=== PATIENT | female | born 2000 | race Caucasian/White ===

== ENCOUNTER 2023-03-27 12:16 | Outpatient (OUT) | payer OTHER, SELFPAY ==
[2023-03-27 13:30] LABS: HCG Quantitative 110 mIU/mL
== END 2023-03-27 12:17 | disposition home or self-care (01) ==
LOC: LAB 12:19
PROVIDERS: Visit Provider Obstetrics & Gynecology
DX: N92.5 Other specified irregular menstruation (principal)
CPT/HCPCS: 36415; 84702

== ENCOUNTER 2023-04-10 17:48 | Emergency (ER) | payer OTHER, SELFPAY ==
[2023-04-10 17:53] VITALS: BP 124/74; PULSE 110; RESP 16; TEMP 36.8; O2SAT 98; BMI 21.6
--- NOTE | 2023-04-10 18:02 | PC.NURSE ---
First pills taken are called Mifepristone and the second pills are called Misoprostol. Pt states she was told there would be alot of bleeding but states she hasn't had as much bleeding as expected. Pt also called the clinic nurse as instructed about the amount of bleeding and was told that bc she was only 5 wks preg there may not be tons of bleeding but she should go to the ER to be checked out.
--- NOTE | 2023-04-10 18:11 | US_ITS ---
The [address] [address] Patient Name: LEONORA MARCUM MRN: [id number] date: 2000 Sex: F Assigned Patient Location: ER Current Patient Location: ER Accession/Order Number: [id number] Exam Date: 04/10/2023 18:12 Report Date: 04/10/2023 19:30 At the request of: KAMI COLIN Procedure: US OB transvaginal US OB transvaginal HISTORY: retained fetus after pill COMPARISONS: None TECHNIQUE: Real-time sonography of the pelvis was performed. FINDINGS: UTERUS: Normal in size and echogenicity. The uterus measures 7.2 x 4.4 cm. MYOMETRIUM:Unremarkable. ENDOMETRIUM: There is no evidence of retained products of conception within the endometrium. The endometrial canal is slightly heterogeneous. The endometrium measures9 mm which is within normal range. RIGHT OVARY: Within normal limits without suspicious masses or cyst. There is normal blood flow. The right ovary measures 2.1 x 1.7 x 1.4 cm. LEFT OVARY: Within normal limits without suspicious masses or cyst. There is normal blood flow. The left ovary measures 2.1 x 2.0 x 2.1 cm. OTHER:There is no significant free fluid in the pelvis. There is no gestational sac, pole or heartbeat. US/US OB transvaginal IMPRESSION: No gestational sac, pole or heartbeat. While the endometrium is slightly heterogeneous, it is not abnormally thickened, and there is no evidence of retained products of conception. Electronically authenticated by: PHILLIP FLOWER Date: 04/10/2023 19:30
--- NOTE | 2023-04-10 18:11 | ECG_ITS ---
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
--- NOTE | 2023-04-10 18:14 | ED_ITS ---
HPI - General Adult General Chief complaint: Urogenital-Female Stated complaint: POST OP COMPLICATIONS Time Seen by Provider: 04/10/23 17:51 Source: patient Mode of arrival: walk-in History of Present Illness HPI narrative: patient is a 22-year-old female who presents to the emergency department for variety of complaints. Patient states she has a five week , she was given an pill from [facility] locally. She took the two pills and states that her paperwork says that she should have heavy bleeding. She has not had any significant bleeding. She states she is concerned something is wrong. She has been feeling anxious and she is tearful at initial interview. She further complains of head pressure, chest pressure, epigastric abdominal pain, nausea, low back pain, lightheadedness. No other medications taken prior to arrival. She has an appointment tomorrow morning with her CORRECTIVE THERAPIST became to the emergency department because she thought that he may be present in the hospital. Related Data Previous Rx's Medication Instructions Recorded ondansetron 4 mg disintegrating 4 mg PO Q6H PRN nausea and 04/10/23 tablet vomiting #12 tabs Allergies Allergy/AdvReac Type Severity Reaction Status Date / Time Penicillins Allergy Severe Verified 04/10/23 17:52 Review of Systems ROS Constitutional Denies: fever or chills Ears, nose, mouth, and throat Denies: throat pain Cardiovascular Reports: chest pain; Denies: palpitations Respiratory Reports: shortness of breath; Denies: cough Gastrointestinal Reports: abdominal pain and nausea; Denies: vomiting Genitourinary Denies: painful urination Musculoskeletal Reports: back pain; Denies: neck pain Integumentary/Breast Denies: rash Neurological Reports: headache Psychiatric Reports: anxiety Exam Narrative Exam Narrative: Gen.: Awake, alert, in no distress, tearful Head: Normocephalic, atraumatic ENT: Moist mucous membranes Respiratory: No respiratory distress, lungs clear bilaterally Cardio: Regular rate and rhythm Gastrointestinal: Abdomen is soft, nondistended and nontender to palpation Extremities: Moves extremities equally, no injuries noted Psych: Normal mood and affect Neuro: No focal neuro deficit Skin: Warm, dry, intact Constitutional Vital Signs, click to edit/add: Last Vital Signs Temp 98.2 F 04/10/23 17:53 Pulse 110 H 04/10/23 17:53 Resp 16 04/10/23 17:53 BP 124/74 H 04/10/23 17:53 Pulse Ox 98 04/10/23 17:53 O2 Del Method Room Air 04/10/23 17:53 Course Vital Signs Vital signs: Vital Signs Temperature 98.2 F 04/10/23 17:53 Pulse Rate 110 H 04/10/23 17:53 Respiratory Rate 16 04/10/23 17:53 Blood Pressure 124/74 H 04/10/23 17:53 Pulse Oximetry 98 04/10/23 17:53 Oxygen Delivery Method Room Air 04/10/23 17:53 Temperature 98.2 F 04/10/23 17:53 Pulse Rate 110 H 04/10/23 17:53 Respiratory Rate 16 04/10/23 17:53 Blood Pressure 124/74 H 04/10/23 17:53 Pulse Oximetry 98 04/10/23 17:53 Oxygen Delivery Method Room Air 04/10/23 17:53 Medical Decision Making MDM Narrative Medical decision making narrative: because of the patient's multitude of complaints, an EKG, lab studies and urine specimen were ordered with ultrasound of the pelvis. Labs are unremarkable, patient treated with Zofran in the Emergency Room. EKG, troponin are normal and ultrasound of the pelvis shows no evidence of retained products of conception or retained tissue. patient was given education and reassurance. She is discharged home to follow-up with CORRECTIVE THERAPIST tomorrow as scheduled and return to the Emergency Room if symptoms change or worsen. Zofran given for home. Medical Records Medical records reviewed: Yes I reviewed the patient's medical records Lab Data Lab results reviewed: Yes I reviewed the patient's lab results Labs: Lab Results 04/10/23 04/10/23 Range/Units 18:20 18:25 WBC 7.8 (4.0-11.0) 10^3/uL RBC 4.48 (4.20-5.40) 10^6/uL Hgb 12.6 (12.0-16.0) g/dL Hct 37.2 (36.0-48.0) % MCV 83.0 (81.0-99.0) fL MCH 28.1 (26.7-34.0) pg MCHC 33.9 (29.9-35.2) g/dL RDW 13.2 (11.0-15.0) % Plt Count 229 (150-450) 10^3/uL MPV 10.1 (9.5-13.5) fL Neut % (Auto) 69.0 (43.0-75.0) % Lymph % (Auto) 22.1 (20.5-60.0) % [place] % (Auto) 7.9 (1.7-12.0) % Eos % (Auto) 0.4 L (0.9-7.0) % Baso % (Auto) 0.3 (0.2-2.0) % Neut # (Auto) 5.4 (1.4-6.5) 10^3/uL Lymph # (Auto) 1.7 (1.2-3.8) 10^3/uL [place] # (Auto) 0.6 (0.3-0.8) 10^3/uL Eos # (Auto) 0.0 (0.0-0.7) 10^3/uL Baso # (Auto) 0.0 (0.0-0.1) 10^3/uL Abs Immat Gran (auto) 0.02 (0.00-0.03) 10^3/uL Imm/Tot Granulo (auto) 0.3 (0.0-0.5) % Sodium 139 (136-145) mmol/L Potassium 3.4 L (3.5-5.1) mmol/L Chloride 105 (98-107) mmol/L Carbon Dioxide 23.4 (21.0-32.0) mmol/L Anion Gap 14.0 BUN 6.0 L (7.0-18.0) mg/dL Creatinine 0.63 (0.55-1.02) mg/dL Est GFR ( Amer) >60 (>=60) Est GFR (Non-Af Amer) >60 (>=60) BUN/Creatinine Ratio 9.5 Glucose 94 (74-106) mg/dL Calcium 8.6 (8.5-10.1) mg/dL Total Bilirubin 0.5 (0.2-1.0) mg/dL AST 13 L (15-37) U/L ALT 14 (14-59) U/L Alkaline Phosphatase 58 (46-116) U/L Troponin I High Sens <4.0 L (4.0-51.3) pg/mL Total Protein 7.4 (6.4-8.2) g/dL Albumin 4.2 (3.4-5.0) g/dL Globulin 3.2 g/dL Albumin/Globulin Ratio 1.3 Lipase 52.0 L (73.0-393.0) U/L Urine Color Yellow (YELLOW) Urine Clarity Clear (CLEAR) Urine pH 6.0 (5.0-9.0) Ur Specific [place] >=1.030 A (1.005-1.025) Urine Protein 100 A (NEG/TRACE) mg/dL Urine Glucose (UA) Negative (NEGATIVE) mg/dL Urine Ketones 15 A (NEGATIVE) mg/dL Urine Occult Blood Moderate A (NEGATIVE) Urine Nitrite Negative (NEGATIVE) Urine Bilirubin Small A (NEGATIVE) Urine Urobilinogen 0.2 (0.2-1.0) EU/dL Ur Leukocyte Esterase Negative (NEGATIVE) Urine RBC 5-10 A (0-2) #/HPF Urine WBC None seen (NONE SEEN) #/HPF Ur Squamous Epith Cells Few A (NONE/RARE) #/LPF Urine Crystals None seen (None Seen) #/HPF Urine Bacteria None seen (NONE SEEN) #/HPF Urine Casts None seen (NONE SEEN) #/LPF Urine Mucus Moderate A (NONE SEEN) Ur Culture Indicated? No Imaging Data US pelvis: Radiologist's impression: Procedure: US OB transvaginal US OB transvaginal HISTORY: retained fetus after pill COMPARISONS: None TECHNIQUE: Real-time sonography of the pelvis was performed. FINDINGS: UTERUS: Normal in size and echogenicity. The uterus measures 7.2 x 4.4 cm. MYOMETRIUM:Unremarkable. ENDOMETRIUM: There is no evidence of retained products of conception within the endometrium. The endometrial canal is slightly heterogeneous. The endometrium measures9 mm which is within normal range. RIGHT OVARY: Within normal limits without suspicious masses or cyst. There is normal blood flow. The right ovary measures 2.1 x 1.7 x 1.4 cm. LEFT OVARY: Within normal limits without suspicious masses or cyst. There is normal blood flow. The left ovary measures 2.1 x 2.0 x 2.1 cm. OTHER:There is no significant free fluid in the pelvis. There is no gestational sac, pole or heartbeat. IMPRESSION: No gestational sac, pole or heartbeat. While the endometrium is slightly heterogeneous, it is not abnormally thickened, and there is no evidence of retained products of conception. Electronically authenticated by: PHILLIP FLOWER Date: 04/10/2023 19:30 ECG Data Attestation: I personally reviewed and interpreted this ECG as follows: (normal sinus rhythm at a rate of eighty-four, occasional PACs, no acute ST elevation. EKG reviewed by attending physician) Discharge Plan Discharge Chief Complaint: Urogenital-Female Clinical Impression: Complete , Nausea Patient Disposition: Home, Self-Care Time of Disposition Decision: 19:47 Condition: Good Prescriptions / Home Meds: New ondansetron 4 mg tablet,disintegrating 4 mg PO Q6H PRN (Reason: nausea and vomiting) Qty: 12 0RF Instructions: Miscarriage (ED), Acute Nausea and Vomiting (ED) Stand Alone Forms: Portal Instructions Referrals: [facility] [Primary Care Provider] - 1 week
[2023-04-10 18:31] LABS: Basophils Percent Auto 0.3 % (0.2-2.0); Eosinophils Percent Auto 0.4 % (0.9-7.0); Hematocrit 37.2 % (36.0-48.0); Hemoglobin 12.6 g/dL (12.0-16.0); Immature Granulocytes Abs Auto 0.02 10^3/uL (0.00-0.03); Immature Granulocytes Pct Auto 0.3 % (0.0-0.5); Lymphocytes Absolute Auto 1.7 10^3/uL (1.2-3.8); Lymphocytes Percent Auto 22.1 % (20.5-60.0); Mean Corpuscular HGB Conc 33.9 g/dL (29.9-35.2); Mean Corpuscular Hemoglobin 28.1 pg (26.7-34.0); Mean Platelet Volume 10.1 fL (9.5-13.5); Monocytes Absolute Auto 0.6 10^3/uL (0.3-0.8); Monocytes Percent Auto 7.9 % (1.7-12.0); Neutrophils Absolute Auto 5.4 10^3/uL (1.4-6.5); Platelet Count 229 10^3/uL (150-450); Red Blood Count 4.48 10^6/uL (4.20-5.40); Red Cell Distribution Width 13.2 % (11.0-15.0); White Blood Count 7.8 10^3/uL (4.0-11.0)
[2023-04-10 18:32] LABS: Bilirubin Urine SMALL (NEGATIVE); Blood Urine MODERATE (NEGATIVE); Clarity Urine CLEAR (CLEAR); Color Urine YELLOW (YELLOW); Glucose Urine UA NEGATIVE (NEGATIVE); Ketones Urine 15 mg/dL (NEGATIVE); Leukocyte Esterase Urine NEGATIVE (NEGATIVE); Nitrite Urine NEGATIVE (NEGATIVE); Protein Urine 100 mg/dL (NEG/TRACE); Specific Gravity Urine >=1.030 (1.005-1.025); Urobilinogen Urine 0.2 EU/dL (0.2-1.0)
[2023-04-10 18:33] LABS: Urine Microscopic Indicated YES
[2023-04-10 18:45] LABS: Bacteria Urine NONE SEEN #/HPF (NONE SEEN); Cast Seen? NONE SEEN #/LPF (NONE SEEN); Crystals Seen? None Seen #/HPF (None Seen); Mucus Urine MODERATE (NONE SEEN); Squamous Epithelial Cell Urine FEW #/LPF (NONE/RARE); Urine Culture Indicated NO; WBC Urine NONE SEEN #/HPF (NONE SEEN)
[2023-04-10 18:57] LABS: Alanine Aminotransferase 14 U/L (14-59); Albumin Globulin Ratio 1.3; Albumin Level 4.2 g/dL (3.4-5.0); Alkaline Phosphatase 58 U/L (46-116); Aspartate Amino Transferase 13 U/L (15-37); BUN Creatinine Ratio 9.5; Bilirubin Total 0.5 mg/dL (0.2-1.0); Calcium 8.6 mg/dL (8.5-10.1); Carbon Dioxide 23.4 mmol/L (21.0-32.0); Chloride 105 mmol/L (98-107); Estimated GFR (African America >60 (>=60); Estimated GFR (Non-African Ame >60 (>=60); Globulin 3.2 g/dL; Glucose 94 mg/dL (74-106); Potassium 3.4 mmol/L (3.5-5.1); Sodium 139 mmol/L (136-145); Total Protein 7.4 g/dL (6.4-8.2); Troponin I High Sensitivity <4.0 pg/mL (4.0-51.3)
== END 2023-04-10 19:57 | disposition home or self-care (01) ==
PROVIDERS: Physician Assistant; Emergency Provider Emergency Medicine
DX: O03.9 Complete or unspecified spontaneous abortion without complication (principal); R11.0 Nausea
CPT/HCPCS: 36415; 76817; 80053; 81003; 81015; 83690; 84484; 85025; 93005; 99285

== ENCOUNTER 2023-04-13 16:32 | Outpatient (OUT) | payer OTHER, SELFPAY ==
[2023-04-13 17:07] LABS: HCG Quantitative 210 mIU/mL
== END 2023-04-13 16:33 | disposition home or self-care (01) ==
PROVIDERS: Visit Provider Obstetrics & Gynecology
DX: Z39.2 Encounter for routine postpartum follow-up (principal)
CPT/HCPCS: 36415; 84702

== ENCOUNTER 2023-04-14 08:53 | Emergency (ER) | payer OTHER, SELFPAY ==
[2023-04-14 09:00] VITALS: BP 112/75; PULSE 106; RESP 16; TEMP 37.2; O2SAT 98; BMI 21.5
--- NOTE | 2023-04-14 09:34 | US_ITS ---
[address] [address] Patient Name: LEONORA MARCUM MRN: [id number] date: 2000 Sex: F Assigned Patient Location: ER Current Patient Location: ER Accession/Order Number: [id number] Exam Date: 04/14/2023 09:35 Report Date: 04/14/2023 10:27 At the request of: SHAYY SUTTON Procedure: US pelvis transvaginal EXAMINATION: US pelvis transvaginal HISTORY: left pelvic pain COMPARISON: Ultrasound OB transvaginal 04/10/2023 TECHNIQUE: Transabdominal and/or transvaginal sonographic examination was performed as indicated by examination type. FINDINGS: UTERUS: Normal size and appearance. Uterus size: 8.7 x 4.4 x 5.4 cm ENDOMETRIUM: Normal homogeneous appearance. Endometrial thickness: 5 mm RIGHT OVARY: Normal size and appearance. Duplex Doppler demonstrates normal waveform and flow; resistive index 0.6. Ovary size: 1.7 x 2.3 x 1.7 cm LEFT OVARY: Contains a 1.6 cm thick-walled cysts suggestive of a corpus lutein cyst. Duplex Doppler demonstrates normal waveform and flow; resistive index 0.5. Ovary size: 2.1 x 3.0 x 2.4 cm CUL-DE-SAC: Unremarkable. No significant free fluid. BLADDER: Unremarkable. OTHER: None. US/US pelvis transvaginal IMPRESSION: 1. Left ovary contains a 3.0 cm cyst. The thickened wall suggestive of a corpus lutein cyst. (Left ovary is better seen on today's study compared to prior study.) 2. Unremarkable uterus, endometrium, right ovary, and adnexa. Electronically authenticated by: HERRERA HUERTA Date: 04/14/2023 10:27
--- NOTE | 2023-04-14 09:37 | ED.GENADUL1 ---
HPI - General Adult General Chief complaint: OB/Uterine Contractions Stated complaint: PRENANCY ISSUES Time Seen by Provider: 04/14/23 09:30 Source: patient Mode of arrival: walk-in Limitations: no limitations History of Present Illness HPI narrative: Patient is a 22-year-old female who is presenting with left-sided pelvic/ovarian pain. Patient had a miscarriage last weekend, patient is a . Patient saw Dr. Soria in the office on Monday and had laboratory done yesterday. Patient's ultrasound showed a complete on Monday. Patient has had ovarian cysts in the past. Patient stated her pain is new today, to the left pelvic side. Patient's had ovarian cysts in the past. Patient is struggling with the complete miscarriage as well, slightly anxious, not suicidal, not homicidal. Patient is very active in discussion, cannot control, I contacted, holding her baby at bedside is sitting up and looks very well and playful. Patient has no headache or neck pain. No chest pain or shortness of breath. Patient has left-sided pelvic pain, no urinary frequency, urgency or burning. No bowel or bladder changes. Patient stated she had darker stool today, small hard balls of stool a few days ago, loose stool yesterday and today. Patient has no other acute complaints. . All systems are negative except as noted/marked. All systems reviewed and otherwise negative. . Nurses note and vital signs reviewed and patient is not hypoxic. General: The patient appears well and in no apparent distress. Patient is resting comfortably on cart. Patient is not toxic, lethargic, or listless Skin: Warm, dry, no pallor noted. There is no rash noted. No petechiae, purpura. Head: Normocephalic, atraumatic Eye: Normal conjunctiva, no drainage, EOMI. PERRL Ears, Nose, Mouth, and Throat: oral mucosa is moist. Nares patent. Cardiovascular: Regular Rate and Rhythm, no murmur, gallop, rub Respiratory: Patient is in no distress, no accessory muscle use, lungs are clear to auscultation, no wheezing, rales or rhonchi Back: non-tender, no CVA tenderness bilaterally to percussion. No CT LS midline pain GI: soft, Bowel sounds ?4, mild to moderate left suprapubic tenderness to palpation, some lower left ovary, no guarding, rebound, rigidity. No flank pain bilateral. No rash. Otherwise, no tenderness to palpation, no masses appreciated. No rebound, guarding, or rigidity noted. No flank pain bilateral, No distention Musculoskeletal: Patient has full range of motion of all of the extremities, no motor, sensory, or focal neurological deficits Neurological: A&O x3, normal speech Psychiatric: Cooperative Related Data Previous Rx's Medication Instructions Recorded ondansetron 4 mg disintegrating 4 mg PO Q6H PRN nausea and 04/10/23 tablet vomiting #12 tabs Allergies Allergy/AdvReac Type Severity Reaction Status Date / Time Penicillins Allergy Severe Verified 04/10/23 17:52 PFSH PFSH Social History Smoking status: Never smoker Exam Constitutional Vital Signs, click to edit/add: Last Vital Signs Temp 98.9 F 04/14/23 09:00 Pulse 59 L 04/14/23 11:11 Resp 16 04/14/23 11:11 BP 103/63 04/14/23 11:11 Pulse Ox 99 04/14/23 11:11 O2 Del Method Room Air 04/14/23 09:00 Course Vital Signs Vital signs: Vital Signs Temperature 98.9 F 04/14/23 09:00 Pulse Rate 106 H 04/14/23 09:00 Respiratory Rate 16 04/14/23 09:00 Blood Pressure 112/75 04/14/23 09:00 Pulse Oximetry 98 04/14/23 09:00 Oxygen Delivery Method Room Air 04/14/23 09:00 Temperature 98.9 F 04/14/23 09:00 Pulse Rate 59 L 04/14/23 11:11 Respiratory Rate 16 04/14/23 11:11 Blood Pressure 103/63 04/14/23 11:11 Pulse Oximetry 99 04/14/23 11:11 Oxygen Delivery Method Room Air 04/14/23 09:00 Medical Decision Making [facility] Narrative Medical decision making narrative: EXAMINATION: US pelvis transvaginal HISTORY: left pelvic pain COMPARISON: Ultrasound OB transvaginal 04/10/2023 TECHNIQUE: Transabdominal and/or transvaginal sonographic examination was performed as indicated by examination type. FINDINGS: UTERUS: Normal size and appearance. Uterus size: 8.7 x 4.4 x 5.4 cm ENDOMETRIUM: Normal homogeneous appearance. Endometrial thickness: 5 mm RIGHT OVARY: Normal size and appearance. Duplex Doppler demonstrates normal waveform and flow; resistive index 0.6. Ovary size: 1.7 x 2.3 x 1.7 cm LEFT OVARY: Contains a 1.6 cm thick-walled cysts suggestive of a corpus lutein cyst. Duplex Doppler demonstrates normal waveform and flow; resistive index 0.5. Ovary size: 2.1 x 3.0 x 2.4 cm CUL-DE-SAC: Unremarkable. No significant free fluid. BLADDER: Unremarkable. OTHER: None. IMPRESSION: 1. Left ovary contains a 3.0 cm cyst. The thickened wall suggestive of a corpus lutein cyst. (Left ovary is better seen on today's study compared to prior Patient's urine shows more ketones, patient increase fluids today and tomorrow. No acute abnormalities and ultrasound concerning uterus, no ovarian torsion. Patient will continue to follow up with Dr. Soria as scheduled. Mother bedside. Mother has been tying patient to drink more liquids as well. No questions at discharge. Lab Data Lab results reviewed: Yes I reviewed the patient's lab results Labs: Lab Results 04/14/23 Range/Units 10:45 Urine Color Yellow (YELLOW) Urine Clarity Clear (CLEAR) Urine pH 6.5 (5.0-9.0) Ur Specific [place] 1.015 (1.005-1.025) Urine Protein Negative (NEG/TRACE) mg/dL Urine Glucose (UA) Negative (NEGATIVE) mg/dL Urine Ketones >=80 A (NEGATIVE) mg/dL Urine Occult Blood Moderate A (NEGATIVE) Urine Nitrite Negative (NEGATIVE) Urine Bilirubin Negative (NEGATIVE) Urine Urobilinogen 2.0 A (0.2-1.0) EU/dL Ur Leukocyte Esterase Negative (NEGATIVE) Urine RBC 2-5 A (0-2) #/HPF Urine WBC None seen (NONE SEEN) #/HPF Ur Squamous Epith Cells Moderate A (NONE/RARE) #/LPF Urine Crystals None seen (None Seen) #/HPF Urine Bacteria Trace A (NONE SEEN) #/HPF Urine Casts None seen (NONE SEEN) #/LPF Urine Mucus Small A (NONE SEEN) Ketones have increased today from several days ago, patient had 15 ketones. Discharge Plan Discharge Chief Complaint: OB/Uterine Contractions Clinical Impression: Pelvic pain, Left ovarian cyst, Dehydration Patient Disposition: Home, Self-Care Condition: Good Prescriptions / Home Meds: No Action ondansetron 4 mg tablet,disintegrating 4 mg PO Q6H PRN (Reason: nausea and vomiting) Qty: 12 0RF Instructions: Ovarian Cyst (ED), Dehydration (ED), Pelvic Pain (ED) Additional Instructions: Increase fluids, drink 1 gallon of water today and tomorrow, follow-up with PCP and Dr. Soria as needed. Use Tylenol as needed for pain Stand Alone Forms: Portal Instructions Referrals: [facility] [Primary Care Provider] - 1 week
[2023-04-14 10:55] LABS: Bilirubin Urine NEGATIVE (NEGATIVE); Blood Urine MODERATE (NEGATIVE); Clarity Urine CLEAR (CLEAR); Color Urine YELLOW (YELLOW); Glucose Urine UA NEGATIVE (NEGATIVE); Ketones Urine >=80 mg/dL (NEGATIVE); Leukocyte Esterase Urine NEGATIVE (NEGATIVE); Nitrite Urine NEGATIVE (NEGATIVE); Protein Urine NEGATIVE (NEG/TRACE); Specific Gravity Urine 1.015 (1.005-1.025); pH Urine 6.5 (5.0-9.0)
[2023-04-14 11:03] LABS: Bacteria Urine TRACE #/HPF (NONE SEEN); Mucus Urine SMALL (NONE SEEN); Squamous Epithelial Cell Urine MODERATE #/LPF (NONE/RARE); WBC Urine NONE SEEN #/HPF (NONE SEEN)
[2023-04-14 11:04] LABS: Cast Seen? NONE SEEN #/LPF (NONE SEEN); Crystals Seen? None Seen #/HPF (None Seen)
[2023-04-14 11:11] VITALS: BP 103/63; PULSE 59; RESP 16; O2SAT 99
== END 2023-04-14 11:34 | disposition home or self-care (01) ==
PROVIDERS: Emergency Provider Emergency Medicine
DX: E86.0 Dehydration (principal); R10.2 Pelvic and perineal pain; N83.202 Unspecified ovarian cyst, left side
CPT/HCPCS: 76830; 81001; 99284

== ENCOUNTER 2023-04-20 13:26 | Outpatient (OUT) | payer OTHER, SELFPAY ==
[2023-04-20 14:15] LABS: HCG Quantitative 17 mIU/mL
== END 2023-04-20 13:27 | disposition home or self-care (01) ==
LOC: LAB 13:28
PROVIDERS: Visit Provider Obstetrics & Gynecology
DX: Z39.2 Encounter for routine postpartum follow-up (principal)
CPT/HCPCS: 36415; 84702

== ENCOUNTER 2023-04-28 11:28 | Outpatient (RCR) | payer OTHER, SELFPAY ==
[2023-04-28 12:21] LABS: HCG Quantitative 2 mIU/mL
== END 2023-05-18 17:49 | disposition home or self-care (01) ==
LOC: LAB 11:28
PROVIDERS: Visit Provider Obstetrics & Gynecology
DX: Z39.2 Encounter for routine postpartum follow-up (principal)
CPT/HCPCS: 36415; 84702

== ENCOUNTER 2023-05-25 09:46 | Outpatient (OUT) | payer OTHER, SELFPAY ==
[2023-05-25 10:28] LABS: Basophils Percent Auto 0.4 % (0.2-2.0); Eosinophils Percent Auto 0.8 % (0.9-7.0); Hemoglobin 12.5 g/dL (12.0-16.0); Immature Granulocytes Abs Auto 0.02 10^3/uL (0.00-0.03); Immature Granulocytes Pct Auto 0.4 % (0.0-0.5); Lymphocytes Absolute Auto 1.1 10^3/uL (1.2-3.8); Lymphocytes Percent Auto 22.2 % (20.5-60.0); Mean Corpuscular HGB Conc 33.8 g/dL (29.9-35.2); Mean Corpuscular Hemoglobin 28.9 pg (26.7-34.0); Mean Corpuscular Volume 85.6 fL (81.0-99.0); Mean Platelet Volume 10.2 fL (9.5-13.5); Monocytes Absolute Auto 0.4 10^3/uL (0.3-0.8); Monocytes Percent Auto 7.3 % (1.7-12.0); Neutrophils Absolute Auto 3.5 10^3/uL (1.4-6.5); Neutrophils Percent Auto 68.9 % (43.0-75.0); Platelet Count 179 10^3/uL (150-450); Red Blood Count 4.32 10^6/uL (4.20-5.40); White Blood Count 5.1 10^3/uL (4.0-11.0)
[2023-05-25 12:01] LABS: Thyroid Stimulating Hormone 1.883 uIU/mL (0.358-3.740)
[2023-05-25 12:49] LABS: Estimated Average Glucose 91 mg/dL; Glycohemoglobin A1C 4.8 % (4.5-6.2)
== END 2023-05-25 09:47 | disposition home or self-care (01) ==
PROVIDERS: Obstetrics & Gynecology; Visit Provider Physician Assistant
DX: R63.4 Abnormal weight loss (principal)
CPT/HCPCS: 36415; 83036; 84443; 85025

== ENCOUNTER 2023-05-25 09:50 | Outpatient (RCR) | payer OTHER, SELFPAY ==
[2023-05-25 11:56] LABS: HCG Quantitative <1 mIU/mL
== END 2023-06-19 08:32 | disposition home or self-care (01) ==
LOC: LAB 09:50
PROVIDERS: Visit Provider Obstetrics & Gynecology
DX: Z39.2 Encounter for routine postpartum follow-up (principal)
CPT/HCPCS: 36415; 84702

== ENCOUNTER 2023-05-25 10:23 | Emergency (ER) | payer OTHER, SELFPAY ==
[2023-05-25 10:35] VITALS: BP 133/82; PULSE 71; RESP 16; TEMP 36.8; O2SAT 97; BMI 20.8
--- NOTE | 2023-05-25 10:59 | CT_ITS ---
The [address] [address] Patient Name: LEONORA MARCUM MRN: [id number] date: 2000 Sex: F Assigned Patient Location: ER Current Patient Location: ER Accession/Order Number: [id number] Exam Date: 05/25/2023 11:42 Report Date: 05/25/2023 12:21 At the request of: PEARL NICKERSON Procedure: CT abdomen pelvis w con EXAM: CT abdomen pelvis w con HISTORY: abd pain COMPARISON: None. TECHNIQUE: Following intravenous administration of 100 mL of Omnipaque 300, axial soft tissue windows of the abdomen and pelvis were performed with coronal and sagittal reformats. CT dose reduction technique was used including Automated Exposure Control. Findings: ABDOMEN: The visualized portions of the liver are unremarkable. The gallbladder, spleen, pancreas, and adrenal glands are unremarkable. Unremarkable left kidney. Mild right-sided collecting system and ureteral dilatation to the level the distal ureter. No evidence of obstructing stone. There are subtle regions of urothelial enhancement. Evaluation of the bowel is limited given the absence of oral contrast. Right hemicolonic wall thickening. No bowel obstruction. The appendix is nondilated. The aorta is normal caliber. No enlarged abdominal lymph nodes or free abdominal fluid. Small fat-containing umbilicus hernia. Pelvis: Unremarkable bladder. The uterus is present and unremarkable within the limits of CT. No enlarged pelvic lymph nodes. Small amount of free pelvic fluid. No aggressive sclerotic or lytic osseous lesions. CT/CT abdomen pelvis w con IMPRESSION: 1. Mild right-sided collecting system and proximal to mid ureteral dilatation with subtle urothelial enhancement. No evidence of obstructing ureteral stone. Findings may relate to recently passed stone, obstruction or reflux. 2. Small amount of free fluid within the pelvis. 3. Left hemicolonic wall thickening may relate to lack of distention given the absence of oral contrast. Colitis is felt to be less likely but possible. Electronically authenticated by: MAVERICK HIGGINS Date: 05/25/2023 12:21
[2023-05-25 12:02] LABS: Basophils Percent Auto 0.3 % (0.2-2.0); Eosinophils Percent Auto 0.7 % (0.9-7.0); Hematocrit 37.4 % (36.0-48.0); Hemoglobin 12.4 g/dL (12.0-16.0); Immature Granulocytes Abs Auto 0.01 10^3/uL (0.00-0.03); Immature Granulocytes Pct Auto 0.2 % (0.0-0.5); Lymphocytes Absolute Auto 1.1 10^3/uL (1.2-3.8); Lymphocytes Percent Auto 18.2 % (20.5-60.0); Mean Corpuscular HGB Conc 33.2 g/dL (29.9-35.2); Mean Corpuscular Hemoglobin 28.6 pg (26.7-34.0); Mean Corpuscular Volume 86.2 fL (81.0-99.0); Mean Platelet Volume 10.6 fL (9.5-13.5); Monocytes Absolute Auto 0.5 10^3/uL (0.3-0.8); Monocytes Percent Auto 7.8 % (1.7-12.0); Neutrophils Absolute Auto 4.5 10^3/uL (1.4-6.5); Neutrophils Percent Auto 72.8 % (43.0-75.0); Platelet Count 187 10^3/uL (150-450); Red Blood Count 4.34 10^6/uL (4.20-5.40); Red Cell Distribution Width 13.1 % (11.0-15.0); White Blood Count 6.1 10^3/uL (4.0-11.0)
[2023-05-25 12:28] LABS: Alanine Aminotransferase 14 U/L (14-59); Albumin Globulin Ratio 1.1; Albumin Level 3.8 g/dL (3.4-5.0); Alkaline Phosphatase 57 U/L (46-116); Aspartate Amino Transferase 12 U/L (15-37); BUN Creatinine Ratio 13.2; Bilirubin Total 0.5 mg/dL (0.2-1.0); Calcium 8.7 mg/dL (8.5-10.1); Carbon Dioxide 25.5 mmol/L (21.0-32.0); Chloride 105 mmol/L (98-107); Estimated GFR (African America >60 (>=60); Estimated GFR (Non-African Ame >60 (>=60); Globulin 3.5 g/dL; Glucose 90 mg/dL (74-106); Potassium 3.5 mmol/L (3.5-5.1); Sodium 139 mmol/L (136-145); Total Protein 7.3 g/dL (6.4-8.2)
[2023-05-25 13:19] LABS: Bilirubin Urine NEGATIVE (NEGATIVE); Blood Urine NEGATIVE (NEGATIVE); Clarity Urine CLEAR (CLEAR); Color Urine LT. YELLOW (YELLOW); Glucose Urine UA NEGATIVE (NEGATIVE); Ketones Urine 15 mg/dL (NEGATIVE); Leukocyte Esterase Urine NEGATIVE (NEGATIVE); Nitrite Urine NEGATIVE (NEGATIVE); Protein Urine NEGATIVE (NEG/TRACE); Urobilinogen Urine 0.2 EU/dL (0.2-1.0); pH Urine 8.5 (5.0-9.0)
[2023-05-25 13:22] LABS: Urine Microscopic Indicated NO
--- NOTE | 2023-05-25 13:32 | ED.ABDPAIN1 ---
HPI - Abdominal Pain General Chief Complaint: Abdominal Pain Stated Complaint: ADOMINAL PAIN Time Seen by Provider: 05/25/23 10:58 Source: patient Mode of arrival: walk-in Limitations: no limitations History of Present Illness HPI narrative: Presents to emergency department complaining of right lower quadrant pain. Patient states the pain started 2 days ago. She denies any nausea, vomiting. She saw her INTAKE MAN this week for week again, but she also had a miscarriage 2 months ago and he ordered blood work as an outpatient. The patient came in to get the blood work done and decided to check herself out. She denies any hematuria, dysuria. She states she has a history of ovarian cysts but this feels slightly different. Patient denies any fever, chills, or cough. She denies any chest pain, shortness of breath. Denies any vaginal bleeding, discharge. She denies any trauma. She has not taking anything at home for pain. Related Data Previous Rx's Medication Instructions Recorded ondansetron 4 mg disintegrating 4 mg PO Q6H PRN nausea and 04/10/23 tablet vomiting #12 tabs Allergies Allergy/AdvReac Type Severity Reaction Status Date / Time Penicillins Allergy Severe Verified 05/25/23 10:34 Review of Systems ROS Status of ROS 10 or more systems reviewed and unremarkable except as noted in history and below [facility] Social History Smoking status: Never smoker Exam Narrative Exam Narrative: Nurses notes and vital signs reviewed and patient is not hypoxic. General: Nontoxic, Well-appearing and in no apparent distress. Skin: Warm, dry, no pallor noted. No Rash Head: Normocephalic, atraumatic. Neck: Supple, non-tender. Eye: Pupils are equal, round and EOMI. No scleral icterus. Ears, Nose, Mouth, and Throat: TM clear, no posterior oropharynx erythema or nasal mucosal hypertrophy, uvula is mid-line Oral mucosa is moist Cardiovascular: Regular Rate and Rhythm without murmur, gallop or rub. Respiratory: No accessory muscle use or respiratory distress. Lungs are clear to auscultation, no wheezing, rales or rhonchi Chest Wall: no tenderness Back: No midline thoracic or lumbar vertebral tenderness. No CVA tenderness Musculoskeletal: normal ROM, no calf or popliteal tenderness, no lower extremity edema/swelling GI: Abdomen is soft, non-distended. Normal bowel sounds. No masses appreciated. mild right lower quadrant tenderness to palpation. No rebound, guarding, or rigidity noted. Neurological: A&O x4. No cranial nerve dysfunction observed. No truncal ataxia. Moves all extremities. Sensation intact. Psychiatric: Cooperative and interactive. Normal mood and affect. Constitutional Vital Signs, click to edit/add: Last Vital Signs Temp 98.3 F 05/25/23 10:35 Pulse 71 05/25/23 10:35 Resp 16 05/25/23 10:35 BP 133/82 05/25/23 10:35 Pulse Ox 97 05/25/23 10:35 O2 Del Method Room Air 05/25/23 10:35 Course Vital Signs Vital signs: Vital Signs Temperature 98.3 F 05/25/23 10:35 Pulse Rate 71 05/25/23 10:35 Respiratory Rate 16 05/25/23 10:35 Blood Pressure 133/82 05/25/23 10:35 Pulse Oximetry 97 05/25/23 10:35 Oxygen Delivery Method Room Air 05/25/23 10:35 Temperature 98.3 F 05/25/23 10:35 Pulse Rate 71 05/25/23 10:35 Respiratory Rate 16 05/25/23 10:35 Blood Pressure 133/82 05/25/23 10:35 Pulse Oximetry 97 05/25/23 10:35 Oxygen Delivery Method Room Air 05/25/23 10:35 MDM - Abdominal Pain MDM Narrative Medical decision making narrative: Patient's blood work is unremarkable. Patient had a CT scan abdomen and pelvis done which shows mild hydroureter on the right. Patient's urinalysis does not have any signs of infection or blood. Discussed the findings with the patient. Advised could be secondary to passing a kidney stone or to reflux. She will follow up with urology regarding the findings. The patient will also follow-up with Dr. Soria. Patient did not want to have any nausea medication here. She is nontoxic, except for outpatient follow-up and treatment. At this time the patient is without objective evidence of an acute process requiring hospitalization or inpatient management. The patient has remained hemodynamically stable. No additional indication for emergent studies at this time. I answered all questions. Discussed discharge instructions including standard anticipatory guidance and what should prompt a return to the emergency department, including if they get worse are not getting better or develops any new or concerning symptoms. I've given them specific time frame in which to follow-up, and who to follow-up with. The patient demonstrates understanding. Patient is nontoxic and stable for discharge with outpatient follow-up. This note was created with the assistance of a speech recognition program. Although the intention is to generate documents that actually reflects the content of the visit, no guarantees can be provided that every mistake has been identified and corrected by editing. Differential Diagnosis Differential diagnosis: Likely abdominal pain, acute appendicitis and calculus of kidney Lab Data Attestation: I reviewed the patient's lab results. Labs: Lab Results 05/25/23 05/25/23 Range/Units 11:33 13:11 WBC 6.1 (4.0-11.0) 10^3/uL RBC 4.34 (4.20-5.40) 10^6/uL Hgb 12.4 (12.0-16.0) g/dL Hct 37.4 (36.0-48.0) % MCV 86.2 (81.0-99.0) fL MCH 28.6 (26.7-34.0) pg MCHC 33.2 (29.9-35.2) g/dL RDW 13.1 (11.0-15.0) % Plt Count 187 (150-450) 10^3/uL MPV 10.6 (9.5-13.5) fL Neut % (Auto) 72.8 (43.0-75.0) % Lymph % (Auto) 18.2 L (20.5-60.0) % [place] % (Auto) 7.8 (1.7-12.0) % Eos % (Auto) 0.7 L (0.9-7.0) % Baso % (Auto) 0.3 (0.2-2.0) % Neut # (Auto) 4.5 (1.4-6.5) 10^3/uL Lymph # (Auto) 1.1 L (1.2-3.8) 10^3/uL [place] # (Auto) 0.5 (0.3-0.8) 10^3/uL Eos # (Auto) 0.0 (0.0-0.7) 10^3/uL Baso # (Auto) 0.0 (0.0-0.1) 10^3/uL Abs Immat Gran (auto) 0.01 (0.00-0.03) 10^3/uL Imm/Tot Granulo (auto) 0.2 (0.0-0.5) % Sodium 139 (136-145) mmol/L Potassium 3.5 (3.5-5.1) mmol/L Chloride 105 (98-107) mmol/L Carbon Dioxide 25.5 (21.0-32.0) mmol/L Anion Gap 12.0 BUN 7.0 (7.0-18.0) mg/dL Creatinine 0.53 L (0.55-1.02) mg/dL Est GFR ( Amer) >60 (>=60) Est GFR (Non-Af Amer) >60 (>=60) BUN/Creatinine Ratio 13.2 Glucose 90 (74-106) mg/dL Calcium 8.7 (8.5-10.1) mg/dL Total Bilirubin 0.5 (0.2-1.0) mg/dL AST 12 L (15-37) U/L ALT 14 (14-59) U/L Alkaline Phosphatase 57 (46-116) U/L Total Protein 7.3 (6.4-8.2) g/dL Albumin 3.8 (3.4-5.0) g/dL Globulin 3.5 g/dL Albumin/Globulin Ratio 1.1 Lipase 58.0 L (73.0-393.0) U/L Urine Color Lt. yellow (YELLOW) Urine Clarity Clear (CLEAR) Urine pH 8.5 (5.0-9.0) Ur Specific [place] 1.010 (1.005-1.025) Urine Protein Negative (NEG/TRACE) mg/dL Urine Glucose (UA) Negative (NEGATIVE) mg/dL Urine Ketones 15 A (NEGATIVE) mg/dL Urine Occult Blood Negative (NEGATIVE) Urine Nitrite Negative (NEGATIVE) Urine Bilirubin Negative (NEGATIVE) Urine Urobilinogen 0.2 (0.2-1.0) EU/dL Ur Leukocyte Esterase Negative (NEGATIVE) Discharge Plan Discharge Chief Complaint: Abdominal Pain Clinical Impression: Abdominal pain, Hydroureter on right Patient Disposition: Home, Self-Care Time of Disposition Decision: 13:30 Condition: Good Mode of Transportation: Private Vehicle Prescriptions / Home Meds: No Action ondansetron 4 mg tablet,disintegrating 4 mg PO Q6H PRN (Reason: nausea and vomiting) Qty: 12 0RF Instructions: Abdominal Pain (ED) Stand Alone Forms: Portal Instructions Referrals: Kapil Soria DO [Physician] - 1 week Danie Booth MD [Physician] - 1 week
== END 2023-05-25 13:43 | disposition home or self-care (01) ==
PROVIDERS: Emergency Provider Emergency Medicine
DX: Z39.2 Encounter for routine postpartum follow-up (principal); R63.4 Abnormal weight loss; R10.9 Unspecified abdominal pain; N13.4 Hydroureter
CPT/HCPCS: 36415; 74177; 80053; 81003; 83036; 83690; 84443; 84702; 85025; 99285; Q9967

== ENCOUNTER 2023-05-26 13:55 | Emergency (ER) | payer OTHER, SELFPAY ==
[2023-05-26 13:59] VITALS: BP 107/70; PULSE 106; RESP 18; TEMP 36.6; O2SAT 99
[2023-05-26 14:43] LABS: Bilirubin Urine SMALL (NEGATIVE); Blood Urine NEGATIVE (NEGATIVE); Clarity Urine CLEAR (CLEAR); Color Urine DK. YELLOW (YELLOW); Glucose Urine UA NEGATIVE (NEGATIVE); Ketones Urine 40 mg/dL (NEGATIVE); Leukocyte Esterase Urine NEGATIVE (NEGATIVE); Nitrite Urine NEGATIVE (NEGATIVE); Protein Urine 100 mg/dL (NEG/TRACE); Specific Gravity Urine >=1.030 (1.005-1.025); pH Urine 5.5 (5.0-9.0)
[2023-05-26 14:47] LABS: Urine Microscopic Indicated YES
[2023-05-26 14:59] LABS: Bacteria Urine NONE SEEN #/HPF (NONE SEEN); Mucus Urine LARGE (NONE SEEN); RBC Urine NONE SEEN #/HPF (0-2); Squamous Epithelial Cell Urine MANY #/LPF (NONE/RARE)
[2023-05-26 15:01] LABS: Urine Culture Indicated NO
--- NOTE | 2023-05-26 19:09 | ED.GENADUL1 ---
Documented by User: Gayatri Ba 05/26/23 19:12 HPI - General Adult General Chief complaint: Urogenital-Female Stated complaint: KIDNEY STONES/ABNORMAL DISCHARGE/PAIN Time Seen by Provider: 05/26/23 14:13 Source: patient Mode of arrival: walk-in Limitations: no limitations History of Present Illness HPI narrative: 22-year-old female presents here with chief complaint of possible urinary tract infection and vaginal discharge. She is alert or no acute distress. She states that she has some abdominal burning. She is otherwise healthy no acute distress. She is not currently . Related Data Previous Rx's Medication Instructions Recorded ondansetron 4 mg disintegrating 4 mg PO Q6H PRN nausea and 04/10/23 tablet vomiting #12 tabs cephalexin 500 mg capsule 500 mg PO BID 7 days #14 caps 05/26/23 Allergies Allergy/AdvReac Type Severity Reaction Status Date / Time Penicillins Allergy Severe Verified 05/25/23 10:34 Review of Systems ROS Narrative All Systems are negative except as noted/marked.All systems reviewed and otherwise negative PFSH PFSH Social History Smoking status: Current every day smoker Exam Narrative Exam Narrative: Nurses note and vital signs reviewed and patient is not hypoxic. General: The patient appears well and in no apparent distress. Patient is resting comfortably on cart. Skin: Warm, dry, no pallor noted. There is no rash noted. Head: Normocephalic, atraumatic Back: non-tender, no CVA tenderness bilaterally to percussion. GI: exam declinedNormal bowel sounds, no tenderness to palpation, no masses appreciated. No rebound, guarding, or rigidity noted. Musculoskeletal: The patient has no evidence of calf tenderness, no pitting edema, symmetrical pulses noted bilaterally Neurological: A&O x4, normal speech Psychiatric: Cooperative Constitutional Vital Signs, click to edit/add: Last Vital Signs Temp 97.8 F 05/26/23 13:59 Pulse 106 H 05/26/23 13:59 Resp 18 05/26/23 13:59 BP 107/70 05/26/23 13:59 Pulse Ox 99 05/26/23 13:59 O2 Del Method Room Air 05/26/23 13:59 Course Vital Signs Vital signs: Vital Signs Temperature 97.8 F 05/26/23 13:59 Pulse Rate 106 H 05/26/23 13:59 Respiratory Rate 18 05/26/23 13:59 Blood Pressure 107/70 05/26/23 13:59 Pulse Oximetry 99 05/26/23 13:59 Oxygen Delivery Method Room Air 05/26/23 13:59 Temperature 97.8 F 05/26/23 13:59 Pulse Rate 106 H 05/26/23 13:59 Respiratory Rate 18 05/26/23 13:59 Blood Pressure 107/70 05/26/23 13:59 Pulse Oximetry 99 05/26/23 13:59 Oxygen Delivery Method Room Air 05/26/23 13:59 Medical Decision Making MDM Narrative Medical decision making narrative: She presented here with chief complaint of urinary symptoms. She has a scheduled appointment with her [facility]AL[facility] IMPROVEMENT SPECIALIST on Monday. She has decided to wait to have a vaginal exam performed at that appointment. Urinalysis was performed today. I will prophylactically put her on Keflex. She feels she may have urinary tract infections her symptoms bringing start with dysuria.And will follow up as scheduled with her [facility]AL[facility] IMPROVEMENT SPECIAL[facility] office on Monday in two days. Medical Records Medical records reviewed: Yes I reviewed the patient's medical records Lab Data Lab results reviewed: Yes I reviewed the patient's lab results Labs: Lab Results 05/26/23 Range/Units 14:06 Urine Color Dk. yellow (YELLOW) Urine Clarity Clear (CLEAR) Urine pH 5.5 (5.0-9.0) Ur Specific [place] >=1.030 A (1.005-1.025) Urine Protein 100 A (NEG/TRACE) mg/dL Urine Glucose (UA) Negative (NEGATIVE) mg/dL Urine Ketones 40 A (NEGATIVE) mg/dL Urine Occult Blood Negative (NEGATIVE) Urine Nitrite Negative (NEGATIVE) Urine Bilirubin Small A (NEGATIVE) Urine Urobilinogen 1.0 (0.2-1.0) EU/dL Ur Leukocyte Esterase Negative (NEGATIVE) Urine RBC None seen (0-2) #/HPF Urine WBC 2-5 A (NONE SEEN) #/HPF Ur Squamous Epith Cells Many A (NONE/RARE) #/LPF Urine Bacteria None seen (NONE SEEN) #/HPF Urine Mucus Large A (NONE SEEN) Ur Culture Indicated? No Discharge Plan Discharge Chief Complaint: Urogenital-Female Clinical Impression: Urinary tract infection Patient Disposition: Home, Self-Care Time of Disposition Decision: 19:07 Condition: Good Prescriptions / Home Meds: New cephalexin 500 mg capsule 500 mg PO BID 7 Days Qty: 14 0RF No Action ondansetron 4 mg tablet,disintegrating 4 mg PO Q6H PRN (Reason: nausea and vomiting) Qty: 12 0RF Instructions: Urinary Tract Infection in Women (ED) Stand Alone Forms: Portal Instructions Referrals: Gayatri Ba [Emergency Midlevel Provider] - 1 week (as scheduled monday) Physician,Non-Staff, [Primary Care Provider] - 1 week Discharge Date/Time: 05/26/23 19:26 Documented by User: Bridget Curtis MD 05/26/23 21:12 HPI - General Adult General Chief complaint: Urogenital-Female Stated complaint: KIDNEY STONES/ABNORMAL DISCHARGE/PAIN Time Seen by Provider: 05/26/23 14:13 Related Data Previous Rx's Medication Instructions Recorded ondansetron 4 mg disintegrating 4 mg PO Q6H PRN nausea and 04/10/23 tablet vomiting #12 tabs cephalexin 500 mg capsule 500 mg PO BID 7 days #14 caps 05/26/23 Allergies Allergy/AdvReac Type Severity Reaction Status Date / Time Penicillins Allergy Severe Verified 05/25/23 10:34 PFSH PFSH Social History Smoking status: Current every day smoker Exam Constitutional Vital Signs, click to edit/add: Last Vital Signs Temp 97.8 F 05/26/23 13:59 Pulse 106 H 05/26/23 13:59 Resp 18 05/26/23 13:59 BP 107/70 05/26/23 13:59 Pulse Ox 99 05/26/23 13:59 O2 Del Method Room Air 05/26/23 13:59 Course Vital Signs Vital signs: Vital Signs Temperature 97.8 F 05/26/23 13:59 Pulse Rate 106 H 05/26/23 13:59 Respiratory Rate 18 05/26/23 13:59 Blood Pressure 107/70 05/26/23 13:59 Pulse Oximetry 99 05/26/23 13:59 Oxygen Delivery Method Room Air 05/26/23 13:59 Temperature 97.8 F 05/26/23 13:59 Pulse Rate 106 H 05/26/23 13:59 Respiratory Rate 18 05/26/23 13:59 Blood Pressure 107/70 05/26/23 13:59 Pulse Oximetry 99 05/26/23 13:59 Oxygen Delivery Method Room Air 05/26/23 13:59 Medical Decision Making MDM Narrative Medical decision making narrative: She presented here with chief complaint of urinary symptoms. She has a scheduled appointment with her [facility]AL[facility] IMPROVEMENT SPECIALIST on Monday. She has decided to wait to have a vaginal exam performed at that appointment. Urinalysis was performed today. I will prophylactically put her on Keflex. She feels she may have urinary tract infections her symptoms bringing start with dysuria.And will follow up as scheduled with her QUAL[facility] IMPROVEMENT SPECIALIST office on Monday in two days. Attending physician attestation I have reviewed the mid-level documentation, agree with the documentation, medical decision making and treatment plan as outlined by the mid-level provider. Lab Data Labs: Lab Results 05/26/23 Range/Units 14:06 Urine Color Dk. yellow (YELLOW) Urine Clarity Clear (CLEAR) Urine pH 5.5 (5.0-9.0) Ur Specific [place] >=1.030 A (1.005-1.025) Urine Protein 100 A (NEG/TRACE) mg/dL Urine Glucose (UA) Negative (NEGATIVE) mg/dL Urine Ketones 40 A (NEGATIVE) mg/dL Urine Occult Blood Negative (NEGATIVE) Urine Nitrite Negative (NEGATIVE) Urine Bilirubin Small A (NEGATIVE) Urine Urobilinogen 1.0 (0.2-1.0) EU/dL Ur Leukocyte Esterase Negative (NEGATIVE) Urine RBC None seen (0-2) #/HPF Urine WBC 2-5 A (NONE SEEN) #/HPF Ur Squamous Epith Cells Many A (NONE/RARE) #/LPF Urine Bacteria None seen (NONE SEEN) #/HPF Urine Mucus Large A (NONE SEEN) Ur Culture Indicated? No Discharge Plan Discharge Chief Complaint: Urogenital-Female Clinical Impression: Urinary tract infection Patient Disposition: Home, Self-Care Time of Disposition Decision: 19:07 Condition: Good Prescriptions / Home Meds: New cephalexin 500 mg capsule 500 mg PO BID 7 Days Qty: 14 0RF No Action ondansetron 4 mg tablet,disintegrating 4 mg PO Q6H PRN (Reason: nausea and vomiting) Qty: 12 0RF Instructions: Urinary Tract Infection in Women (ED) Stand Alone Forms: Portal Instructions Referrals: Gayatri Ba [Emergency Midlevel Provider] - 1 week (as scheduled monday) Physician,Non-Staff, [Primary Care Provider] - 1 week Discharge Date/Time: 05/26/23 19:26
== END 2023-05-26 19:26 | disposition home or self-care (01) ==
PROVIDERS: Emergency Provider Emergency Medicine
DX: N39.0 Urinary tract infection, site not specified (principal); F17.210 Nicotine dependence, cigarettes, uncomplicated
CPT/HCPCS: 80053; 81001; 83605; 83690; 84484; 99284

== ENCOUNTER 2023-05-29 11:13 | Outpatient (OUT) | payer OTHER, SELFPAY ==
[2023-05-29 12:37] LABS: Alanine Aminotransferase 14 U/L (14-59); Albumin Globulin Ratio 1.1; Alkaline Phosphatase 57 U/L (46-116); Amylase 46 U/L (25-115); Anion Gap 11.4; Aspartate Amino Transferase 15 U/L (15-37); BUN Creatinine Ratio 15.1; Bilirubin Total 0.3 mg/dL (0.2-1.0); Calcium 8.5 mg/dL (8.5-10.1); Carbon Dioxide 25.6 mmol/L (21.0-32.0); Chloride 105 mmol/L (98-107); Estimated GFR (African America >60 (>=60); Estimated GFR (Non-African Ame >60 (>=60); Globulin 3.5 g/dL; Glucose 86 mg/dL (74-106); Sodium 138 mmol/L (136-145); Total Protein 7.5 g/dL (6.4-8.2)
== END 2023-05-29 11:14 | disposition home or self-care (01) ==
LOC: LAB 11:14
PROVIDERS: Visit Provider Physician Assistant
DX: R10.2 Pelvic and perineal pain (principal)
CPT/HCPCS: 36415; 80053; 82150

== ENCOUNTER 2023-06-17 09:55 | Emergency (ER) | payer OTHER, SELFPAY ==
[2023-06-17] VITALS (12 sets, daily range): BP systolic 100–109; BP diastolic 58–75; PULSE 63–89; RESP 12–21; TEMP 36.6; O2SAT 99–100; BMI 20.9
--- NOTE | 2023-06-17 10:08 | XR_ITS ---
The [address] [address] Patient Name: LEONORA MARCUM MRN: [id number] date: 2000 Sex: F Assigned Patient Location: ER Current Patient Location: ED.MAIN Accession/Order Number: [id number] Exam Date: 06/17/2023 10:41 Report Date: 06/17/2023 11:16 At the request of: CAITLIN SHEPARD Procedure: XR chest 2V EXAM: XR chest 2V HISTORY: Chest pain. COMPARISON: None. TECHNIQUE: PA and lateral views of the chest performed. FINDINGS: The trachea is midline. The heart size is within normal limits. The cardiomediastinal silhouette and hilar shadows are within normal limits. The lung volumes are normal. The lung dotson are clear. There is slight dextroscoliosis of the thoracic spine. The osseous structures are otherwise unremarkable. XR/XR chest 2V IMPRESSION: There is no acute cardiopulmonary process. Electronically authenticated by: SUJEY CHRISTENSEN Date: 06/17/2023 11:16
--- NOTE | 2023-06-17 10:08 | ECG_ITS ---
The [facility] Test Date: 2023-06-17 Pat Name: LEONORA MARCUM Department: Room: - Gender: Female Design Checker: : 2000 Requested By: Order Number: [id number] Reading MD: JOANNA GALVEZ Measurements Intervals [place] Rate: 62 P: 47 AK: 164 QRS: 107 QRSD: 84 T: 70 QT: 410 QTc: 416 Interpretive Statements 1100 Sinus rhythm 1102 Sinus arrhythmia 4164 [place] abnormality, possible anteroseptal ischemia 6230 Left atrial enlargement 7100 Abnormal right axis deviation 9150 abnormal ECG Compared to ECG 04/10/2023 18:14:10 Possible ischemia now present Right-axis deviation now present Electronically Signed On 06-18-2023 18:41:02 EDT by JOANNA GALVEZ
--- NOTE | 2023-06-17 10:14 | ED.CHESTPAI1 ---
HPI - Chest Pain General Chief Complaint: Chest Pain Stated Complaint: ABNORMAL EKG/TIGHTNESS IN CHEST/PAIN UNDER RIBS Time Seen by Provider: 06/17/23 10:07 Source: patient Mode of arrival: walk-in Limitations: no limitations History of Present Illness HPI narrative: Patient with one week of intermittent anterior chest tightness and occasional fast HR. Denied any actions or activities that might cause chest pain. Denied any GI/heartburn symptoms. She was evaluated at [facility] ED 2 days ago and had an irregular heart rate that settled down . She was referred to cardiology and saw her PCP the next day. her PCP ordered out-patient ECHO and GB/liver US because my PT and PTT were elevated . She admits to anxiety and gets emotional during the interview and exam, telling em that she wanted a second opinion because she is afraid something is wrong . Patient takes SSRI for anxiety and HCTZ for HTN. PMHx includes pseudoseizures. Related Data Home Medications Medication Instructions Recorded Confirmed hydroxyzine HCl 25 mg tablet 25 mg PO QID PRN anxiety 06/17/23 06/17/23 Previous Rx's Medication Instructions Recorded ondansetron 4 mg disintegrating 4 mg PO Q6H PRN nausea and 04/10/23 tablet vomiting #12 tabs cephalexin 500 mg capsule 500 mg PO BID 7 days #14 caps 05/26/23 Allergies Allergy/AdvReac Type Severity Reaction Status Date / Time Penicillins Allergy Severe Verified 05/25/23 10:34 [facility] Social History Smoking status: Never smoker Exam Narrative Exam Narrative: Nurses notes and vital signs reviewed and patient is not hypoxic. afebrile General: Well-appearing and in no apparent distress. Skin: Warm, dry, no pallor noted. No rash. Eye: Pupils are equal, round and EOMI. No scleral icterus. Cardiovascular: Regular Rate and Rhythm without murmur, gallop or rub. Respiratory: No accessory muscle use or respiratory distress. Lungs are clear to auscultation, no wheezing, rales or rhonchi Chest Wall: no tenderness Musculoskeletal: normal ROM, no calf or popliteal tenderness, no lower extremity edema/swelling GI: Abdomen is soft, non-distended. Normal bowel sounds. No masses appreciated. No tenderness to palpation. No rebound, guarding, or rigidity noted. Neurological: A&O x4. No cranial nerve dysfunction observed. No truncal ataxia. Moves all extremities. Sensation intact. Psychiatric: Cooperative and interactive. Normal mood and affect. Constitutional Vital Signs, click to edit/add: Last Vital Signs Temp 97.8 F 06/17/23 09:58 Pulse 73 06/17/23 10:30 Resp 18 06/17/23 10:30 BP 109/64 06/17/23 10:30 Pulse Ox 100 06/17/23 10:20 O2 Del Method Room Air 06/17/23 10:06 Course Vital Signs Vital signs: Vital Signs Temperature 97.8 F 06/17/23 09:58 Pulse Rate 75 06/17/23 09:58 Respiratory Rate 20 06/17/23 09:58 Blood Pressure 105/63 06/17/23 09:58 Pulse Oximetry 100 06/17/23 09:58 Oxygen Delivery Method Room Air 06/17/23 09:58 Temperature 97.8 F 06/17/23 09:58 Pulse Rate 73 06/17/23 10:30 Respiratory Rate 18 06/17/23 10:30 Blood Pressure 109/64 06/17/23 10:30 Pulse Oximetry 100 06/17/23 10:20 Oxygen Delivery Method Room Air 06/17/23 10:06 MDM - Chest Pain MDM Narrative Medical decision making narrative: Patient was placed on certified registered nurse anesthetist and EKG obtained. Blood drawn and sent for evaluation. CBC, BMP and d-dimer negative. Chest x-ray unremarkable. the patient has history of recurrent intermittent chest pressure and symptoms that suggest palpitations. She does have sinus arrhythmia on EKG which has been noted before. She had CTA as well as chest x-ray in December and they were negative. Her screening d-dimer is negative today. Her chest x-ray is unremarkable. She has no electronic abnormalities. Informed patient of her results and we discussed her diagnosis. I gave reassurance. She has outpatient follow-up scheduled with cardiology and for upper abdominal ultrasound, per her PCP. I encouraged her to keep those appointments. I reassured her that the feeling she is having are not life-threatening and she should keep her appointments for follow-up as scheduled. Medical Records Data Attestation: I reviewed the patient's medical records. Medical records narrative: [place] [facility] Apparently the patient has prior visits to this ED for similar symptoms and has non-specific EKG changes including sinus arrhythmia, rightward axis, LAE, plus findings suggesting RVH. Her HEART score was 1. She had CXR 01/11/23 and CTA chest 01/12/23. CXR 06/15/23 was negative. She was referred to Dr Andersen [place] [facility] Lab Data Attestation: I reviewed the patient's lab results. Labs: Lab Results 06/17/23 Range/Units 10:35 WBC 5.8 (4.0-11.0) 10^3/uL RBC 4.38 (4.20-5.40) 10^6/uL Hgb 12.7 (12.0-16.0) g/dL Hct 38.2 (36.0-48.0) % MCV 87.2 (81.0-99.0) fL MCH 29.0 (26.7-34.0) pg MCHC 33.2 (29.9-35.2) g/dL RDW 12.9 (11.0-15.0) % Plt Count 187 (150-450) 10^3/uL MPV 10.1 (9.5-13.5) fL Neut % (Auto) 64.3 (43.0-75.0) % Lymph % (Auto) 27.4 (20.5-60.0) % [place] % (Auto) 7.2 (1.7-12.0) % Eos % (Auto) 0.5 L (0.9-7.0) % Baso % (Auto) 0.3 (0.2-2.0) % Neut # (Auto) 3.7 (1.4-6.5) 10^3/uL Lymph # (Auto) 1.6 (1.2-3.8) 10^3/uL [place] # (Auto) 0.4 (0.3-0.8) 10^3/uL Eos # (Auto) 0.0 (0.0-0.7) 10^3/uL Baso # (Auto) 0.0 (0.0-0.1) 10^3/uL Abs Immat Gran (auto) 0.02 (0.00-0.03) 10^3/uL Imm/Tot Granulo (auto) 0.3 (0.0-0.5) % D-Dimer 0.19 (<=0.59) mg/L FEU Sodium 140 (136-145) mmol/L Potassium 4.0 (3.5-5.1) mmol/L Chloride 105 (98-107) mmol/L Carbon Dioxide 28.4 (21.0-32.0) mmol/L Anion Gap 10.6 BUN 6.0 L (7.0-18.0) mg/dL Creatinine 0.60 (0.55-1.02) mg/dL Est GFR ( Amer) >60 (>=60) Est GFR (Non-Af Amer) >60 (>=60) BUN/Creatinine Ratio 10.0 Glucose 88 (74-106) mg/dL Calcium 8.5 (8.5-10.1) mg/dL ECG Data Interpretation: EKG interpretation: Emergency Department physician interpretation. Normal sinus rhythm at 62bpm. left atrial enlargement. Rightward axis. Sinus arrhythmia noted with variation of R-R interval. T wave inversion noted in leads aVL, V1, V2, V3. No ST segment elevation or depression. Discharge Plan Discharge Chief Complaint: Chest Pain Clinical Impression: Heart palpitations, Chest pain Patient Disposition: Home, Self-Care Time of Disposition Decision: 11:09 Prescriptions / Home Meds: No Action cephalexin 500 mg capsule 500 mg PO BID 7 Days Qty: 14 0RF ondansetron 4 mg tablet,disintegrating 4 mg PO Q6H PRN (Reason: nausea and vomiting) Qty: 12 0RF hydroxyzine HCl 25 mg tablet 25 mg PO QID PRN (Reason: anxiety) Instructions: Chest Pain (ED), Heart Palpitations (ED) Stand Alone Forms: Portal Instructions Referrals: Physician,Non-Staff, MD [Primary Care Provider] - 1 week
[2023-06-17 10:44] LABS: Basophils Percent Auto 0.3 % (0.2-2.0); Eosinophils Percent Auto 0.5 % (0.9-7.0); Hematocrit 38.2 % (36.0-48.0); Hemoglobin 12.7 g/dL (12.0-16.0); Immature Granulocytes Abs Auto 0.02 10^3/uL (0.00-0.03); Immature Granulocytes Pct Auto 0.3 % (0.0-0.5); Lymphocytes Absolute Auto 1.6 10^3/uL (1.2-3.8); Lymphocytes Percent Auto 27.4 % (20.5-60.0); Mean Corpuscular HGB Conc 33.2 g/dL (29.9-35.2); Mean Corpuscular Volume 87.2 fL (81.0-99.0); Mean Platelet Volume 10.1 fL (9.5-13.5); Monocytes Absolute Auto 0.4 10^3/uL (0.3-0.8); Monocytes Percent Auto 7.2 % (1.7-12.0); Neutrophils Absolute Auto 3.7 10^3/uL (1.4-6.5); Neutrophils Percent Auto 64.3 % (43.0-75.0); Platelet Count 187 10^3/uL (150-450); Red Blood Count 4.38 10^6/uL (4.20-5.40); Red Cell Distribution Width 12.9 % (11.0-15.0); White Blood Count 5.8 10^3/uL (4.0-11.0)
[2023-06-17 10:55] LABS: Anion Gap 10.6; Calcium 8.5 mg/dL (8.5-10.1); Carbon Dioxide 28.4 mmol/L (21.0-32.0); Chloride 105 mmol/L (98-107); Estimated GFR (African America >60 (>=60); Estimated GFR (Non-African Ame >60 (>=60); Glucose 88 mg/dL (74-106); Sodium 140 mmol/L (136-145)
[2023-06-17 10:56] LABS: D Dimer 0.19 mg/L FEU (<=0.59)
[2023-06-17 12:05] LABS: INR 1.13; Prothrombin Time 11.9 sec (9.0-11.6)
--- NOTE | 2023-06-17 12:14 | PC.NURSE ---
06/17/[address] godfrey and pt updated on pt/inr results per dr godfrey in normal range. nno at this time. Low Pompa RN
--- NOTE | 2023-06-17 12:35 | PC.NURSE ---
06/17/23 1235 pt aptt results calld to pt dr epifanio solitario as well. cristina. Low Pompa RN
== END 2023-06-17 11:25 | disposition home or self-care (01) ==
PROVIDERS: Emergency Provider Emergency Medicine
DX: R07.9 Chest pain, unspecified (principal); R00.2 Palpitations; F41.9 Anxiety disorder, unspecified; I10 Essential (primary) hypertension; Z79.899 Other long term (current) drug therapy
CPT/HCPCS: 36415; 71046; 80048; 85025; 85378; 85610; 85730; 93005; 99285

== ENCOUNTER 2023-06-20 10:45 | Emergency (ER) | payer OTHER, SELFPAY ==
[2023-06-20 10:52] VITALS: BP 135/94; PULSE 93; RESP 16; TEMP 37.3; O2SAT 99; BMI 21.5
--- NOTE | 2023-06-20 11:01 | PC.NURSE ---
06/20/23 1101 pt frequent hx of chest pain with anxiety. pt states anxious taking prn axiety medication improving chest pain. pt i want to feel normal. . S Aletha RASMUSSEN
--- NOTE | 2023-06-20 11:23 | PC.NURSE ---
06/20/23 1123 PT REPORTS DIZZIZNESS IN LOBBY, PT HYPERVENTILATING, VITALS OBTAINED, HR 100 APICAL STRONG AND REGULAR, LUNGS CTA CORONADO, BP 122/95, SPO2 99 % AND R 28 1:1 WITH PT REDUCED RESPIRATIONS TO 20 AND GIVEN SIPS OF WATER, IMPROVING DIZZINESS, PT HASN'T ATE OR DRANK ANYTHING ALL DAY. PT GIVEN WATER BOTTLE AND CRACKERS FOR LOBBY. REPORTS FEELING BETTER, ENCOURAGED WILL GET ROOM SOON POSSIBLE, AND IF ANY FURTHER DISCOMFORT DEVELOPS COME GO TO REGISTRATION AND REPORT. PT ALERT AND ORIENTED, V/O. S MAURICIO RASMUSSEN
--- NOTE | 2023-06-20 11:54 | ED_ITS ---
HPI - Chest Pain General Chief Complaint: Chest Pain Stated Complaint: CHEST PAIN/PAIN SHOOTING DOWN L ARM Time Seen by Provider: 06/20/23 11:50 Source: patient Mode of arrival: walk-in Limitations: no limitations History of Present Illness HPI narrative: 22-year-old female presents for chest pain. It seems to started within the last day this time. She states she has a history of anxiety and she always thinks the worst and is worried that something really bad is wrong. She was recently at another hospital and was checked for chest pain there as well. No trauma or fever and it seems to go into her left upper arm and is continuous. Related Data Home Medications Medication Instructions Recorded Confirmed hydroxyzine HCl 25 mg tablet 25 mg PO QID PRN anxiety 06/17/23 06/17/23 Previous Rx's Medication Instructions Recorded ondansetron 4 mg disintegrating 4 mg PO Q6H PRN nausea and 04/10/23 tablet vomiting #12 tabs cephalexin 500 mg capsule 500 mg PO BID 7 days #14 caps 05/26/23 Allergies Allergy/AdvReac Type Severity Reaction Status Date / Time Penicillins Allergy Severe Verified 05/25/23 10:34 Review of Systems ROS Narrative A ten point review of systems is negative except as noted above. Psychiatric Reports: anxiety PFSH PFSH Social History Smoking status: Never smoker Exam Narrative Exam Narrative: Nurses note and vital signs reviewed and patient is not hypoxic. General: The patient appears anxious and is tearful Skin: Warm, dry, no pallor noted. There is no rash noted. Head: Normocephalic, atraumatic Eye: Normal conjunctiva, no drainage Ears, Nose, Mouth, and Throat: oral mucosa is moist. Nares patent. Mouth without vesicles. Cardiovascular: Regular Rate and Rhythm Respiratory: Patient is in no distress, no accessory muscle use, lungs are clear to auscultation, no wheezing, rales or rhonchi Back: non-tender GI: soft and nontender Musculoskeletal: The patient has no evidence of calf tenderness, no pitting edema, symmetrical pulses noted bilaterally Neurological: A&O, normal speech Psychiatric: Cooperative Constitutional Vital Signs, click to edit/add: Last Vital Signs Temp 99.2 F 06/20/23 10:52 Pulse 93 H 06/20/23 10:52 Resp 16 06/20/23 10:52 BP 135/94 H 06/20/23 10:52 Pulse Ox 99 06/20/23 10:52 O2 Del Method Room Air 06/20/23 10:52 Course Vital Signs Vital signs: Vital Signs Temperature 99.2 F 06/20/23 10:52 Pulse Rate 93 H 06/20/23 10:52 Respiratory Rate 16 06/20/23 10:52 Blood Pressure 135/94 H 06/20/23 10:52 Pulse Oximetry 99 06/20/23 10:52 Oxygen Delivery Method Room Air 06/20/23 10:52 Temperature 99.2 F 06/20/23 10:52 Pulse Rate 93 H 06/20/23 10:52 Respiratory Rate 16 06/20/23 10:52 Blood Pressure 135/94 H 06/20/23 10:52 Pulse Oximetry 99 06/20/23 10:52 Oxygen Delivery Method Room Air 06/20/23 10:52 MDM - Chest Pain MDM Narrative Medical decision making narrative: my clinical impression is that she has anxiety. I do not suspect acute coronary syndrome or pulmonary embolism. Upon recheck at 1:00 PM she seems to be asymptomatic and is able to be discharged home. Treatment diagnosis and follow- up were discussed with the patient. Differential Diagnosis Differential diagnosis: Likely pneumothorax, unstable angina pectoris, atypical chest pain, st elevation myocardial infarction, costochondritis, chest pain and other (pulmonary embolism) Lab Data Attestation: I reviewed the patient's lab results. Imaging Data Chest x-ray: Radiologist's impression: Procedure: XR chest 1V EXAMINATION: XR chest 1V HISTORY: CP COMPARISON: 06/17/23. TECHNIQUE: Portable FINDINGS: LUNGS: No significant pulmonary parenchymal abnormalities. VASCULATURE: No increased pulmonary vasculature. PLEURA: No pneumothorax, effusion, or pleural thickening. CARDIAC: No cardiomegaly or cardiac silhouette abnormality. MEDIASTINUM: No visible mass or adenopathy. BONES: No fracture or visible bone lesion. OTHER: Negative. IMPRESSION: No acute disease. Electronically authenticated by: OLGA GOINS Date: 06/20/2023 12:14 ECG Data Attestation: I personally reviewed and interpreted this ECG as follows: (EKG on my interpretation shows sinus rhythm with a rate of 88.) Discharge Plan Discharge Chief Complaint: Chest Pain Clinical Impression: Anxiety Patient Disposition: Home, Self-Care Time of Disposition Decision: 13:11 Condition: Good Mode of Transportation: Private Vehicle Prescriptions / Home Meds: No Action cephalexin 500 mg capsule 500 mg PO BID 7 Days Qty: 14 0RF ondansetron 4 mg tablet,disintegrating 4 mg PO Q6H PRN (Reason: nausea and vomiting) Qty: 12 0RF hydroxyzine HCl 25 mg tablet 25 mg PO QID PRN (Reason: anxiety) Instructions: Anxiety (ED) Stand Alone Forms: Portal Instructions Referrals: Physician,Non-Staff, MD [Primary Care Provider] - 1 week
--- NOTE | 2023-06-20 11:54 | XR_ITS ---
The [address] [address] Patient Name: LEONORA MARCUM MRN: [id number] date: 2000 Sex: F Assigned Patient Location: ER Current Patient Location: ER Accession/Order Number: [id number] Exam Date: 06/20/2023 12:02 Report Date: 06/20/2023 12:14 At the request of: ALANNAH BENJAMIN Procedure: XR chest 1V EXAMINATION: XR chest 1V HISTORY: CP COMPARISON: 06/17/23. TECHNIQUE: Portable FINDINGS: LUNGS: No significant pulmonary parenchymal abnormalities. VASCULATURE: No increased pulmonary vasculature. PLEURA: No pneumothorax, effusion, or pleural thickening. CARDIAC: No cardiomegaly or cardiac silhouette abnormality. MEDIASTINUM: No visible mass or adenopathy. BONES: No fracture or visible bone lesion. OTHER: Negative. XR/XR chest 1V IMPRESSION: No acute disease. Electronically authenticated by: OLGA GOINS Date: 06/20/2023 12:14
--- NOTE | 2023-06-20 11:54 | ECG_ITS ---
The [facility] Test Date: 2023-06-20 Pat Name: LEONORA MARCUM Department: Room: - Gender: Female [employer] Tool: : 2000 Requested By: [id number] Order Number: [id number] Reading MD: JOANNA GALVEZ Measurements Intervals [place] Rate: 88 P: 74 [place]: 150 QRS: 121 QRSD: 82 T: 33 QT: 362 QTc: 407 Interpretive Statements 1100 Sinus rhythm 4068 Nonspecific Twave abnormality 5120 Possible right ventricular hypertrophy 6120 Possible right atrial enlargement 6230 Left atrial enlargement 9150 abnormal ECG Compared to ECG 06/17/2023 10:01:27 Sinus arrhythmia no longer present Possible ischemia no longer present Right-axis deviation no longer present Electronically Signed On 06-21-2023 6:51:21 EDT by JOANNA GALVEZ
[2023-06-20 13:21] VITALS: BP 122/84; PULSE 82; RESP 18; O2SAT 100
== END 2023-06-20 13:23 | disposition home or self-care (01) ==
PROVIDERS: Emergency Provider Emergency Medicine
DX: F41.9 Anxiety disorder, unspecified (principal)
CPT/HCPCS: 71045; 93005; 99284

== ENCOUNTER 2023-09-12 17:32 | Emergency (ER) | payer OTHER, SELFPAY ==
--- NOTE | 2023-09-12 17:44 | ECG_ITS ---
The [facility] Test Date: 2023-09-12 Pat Name: LEONORA AMRCUM Department: Room: - Gender: Female [employer] Consultant: : 2000 Requested By: Jorge Alcocer Order Number: [id number] Reading MD: JOANNA GALVEZ Measurements Intervals [place] Rate: 111 P: 81 [place]: 146 QRS: 124 QRSD: 74 T: 27 QT: 326 QTc: 391 Interpretive Statements 1120 Sinus tachycardia [address] depression [address] & Twave abnormality 5120 Possible right ventricular hypertrophy 6130 Right atrial enlargement 6230 Left atrial enlargement Electronically Signed On 09-13-2023 7:09:53 EST by JOANNA GALVEZ
[2023-09-12 17:46] VITALS: BP 93/67; PULSE 101; RESP 20; TEMP 37.4; O2SAT 100; BMI 20.3
[2023-09-12 18:03] VITALS: BP 101/85; PULSE 100; RESP 18; O2SAT 99
[2023-09-12 18:22] LABS: Influenza Virus A Antigen Negative; Influenza Virus B Antigen Negative; Internal Control Within Normal Limits; SARS-CoV-2 Ag NEGATIVE (NEGATIVE)
--- NOTE | 2023-09-12 18:29 | ED_ITS ---
HPI - URI/Sore Throat General Chief Complaint: Upper Respiratory Infection Stated Complaint: CONGESTION Time Seen by Provider: 09/12/23 17:41 Source: patient Limitations: no limitations History of Present Illness HPI Narrative: patient developed nasal congestion last week. And then a few days ago she developed headache, low grade temp elevation, chills, nausea and still had cough and ear fullness. No OTC meds taken at home. Related Data Home Medications Medication Instructions Recorded Confirmed No Known Home Medications 09/12/23 09/12/23 Allergies Allergy/AdvReac Type Severity Reaction Status Date / Time Penicillins Allergy Severe Verified 05/25/23 10:34 PFSH PFS Social History Smoking status: Never smoker Exam Narrative Exam Narrative: Nurses notes and vital signs reviewed and patient is not hypoxic. afebrile General: Well-appearing and in no apparent distress. Skin: Warm, dry, no pallor noted. No rash. Head: Normocephalic, atraumatic. Neck: Supple, non-tender. No cervical lymphadenopathy Eye: Pupils are equal, round and EOMI. No scleral icterus. Ears, Nose, Mouth, and Throat: TM are dull bilaterally without erythema or injection, mild posterior oropharynx erythema with nasal mucosal hypertrophy, uvula is mid-line Oral mucosa is moist Cardiovascular: Tachycardia. Respiratory: No accessory muscle use or respiratory distress. Lungs are clear to auscultation, no wheezing, rales or rhonchi Musculoskeletal: normal ROM GI: Abdomen is soft, non-distended. Normal bowel sounds. No tenderness to palpation. No rebound, guarding, or rigidity noted. Neurological: A&O x4. No cranial nerve dysfunction observed. No truncal ataxia. Moves all extremities. Sensation intact. Psychiatric: Cooperative and interactive. Normal mood and affect. Constitutional Vital Signs, click to edit/add: Last Vital Signs Temp 99.4 F 09/12/23 17:46 Pulse 100 H 09/12/23 18:03 Resp 18 09/12/23 18:03 BP 101/85 09/12/23 18:03 Pulse Ox 99 09/12/23 18:03 O2 Del Method Room Air 09/12/23 17:46 Course Vital Signs Vital signs: Vital Signs Temperature 99.4 F 09/12/23 17:46 Pulse Rate 101 H 12/26/23 17:46 Respiratory Rate 20 09/12/23 17:46 Blood Pressure 93/67 09/12/23 17:46 Pulse Oximetry 100 09/12/23 17:46 Oxygen Delivery Method Room Air 09/12/23 17:46 Temperature 99.4 F 09/12/23 17:46 Pulse Rate 100 H 09/12/23 18:03 Respiratory Rate 18 09/12/23 18:03 Blood Pressure 101/85 09/12/23 18:03 Pulse Oximetry 99 09/12/23 18:03 Oxygen Delivery Method Room Air 09/12/23 17:46 MDM - URI/Sore Throat MDM Narrative Medical decision making narrative: Swabs for COVID and influenza were negative Patient advised to rest, stay at home, practice social distancing, take Motrin and Tylenol for pain and fever if not allergic, stay well hydrated with Gatorade or similar drinks if vomiting or eat as tolerated if not and take any meds as prescribed. Reviewed reasons to return including rapid increase in respiratory rate, shortness of breath, confusion, inability to keep down sips of swallowed liquids for more than 24 hours. Asked patient to encourage any ill contacts to stay home and practice similar advice. Lab Data Attestation: I reviewed the patient's lab results. Labs: Lab Results 09/12/23 Range/Units 18:00 SARS-CoV-2 (PCR) Negative (NEGATIVE) Influenza Type A Ag Negative Influenza Type B Ag Negative ECG Data Interpretation: EKG interpretation: Emergency Department physician interpretation. Sinus tac hycardia at 111bpm. Non specific T changes with no ST segment elevation or depression. Discharge Plan Discharge Chief Complaint: Upper Respiratory Infection Clinical Impression: Upper respiratory infection, Viral infection Time of Disposition Decision: 18:32 Prescriptions / Home Meds: No Action No Known Home Medications Instructions: Upper Respiratory Infection (ED), Viral Syndrome (ED) Stand Alone Forms: Portal Instructions Referrals: Physician,Non-Staff, MD [Primary Care Provider] - 1 week
[2023-09-13 10:21] LABS: SARS-CoV-2 NAA NOT DETECTED (NOT DETECTE)
== END 2023-09-12 18:39 | disposition home or self-care (01) ==
PROVIDERS: Emergency Provider Emergency Medicine
DX: B34.9 Viral infection, unspecified (principal); J06.9 Acute upper respiratory infection, unspecified; Z20.822 Contact with and (suspected) exposure to COVID-19
CPT/HCPCS: 87635; 87804; 87811; 93005; 99285

== ENCOUNTER 2023-12-06 21:20 | Outpatient (REF) | payer OTHER, SELFPAY ==
--- OUTSIDE RECORDS SUMMARY | 2023-12-06 21:27 | XMS_ITS | CCD ---
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 [address] [place] [address] Neutrophils/100 WBC (Bld) 72.6 % Normal 36.0-75.0 [facility] Comment on above: Order Comment: Order Added by Discern Expert. Performed By: #### 2 573625, 7807866, 77292076, 14130092, 11150935, 1537921 ####[facility] [address] [place] [address] Neutrophils/Leukocytes Auto (Bld) [Pure # fraction] 3.6 E9/L Normal 2.0-7.5 [facility] Comment on above: Order Comment: Order Added by Discern Expert. Performed By: #### 2 717944, 2476979, 89543363, 32478013, 25784275, 8013225 ####[facility] [address] [place] [address] BMPon 09-20-2023 Anion gap [Moles/Vol] 10 mmol/L Normal 6-16 [facility] Comment on above: Performed By: #### 2 015493, 1730119, 33455194, 50678278, 84863138, 9254842 ####[facility] [address] [place] [address] BUN/Creat Ratio 14 No Units Normal 10-20 [facility] Comment on above: Performed By: #### 2 389526, 6307983, 05216378, 56057906, 31969979, 0407062 ####[facility] [address] [place] [address] Calcium [Mass/Vol] 8.6 mg/dL Low 8.9-11.1 [facility] Comment on above: Performed By: #### 2 979328, 9989872, 61105884, 20889477, 50840422, 8065844 ####[facility] [address] [address] Chloride [Moles/Vol] 105 mmol/L Normal 101-111 [facility] Comment on above: Performed By: #### 2 374750, 8174527, 09194745, 88404508, 71396154, 7248129 ####[facility] [address] [place] [address] CO2 [Moles/Vol] 28 mmol/L Normal 21-31 [facility] Comment on above: Performed By: #### 2 236405, 0406913, 10055428, 99451726, 88496346, 1529375 ####[facility] [address] [place] [address] Creatinine [Mass/Vol] 0.5 mg/dL Normal 0.5-1.3 [facility] Comment on above: Performed By: #### 2 694719, 1076688, 20891387, 28657230, 67240917, 5493789 ####[facility] [address] [place] [address] Glucose [Mass/Vol] 88 mg/dL Normal 55-199 [facility] Comment on above: Performed By: #### 2 740235, 7390471, 29031098, 43484237, 45070135, 5634324 ####[facility] [address] [place] [address] Potassium [Moles/Vol] 4.0 mmol/L Normal 3.5-5.3 [facility] Comment on above: Performed By: #### 2 552759, 7374342, 34801435, 19310790, 80729312, 8203321 ####[facility] [address] [place] [address] Sodium [Moles/Vol] 139 mmol/L Normal 135-145 [facility] Comment on above: Performed By: #### 2 482773, 6104642, 19149007, 03861458, 92113854, 3277035 ####[facility] [address] [place] [address] Urea nitrogen [Mass/Vol] 7 mg/dL Normal 5-21 [facility] Comment on above: Performed By: #### 2 531076, 9366140, 17211530, 71889297, 98394058, 2450642 ####[facility] [address] [place] [address] CBC w/ Auto Diffon Erythrocyte distribution width (RBC) [Ratio] 13.4 % Normal 10.9-14.2 [facility] Comment on above: Performed By: #### 2 857536, 0689257, 93386168, 16109632, 85559839, 0603745 ####[facility] [address] [place] [address] Hematocrit (Bld) [Volume fraction] 37.4 % Normal 34.0-46.0 [facility] Comment on above: Performed By: #### 2 845334, 5762976, 46637621, 57160897, 78952978, 4901957 ####[facility] [address] [place] [address] Hemoglobin (Bld) [Mass/Vol] 13.3 g/dL Normal 12.0-16.0 [facility] Comment on above: Performed By: #### 2 381990, 0095998, 77021570, 76930761, 03098923, 9340956 ####[facility] [address] [place] [address] MCH (RBC) [Entitic mass] 29.5 pg Normal 27.0-34.0 [facility] Comment on above: Performed By: #### 2 025293, 1266247, 70947242, 92969131, 32552565, 1644240 ####[facility] [address] [place] [address] MCHC (RBC) [Mass/Vol] 35.5 g/dL Normal 31.4-36.0 [facility] Comment on above: Performed By: #### 2 433083, 1879065, 78058520, 70021275, 30856815, 3858197 ####[address] [place] [address] MCV (RBC) [Entitic vol] 83.1 fL Normal 80.0-100.0 [facility] Comment on above: Performed By: #### 2 137730, 0220129, 13538361, 91213560, 57300087, 2935769 ####[address] [place] [address] Platelet mean volume (Bld) [Entitic vol] 9.2 fL Normal 6.4-10.8 [facility] Comment on above: Performed By: #### 2 851690, 6395052, 60454496, 27495914, 61003295, 5910040 ####[address] [address] Platelets (Bld) [#/Vol] 161.0 E9/L Normal 150.0-500.0 [facility] Comment on above: Performed By: #### 2 070976, 9382881, 87526169, 06858625, 25195456, 9024788 ####[address] [address] RBC (Bld) [#/Vol] 4.5 E12/L Normal 4.3-5.9 [facility] Comment on above: Performed By: #### 2 491601, 1864063, 59648499, 52364976, 90916001, 3139913 ####[address] [place] [address] WBC corrected for nucl RBC Auto (Bld) [#/Vol] 4.9 E9/L Normal 4.0-11.0 [facility] Comment on above: Performed By: #### 2 053693, 7576934, 80402158, 30017629, 00902687, 1254502 ####[address] [address] CHEMISTRYOrdered By: SYSTEM SYSTEM on 09-20-2023 Anion gap [Moles/Vol] 10 mmol/L Normal 6 - 16 mEq/L R emisol Chem Calcium [Mass/Vol] 8.6 mg/dL Low 8.9 - 11. 1 mg/dL [facility] Chloride [Moles/Vol] 105 mmol/L Normal 101 - 1 11 mmol/L [facility] CO2 [Moles/Vol] 28 mmol/L Normal 21 - 31 mmol/L [facility] Creatinine [Mass/Vol] 0.5 mg/dL Normal 0.5 - 1.3 mg/dL [facility] eGFR mL/min/1.73 m2 Normal >=59mL/min/1 .73 m2 [facility] Glucose [Mass/Vol] 88 mg/dL Normal 55 - 199 mg/dL [facility] Potassium [Moles/Vol] 4.0 mmol/L Normal 3.5 - 5.3 mmol/L [facility] Sodium [Moles/Vol] 139 mmol/L Normal 135 - 145 mmol/L [facility] Troponin pg/mL Low 10.10 - 27.10 pg/mL [facility] Comment on above: Interpretive Data: T he 95% CI (Confidence Interval) PPV (Positive Predictive Value) for myocardial infarction in females is 38 pg/mL, in males 51 pg/mL. The results should be used in conjunction with clinical conditions of myocardial infarction. (Access High Sensitivity Troponin I Instructions For Use, Sara Radha, April 2018) Urea nitrogen [Mass/Vol] 7 mg/dL Normal 5 - 21 mg/dL [facility] Urea nitrogen/Creatinine [Mass ratio] 14 mg/mg Normal 10 - 20 [facility] COAGULATIONOrdered By: Kendall Vargas on 09-20-2023 aPTT Coag (PPP) [Time] 31.5 s Normal 25.1 - 36.5 second(s) [facility] Comment on above: Interpretive Data: Festus parks 15 days - 4 weeks 1 - 5 months 6 - 11 months 1 - 5 years 6 - 10 years 11 - 17 years PTT Mean: 35.4 (27.6-45.6) Mean: 33.5 (24.8-40.7) Mean: 32.4 (25.1-40.7) Mean: 31.6 (24.0-39.2) Mean: 31.6 (26.9-38.7) Mean: 31.0 (24.6-38.4) Pediatric Reference ranges were obtained from a study by rebeca Washington al. prepared from 1437 samples obtained at 7 different centers using the same coagulation reagent and instrumentation as [facility]. Currently there are no coagulation studies available worldwide for children to 14 days, and no normal ranges. Heparin therapeutic range (represented by Anti-Factor Xa activity of 0.2 - 0.4 U/mL) corresponds to PTT of 56.6 - 109.0 sec. INR Coag (PPP) [Relative time] 1.2 {INR} Invalid Interpretation Code [facility] Comment on above: Interpretive Data: I NR results are specifically intended to assess patients stabilized on long-term Anticoagulation therapy suggested INR s Less Intensive Anticoagulation 2.0 3.0 Conventional Range 3.0 4.5 PT Coag (PPP) [Time] 13.1 s High 9.4 - 1 2.5 second(s) [facility] Comment on above: Interpretive Data: 1 5 days - 4 weeks 1 - 5 months 6 -11 months 1 5 years 6 10 years 11 -17 years Mean: 11.2 (9.5 12.6) Mean: 11.0 (9.7 12.8) Mean: 11.0 (9.8 13.0) Mean: 11.3 (9.9 13.4) Mean: 11.7 (10.0 14.6) Mean: 11.8 (10.0 - 14.1) Pediatric Reference ranges were obtained from a study by rebeca Washington al. prepared from 1437 samples obtained at 7 different centers using the same coagulation reagent and instrumentation as [facility]. Currently there are no coagulation studies available worldwide for children to 14 days, and no normal ranges. Consent for Treatmenton Consent for Treatment [id number] Normal [facility] Discharge Instructionson Discharge Instructions [id number]. [id number] Normal [facility] ECG 12 lead ECGon 09-20-2023 ECG 12 lead ECG [facility] [place] [address] Electrocardiograph Report Signed Patient: Leonora Marcum MR#: [id number] : 2000 Acct:[id number] Age/Sex: 22 / F ADM Date: 09/20/23 Loc: ER Room: Type: [facility] ER Attending Dr: Ordering Provider: Jennyfer Aleman DO Date of Service: 09/20/2312/10/911 ECG/ECG 12 lead ECG: Recheck/Abnormal Lab/Rx Copies to: Test Reason : Blood Pressure : / mmHG Vent. Rate : 110 BPM Atrial Rate : 110 BPM P-R Int : 158 ms QRS Dur : 082 ms QT Int : 342 ms P-R-T Axes : 074 131 051 degrees QTc Int : 462 ms Sinus tachycardia Biatrial enlargement Right ventricular hypertrophy Possible Lateral infarct (cited on or before 14-SEP-2023) Possible Inferior infarct (cited on or before 14-SEP-2023) Abnormal ECG When compared with ECG of 14-SEP-2023 19:21, No significant change was found Confirmed by JENNYFER EVANS MD, FACC ([id number]) on 09/21/2023 4:54:42 PM Referred By: Electronically Signed By:JENNYFER EVANS MD, FACC Transcribed By: MUS Signed By Mike Evans MD 09/21/23 1654 Normal [facility] ED Clinical Summaryon 2023 ED Clinical Summary Normal [facility] ED Patient Education Noteon 09-20-2023 ED Patient Education Note Normal [facility] ED Patient Summaryon 024 ED Patient Summary Normal [facility] Event Monitoron 09-20-2023 Event Monitor [id number] Normal [facility] HEMATOLOGYOrdered By: SYSTEM SYSTEM on 09-20-2023 Basophils/100 WBC (Bld) 0.4 % Normal 0.0 - 2.0 % [facility] HemeAutoSS Basophils/Leukocytes Auto (Bld) [Pure # fraction] 0.0 E9/L Normal 0.0 - 0.2 E9/L [facility] HemeAutoSS Eosinophils/100 WBC (Bld) 0.4 % Normal 0.0 - 8.0 % [facility] HemeAutoSS Eosinophils/Leukocytes Auto (Bld) [Pure # fraction] 0.0 E9/L Normal 0.0 - 0.5 E9/L [facility] HemeAutoSS Lymphocytes/100 WBC (Bld) 20.2 % Normal 14.0 - 50.0 % [facility] HemeAutoSS Lymphocytes/Leukocytes Auto (Bld) [Pure # fraction] 1.0 E9/L Normal 1.0 - 4.0 E9/L [facility] HemeAutoSS Monocytes/100 WBC (Bld) 6.4 % Normal 4.0 - 14.0 % [facility] HemeAutoSS Monocytes/Leukocytes Auto (Bld) [Pure # fraction] 0.3 E9/L Normal 0.2 - 1.0 E9/L [facility] HemeAutoSS Neutrophils/100 WBC (Bld) 72.6 % Normal 36.0 - 75.0 % [facility] HemeAutoSS Neutrophils/Leukocytes Auto (Bld) [Pure # fraction] 3.6 E9/L Normal 2.0 - 7.5 E9/L [facility] HemeAutoSS HEMATOLOGYOrdered By: Eulalia Thomas on 09-20-2023 Erythrocyte distribution width (RBC) [Ratio] 13.4 % Normal 10.9 - 14.2 % [facility] HemeAutoSS Hematocrit (Bld) [Volume fraction] 37.4 % Normal 34.0 - 46.0 % [facility] HemeAutoSS Hemoglobin (Bld) [Mass/Vol] 13.3 g/dL Normal 12.0 - 16.0 gm/dL [facility] HemeAutoSS MCH (RBC) [Entitic mass] 29.5 pg Normal 27.0 - 34.0 pg [facility] HemeAutoSS MCHC (RBC) [Mass/Vol] 35.5 g/dL Normal 31.4 - 36.0 gm/dL [facility] HemeAutoSS MCV (RBC) [Entitic vol] 83.1 fL Normal 80.0 - 100.0 fL [facility] HemeAutoSS Platelet mean volume (Bld) [Entitic vol] 9.2 fL Normal 6.4 - 10.8 fL [facility] HemeAutoSS Platelets (Bld) [#/Vol] 161.0 E9/L Normal 150. 0 - 500.0 E9/L [facility] HemeAutoSS RBC (Bld) [#/Vol] 4.5 E12/L Normal 4.3 - 5.9 E12/L [facility] HemeAutoSS WBC corrected for nucl RBC Auto (Bld) [#/Vol] 4.9 E9/L Normal 4.0 - 11.0 E9/L [facility] HemeAutoSS PT & PTTon 09-20-2023 aPTT Coag (PPP) [Time] 31.5 second(s) Normal 25.1-36.5 [facility] Comment on above: Result Comment: Para meter 15 days - 4 weeks 1 - 5 months 6 - 11 months 1 - 5 years 6 - 10 years 11 - 17 years PTT Mean: 35.4 (27.6-45.6) Mean: 33.5 (24.8-40.7) Mean: 32.4 (25.1-40.7) Mean: 31.6 (24.0-39.2) Mean: 31.6 (26.9-38.7) Mean: 31.0 (24.6-38.4) Pediatric Reference ranges were obtained from a study by Russel Hernandez et al. prepared from 1437 samples obtained at 7 different centers using the same coagulation reagent and instrumentation as [facility]. Currently there are no coagulation studies available worldwide for children to 14 days, and no normal ranges. Heparin therapeutic range (represented by Anti-Factor Xa activity of 0.2 - 0.4 U/mL) corresponds to PTT of 56.6 - 109.0 sec. Performed By: #### 2 567304, 4506780, 28602194, 36999126, 24304695, 1519459 ####[facility] [address] [place] [address] INR Coag (PPP) [Relative time] 1.2 {INR} Invalid Interpretation Code [facility] Comment on above: Result Comment: INR results are specifically intended to assess patients stabilized on long-term Anticoagulation therapy suggested INR?s ?Less Intensive Anticoagulation? 2.0 ? 3.0Conventional Range 3.0 ? 4.5 Performed By: #### 2 649217, 7968495, 85611910, 13283818, 81717731, 1008286 ####[facility] [address] [place] [address] PT Coag (PPP) [Time] 13.1 second(s) High 9.4-12.5 [facility] Comment on above: Result Comment: 15 d ays - 4 weeks 1 - 5 months 6 -11 months 1 ? 5 years 6 ? 10 years 11 -17 years Mean: 11.2 (9.5 ? 12.6) Mean: 11.0 (9.7 ? 12.8) Mean: 11.0 (9.8 ? 13.0) Mean: 11.3 (9.9 ? 13.4) Mean: 11.7 (10.0 ? 14.6) Mean: 11.8 (10.0 - 14.1) Pediatric Reference ranges were obtained from a study by rebeca Washington al. prepared from 1437 samples obtained at 7 different centers using the same coagulation reagent and instrumentation as [facility]. Currently there are no coagulation studies available worldwide for children to 14 days, and no normal ranges. Performed By: #### 2 038766, 9657667, 52610962, 71958120, 07958572, 0548313 ####[facility] [address] [place] [address] Troponin 0 Hr.on 09-20-2023 Troponin I.cardiac [Mass/Vol] ng/mL Low 10.10-27.10 [facility] Comment on above: Result Comment: The 95% CI (Confidence Interval) PPV (Positive Predictive Value) for myocardial infarction in females is 38 pg/mL, in males 51 pg/mL. The results should be used in conjunction with clinical conditions of myocardial infarction.(Access High Sensitivity Troponin I Instructions For Use, Sara Radha, April 2018) Performed By: #### 2 573035, 2897745, 52109965, 08334139, 39827363, 9087452 ####[facility] [address] [place] [address] XR Chest Single Viewon 09-20 XR Chest Single View Normal [facility] eGFRon 09-20-2023 GFR/1.73 sq M.predicted among non-blacks MDRD (S/P/Bld) [Vol rate/Area] mL/min/{1.73_m2} Normal >=59 [facility] Comment on above: Order Comment: Order added by Discern Expert. Performed By: #### 2 740845, 2330078, 55487289, 93110395, 59231370, 9047276 ####[facility] [address] [place] [address] Event Monitoron 09-19-2023 Event Monitor Normal [facility] Comment on above: Result Comment: Elec tronically Signed By: TREVON MERRILL, Alexsander Motley.br\Date and Time Signed: 09/19/23 14:32 EST Auto Diffon 09-17-2023 Basophils/100 WBC (Bld) 0.6 % Normal 0.0-2.0 [facility] Comment on above: Order Comment: Order Added by Discern Expert. Performed By: #### 2 370743, 7138654, 0515526, 9154036, 23486401, 2025498 ####[address] [place] [address] Basophils/Leukocytes Auto (Bld) [Pure # fraction] 0.0 E9/L Normal 0.0-0.2 [facility] Comment on above: Order Comment: Order Added by Discern Expert. Performed By: #### 2 227983, 9789441, 4937613, 4166074, 86952520, 0956783 ####[address] [place] [address] Eosinophils/100 WBC (Bld) 0.3 % Normal 0.0-8.0 [facility] Comment on above: Order Comment: Order Added by Discern Expert. Performed By: #### 2 088926, 3502226, 2891362, 5463273, 24113621, 1099904 ####[address] [place] [address] Eosinophils/Leukocytes Auto (Bld) [Pure # fraction] 0.0 E9/L Normal 0.0-0.5 [facility] Comment on above: Order Comment: Order Added by Discern Expert. Performed By: #### 2 462082, 8300996, 6495753, 9213766, 47450177, 7878301 ####[address] [place] [address] Lymphocytes/100 WBC (Bld) 38.9 % Normal 14.0-50.0 [facility] Comment on above: Order Comment: Order Added by Discern Expert. Performed By: #### 2 095316, 6824852, 2287042, 9210849, 91126577, 8950071 ####[address] [address] Lymphocytes/Leukocytes Auto (Bld) [Pure # fraction] 1.0 E9/L Normal 1.0-4.0 [facility] Comment on above: Order Comment: Order Added by Discern Expert. Performed By: #### 2 893809, 5087188, 8380960, 7805151, 44135734, 4203866 ####[address] [address] Monocytes/100 WBC (Bld) 11.5 % Normal 4.0-14.0 [facility] Comment on above: Order Comment: Order Added by Discern Expert. Performed By: #### 2 643173, 1631105, 1492393, 3761064, 79356444, 3080371 ####[address] [address] Monocytes/Leukocytes Auto (Bld) [Pure # fraction] 0.3 E9/L Normal 0.2-1.0 [facility] Comment on above: Order Comment: Order Added by Discern Expert. Performed By: #### 2 529469, 0501259, 5024828, 7592542, 41042127, 3664482 ####[address] [place] [address] Neutrophils/100 WBC (Bld) 48.7 % Normal 36.0-75.0 [facility] Comment on above: Order Comment: Order Added by Discern Expert. Performed By: #### 2 500462, 0548919, 8147241, 4596596, 04934037, 4336323 ####[facility] [address] [place] [address] Neutrophils/Leukocytes Auto (Bld) [Pure # fraction] 1.2 E9/L Low 2.0-7.5 [facility] Comment on above: Order Comment: Order Added by Discern Expert. Performed By: #### 2 902635, 5025796, 9314860, 7983341, 47885394, 1221247 ####[facility] [address] [place] [address] BMPon 09-17-2023 Anion gap [Moles/Vol] 12 mmol/L Normal 6-16 [facility] Comment on above: Performed By: #### 2 565284, 2216437, 1096616, 4394931, 89676657, 5481543 ####[facility] [address] [place] [address] BUN/Creat Ratio 7 No Units Low 10-20 [facility] Comment on above: Performed By: #### 2 959909, 5926388, 8010627, 9892604, 21151983, 3658865 ####[facility] [address] [place] [address] Calcium [Mass/Vol] 8.4 mg/dL Low 8.9-11.1 [facility] Comment on above: Performed By: #### 2 911197, 0653861, 2488728, 0319049, 64651755, 3047613 ####[facility] [address] [place] [address] Chloride [Moles/Vol] 103 mmol/L Normal 101-111 [facility] Comment on above: Performed By: #### 2 612401, 9774801, 0608342, 9328753, 87780118, 0509860 ####[facility] [address] [place] [address] CO2 [Moles/Vol] 27 mmol/L Normal 21-31 [facility] Comment on above: Performed By: #### 2 301562, 4479068, 5947750, 5733356, 46420797, 9102036 ####[facility] [address] [place] [address] Creatinine [Mass/Vol] 0.6 mg/dL Normal 0.5-1.3 [facility] Comment on above: Performed By: #### 2 511710, 7122370, 9146973, 8769671, 80709425, 7898730 ####[facility] [address] [place] [address] Glucose [Mass/Vol] 88 mg/dL Normal 55-199 [facility] Comment on above: Performed By: #### 2 467745, 8388960, 4868100, 0427082, 71820316, 1222584 ####[facility] [address] [place] [address] Potassium [Moles/Vol] 3.3 mmol/L Low 3.5-5.3 [facility] Comment on above: Performed By: #### 2 902068, 8931804, 9679463, 0677722, 34512813, 9657081 ####[facility] [address] [place] [address] Sodium [Moles/Vol] 139 mmol/L Normal 135-145 [facility] Comment on above: Performed By: #### 2 669961, 1587715, 9567775, 4427724, 56241242, 5765973 ####[facility] [address] [place] [address] Urea nitrogen [Mass/Vol] mg/dL Low 5-21 [facility] Comment on above: Performed By: #### 2 069267, 9829995, 4614523, 5281254, 29230768, 5648922 ####[facility] [address] [place] [address] CBC w/ Auto Diffon 3 Erythrocyte distribution width (RBC) [Ratio] 13.1 % Normal 10.9-14.2 [facility] Comment on above: Performed By: #### 2 867487, 1208007, 6234773, 0043999, 45368235, 2480272 ####[address] [place] [address] Hematocrit (Bld) [Volume fraction] 40.2 % Normal 34.0-46.0 [facility] Comment on above: Performed By: #### 2 953381, 6990615, 3206017, 1539496, 25332747, 5237876 ####[address] [address] Hemoglobin (Bld) [Mass/Vol] 13.8 g/dL Normal 12.0-16.0 [facility] Comment on above: Performed By: #### 2 983104, 2178096, 6341833, 6707601, 48187070, 1449333 ####[address] [address] MCH (RBC) [Entitic mass] 28.9 pg Normal 27.0-34.0 [facility] Comment on above: Performed By: #### 2 276984, 3548369, 2679644, 4011897, 72010557, 3860537 ####[address] [address] MCHC (RBC) [Mass/Vol] 34.2 g/dL Normal 31.4-36.0 [facility] Comment on above: Performed By: #### 2 169185, 0438809, 6448591, 0047529, 47903456, 6960612 ####[address] [address] MCV (RBC) [Entitic vol] 84.4 fL Normal 80.0-100.0 F [facility] Comment on above: Performed By: #### 2 085259, 1299884, 8982300, 9490411, 89261675, 8854994 ####[address] [place] [address] Platelet mean volume (Bld) [Entitic vol] 8.4 fL Normal 6.4-10.8 [facility] Comment on above: Performed By: #### 2 405290, 5800790, 4357613, 5000067, 32642170, 6483271 ####[facility] [address] [place] [address] Platelets (Bld) [#/Vol] 140.0 E9/L Low 150.0-500.0 [facility] Comment on above: Performed By: #### 2 052784, 9226802, 3995095, 5980649, 24637255, 8103881 ####[facility] [address] [place] [address] RBC (Bld) [#/Vol] 4.8 E12/L Normal 4.3-5.9 [facility] Comment on above: Performed By: #### 2 845926, 7865475, 3344530, 3756892, 98358392, 3287429 ####[facility] [address] [place] [address] WBC corrected for nucl RBC Auto (Bld) [#/Vol] 2.5 E9/L Low 4.0-11.0 [facility] Comment on above: Performed By: #### 2 150243, 1916452, 5677738, 2731995, 05608821, 3136146 ####[facility] [address] [place] [address] CHEMISTRYOrdered By: Lab ROP User on 09-17-2023 Glucose [Mass/Vol] 86 mg/dL Normal 55 - 99 mg/dL [facility] POC Subsection Comment on above: Result Comment: Cara crawford RN/ POC Username HOWARD GARCIA Invalid Interpretation Code [facility] [place] [facility] Subsection Sodium [Moles/Vol] [id number] mmol/L Invalid Interpretation Code [facility] [place] [facility] Subsection Sodium [Moles/Vol] [id number] mmol/L Invalid Interpretation Code [facility] [place] [facility] Subsection CHEMISTRYOrdered By: SYSTEM SYSTEM on 09-17-2023 Albumin [Mass/Vol] 4.2 g/dL Normal 3.3 - 5.0 gm/dL Remisol Chem Albumin/Globulin [Mass ratio] 1.6 {ratio} Normal 1.1 - 2.2 Remisol Chem Alk Phos 46 [iU]/d Normal 21 - 98 Int._Unit/L Remisol Chem ALT 8 [iU]/d Normal 6 - 46 Int._Unit/L Remisol Chem Anion gap [Moles/Vol] 12 mmol/L Normal 6 - 16 mEq/L R emisol Chem AST 17 [iU]/d Normal 5 - 43 Int._Unit/L Remisol Chem Bili Direct 0.1 mg/dL Normal 0.0 - 0.4 mg/dL Remisol Chem Bili Indirect 0.3 mg/dL Normal 0.1 - 0.9 mg/dL Remisol Chem Bili Total 0.4 mg/dL Normal 0.0 - 1.1 mg/dL Remisol Chem Calcium [Mass/Vol] 8.4 mg/dL Low 8.9 - 11. 1 mg/dL Remisol Chem Chloride [Moles/Vol] 103 mmol/L Normal 101 - 1 11 mmol/L Remisol Chem CO2 [Moles/Vol] 27 mmol/L Normal 21 - 31 mmol/L Remisol Chem Creatinine [Mass/Vol] 0.6 mg/dL Normal 0.5 - 1.3 mg/dL Remisol Chem eGFR mL/min/1.73 m2 Normal >=59mL/min/1 .73 m2 Remisol Chem Globulin (S) [Mass/Vol] 2.7 g/dL Normal 1.4 - 4.0 gm/dL Remisol Chem Glucose [Mass/Vol] 88 mg/dL Normal 55 - 199 mg/dL Remisol Chem Lipase Lvl 23 unit/L Normal 13 - 58 unit/L Remisol Chem Potassium [Moles/Vol] 3.3 mmol/L Low 3.5 - 5.3 mmol/L Remisol Chem Protein [Mass/Vol] 6.9 g/dL Normal 6.0 - 7.8 gm/dL Remisol Chem Sodium [Moles/Vol] 139 mmol/L Normal 135 - 145 mmol/L Remisol Chem Urea nitrogen [Mass/Vol] mg/dL Low 5 - 21 mg/dL Remisol Chem Urea nitrogen/Creatinine [Mass ratio] 7 mg/mg Low 10 - 20 Remisol Chem Capillary Glucose POCon 12-3 Glucose [Mass/Vol] 86 mg/dL Normal 55-99 [facility] Comment on above: Result Comment: Cara crawford RN/ Performed By: #### 2 [id number] ####[facility] [address] [place] [address] Consent for Treatmenton 08-20 Consent for Treatment [id number] Normal [facility] Discharge Instructionson Discharge Instructions [id number] Normal [facility] ED Clinical Summaryon 2022 ED Clinical Summary Normal [facility] ED Note-Physicianon 09-17-20 ED Note-Physician Normal [facility] Comment on above: Result Comment: Elec tronically Signed By: Sam Aguirre PA-C\.br\Date and Time Signed: 09/17/23 14:12 EST\.br\Electronically Co-Signed By: Lucho Cannon DO\.br\Date and Time Co-Signed: 09/17/23 15:32 EST ED Patient Education Noteon 09-17-2023 ED Patient Education Note Normal [facility] ED Patient Summaryon 023 ED Patient Summary Normal [facility] HEMATOLOGYOrdered By: SYSTEM SYSTEM on 09-17-2023 Basophils/100 WBC (Bld) 0.6 % Normal 0.0 - 2.0 % [facility] Basophils/Leukocytes Auto (Bld) [Pure # fraction] 0.0 E9/L Normal 0.0 - 0.2 E9/L [facility] Eosinophils/100 WBC (Bld) 0.3 % Normal 0.0 - 8.0 % [facility] Eosinophils/Leukocytes Auto (Bld) [Pure # fraction] 0.0 E9/L Normal 0.0 - 0.5 E9/L [facility] Lymphocytes/100 WBC (Bld) 38.9 % Normal 14.0 - 50.0 % [facility] Lymphocytes/Leukocytes Auto (Bld) [Pure # fraction] 1.0 E9/L Normal 1.0 - 4.0 E9/L [facility] Monocytes/100 WBC (Bld) 11.5 % Normal 4.0 - 14.0 % [facility] Monocytes/Leukocytes Auto (Bld) [Pure # fraction] 0.3 E9/L Normal 0.2 - 1.0 E9/L [facility] Neutrophils/100 WBC (Bld) 48.7 % Normal 36.0 - 75.0 % [facility] Neutrophils/Leukocytes Auto (Bld) [Pure # fraction] 1.2 E9/L Low 2.0 - 7.5 E9/L [facility] HEMATOLOGYOrdered By: Marlyn Menendez on 09-17-2023 Erythrocyte distribution width (RBC) [Ratio] 13.1 % Normal 10.9 - 14.2 % [facility] Hematocrit (Bld) [Volume fraction] 40.2 % Normal 34.0 - 46.0 % [facility] Hemoglobin (Bld) [Mass/Vol] 13.8 g/dL Normal 12.0 - 16.0 gm/dL [facility] MCH (RBC) [Entitic mass] 28.9 pg Normal 27.0 - 34.0 pg [facility] MCHC (RBC) [Mass/Vol] 34.2 g/dL Normal 31.4 - 36.0 gm/dL [facility] MCV (RBC) [Entitic vol] 84.4 fL Normal 80.0 - 100.0 fL [facility] Platelet mean volume (Bld) [Entitic vol] 8.4 fL Normal 6.4 - 10.8 fL [facility] Platelets (Bld) [#/Vol] 140.0 E9/L Low 150. 0 - 500.0 E9/L [facility] RBC (Bld) [#/Vol] 4.8 E12/L Normal 4.3 - 5.9 E12/L [facility] WBC corrected for nucl RBC Auto (Bld) [#/Vol] 2.5 E9/L Low 4.0 - 11.0 E9/L [facility] Hep Func Panelon 09-17-2023 Albumin [Mass/Vol] 4.2 g/dL Normal 3.3-5.0 [facility] Comment on above: Performed By: #### 2 320771, 5056324, 8270247, 9798846, 57898975, 9176269 ####[address] [place] [address] Albumin/Globulin [Mass ratio] 1.6 {ratio} Normal 1.1-2.2 [facility] Comment on above: Performed By: #### 2 578856, 5327269, 6126173, 7674484, 45828753, 2559339 ####[address] [place] [address] Alk Phos 46 Int._Unit/L Normal 21-98 [facility] Comment on above: Performed By: #### 2 046031, 4799339, 5062738, 9764647, 65440135, 1451025 ####[address] [place] [address] ALT 8 Int._Unit/L Normal 6-46 [facility] Comment on above: Performed By: #### 2 210406, 4362963, 5740752, 5811145, 69211246, 4657226 ####[address] [place] [address] AST 17 Int._Unit/L Normal 5-43 [facility] Comment on above: Performed By: #### 2 418288, 3964616, 7886304, 0622769, 78824585, 1685626 ####[address] [place] [address] Bili Direct 0.1 mg/dL Normal 0.0-0.4 [facility] Comment on above: Performed By: #### 2 887507, 5465103, 0404273, 8105788, 13872576, 4510349 ####[address] [place] [address] Bili Indirect 0.3 mg/dL Normal 0.1-0.9 [facility] Comment on above: Performed By: #### 2 736778, 1676326, 0848832, 7672545, 64299553, 8189944 ####[address] [place] [address] Bili Total 0.4 mg/dL Normal 0.0-1.1 [facility] Comment on above: Performed By: #### 2 586957, 9269921, 5741150, 1294890, 94832070, 6715576 ####[facility] [address] [place] [address] Globulin (S) [Mass/Vol] 2.7 g/dL Normal 1.4-4.0 [facility] Comment on above: Performed By: #### 2 788674, 0113530, 1236465, 1957963, 95022877, 6091249 ####[facility] [address] [place] [address] Protein [Mass/Vol] 6.9 g/dL Normal 6.0-7.8 [facility] Comment on above: Performed By: #### 2 718259, 8870143, 7685121, 0257734, 12075765, 6852813 ####[facility] [address] [place] [address] Lipase Levelon 09-17-2023 Lipase Lvl 23 unit/L Normal 13-58 [facility] Comment on above: Performed By: #### 2 420554, 9391824, 6250040, 6498247, 86215425, 7746652 ####[facility] [address] [place] [address] UA With Cult Reflexon 2022 Bacteria LM Ql (Urine sed) TRACE Normal Trace [facility] Comment on above: Performed By: #### 1 8793780 ####[facility] [address] [place] [address] Bilirubin Ql (U) Negative Normal Negative [facility] Comment on above: Performed By: #### 1 4402613 ####[facility] [address] [place] [address] Clarity (U) CLEAR Normal Clear [facility] Comment on above: Performed By: #### 1 7157498 ####[facility] [address] [place] [address] Color (U) RED Abnormal Yellow [facility] Comment on above: Performed By: #### 1 5027489 ####[address] [address] Epithelial cells.squamous LM.HPF (Urine sed) [#/Area] 3-4 Normal 0-2 [facility] Comment on above: Performed By: #### 1 9112201 ####[address] [address] Glucose Test strip (U) [Mass/Vol] Negative Normal Negative [facility] Comment on above: Performed By: #### 1 3732661 ####[address] [address] Hemoglobin Ql (U) 3+ Abnormal Negative [facility] Comment on above: Performed By: #### 1 8893281 ####[address] [address] Ketones (U) [Mass/Vol] 1+ Abnormal Negative Fi [facility] Comment on above: Performed By: #### 1 3484534 ####[address] [address] [place].plasma/[place]. RBC (Bld) [Mass ratio] >75 Abnormal 0-3 [facility] Comment on above: Performed By: #### 1 1570375 ####[facility] [address] [place] [address] Mucus Ql (Urine sed) 1+ Normal [facility] Comment on above: Performed By: #### 1 9686399 ####[address] [address] Nitrite Ql (U) Negative Normal Negative [facility] Comment on above: Performed By: #### 1 5878823 ####[address] [address] pH (U) 7.0 [pH] Invalid Interpretation Code 5.0-9.0 [facility] Comment on above: Performed By: #### 1 5723654 ####[facility] [address] [place] [address] Protein (U) [Mass/Vol] 2+ Abnormal Negative Fi [facility] Comment on above: Performed By: #### 1 6290299 ####[facility] [address] [place] [address] Specific gravity (U) [Rel density] <=1.005 Invalid Interpretation Code 1.005-1.030 [facility] Comment on above: Performed By: #### 1 5212121 ####[address] [address] Type of Urine collection method Clean Catch Normal [facility] Comment on above: Performed By: #### 1 2442341 ####[address] [address] Urobilinogen Qn (U) 0.2 {[place]'U}/dL Normal 0.0-1.0 [facility] Comment on above: Performed By: #### 1 2418729 ####[facility] [address] [place] [address] WBC Auto Ql (U) TRACE Abnormal Negative [facility] Comment on above: Performed By: #### 1 9842356 ####[facility] [address] [place] [address] WBC LM.HPF (Urine sed) [#/Area] 0-5 Normal 0-5 [facility] Comment on above: Performed By: #### 1 6209088 ####[address] [address] URINALYSISOrdered By: Kendall Vargas on 09-17-2023 Bacteria LM Ql (Urine sed) Trace /HPF Normal Trace/HPF [facility] Auto SS Bilirubin Ql (U) Negative (09/17/23 1:07 PM) Normal Negative FT UA Auto SS Clarity (U) Clear (09/17/23 1:07 PM) Normal Clear FT UA Auto SS Color (U) Red *ABN* (09/17/23 1:07 PM) Invalid Interpretation Code Yellow [facility] UA Auto SS Epithelial cells.squamous LM.HPF (Urine sed) [#/Area] 3-4 /HPF Normal 0-2/HPF [facility] UA Aut o SS Glucose Test strip (U) [Mass/Vol] Negative (09/17/23 1:07 PM) Normal Negative [facility] UA Auto SS Hemoglobin Ql (U) 3+ *ABN* (09/17/23 1:07 PM) Invalid Interpretation Code Negative [facility] UA Auto SS Ketones (U) [Mass/Vol] 1+ *ABN* (09/17/23 1:07 PM) Invalid Interpretation Code Negative [facility] UA Auto SS [place].plasma/[place]. RBC (Bld) [Mass ratio] >75 /HPF Invalid Interpretation Code 0-3/HPF [facility] UA Auto SS Mucus Ql (Urine sed) 1+ (09/17/23 1:07 PM) Normal [facility] UA Auto SS Nitrite Ql (U) Negative (09/17/23 1:07 PM) Normal Negative [facility] UA Auto SS pH (U) 7.0 *NA* (09/17/23 1:07 PM) Invalid Interpretation Code 5.0 - 9.0 [facility] UA Auto SS Protein (U) [Mass/Vol] 2+ *ABN* (09/17/23 1:07 PM) Invalid Interpretation Code Negative [facility] UA Auto SS Specific gravity (U) [Rel density] <=1.005 *NA* (09/17/23 1:07 PM) Invalid Interpretation Code 1.005 - 1.030 [facility] UA Auto SS UA Spec Desc Clean Catch (09/17/23 1:07 PM) Normal [facility] UA Auto SS Urobilinogen Qn (U) 0.5310541 {[place]'U}/dL Normal 0.0 - 1.0 EU/dL [facility] UA Auto SS WBC Auto Ql (U) Trace *ABN* (09/17/23 1:07 PM) Invalid Interpretation Code Negative [facility] UA Auto SS WBC LM.HPF (Urine sed) [#/Area] 0-5 /HPF Normal 0-5/HPF [facility] UA Auto SS eGFRon 09-17-2023 GFR/1.73 sq M.predicted among non-blacks MDRD (S/P/Bld) [Vol rate/Area] mL/min/{1.73_m2} Normal >=59 [facility] Comment on above: Order Comment: Order added by Discern Expert. Performed By: #### 2 162996, 3226634, 3649353, 5883080, 44757202, 1707007 ####[facility] [address] [place] [address] Auto Diffon 09-15-2023 Basophils/100 WBC (Bld) 0.2 % Normal 0.0-2.0 [facility] Comment on above: Order Comment: Order Added by Discern Expert. Performed By: #### 2 612438, 7119101, 62777712, 8131169, 5205259, 8389652 ####[facility] [address] [place] [address] Basophils/Leukocytes Auto (Bld) [Pure # fraction] 0.0 E9/L Normal 0.0-0.2 [facility] Comment on above: Order Comment: Order Added by Juma Expert. Performed By: #### 2 007844, 1893310, 55166447, 3036107, 5496818, 9366879 ####[facility] [address] [place] [address] Eosinophils/100 WBC (Bld) 0.0 % Normal 0.0-8.0 [facility] Comment on above: Order Comment: Order Added by Juma Expert. Performed By: #### 2 951510, 7817270, 20188300, 9103997, 8875053, 9172217 ####[facility] [address] [place] [address] Eosinophils/Leukocytes Auto (Bld) [Pure # fraction] 0.0 E9/L Normal 0.0-0.5 [facility] Comment on above: Order Comment: Order Added by Juma Expert. Performed By: #### 2 004389, 8273656, 63378109, 4630542, 7177176, 3051752 ####[facility] [address] [place] [address] Lymphocytes/100 WBC (Bld) 19.4 % Normal 14.0-50.0 [facility] Comment on above: Order Comment: Order Added by Discern Expert. Performed By: #### 2 237458, 1911162, 87411975, 2684999, 6217374, 9494308 ####[facility] [address] [place] [address] Lymphocytes/Leukocytes Auto (Bld) [Pure # fraction] 0.5 E9/L Low 1.0-4.0 [facility] Comment on above: Order Comment: Order Added by Discern Expert. Performed By: #### 2 255479, 0997082, 51764393, 8777895, 6897947, 1336295 ####[facility] [address] [place] [address] Monocytes/100 WBC (Bld) 13.4 % Normal 4.0-14.0 [facility] Comment on above: Order Comment: Order Added by Juma Expert. Performed By: #### 2 911954, 0670660, 92893835, 5268079, 0895366, 0889965 ####[address] [place] [address] Monocytes/Leukocytes Auto (Bld) [Pure # fraction] 0.3 E9/L Normal 0.2-1.0 [facility] Comment on above: Order Comment: Order Added by Juma Expert. Performed By: #### 2 221966, 9357412, 77023609, 8755394, 8696669, 5279400 ####[address] [place] [address] Neutrophils/100 WBC (Bld) 67.0 % Normal 36.0-75.0 [facility] Comment on above: Order Comment: Order Added by Juma Expert. Performed By: #### 2 445775, 7643734, 92958331, 7425203, 3195646, 5053352 ####[facility] [address] [place] [address] Neutrophils/Leukocytes Auto (Bld) [Pure # fraction] 1.7 E9/L Low 2.0-7.5 [facility] Comment on above: Order Comment: Order Added by Discern Expert. Performed By: #### 2 742113, 2008155, 49469356, 5224600, 3614822, 4344106 ####[facility] [address] [place] [address] BMPon 09-15-2023 Anion gap [Moles/Vol] 14 mmol/L Normal 6-16 [facility] Comment on above: Performed By: #### 2 566387, 6718900, 62174567, 6833664, 3638964, 2275750 ####[facility] [address] [place] [address] BUN/Creat Ratio 12 No Units Normal 10-20 [facility] Comment on above: Performed By: #### 2 594400, 9019961, 41304893, 8284543, 5075595, 3154332 ####[facility] [address] [place] [address] Calcium [Mass/Vol] 8.7 mg/dL Low 8.9-11.1 [facility] Comment on above: Performed By: #### 2 878119, 9494254, 49510057, 8149749, 9722613, 4112243 ####[facility] [address] [place] [address] Chloride [Moles/Vol] 100 mmol/L Low 101-111 [facility] Comment on above: Performed By: #### 2 458407, 7118109, 57961184, 7473594, 5020061, 5395735 ####[facility] [address] [place] [address] CO2 [Moles/Vol] 24 mmol/L Normal 21-31 [facility] Comment on above: Performed By: #### 2 680507, 2564682, 53828945, 6315668, 2327293, 8150793 ####[facility] [address] [place] [address] Creatinine [Mass/Vol] 0.6 mg/dL Normal 0.5-1.3 [facility] Comment on above: Performed By: #### 2 720212, 4378247, 12648796, 7950029, 3393961, 4627202 ####[facility] [address] [place] [address] Glucose [Mass/Vol] 91 mg/dL Normal 55-199 [facility] Comment on above: Performed By: #### 2 018889, 0923670, 45850707, 9186157, 7993389, 1563413 ####[facility] [address] [place] [address] Potassium [Moles/Vol] 3.4 mmol/L Low 3.5-5.3 [facility] Comment on above: Performed By: #### 2 270917, 3507797, 05302529, 7345112, 4186439, 3895016 ####[address] [address] Sodium [Moles/Vol] 135 mmol/L Normal 135-145 [facility] Comment on above: Performed By: #### 2 835974, 6977963, 53702951, 7971950, 1621278, 9807411 ####[address] [address] Urea nitrogen [Mass/Vol] 7 mg/dL Normal 5-21 [facility] Comment on above: Performed By: #### 2 168874, 6344768, 51370895, 3157570, 9304541, 1730454 ####[address] [address] CBC w/ Auto Diffon 3 Erythrocyte distribution width (RBC) [Ratio] 13.4 % Normal 10.9-14.2 [facility] Comment on above: Performed By: #### 2 139983, 4884974, 52746802, 4162060, 5575041, 9734778 ####[address] [place] [address] Hematocrit (Bld) [Volume fraction] 41.3 % Normal 34.0-46.0 [facility] Comment on above: Performed By: #### 2 712469, 8840700, 28160187, 5891820, 5976340, 5387596 ####[address] [address] Hemoglobin (Bld) [Mass/Vol] 14.3 g/dL Normal 12.0-16.0 [facility] Comment on above: Performed By: #### 2 607978, 3295842, 06754500, 0584456, 1826565, 8842074 ####[address] [address] MCH (RBC) [Entitic mass] 29.3 pg Normal 27.0-34.0 [facility] Comment on above: Performed By: #### 2 078653, 8874926, 04745183, 0609145, 2382427, 1561778 ####[address] [address] MCHC (RBC) [Mass/Vol] 34.6 g/dL Normal 31.4-36.0 [facility] Comment on above: Performed By: #### 2 490372, 2764353, 89871899, 5467043, 8374868, 0188287 ####[address] [address] MCV (RBC) [Entitic vol] 84.7 fL Normal 80.0-100.0 [facility] Comment on above: Performed By: #### 2 796200, 9810464, 47608850, 9916900, 3190275, 6725443 ####[address] [address] Platelet mean volume (Bld) [Entitic vol] 8.2 fL Normal 6.4-10.8 [facility] Comment on above: Performed By: #### 2 854009, 8763990, 87315520, 3723526, 3875650, 3424033 ####[address] [address] Platelets (Bld) [#/Vol] 156.0 E9/L Normal 150.0-500.0 [facility] Comment on above: Performed By: #### 2 422474, 1727779, 74617900, 3091525, 8189944, 6559097 ####[facility] [address] [place] [address] RBC (Bld) [#/Vol] 4.9 E12/L Normal 4.3-5.9 [facility] Comment on above: Performed By: #### 2 172655, 8298001, 11897095, 1586048, 4420285, 8892833 ####[facility] [address] [place] [address] WBC corrected for nucl RBC Auto (Bld) [#/Vol] 2.6 E9/L Low 4.0-11.0 [facility] Comment on above: Performed By: #### 2 982370, 0027146, 51097573, 2624243, 4580510, 9273100 ####[facility] [address] [place] [address] CHEMISTRYOrdered By: SYSTEM SYSTEM on 09-15-2023 Albumin [Mass/Vol] 4.5 g/dL Normal 3.3 - 5.0 gm/dL [facility] Albumin/Globulin [Mass ratio] 1.5 {ratio} Normal 1.1 - 2.2 [facility] Alk Phos 52 [iU]/d Normal 21 - 98 Int._Unit/L Rem[facility] Chem ALT 8 [iU]/d Normal 6 - 46 Int._Unit/L [facility] Anion gap [Moles/Vol] 14 mmol/L Normal 6 - 16 mEq/L R emisol Chem AST 17 [iU]/d Normal 5 - 43 Int._Unit/L [facility] Bili Direct 0.1 mg/dL Normal 0.0 - 0.4 mg/dL [facility] Bili Indirect 0.3 mg/dL Normal 0.1 - 0.9 mg/dL [facility] Bili Total 0.4 mg/dL Normal 0.0 - 1.1 mg/dL [facility] Calcium [Mass/Vol] 8.7 mg/dL Low 8.9 - 11. 1 mg/dL [facility] Chloride [Moles/Vol] 100 mmol/L Low 101 - 1 11 mmol/L [facility] CO2 [Moles/Vol] 24 mmol/L Normal 21 - 31 mmol/L [facility] Creatinine [Mass/Vol] 0.6 mg/dL Normal 0.5 - 1.3 mg/dL [facility] eGFR mL/min/1.73 m2 Normal >=59mL/min/1 .73 m2 [facility] Globulin (S) [Mass/Vol] 3.0 g/dL Normal 1.4 - 4.0 gm/dL [facility] Glucose [Mass/Vol] 91 mg/dL Normal 55 - 199 mg/dL [facility] Lipase Lvl 20 unit/L Normal 13 - 58 unit/L [facility] Potassium [Moles/Vol] 3.4 mmol/L Low 3.5 - 5.3 mmol/L [facility] Protein [Mass/Vol] 7.5 g/dL Normal 6.0 - 7.8 gm/dL [facility] Sodium [Moles/Vol] 135 mmol/L Normal 135 - 145 mmol/L [facility] Urea nitrogen [Mass/Vol] 7 mg/dL Normal 5 - 21 mg/dL [facility] Urea nitrogen/Creatinine [Mass ratio] 12 mg/mg Normal 10 - 20 [facility] Consent for Treatmenton 08-19 Consent for Treatment [id number] Normal [facility] Discharge Instructionson Discharge Instructions [id number] Normal [facility] ED Clinical Summaryon 2022 ED Clinical Summary Normal [facility] ED Note-Physicianon 09-15-20 23 ED Note-Physician Normal [facility] Comment on above: Result Comment: Elec tronically Signed By: Sam Aguirre PA-C\.br\Date and Time Signed: 09/15/23 16:44 EST\.br\Electronically Co-Signed By: Lucho Cannon DO.br\Date and Time Co-Signed: 09/15/23 19:11 EST ED Patient Education Noteon 09-15-2023 ED Patient Education Note Normal [facility] ED Patient Summaryon 023 ED Patient Summary Normal [facility] HEMATOLOGYOrdered By: SYSTEM SYSTEM on 09-15-2023 Basophils/100 WBC (Bld) 0.2 % Normal 0.0 - 2.0 % [facility]Auto[facility] Basophils/Leukocytes Auto (Bld) [Pure # fraction] 0.0 E9/L Normal 0.0 - 0.2 E9/L [facility] Eosinophils/100 WBC (Bld) 0.0 % Normal 0.0 - 8.0 % [facility] Eosinophils/Leukocytes Auto (Bld) [Pure # fraction] 0.0 E9/L Normal 0.0 - 0.5 E9/L [facility] Lymphocytes/100 WBC (Bld) 19.4 % Normal 14.0 - 50.0 % [facility] Lymphocytes/Leukocytes Auto (Bld) [Pure # fraction] 0.5 E9/L Low 1.0 - 4.0 E9/L [facility] Monocytes/100 WBC (Bld) 13.4 % Normal 4.0 - 14.0 % [facility] Monocytes/Leukocytes Auto (Bld) [Pure # fraction] 0.3 E9/L Normal 0.2 - 1.0 E9/L [facility] Neutrophils/100 WBC (Bld) 67.0 % Normal 36.0 - 75.0 % [facility] Neutrophils/Leukocytes Auto (Bld) [Pure # fraction] 1.7 E9/L Low 2.0 - 7.5 E9/L [facility] HEMATOLOGYOrdered By: Mandi Croft on 09-15-2023 Erythrocyte distribution width (RBC) [Ratio] 13.4 % Normal 10.9 - 14.2 % [facility] Hematocrit (Bld) [Volume fraction] 41.3 % Normal 34.0 - 46.0 % [facility] Hemoglobin (Bld) [Mass/Vol] 14.3 g/dL Normal 12.0 - 16.0 gm/dL [facility] MCH (RBC) [Entitic mass] 29.3 pg Normal 27.0 - 34.0 pg [facility] MCHC (RBC) [Mass/Vol] 34.6 g/dL Normal 31.4 - 36.0 gm/dL [facility] HemeAutoSS MCV (RBC) [Entitic vol] 84.7 fL Normal 80.0 - 100.0 fL [facility] Platelet mean volume (Bld) [Entitic vol] 8.2 fL Normal 6.4 - 10.8 fL [facility] Platelets (Bld) [#/Vol] 156.0 E9/L Normal 150. 0 - 500.0 E9/L [facility] RBC (Bld) [#/Vol] 4.9 E12/L Normal 4.3 - 5.9 E12/L [facility]eAuto[facility] WBC corrected for nucl RBC Auto (Bld) [#/Vol] 2.6 E9/L Low 4.0 - 11.0 E9/L [facility] HemeAutoSS Hep Func Panelon 09-15-2023 Albumin [Mass/Vol] 4.5 g/dL Normal 3.3-5.0 [facility] Comment on above: Performed By: #### 2 447879, [id number], [id number], 9875468, 5982209, 1710132 ####[facility] [address] [place] [address] Albumin/Globulin [Mass ratio] 1.5 {ratio} Normal 1.1-2.2 [facility] Comment on above: Performed By: #### 2 [id number], 9079199, 66934334, 5888973, 0215240, 9387469 ####[facility] [address] [place] [address] Alk Phos 52 Int._Unit/L Normal 21-98 [facility] Comment on above: Performed By: #### 2 862369, 2873341, 95123535, 3043836, 9095637, 7755644 ####[facility] [address] [place] [address] ALT 8 Int._Unit/L Normal 6-46 [facility] Comment on above: Performed By: #### 2 386755, 5979959, 10991983, 9837286, 6379437, 6905398 ####[facility] [address] [place] [address] AST 17 Int._Unit/L Normal 5-43 [facility] Comment on above: Performed By: #### 2 773807, 1704030, 38752541, 9542705, 0872519, 2815469 ####[facility] [address] [place] [address] Bili Direct 0.1 mg/dL Normal 0.0-0.4 [facility] Comment on above: Performed By: #### 2 594269, 3479205, 87430288, 8499902, 8173355, 9164351 ####[facility] [address] [place] [address] Bili Indirect 0.3 mg/dL Normal 0.1-0.9 [facility] Comment on above: Performed By: #### 2 688728, 2933719, 75655183, 5516797, 4797507, 0178954 ####[facility] [address] [place] [address] Bili Total 0.4 mg/dL Normal 0.0-1.1 [facility] Comment on above: Performed By: #### 2 737000, [id number], [id number], 7577256, 6232600, 4821429 ####[facility] [address] [place] [address] Globulin (S) [Mass/Vol] 3.0 g/dL Normal 1.4-4.0 [facility] Comment on above: Performed By: #### 2 825310, 9203156, 12019384, 9318691, 6247018, 2770408 ####[facility] [address] [place] [address] Protein [Mass/Vol] 7.5 g/dL Normal 6.0-7.8 [facility] Comment on above: Performed By: #### 2 363400, 7720682, 22888184, 7892086, 0556396, 5465207 ####[address] [place] [address] Lipase Levelon 09-15-2023 Lipase Lvl 20 unit/L Normal 13-58 [facility] Comment on above: Performed By: #### 2 660561, 6912945, 59974426, 4841492, 1843263, 9299072 ####[facility] [address] [place] [address] UA With Cult Reflexon 2022 Bacteria LM Ql (Urine sed) 1+ /HPF Abnormal Trace [facility] Comment on above: Performed By: #### 1 [id number] ####[address] [address] Bilirubin Ql (U) 1+ Abnormal Negative [facility] Comment on above: Performed By: #### 1 0870655 ####[address] [address] Clarity (U) SL CLOUDY Invalid Interpretation Code [facility] Comment on above: Performed By: #### 1 [id number] ####[facility] [address] [place] [address] Color (U) YELLOW Normal Yellow [facility] Comment on above: Performed By: #### 1 5776587 ####[facility] [address] [place] [address] Epithelial cells.squamous LM.HPF (Urine sed) [#/Area] /[HPF] Normal 0-2 [facility] Comment on above: Performed By: #### 1 5406933 ####[facility] [address] [place] [address] Glucose Test strip (U) [Mass/Vol] Negative Normal Negative [facility] Comment on above: Performed By: #### 1 [id number] ####[address] [address] Hemoglobin Ql (U) Negative Normal Negative [facility] Comment on above: Performed By: #### 1 [id number] ####[facility] [address] [place] [address] Ketones (U) [Mass/Vol] 1+ Abnormal Negative [facility] Comment on above: Performed By: #### 1 2062813 ####[facility] [address] [place] [address] Bolton.plasma/Bolton. RBC (Bld) [Mass ratio] 0-3 Normal 0-3 [facility] Comment on above: Performed By: #### 1 [id number] ####[facility] [address] [place] [address] Mucus Ql (Urine sed) 3+ Normal [facility] Comment on above: Performed By: #### 1 3163927 ####[address] [address] Nitrite Ql (U) Negative Normal Negative [facility] Comment on above: Performed By: #### 1 3234473 ####[address] [address] pH (U) 6.0 [pH] Invalid Interpretation Code 5.0-9.0 [facility] Comment on above: Performed By: #### 1 9741114 ####[address] [address] Protein (U) [Mass/Vol] 1+ Abnormal Negative [facility] Comment on above: Performed By: #### 1 4664470 ####[address] [address] Specific gravity (U) [Rel density] 1.025 Invalid Interpretation Code 1.005-1.030 [facility] Comment on above: Performed By: #### 1 [id number] ####[facility] [address] [place] [address] Type of Urine collection method Clean Catch Normal [facility] Comment on above: Performed By: #### 1 7891856 ####[address] [address] Urobilinogen Qn (U) 1.0 {Brooklyn'U}/dL Normal 0.0-1.0 [facility] Comment on above: Performed By: #### 1 [id number] ####[facility] [address] [place] [address] WBC Auto Ql (U) Negative Normal Negative [facility] Comment on above: Performed By: #### 1 5249638 ####[facility] [address] [place] [address] WBC LM.HPF (Urine sed) [#/Area] 0-5 Normal 0-5 [facility] Comment on above: Performed By: #### 1 [id number] ####[facility] [address] [place] [address] URINALYSISOrdered By: Evelyn Pringle on 09-15-2023 Bacteria LM Ql (Urine sed) 1+ /HPF Invalid Interpretation Code Trace/HPF [facility] UA Auto SS Bilirubin Ql (U) 1+ *ABN* (09/15/23 2:58 PM) Invalid Interpretation Code Negative [facility] UA Auto SS Clarity (U) SL CLOUDY Invalid Interpretation Code [facility] UA Auto SS Color (U) Yellow (09/15/23 2:58 PM) Normal Yellow [facility] UA Auto SS Epithelial cells.squamous LM.HPF (Urine sed) [#/Area] /[HPF] Normal 0-2/HPF [facility] UA Aut o SS Glucose Test strip (U) [Mass/Vol] Negative (09/15/23 2:58 PM) Normal Negative [facility] UA Auto SS Hemoglobin Ql (U) Negative (09/15/23 2:58 PM) Normal Negative [facility] UA Auto SS Ketones (U) [Mass/Vol] 1+ *ABN* (09/15/23 2:58 PM) Invalid Interpretation Code Negative [facility] UA Auto SS Bolton.plasma/Bolton. RBC (Bld) [Mass ratio] 0-3 /HPF Normal 0-3/HPF [facility] UA A uto SS Mucus Ql (Urine sed) 3+ (09/15/23 2:58 PM) Normal [facility] UA Auto SS Nitrite Ql (U) Negative (09/15/23 2:58 PM) Normal Negative [facility] UA Auto SS pH (U) 6.0 *NA* (09/15/23 2:58 PM) Invalid Interpretation Code 5.0 - 9.0 [facility] UA Auto SS Protein (U) [Mass/Vol] 1+ *ABN* (09/15/23 2:58 PM) Invalid Interpretation Code Negative [facility] UA Auto SS Specific gravity (U) [Rel density] 1.025 *NA* (09/15/23 2:58 PM) Invalid Interpretation Code 1.005 - 1.030 [facility] UA Auto SS UA Spec Desc Clean Catch (09/15/23 2:58 PM) Normal [facility] UA Auto SS Urobilinogen Qn (U) 1.2573109 {Brooklyn'U}/dL Normal 0.0 - 1.0 EU/dL [facility] UA Auto SS WBC Auto Ql (U) Negative (09/15/23 2:58 PM) Normal Negative [facility] UA Auto SS WBC LM.HPF (Urine sed) [#/Area] 0-5 /HPF Normal 0-5/HPF [facility] UA Auto SS eGFRon 09-15-2023 GFR/1.73 sq M.predicted among non-blacks MDRD (S/P/Bld) [Vol rate/Area] mL/min/{1.73_m2} Normal >=59 [facility] Comment on above: Order Comment: Order added by Discern Expert. Performed By: #### 2 073302, 0149919, [id number], 6470915, 2853631, 1981774 ####[facility] [address] [place] [address] ECG 12 lead ECGon 09-14-2023 ECG 12 lead ECG [facility] [place] [address] Electrocardiograph Report Signed Patient: Leonora Marcum MR#: [id number] : 2000 Acct:[id number] Age/Sex: 22 / F ADM Date: 09/14/23 Loc: ER Room: Type: DEP ER Attending Dr: Ordering Provider: Gabi Stanley APRN Date of Service: 09/14/23 ECG/ECG 12 lead ECG: Upper Respiratory Infection Copies to: Test Reason : Blood Pressure : 110/068 mmHG Vent. Rate : 119 BPM Atrial Rate : 119 BPM P-R Int : 156 ms QRS Dur : 072 ms QT Int : 324 ms P-R-T Axes : 068 133 017 degrees QTc Int : 455 ms Sinus tachycardia Biatrial enlargement Right ventricular hypertrophy Possible Lateral infarct , age undetermined Possible Inferior infarct , age undetermined Abnormal ECG When compared with ECG of 04-SEP-2022 10:33, Borderline criteria for Lateral infarct are now present No significant change was found Confirmed by JENNYFER ALEMAN DO ([id number]) on 09/16/2023 1:54:31 AM Referred By: Electronically Signed By:JENNYFER ALEMAN DO Transcribed By: MUS Signed By Jennyfer Aleman DO 0154 [facility] B hCG Qualon 09-13-2023 Beta HCG ( test) Ql Negative Normal [facility] Comment on above: Performed By: #### 2 [id number] ####[facility] [address] [place] [address] Consent for Treatmenton 08-19 Consent for Treatment [id number]#1 .00TIFF Normal [facility] Discharge Instructionson Discharge Instructions [id number]# 1.00TIFF Normal [facility] ED Clinical Summaryon 2022 ED Clinical Summary Normal [facility] ED Note-Physicianon 09-13-20 ED Note-Physician Normal [facility] Comment on above: Result Comment: Elec tronically Signed By: Sam Aguirre PA-C\.br\Date and Time Signed: 09/13/23 14:21 EST\.br\Electronically Co-Signed By: Marshall Cardenas DO.br\Date and Time Co-Signed: 09/13/23 15:13 EST ED Patient Education Noteon 09-13-2023 ED Patient Education Note Normal [facility] ED Patient Summaryon 023 ED Patient Summary Normal [facility] SEROLOGYOrdered By: Tan Pringle on 09-13-2023 Beta HCG ( test) Ql Negative (09/13/23 12:50 PM) Normal [facility] Man Sero XR Chest 2 Viewson 3 XR Chest 2 Views Normal [facility] Heart and Vascular Office/Cl inic Noteon 08-28-2023 Heart and Vascular Office/Clinic Note Normal [facility] Comment on above: Result Comment: Elec tronically Signed By: TREVON MERRILL, Alexsander Awad Other Comment: Proba ble no show. Stress EKG Tracingson 2022 Stress EKG Tracings [id number]# 1.00TIFF Normal [facility] Discharge Instructionson Discharge Instructions [id number]# 1.00TIFF Normal [facility] Comment on above: Other Comment: Wrong patient ECG Stress Exerciseon 2022 ECG Stress Exercise Normal [facility] Alanine aminotransferase [En zymatic activity/volume] in Serum or PlasmaOrdered By: Fransico Weston on 08-07-2023 ALT [Catalytic activity/Vol] 8 U/L 7-52 [facility] Albumin [Mass/volume] in Ser um or Plasma by Bromocresol green (BCG) dye binding methoOrdered By: Fransico Weston on 08-07-2023 Albumin BCG dye [Mass/Vol] 4.5 g/dL 3.5-5.7 [facility] Alkaline phosphatase [Enzyma tic activity/volume] in Serum or PlasmaOrdered By: Fransico Weston on 08-07-2023 ALP [Catalytic activity/Vol] 49 U/L 34-104 [facility] Aspartate aminotransferase [ Enzymatic activity/volume] in Serum or PlasmaOrdered By: Fransico Weston on 08-07-2023 AST [Catalytic activity/Vol] 15 U/L 13-39 [facility] Automated erythrocytes count in urine sediment (number/area)Ordered By: Jennyfer Aleman on 08-07-2023 RBC Auto (Urine sed) [#/Area] 0-1 [HPF] 0-4 [facility] Automated leukocytes count i n urine sediment (number/area)Ordered By: Jennyfer Aleman on 08-07-2023 WBC Auto (Urine sed) [#/Area] 0-1 [HPF] 0-4 [facility] Basic Metabolic Panelon 07-20 Anion gap [Moles/Vol] 10.0 mmol/L Normal 6.0-15.0 [facility] Comment on above: Performed By: #### H EPATIC, BMP, LIPASE, CBC ####[address] [place] [address] [facility] Calcium [Mass/Vol] 9.0 mg/dL Normal 8.6-10.3 [facility] Comment on above: Performed By: #### H EPATIC, BMP, LIPASE, CBC ####[id number] [facility] Chloride [Moles/Vol] 106 mmol/L Normal 98-107 [facility] Comment on above: Performed By: #### H EPATIC, BMP, LIPASE, CBC ####[id number] [facility] CO2 [Moles/Vol] 25.7 mmol/L Normal 21.0-31.0 [facility] Comment on above: Performed By: #### H EPATIC, BMP, LIPASE, CBC ####[address] [address] [facility] Creatinine [Mass/Vol] 0.52 mg/dL Low 0.60-1.20 [facility] Comment on above: Performed By: #### H EPATIC, BMP, LIPASE, CBC ####[address] [address] [facility] Creatinine Clr Calc Pharmacy 147.78 [facility] Comment on above: Performed By: #### H EPATIC, BMP, LIPASE, CBC ####[id number] [facility] GFR/1.73 sq M.predicted MDRD (S/P/Bld) [Vol rate/Area] mL/min/{1.73_m2} [facility] Comment on above: Performed By: #### H EPATIC, BMP, LIPASE, CBC ####[id number] [facility] Glucose [Mass/Vol] 84 mg/dL Normal 70-100 [facility] Comment on above: Result Comment: [place] Glucose Reference Range is dependent on time and content of last meal. Glucose of more than 200 mg/dL in a nonstressed, ambulatory subject supports the diagnosis of Diabetes Mellitus. ADA recommended reference range Performed By: #### H EPATIC, BMP, LIPASE, CBC ####[facility] [address] Potassium [Moles/Vol] 3.7 mmol/L Normal 3.5-5.1 [facility] Comment on above: Performed By: #### H EPATIC, BMP, LIPASE, CBC ####[facility] [address] Sodium [Moles/Vol] 138 mmol/L Normal 136-145 [facility] Comment on above: Performed By: #### H EPATIC, BMP, LIPASE, CBC ####[facility] [address] Urea nitrogen [Mass/Vol] 5 mg/dL Low 7-25 [facility] Comment on above: Performed By: #### H EPATIC, BMP, LIPASE, CBC ####[facility] Basophils Auto (Bld) [#/Vol] Ordered By: Fransico Weston on 08-07-2023 Basophils (Bld) [#/Vol] 0.0 10*3/uL 0.0-0.2 [facility] Basophils/100 WBC Auto (Bld) Ordered By: Fransico Weston on 08-07-2023 Basophils/100 WBC (Bld) 0.6 % . [facility] Bilirubin Test strip Ql (U)O rdered By: Jennyfer Aleman on 08-07-2023 Bilirubin Ql (U) Negative Negative [facility] Bilirubin.direct [Mass/volum e] in Serum or PlasmaOrdered By: Fransico Weston on 08-07-2023 Bilirubin.direct [Mass/Vol] 0.20 mg/dL 0.03-0.18 [facility] Bilirubin.total [Mass/volume ] in Serum or PlasmaOrdered By: Fransico Weston on 08-07-2023 Bilirubin [Mass/Vol] 0.7 mg/dL 0.3-1.0 [facility] Calcium [Mass/volume] in Ser um or PlasmaOrdered By: Fransico Weston on 08-07-2023 Calcium [Mass/Vol] 9.0 mg/dL 8.6-10.3 [facility] Carbon dioxide, total [Moles /volume] in Serum or PlasmaOrdered By: Fransico Weston on 08-07-2023 CO2 [Moles/Vol] 25.7 mmol/L 21.0-31.0 [facility] Chloride [Moles/volume] in S dion or PlasmaOrdered By: Fransico Weston on 08-07-2023 Chloride [Moles/Vol] 106 mmol/L 98-107 [facility] Color Auto (U)Ordered By: Abdon Aleman on 08-07-2023 Color (U) Yellow Yellow [facility] Complete Blood Count Auto Di ffon 08-07-2023 Basophils (Bld) [#/Vol] 0.0 10*3/uL Normal 0.0-0.2 [facility] Comment on above: Result Comment: PERF ORMED BY: [place] [address] PATHOLOGIST [employer] ANALYST LEEANN KEANE M.D. Performed By: #### H EPATIC, BMP, LIPASE, CBC #### [facility] [address] [place] [address] Basophils/100 WBC (Bld) 0.6 % Normal . [facility] Comment on above: Performed By: #### H EPATIC, BMP, LIPASE, CBC #### [facility] [address] [place] [address] [place] Eosinophils (Bld) [#/Vol] 0.0 10*3/uL Normal 0.0-0.45 [facility] Comment on above: Performed By: #### H EPATIC, BMP, LIPASE, CBC #### [facility] [address] [place] [address] [place] Eosinophils/100 WBC (Bld) 0.3 % Normal . [facility] Comment on above: Performed By: #### H EPATIC, BMP, LIPASE, CBC #### [address] Erythrocyte distribution width (RBC) [Ratio] 13.7 % Normal 11.9-15.3 [facility] Comment on above: Performed By: #### H EPATIC, BMP, LIPASE, CBC #### [address] Hematocrit (Bld) [Volume fraction] 37.2 % Normal 34.0-46.4 [facility] Comment on above: Performed By: #### H EPATIC, BMP, LIPASE, CBC #### [address] Hemoglobin (Bld) [Mass/Vol] 12.7 g/dL Normal 11.8-15.4 [facility] Comment on above: Performed By: #### H EPATIC, BMP, LIPASE, CBC #### [address] Lymphocytes (Bld) [#/Vol] 1.5 10*3/uL Normal 1.00-4.8 [facility] Comment on above: Performed By: #### H EPATIC, BMP, LIPASE, CBC #### [address] Lymphocytes/100 WBC (Bld) 23.0 % Normal . [facility] Comment on above: Performed By: #### H EPATIC, BMP, LIPASE, CBC #### [address] MCH (RBC) [Entitic mass] 29.4 pg Normal 24.7-34.3 [facility] Comment on above: Performed By: #### H EPATIC, BMP, LIPASE, CBC #### [address] MCV (RBC) [Entitic vol] 86.2 fL Normal 80-100 [facility] Comment on above: Performed By: #### H EPATIC, BMP, LIPASE, CBC #### [address] Mean Corpuscular HGB Conc 34.1 g/dL Normal 32.0-35.0 [facility] Comment on above: Performed By: #### H EPATIC, BMP, LIPASE, CBC #### [facility] [address] [place] [address] [place] Monocytes (Bld) [#/Vol] 0.4 10*3/uL Normal 0.0-0.8 [facility] Comment on above: Performed By: #### H EPATIC, BMP, LIPASE, CBC #### [address] Monocytes/100 WBC (Bld) 16.97 % Normal 0.00-20.00 [facility] Comment on above: Performed By: #### H EPATIC, BMP, LIPASE, CBC #### [place] [address] [place] Monocytes/100 WBC (Bld) 6.2 % Normal . [facility] Comment on above: Performed By: #### H EPATIC, BMP, LIPASE, CBC #### [facility] [address] [place] [address] Neutrophils (Bld) [#/Vol] 4.6 10*3/uL Normal 1.8-7.7 [facility] Comment on above: Performed By: #### H EPATIC, BMP, LIPASE, CBC #### [address] Neutrophils/100 WBC (Bld) 69.9 % Normal . [facility] Comment on above: Performed By: #### H EPATIC, BMP, LIPASE, CBC #### [facility] [address] [place] [address] [place] NRBC% 0.0 /100{WBC} Normal 0-0.5 [facility] Comment on above: Performed By: #### H EPATIC, BMP, LIPASE, CBC #### [facility] [address] [place] [address] Platelet mean volume (Bld) [Entitic vol] 8.6 fL Normal 6.3-10.7 [facility] Comment on above: Performed By: #### H EPATIC, BMP, LIPASE, CBC #### [facility] [address] Platelets (Bld) [#/Vol] 193 10*3/uL Normal 150-450 [facility] Comment on above: Performed By: #### H EPATIC, BMP, LIPASE, CBC #### [facility] [address] RBC (Bld) [#/Vol] 4.31 10*6/uL Normal 3.60-5.00 [facility] Comment on above: Performed By: #### H EPATIC, BMP, LIPASE, CBC #### [facility] [address] WBC (Bld) [#/Vol] 6.7 10*3/uL Normal 3.8-11.6 [facility] Comment on above: Performed By: #### H EPATIC, BMP, LIPASE, CBC #### [address] Consent for Treatmenton 07-20 Consent for Treatment [id number]#1 .00TIFF Normal [facility] Consent for Treatment [id number]#1 .00TIFF Normal [facility] Creatinine [Mass/volume] in Serum or PlasmaOrdered By: Fransico Weston on 08-07-2023 Creatinine [Mass/Vol] 0.52 mg/dL 0.60-1.20 [facility] Dipstick and Microscopicon 1 10-07-2022 Appearance (U) Cloudy Critically abnormal Clear [facility] Comment on above: Order Comment: Name Collection Type:: Clean-Voided Midstream Performed By: #### A DDONUAPLUS #### [address] Bacteria,Urine None Seen Normal None Seen [facility] Comment on above: Order Comment: Name Collection Type:: Clean-Voided Midstream Performed By: #### A DDONUAPLUS #### [address] [place] [address] [place] Bilirubin,Urine Negative Normal Negative [facility] Comment on above: Order Comment: Name Collection Type:: Clean-Voided Midstream Performed By: #### A DDONUAPLUS #### [facility] [address] [place] [address] Color (U) Yellow Normal Yellow [facility] Comment on above: Order Comment: Name Collection Type:: Clean-Voided Midstream Performed By: #### A DDONUAPLUS #### [facility] [address] [place] [address] [place] Glucose Ql (U) Normal Normal Normal [facility] Comment on above: Order Comment: Name Collection Type:: Clean-Voided Midstream Performed By: #### A DDONUAPLUS #### [place] [address] [place] Hyaline Casts,Urine 0-8 Normal 0-8 [facility] Comment on above: Order Comment: Name Collection Type:: Clean-Voided Midstream Result Comment: PERF ORMED BY: [place] [address] PATHOLOGIST [employer]S ANALYST LEEANN KEANE M.D. Performed By: #### A DDONUAPLUS #### [facility] [address] [place] [address] [place] Ketones Ql (U) 1+ High Negative [facility] Comment on above: Order Comment: Name Collection Type:: Clean-Voided Midstream Performed By: #### A DDONUAPLUS #### [facility] [address] [place] [address] [place] Leukocyte esterase Test strip Ql (U) Negative Normal Negative [facility] Comment on above: Order Comment: Name Collection Type:: Clean-Voided Midstream Performed By: #### A DDONUAPLUS #### [facility] [address] [place] [address] [place] Nitrite,Urine Negative Normal Negative [facility] Comment on above: Order Comment: Name Collection Type:: Clean-Voided Midstream Performed By: #### A DDONUAPLUS #### [address] Occult Blood,Urine Negative Normal Negative [facility] Comment on above: Order Comment: Name Collection Type:: Clean-Voided Midstream Result Comment: PERF ORMED BY: [place] [address] PATHOLOGIST SAL[employer]S ANALYST LEEANN KEANE M.D. Performed By: #### A DDONUAPLUS #### [address] pH (U) 7.0 [pH] Normal 5.0-9.0 [facility] Comment on above: Order Comment: Name Collection Type:: Clean-Voided Midstream Performed By: #### A DDONUAPLUS #### [address] Protein,Urine Negative Normal Negative [facility] Comment on above: Order Comment: Name Collection Type:: Clean-Voided Midstream Performed By: #### A DDONUAPLUS #### [address] RBC LM.HPF (Urine sed) [#/Area] 0 /[HPF] Normal 0-4 [facility] Comment on above: Order Comment: Name Collection Type:: Clean-Voided Midstream Performed By: #### A DDONUAPLUS #### [address] Specificy [place],Urine 1.011 Normal 1.001-1.030 [facility] Comment on above: Order Comment: Name Collection Type:: Clean-Voided Midstream Performed By: #### A DDONUAPLUS #### [place] [address] [place] Squamous Epithelial Cell,Urine 1-2 Normal 0-2 [facility] Comment on above: Order Comment: Name Collection Type:: Clean-Voided Midstream Performed By: #### A DDONUAPLUS #### [address] Urobilinogen,Urine Normal Normal Normal [facility] Comment on above: Order Comment: Name Collection Type:: Clean-Voided Midstream Performed By: #### A DDONUAPLUS #### [facility] [address] WBC LM.HPF (Urine sed) [#/Area] 0 /[HPF] Normal 0-4 [facility] Comment on above: Order Comment: Name Collection Type:: Clean-Voided Midstream Performed By: #### A DDONUAPLUS #### [facility] [address] Discharge Instructionson Discharge Instructions [id number]# 1.00TIFF Normal [facility] ED Clinical Summaryon 2022 ED Clinical Summary Normal [facility] ED Note-Physicianon 08-07-20 ED Note-Physician Normal [facility] Comment on above: Result Comment: Elec tronically Signed By: Mari Calzada PA-C\.br\Date and Time Signed: 08/05/23 09:58 EST\.br\Electronically Co-Signed By: Ravi Abebe DO\.br\Date and Time Co-Signed: 08/07/23 09:30 EST ED Note-Physician Normal [facility] Comment on above: Result Comment: Elec tronically Signed By: Sam Aguirre PA-C\.br\Date and Time Signed: 08/07/23 08:44 EST\.br\Electronically Co-Signed By: Nahed Abebe DO.br\Date and Time Co-Signed: 08/07/23 09:30 EST ED Patient Education Noteon 08-07-2023 ED Patient Education Note Normal [facility] ED Patient Summaryon 023 ED Patient Summary Normal [facility] Eosinophils Auto (Bld) [#/Vo l]Ordered By: Fransico Weston on 08-07-2023 Eosinophils (Bld) [#/Vol] 0.0 10*3/uL 0.0-0.45 [facility] Eosinophils/100 WBC Auto (Bl d)Ordered By: Fransico Weston on 08-07-2023 Eosinophils/100 WBC (Bld) 0.3 % . [facility] Erythrocyte distribution wid th Auto (RBC) [Ratio]Ordered By: Fransico Weston on 08-07-2023 Erythrocyte distribution width (RBC) [Ratio] 13.7 % 11.9-15.3 [facility] Globulin Calc (S) [Mass/Vol] Ordered By: Fransico Weston on 08-07-2023 Globulin (S) [Mass/Vol] 2.7 g/dL [facility] Glucose [Mass/volume] in Ser um or PlasmaOrdered By: Fransico Weston on 08-07-2023 Glucose [Mass/Vol] 84 mg/dL 70-100 [facility] Comment on above: ADA recommended refe rence rangeRandom Glucose Reference Range is dependent on time and content of last meal. Glucose of more than 200 mg/dL in a nonstressed, ambulatory subject supports the diagnosis of Diabetes Mellitus. HCG ( test) IA.rapi d Ql (U)Ordered By: Jennyfer Aleman on 08-07-2023 HCG ( test) Ql (U) Negative [facility] HCG,Urineon 08-07-2023 Beta HCG ( test) Ql (U) Negative Normal [facility] Comment on above: Result Comment: PERF ORMED BY: [place] [address] PATHOLOGIST SALES CONTRACTS ANALYST LEEANN KEANE M.D. Performed By: #### U HCG #### [address] Hematocrit Auto (Bld) [Volum e fraction]Ordered By: Fransico Weston on 08-07-2023 Hematocrit (Bld) [Volume fraction] 37.2 % 34.0-46.4 [facility] Hemoglobin [Mass/volume] in BloodOrdered By: Fransico Weston on 08-07-2023 Hemoglobin (Bld) [Mass/Vol] 12.7 g/dL 11.8-15.4 [facility] Hepatic Panelon 08-07-2023 Albumin [Mass/Vol] 4.5 g/dL Normal 3.5-5.7 [facility] Comment on above: Performed By: #### H EPATIC, BMP, LIPASE, CBC #### [facility] [address] Albumin/Globulin [Mass ratio] 1.7 {ratio} Normal [facility] Comment on above: Performed By: #### H EPATIC, BMP, LIPASE, CBC #### [facility] [address] ALP [Catalytic activity/Vol] 49 U/L Normal 34-104 [facility] Comment on above: Performed By: #### H EPATIC, BMP, LIPASE, CBC #### [facility] [address] ALT [Catalytic activity/Vol] 8 U/L Normal 7-52 [facility] Comment on above: Performed By: #### H EPATIC, BMP, LIPASE, CBC #### [facility] [address] [place] [address] AST [Catalytic activity/Vol] 15 U/L Normal 13-39 [facility] Comment on above: Performed By: #### H EPATIC, BMP, LIPASE, CBC #### [facility] [address] [place] [address] Bilirubin [Mass/Vol] 0.7 mg/dL Normal 0.3-1.0 [facility] Comment on above: Performed By: #### H EPATIC, BMP, LIPASE, CBC #### [facility] [address] [place] [address] Bilirubin,Indirect 0.5 mg/dL Normal [facility] Comment on above: Performed By: #### H EPATIC, BMP, LIPASE, CBC #### [facility] [address] Bilirubin.indirect [Mass/Vol] 0.20 mg/dL High 0.03-0.18 [facility] Comment on above: Performed By: #### H EPATIC, BMP, LIPASE, CBC #### [facility] [address] Globulin (S) [Mass/Vol] 2.7 g/dL Normal [facility] Comment on above: Performed By: #### H EPATIC, BMP, LIPASE, CBC #### [facility] [address] Protein [Mass/Vol] 7.2 g/dL Normal 6.4-8.9 [facility] Comment on above: Performed By: #### H EPATIC, BMP, LIPASE, CBC #### [facility] [address] Ketones Auto test strip (U) [Mass/Vol]Ordered By: Jennyfer Aleman on 08-07-2023 Ketones (U) [Mass/Vol] 1+ Negative [facility] - UrinalysisOrder ed By: Jennyfer Aleman on 08-07-2023 Hyaline casts LM Ql (Urine sed) 0-8 [LPF] 0-8 [facility] Leukocytes [#/volume] correc libby for nucleated erythrocytes in Blood by Automated counOrdered By: Fransico Weston on 08-07-2023 WBC corrected for nucl RBC Auto (Bld) [#/Vol] 6.7 10*3/uL 3.8-11.6 [facility] Lipaseon 08-07-2023 Lipase [Catalytic activity/Vol] 13.0 U/L Normal 11.0-82.0 [facility] Comment on above: Result Comment: PERF ORMED BY: [facility] [address] [place] [address] PATHOLOGIST SALES CONTRACTS ANALYST LEEANN KEANE M.D. Performed By: #### H EPATIC, BMP, LIPASE, CBC ####[facility] Lipase [Enzymatic activity/v olume] in Serum or PlasmaOrdered By: Fransico Weston on 08-07-2023 Lipase [Catalytic activity/Vol] 13.0 U/L 11.0-82.0 [facility] Lymphocytes Auto (Bld) [#/Vo l]Ordered By: Fransico Weston on 08-07-2023 Lymphocytes (Bld) [#/Vol] 1.5 10*3/uL 1.00-4.8 [facility] Lymphocytes/100 WBC Auto (Bl d)Ordered By: Fransico Weston on 08-07-2023 Lymphocytes/100 WBC (Bld) 23.0 % . [facility] MCH Auto (RBC) [Entitic mass ]Ordered By: Fransico Weston on 08-07-2023 MCH (RBC) [Entitic mass] 29.4 pg 24.7-34.3 [facility] MCHC Auto (RBC) [Mass/Vol]Or dered By: Fransico Weston on 08-07-2023 MCHC (RBC) [Mass/Vol] 34.1 g/dL 32.0-35.0 [facility] MCV Auto (RBC) [Entitic vol] Ordered By: Fransico Weston on 08-07-2023 MCV (RBC) [Entitic vol] 86.2 fL 80-100 [facility] Monocyte distribution width [Entitic volume] in Blood by AutomatedOrdered By: Fransico Weston on 08-07-2023 Monocyte distribution width Auto (Bld) [Entitic vol] 16.97 % 0.00-20.00 [facility] Monocytes Auto (Bld) [#/Vol] Ordered By: Fransico Weston on 08-07-2023 Monocytes (Bld) [#/Vol] 0.4 10*3/uL 0.0-0.8 [facility] Monocytes/100 WBC Auto (Bld) Ordered By: Fransico Weston on 08-07-2023 Monocytes/100 WBC (Bld) 6.2 % . [facility] Neutrophils Auto (Bld) [#/Vo l]Ordered By: Fransico Weston on 08-07-2023 Neutrophils (Bld) [#/Vol] 4.6 10*3/uL 1.8-7.7 [facility] Neutrophils/100 WBC Auto (Bl d)Ordered By: Fransico Weston on 08-07-2023 Neutrophils/100 WBC (Bld) 69.9 % . [facility] Nitrite Test strip Ql (U)Ord ered By: Jennyfer Aleman on 08-07-2023 Nitrite Ql (U) Negative Negative [facility] No Panel InformationOrdered By: Fransico Weston on 08-07-2023 Estimated GFR (CKD-EPI) > 60.0 mL/Min [facility] Creatinine Clearance (Chem 147.78 [facility] Nucleated erythrocytes [Pres ence] in Blood by Automated countOrdered By: Fransico Weston on 08-07-2023 Nucleated RBC Auto Ql (Bld) 0.0 /100{WBC} 0-0.5 [facility] Physician Orderon 08-07-2023 Physician Order [id number]# 1.00TIFF Normal [facility] Platelet mean volume Auto (B ld) [Entitic vol]Ordered By: Fransico Weston on 08-07-2023 Platelet mean volume (Bld) [Entitic vol] 8.6 fL 6.3-10.7 [facility] Platelets Auto (Bld) [#/Vol] Ordered By: Fransico Weston on 08-07-2023 Platelets (Bld) [#/Vol] 193 10*3/uL 150-450 [facility] Potassium [Moles/volume] in Serum or PlasmaOrdered By: Fransico Weston on 08-07-2023 Potassium [Moles/Vol] 3.7 mmol/L 3.5-5.1 [facility] Protein Auto test strip (U) [Mass/Vol]Ordered By: Jennyfer Aleman on 08-07-2023 Protein (U) [Mass/Vol] Negative Negative [facility] Protein [Mass/volume] in Ser um or PlasmaOrdered By: Fransico Weston on 08-07-2023 Protein [Mass/Vol] 7.2 g/dL 6.4-8.9 [facility] RBC Auto (Bld) [#/Vol]Ordere d By: Fransico Weston on 08-07-2023 RBC (Bld) [#/Vol] 4.31 10*6/uL 3.60-5.00 [facility] Serum or plasma albumin/glob ulin mass ratioOrdered By: Fransico Weston on 08-07-2023 Albumin/Globulin [Mass ratio] 1.7 {ratio} [facility] Serum or plasma anion gap de terminationOrdered By: Fransico Weston on 08-07-2023 Anion gap [Moles/Vol] 10.0 mmol/L 6.0-15.0 [facility] Serum or plasma non-glucuron idated bilirubin measurement (mass/volume)Ordered By: Fransico Weston on 08-07-2023 Bilirubin.indirect [Mass/Vol] 0.5 mg/dL [facility] Sodium [Moles/volume] in Ser um or PlasmaOrdered By: Fransico Weston on 08-07-2023 Sodium [Moles/Vol] 138 mmol/L 136-145 [facility] Specific gravity Auto test s trip (U) [Rel density]Ordered By: Jennyfer Aleman on 08-07-2023 Specific gravity (U) [Rel density] 1.011 1.001-1.030 [facility] Squamous epithelial cells de tection in urine sediment by light microscopyOrdered By: Jennyfer Aleman on 08-07-2023 Epithelial cells.squamous LM Ql (Urine sed) 1-2 [HPF] 0-2 [facility] US transvaginalon 08-07-2023 US transvaginal [facility] [place] [address] Ultrasound Report Signed Patient: Leonora Marcum MR#: [id number] : 2000 Acct:[id number] Age/Sex: 22 / F ADM Date: 08/07/23 Loc: ER Room: Type: [facility] ER Attending Dr: Ordering Provider: Jennyfer Aleman DO; Fransico Weston DO, RES Date of Service: 08/07/23 US/US pelvic complete: RLQ tenderness and pain with and w/o palpation ([id number]) US/US transvaginal: RLQ PAIN Copies to: DO Fransico Hill DO, RES TRANSABDOMINAL AND TRANSVAGINAL PELVIC ULTRASOUND HISTORY: Right lower quadrant pain FINDINGS: The uterus measures 8.5 x 4.0 x 5.1 cm. Heterogeneous of parenchyma without discrete mass identified. The endometrium has a total combined thickness of 8mm. The RIGHT ovary measures 2.5 x 2.4 x 2.0 cm LEFT ovary measures 2.5 x 2.0 x 2.2 cm nonspecific echogenic area of the left ovary measures up to 18 mm. Dominant right ovarian follicle. Bilateral ovarian blood flow identified. No free fluid identified. There is no adnexal mass identified. Mild prominence of the adnexal vessels noted. US/US pelvic complete IMPRESSION: Unremarkable transabdominal and transvaginal pelvic ultrasound. Bilateral ovarian follicles with mild complexity of dominant of the left ovarian follicle may correspond with ruptured involuted cyst. Impression dictated by: Shane Hahn M.D.08/07/2023 5:56 PM Dictation Location: [place] [address] Tech: Emi Arzola Transcribed By: LORENZO 08/07/231755 Dictated By: Shane Hahn DO 08/07/231752 Signed By: 08/07/231755 Normal [facility] Urea nitrogen [Mass/volume] in Serum or PlasmaOrdered By: Fransico Weston on 08-07-2023 Urea nitrogen [Mass/Vol] 5 mg/dL 04-11 [facility] Urine bacteria detection by automated methodOrdered By: Jennyfer Aleman on 08-07-2023 Bacteria Auto Ql (U) None seen None Seen [facility] Urine clarity by refractomet ry automatedOrdered By: Jennyfer Aleman on 08-07-2023 Clarity Refractometry automated (U) Cloudy Clear [facility] Urine glucose measurement by automated test strip (mass/volume)Ordered By: Jennyfer Aleman on 08-07-2023 Glucose Auto test strip (U) [Mass/Vol] Normal mg/dL Normal [facility] Urine hemoglobin detection b y automated test stripOrdered By: Jennyfer Aleman on 08-07-2023 Hemoglobin Auto test strip Ql (U) Negative Negative [facility] Urine leukocyte esterase det ection by automated test stripOrdered By: Jennyfer Aleman on 08-07-2023 Leukocyte esterase Auto test strip Ql (U) Negative Negative [facility] Urobilinogen Auto test strip (U) [Mass/Vol]Ordered By: Jennyfer Aleman on 08-07-2023 Urobilinogen (U) [Mass/Vol] Normal mg/dL Normal [facility] WBC Auto (Bld) [#/Vol]Ordere d By: Fransico Weston on 08-07-2023 WBC (Bld) [#/Vol] 6.7 10*3/uL 3.8-11.6 [facility] XR acute abdomen serieson XR acute abdomen series [facility] Main [place] [address] [place], [place] [id number] XRay Report Signed Patient: Leonora Marcum MR#: [id number] : 2000 Acct:[id number] Age/Sex: 22 / F ADM Date: 08/07/23 Loc: ER Room: Type: [facility] ER Attending Dr: Copies to: DO Fransico Hill DO, RES Ordering Provider: Fransico Weston DO, RES Date of Service: 08/07/23 XR/XR acute abdomen series: Abdominal Pain Acute abdominal series COMPARISON: None HISTORY: Right lower quadrant pain. THORAX: No acute chest findings. FREE AIR: Supine position limits assessment BOWEL: No gaseous intestinal distention. STOOL: No significant stool RENAL STONES: No significant stones present. VASCULAR CALCIFICATIONS: Unremarkable SOFT TISSUE: Unremarkable BONES: Mild S-shaped thoracolumbar scoliosis. POSTSURGICAL CHANGES: None XR/XR acute abdomen series IMPRESSION: No significant findings. Impression dictated by: Shane Hahn M.D.08/07/2023 4:59 PM Dictation Location: [place] [address] Transcribed By: [facility] 08/07/231658 Dictated By: Shane Hahn DO 08/07/231658 Signed By: 08/07/231658 Normal [facility] pH Auto test strip (U)Ordere d By: Jennyfer Aleman on 08-07-2023 pH (U) 7.0 [pH] 5.0-9.0 [facility] Auto Diffon 08-05-2023 Basophils/100 WBC (Bld) 0.6 % Normal 0.0-2.0 [facility] Comment on above: Order Comment: Order Added by Discern Expert. Performed By: #### 2 292877, 0134182, 1622957, 8419297, 88567577, 5584767 ####[facility] [place] [id number] Basophils/Leukocytes Auto (Bld) [Pure # fraction] 0.0 E9/L Normal 0.0-0.2 [facility] Comment on above: Order Comment: Order Added by Juma Expert. Performed By: #### 2 477544, 4844667, 7742228, 2355926, 36014889, 5575156 ####[facility] [address] [place] [address] Eosinophils/100 WBC (Bld) 0.8 % Normal 0.0-8.0 [facility] Comment on above: Order Comment: Order Added by Discern Expert. Performed By: #### 2 528248, 7674995, 2029420, 1918782, 39580390, 9352565 ####[place] [address] [place] [address] Eosinophils/Leukocytes Auto (Bld) [Pure # fraction] 0.0 E9/L Normal 0.0-0.5 [facility] Comment on above: Order Comment: Order Added by Juma Expert. Performed By: #### 2 993922, 0020643, 5190207, 2878719, 88082292, 7734772 ####[place] [address] [place] [address] Lymphocytes/100 WBC (Bld) 23.2 % Normal 14.0-50.0 [facility] Comment on above: Order Comment: Order Added by Juma Expert. Performed By: #### 2 310810, 5260233, 4520557, 8131523, 78123183, 7361326 ####[place] [address] [place] [address] Lymphocytes/Leukocytes Auto (Bld) [Pure # fraction] 1.2 E9/L Normal 1.0-4.0 [facility] Comment on above: Order Comment: Order Added by Juma Expert. Performed By: #### 2 707866, 1035658, 8967757, 6831746, 68288843, 3141714 ####[facility] [address] [place] [address] Monocytes/100 WBC (Bld) 9.0 % Normal 4.0-14.0 [facility] Comment on above: Order Comment: Order Added by Discern Expert. Performed By: #### 2 248851, 5818649, 9669887, 2142363, 46096022, 8073732 ####[place] [address] [place] [address] Monocytes/Leukocytes Auto (Bld) [Pure # fraction] 0.5 E9/L Normal 0.2-1.0 [facility] Comment on above: Order Comment: Order Added by Discern Expert. Performed By: #### 2 096099, 6277828, 9542217, 2202974, 38528938, 2014677 ####[place] [address] [place] [address] Neutrophils/100 WBC (Bld) 66.4 % Normal 36.0-75.0 [facility] Comment on above: Order Comment: Order Added by Juma Expert. Performed By: #### 2 810774, 5395512, 6230825, 0048647, 18909227, 4688428 ####[facility] [address] [place] [address] Neutrophils/Leukocytes Auto (Bld) [Pure # fraction] 3.4 E9/L Normal 2.0-7.5 [facility] Comment on above: Order Comment: Order Added by Juam Expert. Performed By: #### 2 887778, 3217492, 0141569, 0841509, 69510375, 9144178 ####[facility] [address] [place] [address] BMPon 08-05-2023 Creatinine [Mass/Vol] 0.6 mg/dL Normal 0.5-1.3 [facility] Comment on above: Performed By: #### 2 548460, 5780875, 6376178, 7541760, 49458034, 8742739 ####[facility] [address] [place] [address] Urea nitrogen [Mass/Vol] 12 mg/dL Normal 5-21 [facility] Comment on above: Performed By: #### 2 724909, 8052554, 6947551, 1960132, 99660151, 2019687 ####[facility] [address] [place] [address] Urea nitrogen/Creatinine [Mass ratio] 20 No Units Normal 10-20 [facility] Comment on above: Performed By: #### 2 133268, 6710307, 2042876, 1698150, 81946677, 0972007 ####[facility] [address] [place] [address] Anion gap [Moles/Vol] 13 mmol/L Normal 6-16 [facility] Comment on above: Performed By: #### 2 757429, 1461016, 4085436, 3192152, 79845907, 8430502 ####[facility] [address] [place] [address] Calcium [Mass/Vol] 8.6 mg/dL Low 8.9-11.1 [facility] Comment on above: Performed By: #### 2 841531, 2557137, 7315997, 9900302, 23802941, 3560807 ####[facility] [address] [place] [address] Chloride [Moles/Vol] 103 mmol/L Normal 101-111 [facility] Comment on above: Performed By: #### 2 248122, 6748275, 3743579, 1058675, 23314443, 3703215 ####[facility] [address] [place] [address] CO2 [Moles/Vol] 24 mmol/L Normal 21-31 [facility] Comment on above: Performed By: #### 2 134213, 4307462, 2674513, 9793303, 66561330, 3361172 ####[facility] [address] [place] [address] Glucose [Mass/Vol] 92 mg/dL Normal 55-199 [facility] Comment on above: Result Comment: If t his glucose result represents a fasting glucose, interpretation should refer to the following reference range: 55-99 mg/dL Performed By: #### 2 050817, 5048057, 5019165, 0476917, 72204124, 0729831 ####[facility] [address] [place] [address] Potassium [Moles/Vol] 3.3 mmol/L Low 3.5-5.3 [facility] Comment on above: Performed By: #### 2 994180, 7967034, 3707064, 0488298, 67084292, 8739459 ####[facility] [address] [place] [address] Sodium [Moles/Vol] 137 mmol/L Normal 135-145 [facility] Comment on above: Performed By: #### 2 172921, 6888389, 5488889, 5296310, 64384869, 5605939 ####[facility] [address] [place] [address] CBC w/ Auto Diffon Erythrocyte distribution width (RBC) [Ratio] 13.4 % Normal 10.9-14.2 [facility] Comment on above: Performed By: #### 2 303995, 4909412, 3972408, 4024802, 99539069, 4898758 ####[facility] [address] [place] [address] Hematocrit (Bld) [Volume fraction] 37.9 % Normal 34.0-46.0 [facility] Comment on above: Performed By: #### 2 251496, 4260778, 4424645, 5469027, 20827133, 3103240 ####[facility] [address] [place] [address] Hemoglobin (Bld) [Mass/Vol] 12.9 g/dL Normal 12.0-16.0 [facility] Comment on above: Performed By: #### 2 181799, 9716809, 8328681, 7431397, 66346328, 5827954 ####[facility] [address] [place] [address] MCH (RBC) [Entitic mass] 29.1 pg Normal 27.0-34.0 [facility] Comment on above: Performed By: #### 2 706843, 4159251, 2866922, 7564460, 80755171, 7088747 ####[place] [address] [place] [address] MCHC (RBC) [Mass/Vol] 34.0 g/dL Normal 31.4-36.0 [facility] Comment on above: Performed By: #### 2 290976, 3958408, 3309718, 2696216, 86061284, 3555131 ####[place] [address] [place] [address] MCV (RBC) [Entitic vol] 85.6 fL Normal 80.0-100.0 F [facility] Comment on above: Performed By: #### 2 940541, 2292143, 6124411, 6056564, 84794027, 1783785 ####[place] [address] Platelet mean volume (Bld) [Entitic vol] 8.8 fL Normal 6.4-10.8 [facility] Comment on above: Performed By: #### 2 381716, 1242538, 4578522, 7648898, 88740866, 2642894 ####[address] [address] Platelets (Bld) [#/Vol] 185.0 E9/L Normal 150.0-500.0 [facility] Comment on above: Performed By: #### 2 160098, 3567707, 7774353, 2189740, 03575669, 4006558 ####[place] [address] [place] [address] RBC (Bld) [#/Vol] 4.4 E12/L Normal 4.3-5.9 [facility] Comment on above: Performed By: #### 2 267432, 6991364, 9529571, 8209328, 33765732, 0553631 ####[place] [address] WBC corrected for nucl RBC Auto (Bld) [#/Vol] 5.1 E9/L Normal 4.0-11.0 [facility] Comment on above: Performed By: #### 2 129544, 4352921, 8802685, 6547275, 77604686, 6564725 ####[facility] [address] [place] [address] CHEMISTRYOrdered By: SYSTEM SYSTEM on 08-05-2023 Albumin [Mass/Vol] 4.1 g/dL Normal 3.3 - 5.0 gm/dL [facility] Albumin/Globulin [Mass ratio] 1.5 {ratio} Normal 1.1 - 2.2 [facility] ALP [Catalytic activity/Vol] 48 [iU]/d Normal 21 - 98 Int._Unit/L [facility] ALT No additional P-5'-P [Catalytic activity/Vol] 11 [iU]/d Normal 6 - 46 Int._Unit/L [facility] Anion gap [Moles/Vol] 13 mmol/L Normal 6 - 16 mEq/L [facility] AST [Catalytic activity/Vol] 16 [iU]/d Normal 5 - 43 Int._Unit/L [facility] Bilirubin [Mass/Vol] 0.7 mg/dL Normal 0.0 - 1 .1 mg/dL [facility] Bilirubin.direct [Mass/Vol] mg/dL Normal 0.1 - 0.4 mg/dL [facility] Bilirubin.indirect [Mass or moles/Vol] Unable to Calculate mg/dL Invalid Interpretation Code 0.1 - 0.9 mg/dL [facility] Calcium [Mass/Vol] 8.6 mg/dL Low 8.9 - 11. 1 mg/dL [facility] Chloride [Moles/Vol] 103 mmol/L Normal 101 - 1 11 mmol/L [facility] CO2 [Moles/Vol] 24 mmol/L Normal 21 - 31 mmol/L [facility] Creatinine [Mass/Vol] 0.6 mg/dL Normal 0.5 - 1.3 mg/dL [facility] GFR/1.73 sq M.predicted among non-blacks MDRD (S/P/Bld) [Vol rate/Area] 131 mL/min/1.73 m2 Normal >=59mL/min/1 .73 m2 [facility] Comment on above: Interpretive Data: C hronic kidney disease could be indicated at eGFR's of less than 60 mL/min/1.73m2. Kidney failure is indicated at less than 15 mL/min/1.73m2. Globulin (S) [Mass/Vol] 2.8 g/dL Normal 1.4 - 4.0 gm/dL [facility] Remisol Glucose [Mass/Vol] 92 mg/dL Normal 55 - 199 mg/dL [facility] Comment on above: Interpretive Data: I f this glucose result represents a fasting glucose, interpretation should refer to the following reference range: 55-99 mg/dL Lipase [Catalytic activity/Vol] 32 U/L Normal 13 - 58 unit/L [facility] Remisol Potassium [Moles/Vol] 3.3 mmol/L Low 3.5 - 5.3 mmol/L [facility] Remisol Protein [Mass/Vol] 6.9 g/dL Normal 6.0 - 7.8 gm/dL [facility] Remisol Sodium [Moles/Vol] 137 mmol/L Normal 135 - 145 mmol/L [facility] Remisol Urea nitrogen [Mass/Vol] 12 mg/dL Normal 5 - 21 mg/dL [facility] Remisol Urea nitrogen/Creatinine [Mass ratio] 20 mg/mg Normal 10 - 20 [facility] [place] CT Abdomen/Pelvis w/o Contra ston 08-05-2023 CT Abdomen/Pelvis w/o Contrast Normal [facility] Consent for Treatmenton 07-19 Consent for Treatment [id number] .00TIFF Normal [facility] Discharge Instructionson Discharge Instructions [id number] 1.00TIFF Normal [facility] ED Clinical Summaryon 2022 ED Clinical Summary Normal [facility] ED Patient Education Noteon 08-05-2023 ED Patient Education Note Normal [facility] ED Patient Summaryon 023 ED Patient Summary Normal [facility] HEMATOLOGYOrdered By: SYSTEM SYSTEM on 08-05-2023 Basophils/100 WBC (Bld) 0.6 % Normal 0.0 - 2.0 % [facility]eAutoSS Basophils/Leukocytes Auto (Bld) [Pure # fraction] 0.0 E9/L Normal 0.0 - 0.2 E9/L [facility]eAuto[facility] Eosinophils/100 WBC (Bld) 0.8 % Normal 0.0 - 8.0 % [facility]eAutoSS Eosinophils/Leukocytes Auto (Bld) [Pure # fraction] 0.0 E9/L Normal 0.0 - 0.5 E9/L [facility]eAuto[facility] Lymphocytes/100 WBC (Bld) 23.2 % Normal 14.0 - 50.0 % [facility]eAuto[facility] Lymphocytes/Leukocytes Auto (Bld) [Pure # fraction] 1.2 E9/L Normal 1.0 - 4.0 E9/L [facility]eAutoSS Monocytes/100 WBC (Bld) 9.0 % Normal 4.0 - 14.0 % [facility]eAuto[facility] Monocytes/Leukocytes Auto (Bld) [Pure # fraction] 0.5 E9/L Normal 0.2 - 1.0 E9/L [facility] Neutrophils/100 WBC (Bld) 66.4 % Normal 36.0 - 75.0 % [facility]eAuto[facility] Neutrophils/Leukocytes Auto (Bld) [Pure # fraction] 3.4 E9/L Normal 2.0 - 7.5 E9/L [facility] HEMATOLOGYOrdered By: Marlyn Menendez on 08-05-2023 Erythrocyte distribution width (RBC) [Ratio] 13.4 % Normal 10.9 - 14.2 % [facility]eAuto[facility] Hematocrit (Bld) [Volume fraction] 37.9 % Normal 34.0 - 46.0 % [facility]eAuto[facility] Hemoglobin (Bld) [Mass/Vol] 12.9 g/dL Normal 12.0 - 16.0 gm/dL [facility] MCH (RBC) [Entitic mass] 29.1 pg Normal 27.0 - 34.0 pg [facility]eAuto[facility] MCHC (RBC) [Mass/Vol] 34.0 g/dL Normal 31.4 - 36.0 gm/dL [facility] MCV (RBC) [Entitic vol] 85.6 fL Normal 80.0 - 100.0 fL [facility]eAuto[facility] Platelet mean volume (Bld) [Entitic vol] 8.8 fL Normal 6.4 - 10.8 fL [facility]eAuto[facility] Platelets (Bld) [#/Vol] 185.0 E9/L Normal 150. 0 - 500.0 E9/L [facility]eAutoSS RBC (Bld) [#/Vol] 4.4 E12/L Normal 4.3 - 5.9 E12/L [facility]eAutoSS WBC corrected for nucl RBC Auto (Bld) [#/Vol] 5.1 E9/L Normal 4.0 - 11.0 E9/L [facility]eAuto[facility] Hep Func Panelon 08-05-2023 Bilirubin.indirect [Mass or moles/Vol] UTC Abnormal 0.1-0.9 [facility] Comment on above: Result Comment: Resu lt verified by [employer]. Performed result UTC (Unable to Calculate) was sent as an Alpha code due the inability to calculate a valid numeric value. Performed By: #### 2 [id number] ####[facility] [id number] [place] [address] Albumin [Mass/Vol] 4.1 g/dL Normal 3.3-5.0 [facility] Comment on above: Performed By: #### 2 182870, 4766506, 4082128, 0870971, 96340151, 5374686 ####[facility] [address] [place] [address] Albumin/Globulin (S) [Mass conc ratio] 1.5 Normal 1.1-2.2 [facility] Comment on above: Performed By: #### 2 930008, 3138902, 7477824, 4080784, 14073679, 7749556 ####[facility] [address] [place] [address] ALP [Catalytic activity/Vol] 48 Int._Unit/L Normal 21-98 [facility] Comment on above: Performed By: #### 2 262453, 3076930, 5510157, 6890126, 35947450, 2080401 ####[facility] [address] [place] [address] ALT No additional P-5'-P [Catalytic activity/Vol] 11 Int._Unit/L Normal 6-46 [facility] Comment on above: Performed By: #### 2 231927, 9486674, 4701679, 7864738, 73874230, 1800288 ####[address] [place] [address] AST [Catalytic activity/Vol] 16 Int._Unit/L Normal 5-43 [facility] Comment on above: Performed By: #### 2 774471, 1665996, 9678102, 6844818, 41477307, 2608128 ####[address] [address] Bilirubin [Mass/Vol] 0.7 mg/dL Normal 0.0-1.1 [facility] Comment on above: Performed By: #### 2 096860, 6496620, 4855316, 7349857, 90369073, 8581751 ####[facility] [address] [place] [address] Globulin (S) [Mass/Vol] 2.8 g/dL Normal 1.4-4.0 [facility] Comment on above: Performed By: #### 2 175619, 9262064, 9837757, 6477596, 51011308, 9130796 ####[facility] [address] [place] [address] Protein [Mass/Vol] 6.9 g/dL Normal 6.0-7.8 [facility] Comment on above: Performed By: #### 2 136002, 4434476, 8626632, 8865877, 73296573, 9510424 ####[facility] [address] [place] [address] Bilirubin.direct [Mass/Vol] mg/dL Normal 0.1-0.4 [facility] Comment on above: Performed By: #### 2 000230, 8606372, 5922717, 5377637, 83128418, 1733175 ####[facility] [address] [place] [address] Lipase Levelon 08-05-2023 Lipase [Catalytic activity/Vol] 32 U/L Normal 13-58 [facility] Comment on above: Performed By: #### 2 817556, 4458491, 0112728, 8700060, 24543060, 4352114 ####[facility] [address] [place] [address] SEROLOGYOrdered By: Kimmie Salazar on 08-05-2023 HCG.beta subunit (U) [Moles/Vol] Negative Normal [facility] Man Sero U BetaHcg Qualon 08-05-2023 HCG.beta subunit (U) [Moles/Vol] Negative Normal [facility] Comment on above: Performed By: #### 2 8483335, 42567771 ####[facility] [address] [place] [address] UA With Cult Reflexon 2022 Bacteria LM Ql (Urine sed) TRACE Normal Trace [facility] Comment on above: Performed By: #### 2 0854718, 42822320 ####[facility] [address] [place] [address] Bilirubin Ql (U) Negative Normal Negative [facility] Comment on above: Performed By: #### 2 1232533, 95668190 ####[facility] [address] [place] [address] Clarity (U) SL CLOUDY Abnormal Clear [facility] Comment on above: Performed By: #### 2 6752343, 05314387 ####[facility] [address] [place] [address] Color (U) YELLOW Normal Yellow [facility] Comment on above: Performed By: #### 2 5144967, 16994113 ####[facility] [address] [place] [address] Epithelial cells.squamous LM.HPF (Urine sed) [#/Area] /[HPF] Normal 0-2 [facility] Comment on above: Performed By: #### 2 7320427, 73023168 ####[facility] [address] [place] [address] Glucose Test strip (U) [Mass/Vol] Negative Normal Negative [facility] Comment on above: Performed By: #### 2 5215536, 14992375 ####[facility] [address] [place] [address] Hemoglobin Ql (U) Negative Normal Negative [facility] Comment on above: Performed By: #### 2 7008170, 27621764 ####[facility] [address] [place] [address] Ketones (U) [Mass/Vol] 2+ Abnormal Negative [facility] Comment on above: Performed By: #### 2 0662661, 77013759 ####[facility] [address] [place] [address] Bolton.plasma/Bolton. RBC (Bld) [Mass ratio] 0-3 Normal 0-3 [facility] Comment on above: Performed By: #### 2 0830879, 04806790 ####[facility] [address] [place] [address] Mucus Ql (Urine sed) 3+ Normal [facility] Comment on above: Performed By: #### 2 3361741, 68346925 ####[facility] [address] [place] [address] Nitrite Ql (U) Negative Normal Negative [facility] Comment on above: Performed By: #### 2 6191251, 21856089 ####[facility] [address] [place] [address] pH (U) 6.0 [pH] Invalid Interpretation Code 5.0-9.0 [facility] Comment on above: Performed By: #### 2 9691194, 56629780 ####[facility] [address] [place] [address] Protein (U) [Mass/Vol] 1+ Abnormal Negative [facility] Comment on above: Performed By: #### 2 3726339, 13426425 ####[facility] [address] Specific gravity (U) [Rel density] >=1.030 Invalid Interpretation Code 1.005-1.030 [facility] Comment on above: Performed By: #### 2 7594769, 80875628 ####[place] [address] Type of Urine collection method Clean Catch Normal [facility] Comment on above: Performed By: #### 2 0823994, 63902340 ####[address] Urobilinogen Qn (U) 0.2 {Brooklyn'U}/dL Normal 0.0-1.0 [facility] Comment on above: Performed By: #### 2 7493738, 84728123 ####[place] [address] WBC Auto Ql (U) Negative Normal Negative [facility] Comment on above: Performed By: #### 2 8357737, 12324110 ####[address] [place] WBC LM.HPF (Urine sed) [#/Area] 0-5 Normal 0-5 [facility] Comment on above: Performed By: #### 2 8015206, 15667250 ####[place] [address] URINALYSISOrdered By: Sharon Salazar on 08-05-2023 Bacteria LM Ql (Urine sed) Trace /HPF Normal Trace/HPF [facility] UA Auto SS Bilirubin Ql (U) Negative (08/05/23 8:10 AM) Normal Negative [facility] UA Auto SS Clarity (U) Slightly Cloudy *ABN* (08/05/23 8:10 AM) Invalid Interpretation Code Clear [facility] UA Auto SS Color (U) Yellow (08/05/23 8:10 AM) Normal Yellow [facility] UA Auto SS Epithelial cells.squamous LM.HPF (Urine sed) [#/Area] /[HPF] Normal 0-2/HPF [facility] UA Aut o SS Glucose Test strip (U) [Mass/Vol] Negative (08/05/23 8:10 AM) Normal Negative [facility] UA Auto SS Hemoglobin Ql (U) Negative (08/05/23 8:10 AM) Normal Negative [facility] UA Auto SS Ketones (U) [Mass/Vol] 2+ *ABN* (08/05/23 8:10 AM) Invalid Interpretation Code Negative [facility] UA Auto SS Bolton.plasma/Bolton. RBC (Bld) [Mass ratio] 0-3 /HPF Normal 0-3/HPF [facility] UA A uto SS Mucus Ql (Urine sed) 3+ (08/05/23 8:10 AM) Normal [facility] UA Auto SS Nitrite Ql (U) Negative (08/05/23 8:10 AM) Normal Negative [facility] UA Auto SS pH (U) 6.0 *NA* (08/05/23 8:10 AM) Invalid Interpretation Code 5.0 - 9.0 [facility] UA Auto SS Protein (U) [Mass/Vol] 1+ *ABN* (08/05/23 8:10 AM) Invalid Interpretation Code Negative [facility] UA Auto SS Specific gravity (U) [Rel density] >=1.030 *NA* (08/05/23 8:10 AM) Invalid Interpretation Code 1.005 - 1.030 [facility] UA Auto SS UA Spec Desc Clean Catch (08/05/23 8:10 AM) Normal [facility] UA Auto SS Urobilinogen Qn (U) 0.8519780 {Brooklyn'U}/dL Normal 0.0 - 1.0 EU/dL [facility] UA Auto SS WBC Auto Ql (U) Negative (08/05/23 8:10 AM) Normal Negative [facility] UA Auto SS WBC LM.HPF (Urine sed) [#/Area] 0-5 /HPF Normal 0-5/HPF [facility] UA Auto SS eGFRon 08-05-2023 GFR/1.73 sq M.predicted among non-blacks MDRD (S/P/Bld) [Vol rate/Area] 131 mL/min/1.73 m2 Normal >=59 [facility] Comment on above: Order Comment: Order added by Discern Expert. Result Comment: Olive Knocker brielle kidney disease could be indicated at eGFR's of less than 60 mL/min/1.73m2. Kidney failure is indicated at less than 15 mL/min/1.73m2. Performed By: #### 2 122858, 1701496, 0147677, 6323162, 46202714, 4611610 ####[facility] [address] [place] [address] Auto Diffon 07-28-2023 Basophils/100 WBC (Bld) 0.2 % Normal 0.0-2.0 [facility] Comment on above: Order Comment: Order Added by Discern Expert. Performed By: #### 2 8880527, 1553539, 7853204, 29409353, 2898820, 7268440, 3994276 ####[address] [place] [address] Basophils/Leukocytes Auto (Bld) [Pure # fraction] 0.0 E9/L Normal 0.0-0.2 [facility] Comment on above: Order Comment: Order Added by Discern Expert. Performed By: #### 2 6715957, 4669365, 7244393, 36611211, 5996683, 8746919, 3596467 ####[address] [place] [address] Eosinophils/100 WBC (Bld) 0.8 % Normal 0.0-8.0 [facility] Comment on above: Order Comment: Order Added by Discern Expert. Performed By: #### 2 3481849, 6575820, 6159471, 20682806, 7082911, 3952066, 7563176 ####[address] [place] [address] Eosinophils/Leukocytes Auto (Bld) [Pure # fraction] 0.0 E9/L Normal 0.0-0.5 [facility] Comment on above: Order Comment: Order Added by Discern Expert. Performed By: #### 2 2193605, 9216474, 8270562, 51188103, 4206048, 0373765, 3551607 ####[address] [place] [address] Lymphocytes/100 WBC (Bld) 18.0 % Normal 14.0-50.0 [facility] Comment on above: Order Comment: Order Added by Discern Expert. Performed By: #### 2 0824279, 0772838, 4996682, 84907508, 1902421, 2869555, 5818686 ####[facility] [address] [place] [address] Lymphocytes/Leukocytes Auto (Bld) [Pure # fraction] 1.0 E9/L Normal 1.0-4.0 [facility] Comment on above: Order Comment: Order Added by Discern Expert. Performed By: #### 2 2313742, 0119656, 6127042, 55157051, 3330971, 7945409, 7510621 ####[address] [address] Monocytes/100 WBC (Bld) 7.2 % Normal 4.0-14.0 [facility] Comment on above: Order Comment: Order Added by Discern Expert. Performed By: #### 2 2377362, 5235127, 7975720, 22972110, 9687684, 6201986, 6439761 ####[address] [address] Monocytes/Leukocytes Auto (Bld) [Pure # fraction] 0.4 E9/L Normal 0.2-1.0 [facility] Comment on above: Order Comment: Order Added by Juma Expert. Performed By: #### 2 1307438, 5096542, 3668673, 02529505, 7544593, 0402140, 8971578 ####[facility] [address] [place] [address] Neutrophils/100 WBC (Bld) 73.8 % Normal 36.0-75.0 [facility] Comment on above: Order Comment: Order Added by Juma Expert. Performed By: #### 2 9746764, 9846797, 4745047, 33179599, 5252939, 9312976, 2359434 ####[address] [place] [address] Neutrophils/Leukocytes Auto (Bld) [Pure # fraction] 4.1 E9/L Normal 2.0-7.5 [facility] Comment on above: Order Comment: Order Added by Discern Expert. Performed By: #### 2 6329582, 8114202, 2366931, 27552871, 2800233, 1583331, 5563724 ####[facility] [address] [place] [address] B hCG Qualon 07-28-2023 Beta HCG ( test) Ql Negative Normal [facility] Comment on above: Performed By: #### 2 1540853, 5543360, 4767109, 48497718, 7435162, 7116211, 2192137 ####[facility] [address] [place] [address] BMPon 07-28-2023 Creatinine [Mass/Vol] 0.5 mg/dL Normal 0.5-1.3 [facility] Comment on above: Performed By: #### 2 8290739, 1618270, 6348039, 82883520, 0457569, 6756788, 3092718 ####[facility] [address] [place] [address] Urea nitrogen [Mass/Vol] 9 mg/dL Normal 5-21 [facility] Comment on above: Performed By: #### 2 1891746, 1080777, 8600634, 19429257, 4453236, 0875117, 0384173 ####[facility] [address] [place] [address] Urea nitrogen/Creatinine [Mass ratio] 18 No Units Normal 10-20 [facility] Comment on above: Performed By: #### 2 3609883, 8668035, 5901828, 94565484, 7146240, 5564981, 8917666 ####[facility] [address] [place] [address] Anion gap [Moles/Vol] 10 mmol/L Normal 6-16 [facility] Comment on above: Performed By: #### 2 3892111, 8934744, 1223615, 48351029, 9181934, 5378143, 1490752 ####[facility] [address] [place] [address] Calcium [Mass/Vol] 8.7 mg/dL Low 8.9-11.1 [facility] Comment on above: Performed By: #### 2 6970350, 3985676, 5757102, 19624024, 0232580, 9919750, 6031608 ####[facility] [address] [place] [address] Chloride [Moles/Vol] 108 mmol/L Normal 101-111 [facility] Comment on above: Performed By: #### 2 7246950, 8979812, 8769651, 50674422, 6436239, 3806048, 6107230 ####[facility] [address] [place] [address] CO2 [Moles/Vol] 23 mmol/L Normal 21-31 [facility] Comment on above: Performed By: #### 2 7190388, 1877444, 3078115, 03590371, 5221136, 5883830, 5782915 ####[facility] [address] [place] [address] Glucose [Mass/Vol] 101 mg/dL Normal 55-199 [facility] Comment on above: Result Comment: If t his glucose result represents a fasting glucose, interpretation should refer to the following reference range: 55-99 mg/dL Performed By: #### 2 1015644, 9675159, 4964516, 41768505, 5036680, 1430696, 5693781 ####[facility] [address] [place] [address] Potassium [Moles/Vol] 3.8 mmol/L Normal 3.5-5.3 [facility] Comment on above: Performed By: #### 2 5256875, 2273758, 2661420, 67370745, 8489979, 9393480, 0406138 ####[facility] [address] [place] [address] Sodium [Moles/Vol] 137 mmol/L Normal 135-145 [facility] Comment on above: Performed By: #### 2 8139815, 1080206, 2200494, 35560748, 2851137, 5266387, 1269567 ####[address] [place] [address] CBC w/ Auto Diffon Erythrocyte distribution width (RBC) [Ratio] 13.6 % Normal 10.9-14.2 [facility] Comment on above: Performed By: #### 2 9212071, 3714677, 2565039, 26070699, 9749088, 1866656, 9994345 ####[address] [place] [address] Hematocrit (Bld) [Volume fraction] 38.5 % Normal 34.0-46.0 [facility] Comment on above: Performed By: #### 2 0721938, 5403605, 6442253, 74158368, 5190726, 3827030, 8506333 ####[address] [address] Hemoglobin (Bld) [Mass/Vol] 13.0 g/dL Normal 12.0-16.0 [facility] Comment on above: Performed By: #### 2 9135512, 0620147, 8344516, 37742470, 5746232, 9279376, 7000872 ####[address] [place] [address] MCH (RBC) [Entitic mass] 28.7 pg Normal 27.0-34.0 [facility] Comment on above: Performed By: #### 2 7613726, 2417977, 5241750, 96193899, 7398287, 3224929, 1940379 ####[address] [address] MCHC (RBC) [Mass/Vol] 33.7 g/dL Normal 31.4-36.0 [facility] Comment on above: Performed By: #### 2 3631010, 1751514, 7564960, 30141865, 2632091, 4135965, 4985655 ####[facility] [address] [place] [address] MCV (RBC) [Entitic vol] 85.0 fL Normal 80.0-100.0 [facility] Comment on above: Performed By: #### 2 1679441, 3266209, 2076816, 67358963, 1038972, 9900839, 6557319 ####[address] [place] [address] Platelet mean volume (Bld) [Entitic vol] 8.2 fL Normal 6.4-10.8 [facility] Comment on above: Performed By: #### 2 0202365, 1096982, 9012636, 86296546, 9517345, 7390080, 5118253 ####[address] [address] Platelets (Bld) [#/Vol] 195.0 E9/L Normal 150.0-500.0 [facility] Comment on above: Performed By: #### 2 5618124, 8727970, 0619495, 01264304, 3411036, 9251404, 0690226 ####[place] [address] RBC (Bld) [#/Vol] 4.5 E12/L Normal 4.3-5.9 [facility] Comment on above: Performed By: #### 2 0944260, 4131691, 2417762, 81316063, 1760041, 6987719, 1077184 ####[facility] [address] [place] [address] WBC corrected for nucl RBC Auto (Bld) [#/Vol] 5.5 E9/L Normal 4.0-11.0 [facility] Comment on above: Performed By: #### 2 2287318, 6849938, 2946897, 33869303, 6375280, 1403358, 5378387 ####[address] [address] CHEMISTRYOrdered By: SYSTEM SYSTEM on 07-28-2023 Albumin [Mass/Vol] 4.2 g/dL Normal 3.3 - 5.0 gm/dL [facility] Remisol Albumin/Globulin [Mass ratio] 1.4 {ratio} Normal 1.1 - 2.2 [facility] Remisol ALP [Catalytic activity/Vol] 48 [iU]/d Normal 21 - 98 Int._Unit/L [facility] Remisol ALT No additional P-5'-P [Catalytic activity/Vol] 12 [iU]/d Normal 6 - 46 Int._Unit/L [facility] Remisol Anion gap [Moles/Vol] 10 mmol/L Normal 6 - 16 mEq/L F [facility] Remisol AST [Catalytic activity/Vol] 18 [iU]/d Normal 5 - 43 Int._Unit/L [facility] Remisol Bilirubin [Mass/Vol] 0.5 mg/dL Normal 0.0 - 1 .1 mg/dL [facility] Remisol Bilirubin.direct [Mass/Vol] mg/dL Normal 0.1 - 0.4 mg/dL [facility] Remisol Bilirubin.indirect [Mass or moles/Vol] Unable to Calculate mg/dL Invalid Interpretation Code 0.1 - 0.9 mg/dL [facility]isol Calcium [Mass/Vol] 8.7 mg/dL Low 8.9 - 11. 1 mg/dL [facility] Chloride [Moles/Vol] 108 mmol/L Normal 101 - 1 11 mmol/L [facility] CO2 [Moles/Vol] 23 mmol/L Normal 21 - 31 mmol/L [facility] Creatinine [Mass/Vol] 0.5 mg/dL Normal 0.5 - 1.3 mg/dL [facility]isol GFR/1.73 sq M.predicted among non-blacks MDRD (S/P/Bld) [Vol rate/Area] 137 mL/min/1.73 m2 Normal >=59mL/min/1 .73 m2 [facility] Chem S Comment on above: Interpretive Data: C hronic kidney disease could be indicated at eGFR's of less than 60 mL/min/1.73m2. Kidney failure is indicated at less than 15 mL/min/1.73m2. Globulin (S) [Mass/Vol] 3.1 g/dL Normal 1.4 - 4.0 gm/dL [facility] Remisol Glucose [Mass/Vol] 101 mg/dL Normal 55 - 199 mg/dL [facility] Remisol Comment on above: Interpretive Data: I f this glucose result represents a fasting glucose, interpretation should refer to the following reference range: 55-99 mg/dL Lipase [Catalytic activity/Vol] 35 U/L Normal 13 - 58 unit/L [facility] Remisol Potassium [Moles/Vol] 3.8 mmol/L Normal 3.5 - 5.3 mmol/L [facility] Remisol Protein [Mass/Vol] 7.3 g/dL Normal 6.0 - 7.8 gm/dL [facility] Remisol Sodium [Moles/Vol] 137 mmol/L Normal 135 - 145 mmol/L [facility] Remisol Urea nitrogen [Mass/Vol] 9 mg/dL Normal 5 - 21 mg/dL [facility] Remisol Urea nitrogen/Creatinine [Mass ratio] 18 mg/mg Normal 10 - 20 [facility] Remisol Consent for Treatmenton 07-19 Consent for Treatment [id number] .00TIFF Normal [facility] Discharge Instructionson Discharge Instructions [id number]# 1.00TIFF Normal [facility] ED Clinical Summaryon 2022 ED Clinical Summary Normal [facility] ED Note-Physicianon 07-28-20 ED Note-Physician Normal [facility] Comment on above: Result Comment: Elec tronically Signed By: Sam Aguirre PA-C\.br\Date and Time Signed: 07/28/23 18:07 EST\.br\Electronically Co-Signed By: Omid Gan M.D.\.br\Date and Time Co-Signed: 07/28/23 18:54 EST ED Patient Education Noteon 07-28-2023 ED Patient Education Note Normal [facility] ED Patient Summaryon 023 ED Patient Summary Normal [facility] HEMATOLOGYOrdered By: SYSTEM SYSTEM on 07-28-2023 Basophils/100 WBC (Bld) 0.2 % Normal 0.0 - 2.0 % [facility] HemeAutoSS Basophils/Leukocytes Auto (Bld) [Pure # fraction] 0.0 E9/L Normal 0.0 - 0.2 E9/L [facility] HemeAutoSS Eosinophils/100 WBC (Bld) 0.8 % Normal 0.0 - 8.0 % [facility] HemeAutoSS Eosinophils/Leukocytes Auto (Bld) [Pure # fraction] 0.0 E9/L Normal 0.0 - 0.5 E9/L [facility] HemeAutoSS Lymphocytes/100 WBC (Bld) 18.0 % Normal 14.0 - 50.0 % [facility] HemeAutoSS Lymphocytes/Leukocytes Auto (Bld) [Pure # fraction] 1.0 E9/L Normal 1.0 - 4.0 E9/L [facility] HemeAutoSS Monocytes/100 WBC (Bld) 7.2 % Normal 4.0 - 14.0 % [facility] HemeAutoSS Monocytes/Leukocytes Auto (Bld) [Pure # fraction] 0.4 E9/L Normal 0.2 - 1.0 E9/L [facility] HemeAutoSS Neutrophils/100 WBC (Bld) 73.8 % Normal 36.0 - 75.0 % [facility] HemeAutoSS Neutrophils/Leukocytes Auto (Bld) [Pure # fraction] 4.1 E9/L Normal 2.0 - 7.5 E9/L [facility] HemeAutoSS HEMATOLOGYOrdered By: Marlyn Menendez on 07-28-2023 Erythrocyte distribution width (RBC) [Ratio] 13.6 % Normal 10.9 - 14.2 % [facility] HemeAutoSS Hematocrit (Bld) [Volume fraction] 38.5 % Normal 34.0 - 46.0 % [facility] HemeAutoSS Hemoglobin (Bld) [Mass/Vol] 13.0 g/dL Normal 12.0 - 16.0 gm/dL [facility] HemeAutoSS MCH (RBC) [Entitic mass] 28.7 pg Normal 27.0 - 34.0 pg [facility] HemeAutoSS MCHC (RBC) [Mass/Vol] 33.7 g/dL Normal 31.4 - 36.0 gm/dL [facility] HemeAutoSS MCV (RBC) [Entitic vol] 85.0 fL Normal 80.0 - 100.0 fL [facility] HemeAutoSS Platelet mean volume (Bld) [Entitic vol] 8.2 fL Normal 6.4 - 10.8 fL [facility] HemeAutoSS Platelets (Bld) [#/Vol] 195.0 E9/L Normal 150. 0 - 500.0 E9/L [facility] HemeAutoSS RBC (Bld) [#/Vol] 4.5 E12/L Normal 4.3 - 5.9 E12/L [facility] HemeAutoSS WBC corrected for nucl RBC Auto (Bld) [#/Vol] 5.5 E9/L Normal 4.0 - 11.0 E9/L [facility] HemeAutoSS Hep Func Panelon 07-28-2023 Bilirubin.indirect [Mass or moles/Vol] UTC Abnormal 0.1-0.9 [facility] Comment on above: Result Comment: Resu lt verified by Discern Rule. Performed result UT (Unable to Calculate) was sent as an Alpha code due the inability to calculate a valid numeric value. Performed By: #### 2 6368757, 9118139, 6163422, 48775022, 7688489, 7740962, 4973958 ####[facility] [address] [place] [address] Albumin [Mass/Vol] 4.2 g/dL Normal 3.3-5.0 [facility] Comment on above: Performed By: #### 2 9169300, 9007131, 9112201, 85978127, 6627247, 7932552, 9477291 ####[facility] [address] [place] [address] Albumin/Globulin (S) [Mass conc ratio] 1.4 Normal 1.1-2.2 [facility] Comment on above: Performed By: #### 2 2720368, 7525994, 4211569, 31779876, 1871745, 7698074, 8454216 ####[facility] [address] [place] [address] ALP [Catalytic activity/Vol] 48 Int._Unit/L Normal 21-98 [facility] Comment on above: Performed By: #### 2 5144664, 6487711, 6224837, 18291665, 1235132, 0448636, 7802725 ####[facility] [address] [place] [address] ALT No additional P-5'-P [Catalytic activity/Vol] 12 Int._Unit/L Normal 6-46 [facility] Comment on above: Performed By: #### 2 8671979, 0312186, 4797622, 49495279, 6455157, 8685768, 1554127 ####[facility] [address] [place] [address] AST [Catalytic activity/Vol] 18 Int._Unit/L Normal 5-43 [facility] Comment on above: Performed By: #### 2 8151097, 7658284, 6791162, 11928146, 8849514, 7113528, 5170113 ####[address] [place] [address] Bilirubin [Mass/Vol] 0.5 mg/dL Normal 0.0-1.1 [facility] Comment on above: Performed By: #### 2 5718029, 0917227, 6479046, 53258460, 6661681, 1843614, 8620958 ####[facility] [address] [place] [address] Globulin (S) [Mass/Vol] 3.1 g/dL Normal 1.4-4.0 [facility] Comment on above: Performed By: #### 2 [id number], [id number], [id number], [id number], 4389574, 7807989, 3219460 ####[facility] [id number] [place] [address] Protein [Mass/Vol] 7.3 g/dL Normal 6.0-7.8 [facility] Comment on above: Performed By: #### 2 [id number], [id number], 8772439, [id number], 7443215, 0645521, 1850775 ####[facility] [id number] [place] [address] Bilirubin.direct [Mass/Vol] mg/dL Normal 0.1-0.4 [facility] Comment on above: Performed By: #### 2 [id number], 5773929, 9810709, [id number], 2719975, 9728230, 8481690 ####[facility] [address] [place] [address] Lipase Levelon 07-28-2023 Lipase [Catalytic activity/Vol] 35 U/L Normal 13-58 [facility] Comment on above: Performed By: #### 2 [id number], 9915137, 4887426, [id number], 2003148, 4076098, 7907737 ####[facility] [address] [place] [address] SEROLOGYOrdered By: Kimmie Salazar on 07-28-2023 Beta HCG ( test) Ql Negative (07/28/23 11:51 AM) Normal [facility] [place] S[place] UA With Cult Reflexon 2022 Bacteria LM Ql (Urine sed) TRACE Normal Trace [facility] Comment on above: Performed By: #### 1 [id number] ####[facility] [address] [place] [address] Bilirubin Ql (U) Negative Normal Negative [facility] Comment on above: Performed By: #### 1 1309664 ####[facility] [address] [place] [address] Clarity (U) CLEAR Normal Clear [facility] Comment on above: Performed By: #### 1 1381734 ####[facility] [address] [place] [address] Color (U) YELLOW Normal Yellow [facility] Comment on above: Performed By: #### 1 [id number] ####[facility] [address] [place] [address] Epithelial cells.squamous LM.HPF (Urine sed) [#/Area] 0-2 Normal 0-2 [facility] Comment on above: Performed By: #### 1 3141274 ####[facility] [address] [place] [address] Glucose Test strip (U) [Mass/Vol] Negative Normal Negative [facility] Comment on above: Performed By: #### 1 [id number] ####[address] [address] Hemoglobin Ql (U) 3+ Abnormal Negative [facility] Comment on above: Performed By: #### 1 8911623 ####[address] [address] Ketones (U) [Mass/Vol] Negative Normal Negative [facility] Comment on above: Performed By: #### 1 4774498 ####[address] [address] Bolton.plasma/Bolton. RBC (Bld) [Mass ratio] 0-3 Normal 0-3 [facility] Comment on above: Performed By: #### 1 2207170 ####[address] [address] Mucus Ql (Urine sed) TRACE Normal [facility] Comment on above: Performed By: #### 1 4768487 ####[address] [address] Nitrite Ql (U) Negative Normal Negative [facility] Comment on above: Performed By: #### 1 3710323 ####[address] [address] pH (U) 6.5 [pH] Invalid Interpretation Code 5.0-9.0 [facility] Comment on above: Performed By: #### 1 7255210 ####[address] [address] Protein (U) [Mass/Vol] TRACE Abnormal Negative [facility] Comment on above: Performed By: #### 1 1222690 ####[address] [address] Specific gravity (U) [Rel density] <=1.005 Invalid Interpretation Code 1.005-1.030 [facility] Comment on above: Performed By: #### 1 7872167 ####[address] [address] Type of Urine collection method Clean Catch Normal [facility] Comment on above: Performed By: #### 1 6020387 ####[facility] [address] [place] [address] Urobilinogen Qn (U) 0.2 {Brooklyn'U}/dL Normal 0.0-1.0 [facility] Comment on above: Performed By: #### 1 2742337 ####[facility] [address] [place] [address] WBC Auto Ql (U) Negative Normal Negative [facility] Comment on above: Performed By: #### 1 9304341 ####[facility] [address] [place] [address] WBC LM.HPF (Urine sed) [#/Area] 0-5 Normal 0-5 [facility] Comment on above: Performed By: #### 1 4432480 ####[facility] [address] [place] [address] URINALYSISOrdered By: Sharon Salazar on 07-28-2023 Bacteria LM Ql (Urine sed) Trace /HPF Normal Trace/HPF [facility] UA Auto SS Bilirubin Ql (U) Negative (07/28/23 11:29 AM) Normal Negative [facility] UA Auto SS Clarity (U) Clear (07/28/23 11:29 AM) Normal Clear [facility] UA Auto SS Color (U) Yellow (07/28/23 11:29 AM) Normal Yellow [facility] UA Auto SS Epithelial cells.squamous LM.HPF (Urine sed) [#/Area] 0-2 /HPF Normal 0-2/HPF [facility] UA Aut o SS Glucose Test strip (U) [Mass/Vol] Negative (07/28/23 11:29 AM) Normal Negative [facility] UA Auto SS Hemoglobin Ql (U) 3+ *ABN* (07/28/23 11:29 AM) Invalid Interpretation Code Negative [facility] UA Auto SS Ketones (U) [Mass/Vol] Negative (07/28/23 11:29 AM) Normal Negative [facility] UA Auto SS Bolton.plasma/Bolton. RBC (Bld) [Mass ratio] 0-3 /HPF Normal 0-3/HPF [facility] UA A uto SS Mucus Ql (Urine sed) Trace (07/28/23 11:29 AM) Normal [facility] UA Auto SS Nitrite Ql (U) Negative (07/28/23 11:29 AM) Normal Negative [facility] UA Auto SS pH (U) 6.5 *NA* (07/28/23 11:29 AM) Invalid Interpretation Code 5.0 - 9.0 [facility] UA Auto SS Protein (U) [Mass/Vol] Trace *ABN* (07/28/23 11:29 AM) Invalid Interpretation Code Negative [facility] UA Auto SS Specific gravity (U) [Rel density] <=1.005 *NA* (07/28/23 11:29 AM) Invalid Interpretation Code 1.005 - 1.030 [facility] UA Auto SS UA Spec Desc Clean Catch (07/28/23 11:29 AM) Normal [facility]A Auto SS Urobilinogen Qn (U) 0.7725300 {Brooklyn'U}/dL Normal 0.0 - 1.0 EU/dL [facility] UA Auto SS WBC Auto Ql (U) Negative (07/28/23 11:29 AM) Normal Negative [facility] UA Auto SS WBC LM.HPF (Urine sed) [#/Area] 0-5 /HPF Normal 0-5/HPF [facility] UA Auto SS eGFRon 07-28-2023 GFR/1.73 sq M.predicted among non-blacks MDRD (S/P/Bld) [Vol rate/Area] 137 mL/min/1.73 m2 Normal >=59 [facility] Comment on above: Order Comment: Order added by Discern Expert. Result Comment: Olive Knocker brielle kidney disease could be indicated at eGFR's of less than 60 mL/min/1.73m2. Kidney failure is indicated at less than 15 mL/min/1.73m2. Performed By: #### 2 8022090, 8342324, 8047748, 52647421, 4752532, 3356032, 2305332 ####[facility] [address] [place] [address] Echocardiographyon 3 Echocardiography [id number]#1 .00TIFF Normal [facility] Consent for Treatmenton 06-19 Consent for Treatment [id number] 310 [id number]#1 .00TIFF Normal [facility] Heart and Vascular Office/Cl inic Noteon 07-11-2023 Heart and Vascular Office/Clinic Note Normal [facility] Comment on above: Result Comment: Elec tronically Signed By: TREVON MERRILL, Alexsander Galvan\Date and Time Signed: 07/11/23 14:18 EDT Physician Orderon 07-11-2023 Physician Order [id number]#1 .00TIFF Normal [facility] echo transthoracicon [facility] echo transthoracic [facility] [place] [address] Echocardiogram Signed Patient: Leonora Marcum MR#: [id number] : 2000 Acct:[id number] Age/Sex: 22 / F ADM Date: 06/29/23 Loc: Room: Type: [facility] Attending Dr: Vibha Ruiz MD Ordering Provider: Deb Goldsmith DO, RES Date of Service: 06/29/2309/09/950 [facility] transthor[facility]: Abnormal EKG Copies to: MD Deb Ewing DO, RES Deb Weight: 125 lb Performed By: IRENE Saenz BSA: 1.6 m2 BP: 101/67 mmHg HR: 69 Reason For Study: Abnormal EKG History: Murmur. Former Smoker. Interpretation Summary The left ventricular wall motion is normal. The left ventricular size, thickness and function are normal Ejection Fraction = 50-55%. The LV ejection fraction is low normal . Normal transthoracic echocardiogram. Procedure/Quality: A two-dimensional transthoracic echocardiogram with color flow and Doppler was performed. The study was technically good in quality. Left Ventricle: The left ventricular size, thickness and function are normal. Ejection Fraction = 50-55%. The LV ejection fraction is low normal . The left ventricular wall motion is normal. Left Atrium: The left atrium appears normal in size. Right Atrium: The right atrium appears normal in size. Right Ventricle: The right ventricular size, thickness and function are normal. Aortic Valve: The aortic valve is normal in structure and function. No aortic regurgitation is present. Mitral Valve: The mitral valve is normal in structure and function. There is no mitral regurgitation noted. Tricuspid Valve: The tricuspid valve is normal in structure and function. No tricuspid regurgitation. Pulmonic Valve: The pulmonic valve is normal in structure and function. Arteries: The aortic root is normal size. Pericardium/Pleura: No pericardial effusion seen. There is no pleural effusion. IVC/Hepatic Viens: The inferior vena cava is normal in size, with a normal collapsibility index. Measurements with Normals IVSd: 0.53 cm (0.7-1.1 cm)LVIDd: 4.0 cm (3.7-5.4 cm) LVPWd: 0.72 cm (0.7-1.1 cm)LVIDs: 2.6 cm (2.3-3.6 cm) LA dimension: 2.3 cm (2.3-4.0 cm)Ao root diam: 2.4 cm(2.0-3.6 cm) asc Aorta Diam: 2.3 cm(2.1-3.4cm) Doppler with Normals MV E max sam: 79.7 cm/sec(0.8-1.3m/s) MV A max sam: 45.8 cm/sec(0.0-0.0m/s) MV E/A: 1.7 (<1.5) MMode/2D Measurements Calculations RVDd: 1.9 cm FS: 34.6 % Ao root area: LVLd ap4: 6.4 cm TAPSE: 1.9 cm EDV(Teich): 4.6 cm2 EDV(MOD-sp4): RV S Sam: 68.6 ml 35.3 ml 9.7 cm/sec ESV(Teich): LVLs ap4: 5.8 cm 24.5 ml ESV(MOD-sp4): EF(Teich): 64.3 % 17.4 ml EF(MOD-sp4): 50.7 % __ SV(MOD-sp4): 17.9 ml Doppler Measurements Calculations MV dec time: E/E' lat: MV dec slope: RAP systole: 0.21 sec 5.6 382.0 cm/sec2 3.0 mmHg E/E' med: 7.3 Transcribed By: SCV Performed At: 06/29/23 1003 Signed By: Hardik Astudillo MD 06/29/23 1051 [facility] US gall bladderon 06-27-2023 US gall bladder [facility] [place] [address] Ultrasound Report Signed Patient: Leonora Marcum MR#: [id number] : 2000 Acct:[id number] Age/Sex: 22 / F ADM Date: 06/27/23 Loc: Room: Type: [facility] Attending Dr: Vibha Ruiz MD Ordering Provider: Deb oGldsmith DO, RES Date of Service: 06/27/23 US/US gall bladder: Epigastric pain Copies to: Sara/PreceptorTomer MD, DO, RES LIMITED ABDOMINAL ULTRASOUND: CLINICAL HISTORY: Right upper quadrant pain for 10 months with nausea COMPARISON: CT abdomen and pelvis 11/24/2021 TECHNIQUE: Grayscale and color Doppler images of the right upper quadrant organs were obtained. FINDINGS: Pancreas: Visualized portions appear unremarkable. Liver: Unremarkable. Gallbladder: Unremarkable. CBD: 1 mm. US/US gall bladder IMPRESSION: NO ACUTE PROCESS. . Impression dictated by: Miguel Angel August Jr., D.O.06/27/2023 10:57 AM Dictation Location: [place] [address] Tech: Beatriz Ochoa Transcribed By: LORENZO 06/27/23 1057 Dictated By: Miguel Angel August Jr, DO 06/27/23 1046 Signed By: 06/27/23 1057 [facility] Auto Diffon 06-15-2023 Basophils/100 WBC (Bld) 0.6 % Normal 0.0-2.0 [facility] Comment on above: Order Comment: Order Added by Discern Expert. Performed By: #### 2 493235, 1222846, 9421563, 09056336, 15449839, 9051227, 40783709 ####[facility] [address] [place] [address] Basophils/Leukocytes Auto (Bld) [Pure # fraction] 0.0 E9/L Normal 0.0-0.2 [facility] Comment on above: Order Comment: Order Added by Discern Expert. Performed By: #### 2 378866, 9212517, 2217561, 94507667, 55521919, 1558502, 69491937 ####[place] [address] [place] [address] Eosinophils/100 WBC (Bld) 0.5 % Normal 0.0-8.0 [facility] Comment on above: Order Comment: Order Added by Discern Expert. Performed By: #### 2 675876, 6739271, 8936139, 04622818, 58318599, 9526065, 46667083 ####[facility] [address] [place] [address] Eosinophils/Leukocytes Auto (Bld) [Pure # fraction] 0.0 E9/L Normal 0.0-0.5 [facility] Comment on above: Order Comment: Order Added by Discern Expert. Performed By: #### 2 547096, 0691294, 2447289, 96857354, 68285423, 1089020, 50429254 ####[address] [place] [place] [address] Lymphocytes/100 WBC (Bld) 35.5 % Normal 14.0-50.0 [facility] Comment on above: Order Comment: Order Added by Discern Expert. Performed By: #### 2 125366, 2337699, 0758936, 10896269, 58777098, 2122340, 04587330 ####[place] [address] [place] [address] Lymphocytes/Leukocytes Auto (Bld) [Pure # fraction] 2.1 E9/L Normal 1.0-4.0 [facility] Comment on above: Order Comment: Order Added by Discern Expert. Performed By: #### 2 614607, 4379042, 5285384, 94165170, 66315599, 8247219, 03980095 ####[facility] [address] [place] [address] Monocytes/100 WBC (Bld) 7.6 % Normal 4.0-14.0 [facility] Comment on above: Order Comment: Order Added by Discern Expert. Performed By: #### 2 335640, 1942290, 6023220, 67316794, 97045566, 1211339, 79999825 ####[address] [place] [place] [address] Monocytes/Leukocytes Auto (Bld) [Pure # fraction] 0.4 E9/L Normal 0.2-1.0 [facility] Comment on above: Order Comment: Order Added by Juma Expert. Performed By: #### 2 492840, 8745379, 9932572, 82642837, 33004835, 6939707, 47298535 ####[address] [place] [place] [address] Neutrophils/100 WBC (Bld) 55.8 % Normal 36.0-75.0 [facility] Comment on above: Order Comment: Order Added by Discern Expert. Performed By: #### 2 659704, 3326665, 8563171, 33269711, 19265235, 0443596, 59796856 ####[facility] [address] [place] [address] Neutrophils/Leukocytes Auto (Bld) [Pure # fraction] 3.2 E9/L Normal 2.0-7.5 [facility] Comment on above: Order Comment: Order Added by Juma Expert. Performed By: #### 2 792555, 6425074, 5675231, 12177912, 93900183, 2414449, 98591404 ####[address] [place] [place] [address] BMPon 06-15-2023 Creatinine [Mass/Vol] 0.6 mg/dL Normal 0.5-1.3 [facility] Comment on above: Performed By: #### 2 263950, 2980341, 8646985, 16498335, 09608335, 1195197, 76433481 ####[facility] [address] [place] [address] Urea nitrogen [Mass/Vol] 8 mg/dL Normal 5-21 [facility] Comment on above: Performed By: #### 2 006978, 3097815, 8883188, 23323139, 64667470, 0181449, 33575842 ####[facility] [address] [place] [address] Urea nitrogen/Creatinine [Mass ratio] 13 No Units Normal 10-20 [facility] Comment on above: Performed By: #### 2 319204, 8965706, 8442150, 80973535, 21125044, 5006792, 49492591 ####[facility] [address] [place] [address] Anion gap [Moles/Vol] 11 mmol/L Normal 6-16 [facility] Comment on above: Performed By: #### 2 876024, 5696149, 8447537, 85030438, 87962309, 9210589, 56255000 ####[facility] [address] [place] [address] Calcium [Mass/Vol] 9.3 mg/dL Normal 8.9-11.1 [facility] Comment on above: Performed By: #### 2 513942, 7729905, 8631020, 27902056, 31576431, 6697314, 69391013 ####[facility] [address] [place] [address] Chloride [Moles/Vol] 109 mmol/L Normal 101-111 [facility] Comment on above: Performed By: #### 2 282402, 7327669, 9986066, 40466732, 71279004, 0327728, 54181916 ####[facility] [address] [place] [address] CO2 [Moles/Vol] 23 mmol/L Normal 21-31 [facility] Comment on above: Performed By: #### 2 916548, 8368593, 6841901, 45273469, 04180797, 6124039, 67632645 ####[facility] [address] [place] [address] Glucose [Mass/Vol] 93 mg/dL Normal 55-199 [facility] Comment on above: Result Comment: If t his glucose result represents a fasting glucose, interpretation should refer to the following reference range: 55-99 mg/dL Performed By: #### 2 784747, 5353875, 3307917, 65829323, 42288138, 6185367, 67512334 ####[facility] [address] [place] [address] Potassium [Moles/Vol] 3.5 mmol/L Normal 3.5-5.3 [facility] Comment on above: Performed By: #### 2 834417, 4923761, 6318496, 87277303, 10515627, 7953209, 51733605 ####[facility] [address] [place] [address] Sodium [Moles/Vol] 139 mmol/L Normal 135-145 [facility] Comment on above: Performed By: #### 2 690856, 5093232, 8967838, 82931474, 26999803, 4376311, 41812236 ####[facility] [address] [place] [address] CBC w/ Auto Diffon 3 Erythrocyte distribution width (RBC) [Ratio] 14.0 % Normal 10.9-14.2 [facility] Comment on above: Performed By: #### 2 874168, 2349285, 2888527, 58819095, 33684845, 5753485, 74793624 ####[facility] [address] [place] [address] Hematocrit (Bld) [Volume fraction] 40.7 % Normal 34.0-46.0 [facility] Comment on above: Performed By: #### 2 168380, 6863679, 4431971, 51844640, 80225775, 3858725, 66556749 ####[address] [place] [address] Hemoglobin (Bld) [Mass/Vol] 13.9 g/dL Normal 12.0-16.0 [facility] Comment on above: Performed By: #### 2 309348, 1268122, 8705030, 17164774, 09920206, 0207164, 26768824 ####[address] [address] MCH (RBC) [Entitic mass] 28.9 pg Normal 27.0-34.0 [facility] Comment on above: Performed By: #### 2 515526, 4511628, 2819276, 02791218, 15531195, 8980774, 87912111 ####[address] [address] MCHC (RBC) [Mass/Vol] 34.1 g/dL Normal 31.4-36.0 [facility] Comment on above: Performed By: #### 2 888025, 6856012, 7234134, 57234441, 86393960, 2293064, 13805266 ####[address] [address] MCV (RBC) [Entitic vol] 84.9 fL Normal 80.0-100.0 F [facility] Comment on above: Performed By: #### 2 375498, 0188758, 3524587, 91201800, 11287220, 1630342, 44474714 ####[address] [address] Platelet mean volume (Bld) [Entitic vol] 9.0 fL Normal 6.4-10.8 [facility] Comment on above: Performed By: #### 2 255747, 0667346, 4310190, 74290421, 08458011, 8367728, 48006738 ####[facility] [address] [place] [address] Platelets (Bld) [#/Vol] 192.0 E9/L Normal 150.0-500.0 [facility] Comment on above: Performed By: #### 2 452718, 6291918, 6736952, 64873547, 56191571, 1726219, 99342229 ####[facility] [address] [place] [address] RBC (Bld) [#/Vol] 4.8 E12/L Normal 4.3-5.9 [facility] Comment on above: Performed By: #### 2 533350, 7109166, 6260934, 91561992, 76065324, 3877624, 65337836 ####[facility] [address] [place] [address] WBC corrected for nucl RBC Auto (Bld) [#/Vol] 5.8 E9/L Normal 4.0-11.0 [facility] Comment on above: Performed By: #### 2 754597, 9495591, 9064882, 83074528, 12235213, 6378884, 61561551 ####[facility] [address] [place] [address] Consent for Treatmenton 05-20 Consent for Treatment [id number]#1 .00CD:127 Normal [facility] D-Dimeron 06-15-2023 Fibrin D-dimer FEU (PPP) [Mass/Vol] 413 CD:[id number] Normal 215-500 [facility] Comment on above: Result Comment: This assay is intended for use as an aid in the diagnosis of DVT or PE. These conditions cannot be excluded with certainty solely on the basis of a D-dimer concentration being within the reference rangeThis D-Dimer assay may be used in conjunction with a non-high clinical pretest probability assessment to exclude deep-vein thrombosis(DVT). For exclusion of venous thrombosis or pulmonary embolism the analyte D-Dimer should not be used as an aid in patients with:Therapeutic dose anticoagulant therapy for >24 hoursFibrinolytic therapy within previous 7 daysTrauma or surgery within previous 4 weeksDisseminated malignaciesAortic aneurysmSepsis, severe infections, pneumonia, severe skin infectionsLiver cirrhosisPregnancy Performed By: #### 2 767877, 6278499, 9294053, 39561073, 72780238, 9457152, 15998299 ####[facility] [address] [place] [address] Discharge Instructionson Discharge Instructions [id number] [id number]# 1.00CD:127 Normal [facility] ED Clinical Summaryon 2022 ED Clinical Summary Normal [facility] ED Clinical Summary Normal [facility] ED Note-Physicianon 06-15-20 23 ED Note-Physician Normal [facility] Comment on above: Result Comment: Elec tronically Signed By: Cedric Munguia PA-C\.br\Date and Time Signed: 06/15/23 16:47 EDT\.br\Electronically Co-Signed By: Omid Gan M.D.\.br\Date and Time Co-Signed: 06/15/23 19:13 EDT ED Patient Education Noteon 06-15-2023 ED Patient Education Note Normal [facility] ED Patient Education Note Normal [facility] ED Patient Summaryon 023 ED Patient Summary Normal [facility] ED Patient Summary Normal [facility] Monitor Recordon 06-15-2023 Monitor Record [id number]# 1.00CD:127 Normal [facility] PT & PTTon 06-15-2023 aPTT Coag (PPP) [Time] 40.3 second(s) High 25.1-36.5 [facility] Comment on above: Result Comment: Para meter 15 days - 4 weeks 1 - 5 months 6 - 11 months 1 - 5 years 6 - 10 years 11 - 17 years PTT Mean: 35.4 (27.6-45.6) Mean: 33.5 (24.8-40.7) Mean: 32.4 (25.1-40.7) Mean: 31.6 (24.0-39.2) Mean: 31.6 (26.9-38.7) Mean: 31.0 (24.6-38.4) Pediatric Reference ranges were obtained from a study by Russel Hernandez et al. prepared from 1437 samples obtained at 7 different centers using the same coagulation reagent and instrumentation as [facility]. Currently there are no coagulation studies available worldwide for children to 14 days, and no normal ranges. Heparin therapeutic range (represented by Anti-Factor Xa activity of 0.2 - 0.4 U/mL) corresponds to PTT of 56.6 - 109.0 sec. Performed By: #### 2 197227, 1039502, 4553927, 46891428, 60902317, 5647112, 97803869 ####[facility] [address] [place] [address] INR Coag (PPP) [Relative time] 1.2 {INR} Invalid Interpretation Code [facility] Comment on above: Result Comment: INR results are specifically intended to assess patients stabilized on long-term Anticoagulation therapy suggested INR?s ?Less Intensive Anticoagulation? 2.0 ? 3.0Conventional Range 3.0 ? 4.5 Performed By: #### 2 308938, 3380298, 3261101, 96466644, 98016749, 7356267, 73467612 ####[facility] [address] [place] [address] PT Coag (PPP) [Time] 13.2 second(s) High 9.4-12.5 [facility] Comment on above: Result Comment: 15 d ays - 4 weeks 1 - 5 months 6 -11 months 1-5 years 6-10 years 11 -17 years Mean: 11.2 (9.5-12.6) Mean: 11.0 (9.7-12.8) Mean: 11.0 (9.8-13.0) Mean: 11.3 (9.9-13.4) Mean: 11.7 (10.0-14.6) Mean: 11.8 (10.0 - 14.1) Pediatric Reference ranges were obtained from a study by Russel Hernandez et al. prepared from 1437 samples obtained at 7 different centers using the same coagulation reagent and instrumentation as [facility]. Currently there are no coagulation studies available worldwide for children to 14 days, and no normal ranges. Performed By: #### 2 513993, 8742586, 7666085, 23239118, 94063580, 6937865, 50842430 ####[facility] [address] [place] [address] Troponin 0 Hr.on 06-15-2023 Troponin I.cardiac [Mass/Vol] ng/mL Low 10.10-27.10 [facility] Comment on above: Result Comment: The 95% CI (Confidence Interval) PPV (Positive Predictive Value) for myocardial infarction in females is 38 pg/mL, in males 51 pg/mL. The results should be used in conjunction with clinical conditions of myocardial infarction.(Access High Sensitivity Troponin I Instructions For Use, Sara Radha, April 2018) Performed By: #### 2 022018, 8700719, 2401966, 51034100, 51692680, 7155968, 83812155 ####[facility] [address] [place] [address] XR Chest Single Viewon 06-15 XR Chest Single View Normal [facility] eGFRon 06-15-2023 GFR/1.73 sq M.predicted among non-blacks MDRD (S/P/Bld) [Vol rate/Area] 131 mL/min/1.73 m2 Normal >=59 [facility] Comment on above: Order Comment: Order added by Discern Expert. Result Comment: Olive Knocker brielle kidney disease could be indicated at eGFR's of less than 60 mL/min/1.73m2. Kidney failure is indicated at less than 15 mL/min/1.73m2. Performed By: #### 2 865832, 2789398, 8090853, 04746500, 45627083, 6693788, 76799670 ####[facility] [address] [place] [address] Consent for Treatmenton 05-20 Consent for Treatment [id number]#1 .00CD:127 Normal [facility] Consent for Treatmenton 05-20 Consent for Treatment [id number]#1 .00CD:127 Normal [facility] Discharge Instructionson Discharge Instructions [id number] [id number]# 1.00CD:127 Normal [facility] ED Clinical Summaryon 2022 ED Clinical Summary Normal Jessie garcia [facility] ED Note-Physicianon 06-08-20 ED Note-Physician Normal [facility] Comment on above: Result Comment: Elec tronically Signed By: Sam Aguirre PA-C\.br\Date and Time Signed: 06/08/23 10:31 EDT\.br\Electronically Co-Signed By: Lucho Cannon DO\.br\Date and Time Co-Signed: 06/08/23 10:38 EDT ED Patient Education Noteon 06-08-2023 ED Patient Education Note Normal [facility] ED Patient Summaryon 023 ED Patient Summary Normal [facility] US LE Venous Duplex Righton 06-08-2023 US LE Venous Duplex Right Normal [facility] Auto Diffon 04-09-2023 Basophils/100 WBC (Bld) 0.5 % Normal 0.0-2.0 F [facility] Comment on above: Order Comment: Order Added by Discern Expert. Performed By: #### 2 928360, 7821552, 54949450, 1779417, 2800373, 3488802, 12381805 ####[facility] [address] [place] [address] Basophils/Leukocytes Auto (Bld) [Pure # fraction] 0.0 E9/L Normal 0.0-0.2 [facility] Comment on above: Order Comment: Order Added by Discern Expert. Performed By: #### 2 777190, 4251045, 66069284, 5447260, 5471795, 2410334, 28266939 ####[address] [place] [address] Eosinophils/100 WBC (Bld) 0.4 % Normal 0.0-8.0 [facility] Comment on above: Order Comment: Order Added by Discern Expert. Performed By: #### 2 673934, 5409321, 98603078, 5903414, 5737647, 8440282, 30469541 ####[facility] [address] [place] [address] Eosinophils/Leukocytes Auto (Bld) [Pure # fraction] 0.0 E9/L Normal 0.0-0.5 [facility] Comment on above: Order Comment: Order Added by Juma Expert. Performed By: #### 2 743375, 1107318, 86403305, 3528152, 4778074, 5003479, 05310719 ####[address] [address] Lymphocytes/100 WBC (Bld) 14.0 % Normal 14.0-50.0 [facility] Comment on above: Order Comment: Order Added by Juma Expert. Performed By: #### 2 663963, 7319285, 54020522, 3554183, 3097912, 9125350, 15258172 ####[address] [address] Lymphocytes/Leukocytes Auto (Bld) [Pure # fraction] 1.2 E9/L Normal 1.0-4.0 [facility] Comment on above: Order Comment: Order Added by Juma Expert. Performed By: #### 2 503506, 9482826, 54525559, 8059680, 7181210, 0966800, 30841862 ####[address] [place] [address] Monocytes/100 WBC (Bld) 6.7 % Normal 4.0-14.0 [facility] Comment on above: Order Comment: Order Added by Discern Expert. Performed By: #### 2 446023, 7740411, 97331668, 6770535, 8914426, 2737752, 55703323 ####[address] [place] [address] Monocytes/Leukocytes Auto (Bld) [Pure # fraction] 0.6 E9/L Normal 0.2-1.0 [facility] Comment on above: Order Comment: Order Added by Discern Expert. Performed By: #### 2 120958, 5394225, 44764049, 9429058, 0528553, 5954012, 45313549 ####[address] [place] [address] Neutrophils/100 WBC (Bld) 78.4 % High 36.0-75.0 [facility] Comment on above: Order Comment: Order Added by Discern Expert. Performed By: #### 2 988253, 1867097, 45479908, 0811654, 7673088, 1237222, 22524751 ####[address] [place] [address] Neutrophils/Leukocytes Auto (Bld) [Pure # fraction] 6.9 E9/L Normal 2.0-7.5 [facility] Comment on above: Order Comment: Order Added by Discern Expert. Performed By: #### 2 208763, 7884983, 14749449, 5456993, 6316150, 5226385, 80415079 ####[address] [place] [address] BB Draw & Holdon 04-09-2023 BB D&H Sample drawn for Blood Ba Normal [facility] Comment on above: Performed By: #### 1 1533446 ####[facility] [address] [place] [address] [facility] Creatinine [Mass/Vol] 0.6 mg/dL Normal 0.5-1.3 [facility] Comment on above: Performed By: #### 2 484346, 7308101, 67140246, 5522391, 9008542, 0171451, 48733190 ####[facility] [address] [place] [address] Urea nitrogen [Mass/Vol] 6 mg/dL Normal 5-21 [facility] Comment on above: Performed By: #### 2 854748, 6709122, 47894747, 3363002, 0127069, 4150585, 29227130 ####[facility] [address] [place] [address] Urea nitrogen/Creatinine [Mass ratio] 10 No Units Normal 10-20 [facility] Comment on above: Performed By: #### 2 435118, 9147778, 01357483, 9716996, 2268016, 3713284, 13634377 ####[facility] [address] [place] [address] Anion gap [Moles/Vol] 13 mmol/L Normal 6-16 [facility] Comment on above: Performed By: #### 2 468400, 2969707, 49913353, 9293862, 3606694, 6988567, 53462737 ####[facility] [address] [facility] [place] [address] Calcium [Mass/Vol] 8.9 mg/dL Normal 8.9-11.1 [facility] Comment on above: Performed By: #### 2 772742, 4834622, 98409218, 9548948, 2200328, 4165447, 82322761 ####[facility] [address] [place] [address] Chloride [Moles/Vol] 108 mmol/L Normal 101-111 [facility] Comment on above: Performed By: #### 2 507560, 2437313, 78020687, 3553903, 5777779, 0835651, 28406021 ####[facility] [address] [place] [address] CO2 [Moles/Vol] 21 mmol/L Normal 21-31 [facility] Comment on above: Performed By: #### 2 940743, 9644268, 19053157, 2782112, 1512368, 9741132, 93621435 ####[facility] [address] [place] [address] Glucose [Mass/Vol] 107 mg/dL Normal 55-199 [facility] Comment on above: Result Comment: If t his glucose result represents a fasting glucose, interpretation should refer to the following reference range: 55-99 mg/dL Performed By: #### 2 133025, 2058298, 85034255, 0442598, 0392404, 1722268, 96620604 ####[facility] [address] [place] [address] Potassium [Moles/Vol] 3.5 mmol/L Normal 3.5-5.3 [facility] Comment on above: Performed By: #### 2 188053, 0451135, 00059417, 6433172, 4048939, 0843963, 19485535 ####[facility] [address] [place] [address] Sodium [Moles/Vol] 138 mmol/L Normal 135-145 [facility] Comment on above: Performed By: #### 2 395237, 2122167, 33044208, 4338264, 0507372, 1922196, 02005661 ####[facility] [address] [place] [address] BhCG Quanton 04-09-2023 HCG[place]beta subunit Qn 6296 m[IU]/mL High 1-3 [facility] Comment on above: Result Comment: GEST ATIONAL AGE HCG RANGE (mIU/mL) NON- <1-3 0.2-1 WEEKS 5-50 1-2 WEEKS 50-500 2-3 WEEKS 100-5,000 3-4 WEEKS 500-10,000 4-5 WEEKS 1,000-50,000 5-6 WEEKS 10,000-100,000 6-8 WEEKS 15,000-200,000 8-12 WEEKS 10,000-100,000 Performed By: #### 2 411383 ####[facility] [address] [place] [address] CBC w/ Auto Diffon 3 Erythrocyte distribution width (RBC) [Ratio] 14.2 % Normal 10.9-14.2 [facility] Comment on above: Performed By: #### 2 163905, 8193008, 62571176, 8500735, 9517525, 8194457, 59496560 ####[facility] [address] [place] [address] Hematocrit (Bld) [Volume fraction] 39.1 % Normal 34.0-46.0 [facility] Comment on above: Performed By: #### 2 718172, 7812074, 31105428, 8515126, 4724166, 0047053, 27908658 ####[facility] [address] [place] [address] Hemoglobin (Bld) [Mass/Vol] 13.3 g/dL Normal 12.0-16.0 [facility] Comment on above: Performed By: #### 2 761401, 2744346, 45907419, 6891635, 0329752, 6982728, 85535622 ####[facility] [address] [place] [address] MCH (RBC) [Entitic mass] 28.1 pg Normal 27.0-34.0 [facility] Comment on above: Performed By: #### 2 517629, 1052843, 56286871, 1693103, 2929814, 5435374, 44515261 ####[facility] [address] [place] [address] MCHC (RBC) [Mass/Vol] 34.1 g/dL Normal 31.4-36.0 [facility] Comment on above: Performed By: #### 2 524310, 7049733, 34225440, 5622475, 6497113, 3353920, 09594842 ####[facility] [address] [place] [address] MCV (RBC) [Entitic vol] 82.6 fL Normal 80.0-100.0 [facility] Comment on above: Performed By: #### 2 543149, 2859840, 14688308, 7847220, 5244789, 0571409, 64258356 ####[facility] [address] [place] [address] Platelet mean volume (Bld) [Entitic vol] 8.5 fL Normal 6.4-10.8 [facility] Comment on above: Performed By: #### 2 905541, 3237961, 00727727, 9355714, 0112602, 9977125, 38033289 ####[facility] [address] [place] [address] Platelets (Bld) [#/Vol] 226.0 E9/L Normal 150.0-500.0 [facility] Comment on above: Performed By: #### 2 392120, 4959434, 79559723, 2621709, 4238858, 2291552, 99902472 ####[address] [address] RBC (Bld) [#/Vol] 4.7 E12/L Normal 4.3-5.9 [facility] Comment on above: Performed By: #### 2 387988, 2319089, 44399776, 2844418, 6643064, 5577513, 30879181 ####[address] [place] [address] WBC corrected for nucl RBC Auto (Bld) [#/Vol] 8.8 E9/L Normal 4.0-11.0 [facility] Comment on above: Performed By: #### 2 258040, 9055917, 77935343, 1691362, 9865058, 9874241, 38952986 ####[address] [place] [address] CHEMISTRYOrdered By: SYSTEM SYSTEM on 04-09-2023 Albumin [Mass/Vol] 4.2 g/dL Normal 3.3 - 5.0 gm/dL [facility] Remisol Albumin/Globulin [Mass ratio] 1.4 {ratio} Normal 1.1 - 2.2 [facility] ALP [Catalytic activity/Vol] 51 [iU]/d Normal 21 - 98 Int._Unit/L [facility] ALT No additional P-5'-P [Catalytic activity/Vol] 12 [iU]/d Normal 6 - 46 Int._Unit/L [facility] Anion gap [Moles/Vol] 13 mmol/L Normal 6 - 16 mEq/L [facility] AST [Catalytic activity/Vol] 21 [iU]/d Normal 5 - 43 Int._Unit/L [facility] Bilirubin [Mass/Vol] 0.6 mg/dL Normal 0.0 - 1 .1 mg/dL [facility] Bilirubin.direct [Mass/Vol] 0.1 mg/dL Normal 0.1 - 0.4 mg/dL [facility] Bilirubin.indirect [Mass or moles/Vol] 0.5 mg/dL Normal 0.1 - 0.9 mg/dL [facility] Calcium [Mass/Vol] 8.9 mg/dL Normal 8.9 - 11. 1 mg/dL [facility] Chloride [Moles/Vol] 108 mmol/L Normal 101 - 1 11 mmol/L [facility] CO2 [Moles/Vol] 21 mmol/L Normal 21 - 31 mmol/L [facility] Creatinine [Mass/Vol] 0.6 mg/dL Normal 0.5 - 1.3 mg/dL [facility] GFR/1.73 sq M.predicted among non-blacks MDRD (S/P/Bld) [Vol rate/Area] 131 mL/min/1.73 m2 Normal >=59mL/min/1 .73 m2 [facility] Chem S Globulin (S) [Mass/Vol] 3.0 g/dL Normal 1.4 - 4.0 gm/dL [facility] Glucose [Mass/Vol] 107 mg/dL Normal 55 - 199 mg/dL [facility] HCG.beta subunit Qn 6296 m[IU]/mL High 1 - 3 mIU/mL [facility] Lipase [Catalytic activity/Vol] 27 U/L Normal 13 - 58 unit/L [facility] Potassium [Moles/Vol] 3.5 mmol/L Normal 3.5 - 5.3 mmol/L [facility] Protein [Mass/Vol] 7.2 g/dL Normal 6.0 - 7.8 gm/dL [facility] Sodium [Moles/Vol] 138 mmol/L Normal 135 - 145 mmol/L [facility] Troponin I.cardiac [Mass/Vol] pg/mL Low 10.10 - 27.10 pg/mL [facility] Urea nitrogen [Mass/Vol] 6 mg/dL Normal 5 - 21 mg/dL [facility] Urea nitrogen/Creatinine [Mass ratio] 10 mg/mg Normal 10 - 20 [facility] Consent for Treatmenton 03-19 Consent for Treatment [id number]#1 .00CD:127 Normal [facility] Discharge Instructionson Discharge Instructions [id number]# 1.00CD:127 Normal [facility] ED Clinical Summaryon 2022 ED Clinical Summary Normal [facility] ED Note-Physicianon 04-09-20 ED Note-Physician Normal [facility] Comment on above: Result Comment: Elec tronically Signed By: Cedric Munguia PA-C\.br\Date and Time Signed: 04/09/23 19:15 EDT\.br\Electronically Co-Signed By: Lucho Cannon DO\.br\Date and Time Co-Signed: 04/09/23 19:57 EDT ED Patient Education Noteon 04-09-2023 ED Patient Education Note Normal [facility] ED Patient Summaryon 023 ED Patient Summary Normal [facility] HEMATOLOGYOrdered By: Marlyn Menendez on 04-09-2023 Basophils/100 WBC (Bld) 0.5 % Normal 0.0 - 2.0 % [facility] HemeAutoSS Basophils/Leukocytes Auto (Bld) [Pure # fraction] 0.0 E9/L Normal 0.0 - 0.2 E9/L [facility] HemeAutoSS Eosinophils/100 WBC (Bld) 0.4 % Normal 0.0 - 8.0 % [facility] HemeAutoSS Eosinophils/Leukocytes Auto (Bld) [Pure # fraction] 0.0 E9/L Normal 0.0 - 0.5 E9/L [facility] HemeAutoSS Erythrocyte distribution width (RBC) [Ratio] 14.2 % Normal 10.9 - 14.2 % [facility] HemeAutoSS Hematocrit (Bld) [Volume fraction] 39.1 % Normal 34.0 - 46.0 % [facility] HemeAutoSS Hemoglobin (Bld) [Mass/Vol] 13.3 g/dL Normal 12.0 - 16.0 gm/dL [facility] HemeAutoSS Lymphocytes/100 WBC (Bld) 14.0 % Normal 14.0 - 50.0 % [facility] HemeAutoSS Lymphocytes/Leukocytes Auto (Bld) [Pure # fraction] 1.2 E9/L Normal 1.0 - 4.0 E9/L [facility] HemeAutoSS MCH (RBC) [Entitic mass] 28.1 pg Normal 27.0 - 34.0 pg [facility] HemeAutoSS MCHC (RBC) [Mass/Vol] 34.1 g/dL Normal 31.4 - 36.0 gm/dL [facility] HemeAutoSS MCV (RBC) [Entitic vol] 82.6 fL Normal 80.0 - 100.0 fL [facility] HemeAutoSS Monocytes/100 WBC (Bld) 6.7 % Normal 4.0 - 14.0 % [facility] HemeAutoSS Monocytes/Leukocytes Auto (Bld) [Pure # fraction] 0.6 E9/L Normal 0.2 - 1.0 E9/L [facility] HemeAutoSS Neutrophils/100 WBC (Bld) 78.4 % High 36.0 - 75.0 % [facility] HemeAutoSS Neutrophils/Leukocytes Auto (Bld) [Pure # fraction] 6.9 E9/L Normal 2.0 - 7.5 E9/L [facility] HemeAutoSS Platelet mean volume (Bld) [Entitic vol] 8.5 fL Normal 6.4 - 10.8 fL [facility] HemeAutoSS Platelets (Bld) [#/Vol] 226.0 E9/L Normal 150. 0 - 500.0 E9/L [facility] HemeAutoSS RBC (Bld) [#/Vol] 4.7 E12/L Normal 4.3 - 5.9 E12/L [facility] HemeAutoSS WBC corrected for nucl RBC Auto (Bld) [#/Vol] 8.8 E9/L Normal 4.0 - 11.0 E9/L [facility] HemeAutoSS Hep Func Panelon 04-09-2023 Albumin [Mass/Vol] 4.2 g/dL Normal 3.3-5.0 [facility] Comment on above: Performed By: #### 2 379289, 2942914, 54555797, 9470765, 4769044, 0050413, 09737799 ####[facility] [address] [place] [address] Albumin/Globulin (S) [Mass conc ratio] 1.4 Normal 1.1-2.2 [facility] Comment on above: Performed By: #### 2 638600, 0505536, 05114550, 2718318, 8300780, 8242447, 38491062 ####[facility] [address] [place] [address] ALP [Catalytic activity/Vol] 51 Int._Unit/L Normal 21-98 [facility] Comment on above: Performed By: #### 2 453389, 7771266, 37630474, 2014161, 3746360, 5782323, 39138641 ####[facility] [address] [place] [address] ALT No additional P-5'-P [Catalytic activity/Vol] 12 Int._Unit/L Normal 6-46 [facility] Comment on above: Performed By: #### 2 115618, 3902478, 21990974, 2328020, 4049745, 8829388, 74128382 ####[facility] [address] [place] [address] AST [Catalytic activity/Vol] 21 Int._Unit/L Normal 5-43 [facility] Comment on above: Performed By: #### 2 748661, 3772389, 23654176, 5235448, 3132029, 9213787, 89273819 ####[facility] [address] [place] [address] Bilirubin [Mass/Vol] 0.6 mg/dL Normal 0.0-1.1 [facility] Comment on above: Performed By: #### 2 823536, 4435689, 24794222, 8216038, 8655854, 1096903, 80193378 ####[facility] [address] [place] [address] Bilirubin.direct [Mass/Vol] 0.1 mg/dL Normal 0.1-0.4 [facility] Comment on above: Performed By: #### 2 516188, 1502523, 68458936, 3126457, 6149334, 0845543, 63970942 ####[facility] [address] [place] [address] Bilirubin.indirect [Mass or moles/Vol] 0.5 mg/dL Normal 0.1-0.9 [facility] Comment on above: Performed By: #### 2 701183, 2787160, 19555962, 7538376, 5671097, 9073097, 61654576 ####[address] [address] Globulin (S) [Mass/Vol] 3.0 g/dL Normal 1.4-4.0 F [facility] Comment on above: Performed By: #### 2 544506, 7050956, 27984704, 3824245, 9143523, 8153644, 11964943 ####[address] [place] [address] Protein [Mass/Vol] 7.2 g/dL Normal 6.0-7.8 [facility] Comment on above: Performed By: #### 2 599306, 1003830, 46073193, 2126309, 6294789, 8076453, 25442290 ####[address] [place] [address] Lipase Levelon 04-09-2023 Lipase [Catalytic activity/Vol] 27 U/L Normal 13-58 [facility] Comment on above: Performed By: #### 2 593076, 8530079, 80591826, 6844463, 6666446, 0574003, 17794072 ####[facility] [address] [place] [address] Troponin 0 Hr.on 04-09-2023 Troponin I.cardiac [Mass/Vol] ng/mL Low 10.10-27.10 [facility] Comment on above: Result Comment: The 95% CI (Confidence Interval) PPV (Positive Predictive Value) for myocardial infarction in females is 38 pg/mL, in males 51 pg/mL. The results should be used in conjunction with clinical conditions of myocardial infarction.(Access High Sensitivity Troponin I Instructions For Use, Free Flow Power, April 2018) Performed By: #### 2 288623, 0473398, 19271582, 7961522, 2291804, 1875355, 39355633 ####[address] [address] UA With Cult Reflexon 2022 Bacteria LM Ql (Urine sed) TRACE Normal Trace [facility] Comment on above: Performed By: #### 1 9706915 ####[address] [address] Bilirubin Ql (U) Negative Normal Negative [facility] Comment on above: Performed By: #### 1 8372045 ####[address] [address] Clarity (U) SL CLOUDY Invalid Interpretation Code [facility] Comment on above: Performed By: #### 1 7518627 ####[address] [address] Color (U) YELLOW Normal Yellow [facility] Comment on above: Performed By: #### 1 0226196 ####[address] [address] Epithelial cells.squamous LM.HPF (Urine sed) [#/Area] 3-4 Normal 0-2 [facility] Comment on above: Performed By: #### 1 2569619 ####[address] [address] Glucose Test strip (U) [Mass/Vol] Negative Normal Negative [facility] Comment on above: Performed By: #### 1 9688601 ####[facility] [address] [place] [address] Hemoglobin Ql (U) 3+ Abnormal Negative [facility] Comment on above: Performed By: #### 1 6864034 ####[address] [address] Ketones (U) [Mass/Vol] TRACE Invalid Interpretation Code Negative [facility] Comment on above: Performed By: #### 1 6570541 ####[address] [address] Bolton.plasma/Bolton. RBC (Bld) [Mass ratio] >30 Abnormal 0-3 [facility] Comment on above: Performed By: #### 1 1797887 ####[address] [address] Mucus Ql (Urine sed) 2+ Normal [facility] Comment on above: Performed By: #### 1 2227437 ####[address] [address] Nitrite Ql (U) Negative Normal Negative [facility] Comment on above: Performed By: #### 1 6436735 ####[address] [address] pH (U) 5.5 [pH] Invalid Interpretation Code 5.0-9.0 [facility] Comment on above: Performed By: #### 1 9334565 ####[address] [address] Protein (U) [Mass/Vol] 1+ Abnormal Negative Fi [facility] Comment on above: Performed By: #### 1 7229310 ####[address] [address] Specific gravity (U) [Rel density] >=1.030 Invalid Interpretation Code 1.005-1.030 [facility] Comment on above: Performed By: #### 1 3118110 ####[address] [address] Type of Urine collection method Clean Catch Normal [facility] Comment on above: Performed By: #### 1 2284175 ####[facility] [address] [place] [address] Urobilinogen Qn (U) 0.2 {Brooklyn'U}/dL Normal 0.0-1.0 [facility] Comment on above: Performed By: #### 1 6390298 ####[facility] [address] [place] [address] WBC Auto Ql (U) Negative Normal Negative [facility] Comment on above: Performed By: #### 1 1389368 ####[facility] [address] [place] [address] WBC LM.HPF (Urine sed) [#/Area] 0-5 Normal 0-5 [facility] Comment on above: Performed By: #### 1 6313829 ####[facility] [address] [place] [address] URINALYSISOrdered By: Divina Russo on 04-09-2023 Bacteria LM Ql (Urine sed) Trace /HPF Normal Trace/HPF [facility] UA Auto SS Bilirubin Ql (U) Negative (04/09/23 5:33 PM) Normal Negative [facility] UA Auto SS Clarity (U) SL CLOUDY Invalid Interpretation Code [facility] UA Auto SS Color (U) Yellow (04/09/23 5:33 PM) Normal Yellow [facility] UA Auto SS Epithelial cells.squamous LM.HPF (Urine sed) [#/Area] 3-4 /HPF Normal 0-2/HPF [facility] UA Aut o SS Glucose Test strip (U) [Mass/Vol] Negative (04/09/23 5:33 PM) Normal Negative [facility] UA Auto SS Hemoglobin Ql (U) 3+ *ABN* (04/09/23 5:33 PM) Invalid Interpretation Code Negative [facility] UA Auto SS Ketones (U) [Mass/Vol] Trace *NA* (04/09/23 5:33 PM) Invalid Interpretation Code Negative [facility] UA Auto SS Bolton.plasma/[place]olton. RBC (Bld) [Mass ratio] >30 /HPF Invalid Interpretation Code 0-3/HPF [facility] UA Auto SS Mucus Ql (Urine sed) 2+ (04/09/23 5:33 PM) Normal [facility]A Auto SS Nitrite Ql (U) Negative (04/09/23 5:33 PM) Normal Negative [facility] UA Auto SS pH (U) 5.5 *NA* (04/09/23 5:33 PM) Invalid Interpretation Code 5.0 - 9.0 [facility] UA Auto SS Protein (U) [Mass/Vol] 1+ *ABN* (04/09/23 5:33 PM) Invalid Interpretation Code Negative [facility] UA Auto SS Specific gravity (U) [Rel density] >=1.030 *NA* (04/09/23 5:33 PM) Invalid Interpretation Code 1.005 - 1.030 [facility] UA Auto SS UA Spec Desc Clean Catch (04/09/23 5:33 PM) Normal [facility] UA Auto SS Urobilinogen Qn (U) 0.0864719 {Brooklyn'U}/dL Normal 0.0 - 1.0 EU/dL [facility] UA Auto SS WBC Auto Ql (U) Negative (04/09/23 5:33 PM) Normal Negative [facility] UA Auto SS WBC LM.HPF (Urine sed) [#/Area] 0-5 /HPF Normal 0-5/HPF [facility] UA Auto SS eGFRon 04-09-2023 GFR/1.73 sq M.predicted among non-blacks MDRD (S/P/Bld) [Vol rate/Area] 131 mL/min/1.73 m2 Normal >=59 [facility] Comment on above: Order Comment: Order added by Discern Expert. Result Comment: Olive Knocker brielle kidney disease could be indicated at eGFR's of less than 60 mL/min/1.73m2. Kidney failure is indicated at less than 15 mL/min/1.73m2. Performed By: #### 2 472621, 0510590, 69714264, 3271369, 5281245, 7064484, 96686532 ####[facility] [address] [place] [address] ED Note-Physicianon 04-07-20 ED Note-Physician Normal [facility] Comment on above: Result Comment: Elec tronically Signed By: Isaias THOMPSON, Esau JRian\.br\Date and Time Signed: 03/18/23 18:56 EDT\.br\Electronically Co-Signed By: Abdirashid Muñiz MD\.br\Date and Time Co-Signed: 04/07/23 09:50 EDT Discharge Instructionson Discharge Instructions [id number]#1. 00CD:127 Normal [facility] ED Clinical Summaryon 2022 ED Clinical Summary Normal [facility] ED Note-Nursingon 03-28-2023 ED Note-Nursing pt given d/c instructions and educated on importance of follow up. pt verbalized understanding of instructions and readiness for d/c. pt walked self ambulatory to waiting room in stable condition. Normal [facility] ED Note-Physicianon 03-28-20 ED Note-Physician [facility] Comment on above: Result Comment: Elec tronically Signed By: Cedric Munguia PA-C\.br\Date and Time Signed: 03/27/23 23:17 EDT\.br\Electronically Co-Signed By: Demetrius Parker DO\.br\Date and Time Co-Signed: 03/28/23 02:43 EDT ED Patient Education Noteon 03-28-2023 ED Patient Education Note Normal [facility] ED Patient Summaryon 023 ED Patient Summary Normal [facility] XR Wrist 3+ Views Lefton XR Wrist 3+ Views Left Normal [facility] Auto Diffon 03-27-2023 Basophils/100 WBC (Bld) 0.9 % Normal 0.0-2.0 F [facility] Comment on above: Order Comment: Order Added by Discern Expert. Performed By: #### 2 285042, 1971705, 3788761, 9114606, 85044032, 6170263 ####[address] [place] [address] Basophils/Leukocytes Auto (Bld) [Pure # fraction] 0.1 E9/L Normal 0.0-0.2 [facility] Comment on above: Order Comment: Order Added by Discern Expert. Performed By: #### 2 755614, 6225961, 9650342, 3416553, 96579211, 3160968 ####[address] [place] [address] Eosinophils/100 WBC (Bld) 0.4 % Normal 0.0-8.0 [facility] Comment on above: Order Comment: Order Added by Discern Expert. Performed By: #### 2 [id number], [id number], [id number], [id number], [id number], [id number] ####[address] [place] [address] Eosinophils/Leukocytes Auto (Bld) [Pure # fraction] 0.0 E9/L Normal 0.0-0.5 [facility] Comment on above: Order Comment: Order Added by Discern Expert. Performed By: #### 2 [id number], [id number], [id number], [id number], [id number], [id number] ####[address] [address] Lymphocytes/100 WBC (Bld) 20.4 % Normal 14.0-50.0 [facility] Comment on above: Order Comment: Order Added by Discern Expert. Performed By: #### 2 [id number], [id number], [id number], [id number], [id number], [id number] ####[address] [place] [address] Lymphocytes/Leukocytes Auto (Bld) [Pure # fraction] 1.5 E9/L Normal 1.0-4.0 [facility] Comment on above: Order Comment: Order Added by Discern Expert. Performed By: #### 2 325607, 1167418, 7341349, 5540307, 34287532, 5535181 ####[address] [address] Monocytes/100 WBC (Bld) 7.1 % Normal 4.0-14.0 [facility] Comment on above: Order Comment: Order Added by Discern Expert. Performed By: #### 2 216852, 2270467, 8956833, 4616486, 73962981, 7500154 ####[facility] [address] [place] [address] Monocytes/Leukocytes Auto (Bld) [Pure # fraction] 0.5 E9/L Normal 0.2-1.0 [facility] Comment on above: Order Comment: Order Added by Discern Expert. Performed By: #### 2 061853, 7229934, 0746362, 1804304, 26622368, 4005117 ####[address] [place] [address] Neutrophils/100 WBC (Bld) 71.2 % Normal 36.0-75.0 [facility] Comment on above: Order Comment: Order Added by Discern Expert. Performed By: #### 2 055399, 4069446, 7427720, 5561876, 19778782, 8514905 ####[address] [place] [address] Neutrophils/Leukocytes Auto (Bld) [Pure # fraction] 5.2 E9/L Normal 2.0-7.5 [facility] Comment on above: Order Comment: Order Added by Discern Expert. Performed By: #### 2 707802, 7728834, 1472397, 2821271, 07804173, 6865731 ####[facility] [address] [place] [address] BMPon 03-27-2023 Creatinine [Mass/Vol] 0.6 mg/dL Normal 0.5-1.3 [facility] Comment on above: Performed By: #### 2 185877, 4062870, 5335208, 4450309, 28574412, 1854299 ####[facility] [address] [place] [address] Urea nitrogen [Mass/Vol] 8 mg/dL Normal 5-21 [facility] Comment on above: Performed By: #### 2 701575, 2077573, 4750372, 4541640, 02302476, 6352142 ####[facility] [address] [place] [address] Urea nitrogen/Creatinine [Mass ratio] 13 No Units Normal 10-20 [facility] Comment on above: Performed By: #### 2 463866, 0511714, 2843355, 0203710, 34552180, 4409153 ####[facility] [address] [place] [address] Anion gap [Moles/Vol] 13 mmol/L Normal 6-16 [facility] Comment on above: Performed By: #### 2 591883, 2615665, 2907279, 5363180, 23572621, 0916256 ####[facility] [address] [place] [address] Calcium [Mass/Vol] 9.3 mg/dL Normal 8.9-11.1 [facility] Comment on above: Performed By: #### 2 086869, 5528290, 5694873, 4340989, 16274553, 7231645 ####[facility] [address] [place] [address] Chloride [Moles/Vol] 108 mmol/L Normal 101-111 [facility] Comment on above: Performed By: #### 2 254771, 9994856, 3801960, 2351271, 59246963, 2784253 ####[facility] [address] [facility] [place] [address] CO2 [Moles/Vol] 21 mmol/L Normal 21-31 [facility] Comment on above: Performed By: #### 2 963157, 9016983, 5800027, 0005082, 51774261, 8168698 ####[facility] [address] [facility] [place] [address] Glucose [Mass/Vol] 106 mg/dL Normal 55-199 [facility] Comment on above: Result Comment: If t his glucose result represents a fasting glucose, interpretation should refer to the following reference range: 55-99 mg/dL Performed By: #### 2 621383, 6501903, 3814832, 3376289, 83439054, 7204998 ####[facility] [address] [place] [address] Potassium [Moles/Vol] 3.3 mmol/L Low 3.5-5.3 [facility] Comment on above: Performed By: #### 2 012051, 1915243, 0500937, 6601375, 36426364, 6171428 ####[facility] [address] [place] [address] Sodium [Moles/Vol] 139 mmol/L Normal 135-145 [facility] Comment on above: Performed By: #### 2 089201, 0889035, 0762111, 2734851, 41314393, 3194865 ####[facility] [address] [place] [address] BhCG Quanton 03-27-2023 HCG.beta subunit Qn 173 m[IU]/mL High 1-3 [facility] Comment on above: Result Comment: GEST ATIONAL AGE HCG RANGE (mIU/mL) NON- <1-3 0.2-1 WEEKS 5-50 1-2 WEEKS 50-500 2-3 WEEKS 100-5,000 3-4 WEEKS 500-10,000 4-5 WEEKS 1,000-50,000 5-6 WEEKS 10,000-100,000 6-8 WEEKS 15,000-200,000 8-12 WEEKS 10,000-100,000 Performed By: #### 2 624803 ####[facility] [address] [place] [address] CBC w/ Auto Diffon Erythrocyte distribution width (RBC) [Ratio] 14.4 % High 10.9-14.2 [facility] Comment on above: Performed By: #### 2 861427, 6116457, 1619412, 5666279, 35701651, 5042935 ####[facility] [address] [place] [address] Hematocrit (Bld) [Volume fraction] 39.7 % Normal 34.0-46.0 [facility] Comment on above: Performed By: #### 2 299906, 2136231, 5548888, 5199839, 03296977, 4979605 ####[facility] [address] [place] [address] Hemoglobin (Bld) [Mass/Vol] 13.6 g/dL Normal 12.0-16.0 [facility] Comment on above: Performed By: #### 2 759837, 9655664, 6689289, 7302885, 20242169, 4701391 ####[address] [address] MCH (RBC) [Entitic mass] 28.2 pg Normal 27.0-34.0 [facility] Comment on above: Performed By: #### 2 788156, 0483275, 8791672, 8155414, 40031604, 0951429 ####[address] MCHC (RBC) [Mass/Vol] 34.2 g/dL Normal 31.4-36.0 [facility] Comment on above: Performed By: #### 2 390172, 5641688, 9762392, 2350013, 78765489, 1743779 ####[address] [address] MCV (RBC) [Entitic vol] 82.5 fL Normal 80.0-100.0 [facility] Comment on above: Performed By: #### 2 115624, 8463212, 9389932, 6430036, 67732012, 5797978 ####[address] [address] Platelet mean volume (Bld) [Entitic vol] 8.6 fL Normal 6.4-10.8 [facility] Comment on above: Performed By: #### 2 877597, 5222555, 1195229, 7884885, 46300501, 8342404 ####[address] [address] Platelets (Bld) [#/Vol] 229.0 E9/L Normal 150.0-500.0 [facility] Comment on above: Performed By: #### 2 930968, 9971724, 0704086, 4954407, 29954808, 5385090 ####[facility] [address] [place] [address] RBC (Bld) [#/Vol] 4.8 E12/L Normal 4.3-5.9 [facility] Comment on above: Performed By: #### 2 037045, 0986408, 4484995, 0759666, 73951691, 8962085 ####[facility] [address] [place] [address] WBC corrected for nucl RBC Auto (Bld) [#/Vol] 7.3 E9/L Normal 4.0-11.0 [facility] Comment on above: Performed By: #### 2 254761, 3089511, 2943790, 4465321, 42735882, 2584169 ####[facility] [address] [place] [address] CHEMISTRYOrdered By: SYSTEM SYSTEM on 03-27-2023 HCG.beta subunit Qn 173 m[IU]/mL High 1 - 3 mIU/mL [facility] Albumin [Mass/Vol] 4.6 g/dL Normal 3.3 - 5.0 gm/dL [facility] Albumin/Globulin [Mass ratio] 1.3 {ratio} Normal 1.1 - 2.2 [facility] ALP [Catalytic activity/Vol] 55 [iU]/d Normal 21 - 98 Int._Unit/L [facility] ALT No additional P-5'-P [Catalytic activity/Vol] 12 [iU]/d Normal 6 - 46 Int._Unit/L [facility] Anion gap [Moles/Vol] 13 mmol/L Normal 6 - 16 mEq/L [facility] AST [Catalytic activity/Vol] 22 [iU]/d Normal 5 - 43 Int._Unit/L [facility] Bilirubin [Mass/Vol] 0.7 mg/dL Normal 0.0 - 1 .1 mg/dL [facility] Bilirubin.direct [Mass/Vol] 0.1 mg/dL Normal 0.1 - 0.4 mg/dL [facility] Bilirubin.indirect [Mass or moles/Vol] 0.6 mg/dL Normal 0.1 - 0.9 mg/dL [facility] Calcium [Mass/Vol] 9.3 mg/dL Normal 8.9 - 11. 1 mg/dL [facility] Chloride [Moles/Vol] 108 mmol/L Normal 101 - 1 11 mmol/L [facility] CO2 [Moles/Vol] 21 mmol/L Normal 21 - 31 mmol/L [facility] Creatinine [Mass/Vol] 0.6 mg/dL Normal 0.5 - 1.3 mg/dL [facility] GFR/1.73 sq M.predicted among non-blacks MDRD (S/P/Bld) [Vol rate/Area] 131 mL/min/1.73 m2 Normal >=59mL/min/1 .73 m2 [facility] Chem S Globulin (S) [Mass/Vol] 3.5 g/dL Normal 1.4 - 4.0 gm/dL [facility] Glucose [Mass/Vol] 106 mg/dL Normal 55 - 199 mg/dL [facility] Lipase [Catalytic activity/Vol] 31 U/L Normal 13 - 58 unit/L [facility] Potassium [Moles/Vol] 3.3 mmol/L Low 3.5 - 5.3 mmol/L [facility] Protein [Mass/Vol] 8.1 g/dL High 6.0 - 7.8 gm/dL [facility] Sodium [Moles/Vol] 139 mmol/L Normal 135 - 145 mmol/L [facility] Urea nitrogen [Mass/Vol] 8 mg/dL Normal 5 - 21 mg/dL [facility] Urea nitrogen/Creatinine [Mass ratio] 13 mg/mg Normal 10 - 20 [facility] Consent for Treatmenton 03-18 Consent for Treatment [id number] .00CD:127 Normal [facility] Consent for Treatment [id number] 307 [id number] .00CD:127 Normal [facility] ED Clinical Summaryon 2022 ED Clinical Summary Normal [facility] ED Patient Education Noteon 07-10-2023 ED Patient Education Note Normal [facility] ED Patient Summaryon 023 ED Patient Summary Normal [facility] HEMATOLOGYOrdered By: SYSTEM SYSTEM on 03-27-2023 Basophils/100 WBC (Bld) 0.9 % Normal 0.0 - 2.0 % [facility] HemeAutoSS Basophils/Leukocytes Auto (Bld) [Pure # fraction] 0.1 E9/L Normal 0.0 - 0.2 E9/L [facility] HemeAutoSS Eosinophils/100 WBC (Bld) 0.4 % Normal 0.0 - 8.0 % [facility] HemeAutoSS Eosinophils/Leukocytes Auto (Bld) [Pure # fraction] 0.0 E9/L Normal 0.0 - 0.5 E9/L [facility] HemeAutoSS Lymphocytes/100 WBC (Bld) 20.4 % Normal 14.0 - 50.0 % [facility] HemeAutoSS Lymphocytes/Leukocytes Auto (Bld) [Pure # fraction] 1.5 E9/L Normal 1.0 - 4.0 E9/L [facility] HemeAutoSS Monocytes/100 WBC (Bld) 7.1 % Normal 4.0 - 14.0 % [facility] HemeAutoSS Monocytes/Leukocytes Auto (Bld) [Pure # fraction] 0.5 E9/L Normal 0.2 - 1.0 E9/L [facility] HemeAutoSS Neutrophils/100 WBC (Bld) 71.2 % Normal 36.0 - 75.0 % [facility] HemeAutoSS Neutrophils/Leukocytes Auto (Bld) [Pure # fraction] 5.2 E9/L Normal 2.0 - 7.5 E9/L [facility] HemeAutoSS HEMATOLOGYOrdered By: Reece Park on 03-27-2023 Erythrocyte distribution width (RBC) [Ratio] 14.4 % High 10.9 - 14.2 % [facility] HemeAutoSS Hematocrit (Bld) [Volume fraction] 39.7 % Normal 34.0 - 46.0 % [facility] HemeAutoSS Hemoglobin (Bld) [Mass/Vol] 13.6 g/dL Normal 12.0 - 16.0 gm/dL [facility] HemeAutoSS MCH (RBC) [Entitic mass] 28.2 pg Normal 27.0 - 34.0 pg [facility] HemeAutoSS MCHC (RBC) [Mass/Vol] 34.2 g/dL Normal 31.4 - 36.0 gm/dL [facility] HemeAutoSS MCV (RBC) [Entitic vol] 82.5 fL Normal 80.0 - 100.0 fL [facility] HemeAutoSS Platelet mean volume (Bld) [Entitic vol] 8.6 fL Normal 6.4 - 10.8 fL [facility] HemeAutoSS Platelets (Bld) [#/Vol] 229.0 E9/L Normal 150. 0 - 500.0 E9/L [facility] HemeAutoSS RBC (Bld) [#/Vol] 4.8 E12/L Normal 4.3 - 5.9 E12/L [facility] HemeAutoSS WBC corrected for nucl RBC Auto (Bld) [#/Vol] 7.3 E9/L Normal 4.0 - 11.0 E9/L [facility] HemeAutoSS Hep Func Panelon 03-27-2023 Albumin [Mass/Vol] 4.6 g/dL Normal 3.3-5.0 [facility] Comment on above: Performed By: #### 2 654200, 9756237, 9913350, 4559860, 87557062, 7771146 ####[facility] [address] [place] [address] Albumin/Globulin (S) [Mass conc ratio] 1.3 Normal 1.1-2.2 [facility] Comment on above: Performed By: #### 2 353952, 3589373, 9811823, 7712025, 80488971, 5353343 ####[facility] [address] [place] [address] ALP [Catalytic activity/Vol] 55 Int._Unit/L Normal 21-98 [facility] Comment on above: Performed By: #### 2 085545, 3454691, 6231658, 4251228, 98131634, 1490876 ####[facility] [address] [place] [address] ALT No additional P-5'-P [Catalytic activity/Vol] 12 Int._Unit/L Normal 6-46 [facility] Comment on above: Performed By: #### 2 952586, 5139033, 8475293, 5931365, 41005002, 8029452 ####[facility] [address] [place] [address] AST [Catalytic activity/Vol] 22 Int._Unit/L Normal 5-43 [facility] Comment on above: Performed By: #### 2 099460, 2841145, 0796725, 1107587, 78513990, 8292161 ####[facility] [address] [place] [address] Bilirubin [Mass/Vol] 0.7 mg/dL Normal 0.0-1.1 [facility] Comment on above: Performed By: #### 2 430686, 0086408, 7477490, 3463330, 73765234, 8788369 ####[address] [address] Bilirubin.direct [Mass/Vol] 0.1 mg/dL Normal 0.1-0.4 [facility] Comment on above: Performed By: #### 2 226617, 8317749, 7517411, 7173758, 63411209, 2087100 ####[facility] [address] [place] [address] Bilirubin.indirect [Mass or moles/Vol] 0.6 mg/dL Normal 0.1-0.9 [facility] Comment on above: Performed By: #### 2 824579, 1031847, 5098377, 0483150, 93958946, 8806567 ####[address] [place] [address] Globulin (S) [Mass/Vol] 3.5 g/dL Normal 1.4-4.0 F [facility] Comment on above: Performed By: #### 2 293576, 0212405, 3795167, 6323106, 21776701, 0526431 ####[address] [place] [address] Protein [Mass/Vol] 8.1 g/dL High 6.0-7.8 [facility] Comment on above: Performed By: #### 2 818243, 6523355, 6222818, 2076235, 39464793, 8882256 ####[facility] [address] [place] [address] Lipase Levelon 03-27-2023 Lipase [Catalytic activity/Vol] 31 U/L Normal 13-58 [facility] Comment on above: Performed By: #### 2 226083, 7268735, 2963298, 6368321, 38271858, 5311226 ####[facility] [address] [place] [address] UA With Cult Reflexon 2022 Bilirubin Ql (U) Negative Normal Negative [facility] Comment on above: Performed By: #### 1 7073420 ####[address] [address] Clarity (U) CLEAR Normal Clear [facility] Comment on above: Performed By: #### 1 8067927 ####[facility] [address] [place] [address] Color (U) DARK YELLO Abnormal Yellow [facility] Comment on above: Performed By: #### 1 9610713 ####[facility] [address] [place] [address] Epithelial cells.squamous LM.HPF (Urine sed) [#/Area] 3-4 Normal 0-2 [facility] Comment on above: Performed By: #### 1 7712269 ####[facility] [address] [place] [address] Glucose Test strip (U) [Mass/Vol] Negative Normal Negative [facility] Comment on above: Performed By: #### 1 4903465 ####[facility] [address] [place] [address] Hemoglobin Ql (U) Negative Normal Negative [facility] Comment on above: Performed By: #### 1 6076578 ####[facility] [address] [place] [address] Ketones (U) [Mass/Vol] TRACE Abnormal Negative [facility] Comment on above: Performed By: #### 1 7837942 ####[address] [address] [place].plasma/[place]. RBC (Bld) [Mass ratio] 0-3 Normal 0-3 [facility] Comment on above: Performed By: #### 1 8484660 ####[address] [address] Mucus Ql (Urine sed) 2+ Normal Fish er [facility] Comment on above: Performed By: #### 1 3307488 ####[address] [address] Nitrite Ql (U) Negative Normal Negative [facility] Comment on above: Performed By: #### 1 9941085 ####[address] [address] pH (U) 6.0 [pH] Invalid Interpretation Code 5.0-9.0 [facility] Comment on above: Performed By: #### 1 5315134 ####[address] [address] Protein (U) [Mass/Vol] TRACE Abnormal Negative [facility] Comment on above: Performed By: #### 1 4700579 ####[address] [address] Specific gravity (U) [Rel density] >=1.030 Invalid Interpretation Code 1.005-1.030 [facility] Comment on above: Performed By: #### 1 5344320 ####[address] [address] Type of Urine collection method Clean Catch Normal [facility] Comment on above: Performed By: #### 1 6228136 ####[address] [address] Urobilinogen Qn (U) 0.2 {Brooklyn'U}/dL Normal 0.0-1.0 [facility] Comment on above: Performed By: #### 1 3411454 ####[address] [address] WBC Auto Ql (U) Negative Normal Negative [facility] Comment on above: Performed By: #### 1 5915710 ####[facility] [address] [place] [address] WBC LM.HPF (Urine sed) [#/Area] 0-5 Normal 0-5 [facility] Comment on above: Performed By: #### 1 6397433 ####[facility] [address] [place] [address] URINALYSISOrdered By: Adarsh chang on 03-27-2023 Bilirubin Ql (U) Negative (03/27/23 9:00 PM) Normal Negative [facility] UA Auto SS Clarity (U) Clear (03/27/23 9:00 PM) Normal Clear [facility] UA Auto SS Color (U) Dark Yellow *ABN* (03/27/23 9:00 PM) Invalid Interpretation Code Yellow [facility] UA Auto SS Epithelial cells.squamous LM.HPF (Urine sed) [#/Area] 3-4 /HPF Normal 0-2/HPF [facility] UA Aut o SS Glucose Test strip (U) [Mass/Vol] Negative (03/27/23 9:00 PM) Normal Negative [facility] UA Auto SS Hemoglobin Ql (U) Negative (03/27/23 9:00 PM) Normal Negative [facility] UA Auto SS Ketones (U) [Mass/Vol] Trace *ABN* (03/27/23 9:00 PM) Invalid Interpretation Code Negative [facility] UA Auto SS [place].plasma/[place]. RBC (Bld) [Mass ratio] 0-3 /HPF Normal 0-3/HPF [facility] UA A uto SS Mucus Ql (Urine sed) 2+ (03/27/23 9:00 PM) Normal [facility] UA Auto SS Nitrite Ql (U) Negative (03/27/23 9:00 PM) Normal Negative [facility] UA Auto SS pH (U) 6.0 *NA* (03/27/23 9:00 PM) Invalid Interpretation Code 5.0 - 9.0 [facility] UA Auto SS Protein (U) [Mass/Vol] Trace *ABN* (03/27/23 9:00 PM) Invalid Interpretation Code Negative [facility] UA Auto SS Specific gravity (U) [Rel density] >=1.030 *NA* (03/27/23 9:00 PM) Invalid Interpretation Code 1.005 - 1.030 [facility] UA Auto SS UA Spec Desc Clean Catch (03/27/23 9:00 PM) Normal [facility] UA Auto SS Urobilinogen Qn (U) 0.9479775 {[place]lyn'U}/dL Normal 0.0 - 1.0 EU/dL [facility] UA Auto SS WBC Auto Ql (U) Negative (03/27/23 9:00 PM) Normal Negative [facility] UA Auto SS WBC LM.HPF (Urine sed) [#/Area] 0-5 /HPF Normal 0-5/HPF [facility] UA Auto SS eGFRon 03-27-2023 GFR/1.73 sq M.predicted among non-blacks MDRD (S/P/Bld) [Vol rate/Area] 131 mL/min/1.73 m2 Normal >=59 [facility] Comment on above: Order Comment: Order added by Discern Expert. Result Comment: Olive Knocker brielle kidney disease could be indicated at eGFR's of less than 60 mL/min/1.73m2. Kidney failure is indicated at less than 15 mL/min/1.73m2. Performed By: #### 2 800820, 0120871, 2257723, 0871049, 72597301, 5424746 ####[facility] [address] [place] [address] C Urineon 03-20-2023 Bacteria identified Cx Nom (U) Normal [facility] Comment on above: Performed By: #### 1 0691880, 7558608 ####[facility] [address] [place] [address] Auto Diffon 03-18-2023 Basophils/100 WBC (Bld) 0.5 % Normal 0.0-2.0 F [facility] Comment on above: Order Comment: Order Added by Discern Expert. Performed By: #### 2 025685, 1593160, 4139549, 81533119 ####[facility] [address] [place] [address] Basophils/Leukocytes Auto (Bld) [Pure # fraction] 0.0 E9/L Normal 0.0-0.2 [facility] Comment on above: Order Comment: Order Added by Juma Expert. Performed By: #### 2 320987, 1437957, 9853387, 14283242 ####[address] [place] [address] Eosinophils/100 WBC (Bld) 0.6 % Normal 0.0-8.0 [facility] Comment on above: Order Comment: Order Added by Discern Expert. Performed By: #### 2 212683, 2913356, 7639291, 40974844 ####[address] [place] [address] Eosinophils/Leukocytes Auto (Bld) [Pure # fraction] 0.0 E9/L Normal 0.0-0.5 [facility] Comment on above: Order Comment: Order Added by Juma Expert. Performed By: #### 2 539083, 1676475, 7876361, 60196543 ####[address] [address] Lymphocytes/100 WBC (Bld) 25.5 % Normal 14.0-50.0 [facility] Comment on above: Order Comment: Order Added by Juma Expert. Performed By: #### 2 935292, 0873336, 5515748, 61895734 ####[address] [place] [address] Lymphocytes/Leukocytes Auto (Bld) [Pure # fraction] 1.7 E9/L Normal 1.0-4.0 [facility] Comment on above: Order Comment: Order Added by Juma Expert. Performed By: #### 2 120264, 1227687, 1539902, 26094321 ####[address] [place] [address] Monocytes/100 WBC (Bld) 6.8 % Normal 4.0-14.0 [facility] Comment on above: Order Comment: Order Added by Juma Expert. Performed By: #### 2 643696, 9662344, 4961696, 04158736 ####[address] [place] [address] Monocytes/Leukocytes Auto (Bld) [Pure # fraction] 0.4 E9/L Normal 0.2-1.0 [facility] Comment on above: Order Comment: Order Added by Discern Expert. Performed By: #### 2 866390, 8993649, 4839115, 02600440 ####[facility] [address] [place] [address] Neutrophils/100 WBC (Bld) 66.6 % Normal 36.0-75.0 [facility] Comment on above: Order Comment: Order Added by Discern Expert. Performed By: #### 2 564500, 3695980, 2619814, 06711396 ####[facility] [address] [place] [address] Neutrophils/Leukocytes Auto (Bld) [Pure # fraction] 4.4 E9/L Normal 2.0-7.5 [facility] Comment on above: Order Comment: Order Added by Discern Expert. Performed By: #### 2 640020, 5339352, 7113410, 01818186 ####[facility] [address] [place] [address] BMPon 03-18-2023 Creatinine [Mass/Vol] 0.6 mg/dL Normal 0.5-1.3 [facility] Comment on above: Performed By: #### 2 873188, 5176452, 2027339, 72650021 ####[facility] [address] [place] [address] Urea nitrogen [Mass/Vol] 9 mg/dL Normal 5-21 [facility] Comment on above: Performed By: #### 2 542492, 1316768, 3493083, 46232750 ####[facility] [address] [place] [address] Urea nitrogen/Creatinine [Mass ratio] 15 No Units Normal 10-20 [facility] Comment on above: Performed By: #### 2 408781, 6216828, 7438343, 05102127 ####[facility] [address] [place] [address] Anion gap [Moles/Vol] 9 mmol/L Normal 6-16 [facility] Comment on above: Performed By: #### 2 267201, 4144979, 1152081, 35867251 ####[facility] [address] [place] [address] Calcium [Mass/Vol] 8.6 mg/dL Low 8.9-11.1 [facility] Comment on above: Performed By: #### 2 999526, 3571589, 4385422, 60181076 ####[facility] [address] [place] [address] Chloride [Moles/Vol] 109 mmol/L Normal 101-111 [facility] Comment on above: Performed By: #### 2 307121, 4036267, 6616229, 26451985 ####[facility] [address] [place] [address] CO2 [Moles/Vol] 23 mmol/L Normal 21-31 [facility] Comment on above: Performed By: #### 2 562715, 5792757, 3848061, 04169754 ####[facility] [address] [place] [address] Glucose [Mass/Vol] 101 mg/dL Normal 55-199 [facility] Comment on above: Result Comment: If t his glucose result represents a fasting glucose, interpretation should refer to the following reference range: 55-99 mg/dL Performed By: #### 2 127698, 7895774, 9809590, 17933912 ####[facility] [address] [place] [address] Potassium [Moles/Vol] 4.0 mmol/L Normal 3.5-5.3 [facility] Comment on above: Performed By: #### 2 234348, 2940184, 4562613, 40144505 ####[facility] [address] [place] [address] Sodium [Moles/Vol] 137 mmol/L Normal 135-145 [facility] Comment on above: Performed By: #### 2 705641, [id number], [id number], [id number] ####[id number] [place] [address] CBC w/ Auto Diffon 3 Erythrocyte distribution width (RBC) [Ratio] 14.3 % High 10.9-14.2 [facility] Comment on above: Performed By: #### 2 [id number], [id number], [id number], [id number] ####[address] [address] Hematocrit (Bld) [Volume fraction] 37.9 % Normal 34.0-46.0 [facility] Comment on above: Performed By: #### 2 390686, [id number], [id number], [id number] ####[address] [address] Hemoglobin (Bld) [Mass/Vol] 12.9 g/dL Normal 12.0-16.0 [facility] Comment on above: Performed By: #### 2 110041, [id number], [id number], [id number] ####[address] [address] MCH (RBC) [Entitic mass] 27.9 pg Normal 27.0-34.0 [facility] Comment on above: Performed By: #### 2 559226, 4996514, [id number], [id number] ####[address] [address] MCHC (RBC) [Mass/Vol] 34.0 g/dL Normal 31.4-36.0 [facility] Comment on above: Performed By: #### 2 208971, [id number], [id number], [id number] ####[address] [address] [address] MCV (RBC) [Entitic vol] 81.9 fL Normal 80.0-100.0 F [facility] Comment on above: Performed By: #### 2 887240, 1688369, 3664327, 52561282 ####[address] [place] [address] Platelet mean volume (Bld) [Entitic vol] 8.6 fL Normal 6.4-10.8 [facility] Comment on above: Performed By: #### 2 137547, 3450901, 7819677, 55814174 ####[address] [place] [address] Platelets (Bld) [#/Vol] 219.0 E9/L Normal 150.0-500.0 [facility] Comment on above: Performed By: #### 2 330484, 6967723, 9123271, 72774223 ####[address] [place] [address] RBC (Bld) [#/Vol] 4.6 E12/L Normal 4.3-5.9 [facility] Comment on above: Performed By: #### 2 183452, 7500681, 0902206, 83353972 ####[address] [address] WBC corrected for nucl RBC Auto (Bld) [#/Vol] 6.6 E9/L Normal 4.0-11.0 [facility] Comment on above: Performed By: #### 2 718897, 5491089, 9665111, 42898003 ####[address] [place] [address] Consent for Treatmenton Consent for Treatment [id number] [facility] [id number] .[id number]:127 Normal [facility] Discharge Instructionson Discharge Instructions [id number] [id number] .[id number]:127 Normal [facility] ED Clinical Summaryon 2022 ED Clinical Summary Normal Jessie garcia [facility] ED Patient Education Noteon 03-18-2023 ED Patient Education Note Normal [facility] ED Patient Summaryon 023 ED Patient Summary Normal [facility] UA With Cult Reflexon 2022 Bacteria LM Ql (Urine sed) 1+ /HPF Abnormal Trace [facility] Comment on above: Performed By: #### 1 2980256, 0276256 ####[facility] [address] [place] [address] Bilirubin Ql (U) Negative Normal Negative [facility] Comment on above: Performed By: #### 1 0833494, 6342340 ####[address] [address] Clarity (U) SL CLOUDY Invalid Interpretation Code [facility] Comment on above: Performed By: #### 1 9847510, 4172927 ####[address] [address] Color (U) YELLOW Normal Yellow [facility] Comment on above: Performed By: #### 1 3270329, 1343915 ####[address] [address] Epithelial cells.squamous LM.HPF (Urine sed) [#/Area] /[HPF] Normal 0-2 [facility] Comment on above: Performed By: #### 1 1940667, 1867418 ####[facility] [address] [place] [address] Glucose Test strip (U) [Mass/Vol] Negative Normal Negative [facility] Comment on above: Performed By: #### 1 5694476, 8553387 ####[facility] [address] [place] [address] Hemoglobin Ql (U) Negative Normal Negative [facility] Comment on above: Performed By: #### 1 8351485, 0224682 ####[address] [address] Ketones (U) [Mass/Vol] Negative Normal Negative [facility] Comment on above: Performed By: #### 1 7517223, 6338254 ####[facility] [address] [place] [address] Bolton.plasma/Bolton. RBC (Bld) [Mass ratio] 0-3 Normal 0-3 [facility] Comment on above: Performed By: #### 1 4218804, 2856415 ####[facility] [address] [place] [address] Mucus Ql (Urine sed) 2+ Normal [facility] Comment on above: Performed By: #### 1 4268339, 0750418 ####[facility] [address] [place] [address] Nitrite Ql (U) Negative Normal Negative [facility] Comment on above: Performed By: #### 1 1737508, 7356336 ####[facility] [address] [place] [address] pH (U) 7.0 [pH] Invalid Interpretation Code 5.0-9.0 [facility] Comment on above: Performed By: #### 1 4485065, 6738261 ####[address] [address] Protein (U) [Mass/Vol] 1+ Abnormal Negative Fi [facility] Comment on above: Performed By: #### 1 7707705, 8691276 ####[facility] [address] [place] [address] Specific gravity (U) [Rel density] 1.025 Invalid Interpretation Code 1.005-1.030 [facility] Comment on above: Performed By: #### 1 1472657, 0286443 ####[address] [address] Type of Urine collection method Clean Catch Normal [facility] Comment on above: Performed By: #### 1 7045769, 7884902 ####[facility] [address] [place] [address] Urobilinogen Qn (U) 1.0 {Brooklyn'U}/dL Normal 0.0-1.0 [facility] Comment on above: Performed By: #### 1 4769385, 8020981 ####[address] [address] WBC Auto Ql (U) TRACE Abnormal Negative [facility] Comment on above: Performed By: #### 1 5696329, 5460054 ####[facility] [address] [place] [address] WBC LM.HPF (Urine sed) [#/Area] 6-15 Abnormal 0-5 [facility] Comment on above: Performed By: #### 1 9718887, 5669756 ####[facility] [address] [place] [address] eGFRon 03-18-2023 GFR/1.73 sq M.predicted among non-blacks MDRD (S/P/Bld) [Vol rate/Area] 131 mL/min/1.73 m2 Normal >=59 [facility] Comment on above: Order Comment: Order added by Discern Expert. Result Comment: Olive Knocker brielle kidney disease could be indicated at eGFR's of less than 60 mL/min/1.73m2. Kidney failure is indicated at less than 15 mL/min/1.73m2. Performed By: #### 2 483850, 5150480, 9323088, 94285514 ####[facility] [address] [place] [address] Consent for Treatmenton 02-17 Consent for Treatment [id number] .00CD:127 Normal [facility] Discharge Instructionson Discharge Instructions [id number] [id number]# 1.00CD:127 Normal [facility] ED Clinical Summaryon 2022 ED Clinical Summary Normal Jessie garcia [facility] ED Note-Physicianon 03-16-20 23 ED Note-Physician Normal [facility] Comment on above: Result Comment: Elec tronically Signed By: Demetrius Parker DO\.br\Date and Time Signed: 03/15/23 23:41 EDT ED Patient Education Noteon 03-16-2023 ED Patient Education Note Normal [facility] ED Patient Summaryon 023 ED Patient Summary Normal [facility] U BetaHcg Qualon 03-16-2023 HCG.beta subunit (U) [Moles/Vol] Negative Normal [facility] Comment on above: Performed By: #### 1 0838842, 15467603 ####[facility] [address] [place] [address] UA With Cult Reflexon 2022 Bacteria LM Ql (Urine sed) TRACE Normal Trace [facility] Comment on above: Performed By: #### 1 0811740, 01837864 ####[address] [address] Bilirubin Ql (U) Negative Normal Negative [facility] Comment on above: Performed By: #### 1 0552082, 63155213 ####[address] [address] Clarity (U) SL CLOUDY Abnormal Clear [facility] Comment on above: Performed By: #### 1 0232263, 97749374 ####[address] [address] Color (U) YELLOW Normal Yellow [facility] Comment on above: Performed By: #### 1 2003851, 29530794 ####[address] [address] Epithelial cells.squamous LM.HPF (Urine sed) [#/Area] 3-4 Normal 0-2 [facility] Comment on above: Performed By: #### 1 8781817, 52902931 ####[address] [address] Glucose Test strip (U) [Mass/Vol] Negative Normal Negative [facility] Comment on above: Performed By: #### 1 9612703, 38296531 ####[address] [address] Hemoglobin Ql (U) Negative Normal Negative [facility] Comment on above: Performed By: #### 1 9747228, 83288217 ####[address] [address] Ketones (U) [Mass/Vol] TRACE Abnormal Negative [facility] Comment on above: Performed By: #### 1 3164907, 35659792 ####[address] [address] Bolton.plasma/Bolton. RBC (Bld) [Mass ratio] 4-20 Normal 0-3 [facility] Comment on above: Performed By: #### 1 0313213, 04238305 ####[address] [address] Mucus Ql (Urine sed) 1+ Normal [facility] Comment on above: Performed By: #### 1 8931656, 52551980 ####[address] [address] Nitrite Ql (U) Negative Normal Negative [facility] Comment on above: Performed By: #### 1 4302020, 25244857 ####[address] [address] pH (U) 6.5 [pH] Invalid Interpretation Code 5.0-9.0 [facility] Comment on above: Performed By: #### 1 0778929, 05965533 ####[address] [address] Protein (U) [Mass/Vol] 1+ Abnormal Negative [facility] Comment on above: Performed By: #### 1 9507965, 15353106 ####[address] [address] Specific gravity (U) [Rel density] 1.025 Invalid Interpretation Code 1.005-1.030 [facility] Comment on above: Performed By: #### 1 4380421, 02179714 ####[address] [address] Type of Urine collection method Clean Catch Normal [facility] Comment on above: Performed By: #### 1 0914349, 53496286 ####[address] [address] Urobilinogen Qn (U) 1.0 {Brooklyn'U}/dL Normal 0.0-1.0 [facility] Comment on above: Performed By: #### 1 0588061, 31684946 ####[facility] [address] WBC Auto Ql (U) TRACE Abnormal Negative [facility] Comment on above: Performed By: #### 1 7109690, 29483424 ####[facility] [address] WBC LM.HPF (Urine sed) [#/Area] 0-5 Normal 0-5 [facility] Comment on above: Performed By: #### 1 1192353, 53550072 ####[facility] [address] [place] [address] SEROLOGYOrdered By: Emi Cohen on 03-15-2023 HCG.beta subunit (U) [Moles/Vol] Negative Normal [facility] URINALYSISOrdered By: Kisha Cohen on 03-15-2023 Bacteria LM Ql (Urine sed) Trace /HPF Normal Trace/HPF [facility] UA Auto SS Bilirubin Ql (U) Negative (03/15/23 10:57 PM) Normal Negative [facility] UA Auto SS Clarity (U) Slightly Cloudy *ABN* (03/15/23 10:57 PM) Invalid Interpretation Code Clear [facility] UA Auto SS Color (U) Yellow (03/15/23 10:57 PM) Normal Yellow [facility] UA Auto SS Epithelial cells.squamous LM.HPF (Urine sed) [#/Area] 3-4 /HPF Normal 0-2/HPF [facility] UA Aut o SS Glucose Test strip (U) [Mass/Vol] Negative (03/15/23 10:57 PM) Normal Negative [facility] UA Auto SS Hemoglobin Ql (U) Negative (03/15/23 10:57 PM) Normal Negative [facility] UA Auto SS Ketones (U) [Mass/Vol] Trace *ABN* (03/15/23 10:57 PM) Invalid Interpretation Code Negative [facility] UA Auto SS Bolton.plasma/Bolton. RBC (Bld) [Mass ratio] 4-20 /HPF Normal 0-3/HPF [facility] UA A uto SS Mucus Ql (Urine sed) 1+ (03/15/23 10:57 PM) Normal [facility] UA Auto SS Nitrite Ql (U) Negative (03/15/23 10:57 PM) Normal Negative [facility] UA Auto SS pH (U) 6.5 *NA* (03/15/23 10:57 PM) Invalid Interpretation Code 5.0 - 9.0 [facility] UA Auto SS Protein (U) [Mass/Vol] 1+ *ABN* (03/15/23 10:57 PM) Invalid Interpretation Code Negative [facility] UA Auto SS Specific gravity (U) [Rel density] 1.025 *NA* (03/15/23 10:57 PM) Invalid Interpretation Code 1.005 - 1.030 [facility] UA Auto SS UA Spec Desc Clean Catch (03/15/23 10:57 PM) Normal [facility] UA Auto SS Urobilinogen Qn (U) 1.1841539 {Brooklyn'U}/dL Normal 0.0 - 1.0 EU/dL [facility] UA Auto SS WBC Auto Ql (U) Trace *ABN* (03/15/23 10:57 PM) Invalid Interpretation Code Negative [facility] UA Auto SS WBC LM.HPF (Urine sed) [#/Area] 0-5 /HPF Normal 0-5/HPF [facility] UA Auto SS ED Note-Physicianon 02-15-20 ED Note-Physician Normal [facility] Comment on above: Result Comment: Elec tronically Signed By: Mari Calzada PA-C\.br\Date and Time Signed: 02/07/23 19:06 EDT\.br\Electronically Co-Signed By: Ravi Abebe DO\.br\Date and Time Co-Signed: 02/14/23 07:04 EDT Auto Diffon 02-07-2023 Basophils/100 WBC (Bld) 0.3 % Normal 0.0-2.0 F [facility] Comment on above: Order Comment: Order Added by Discern Expert. Performed By: #### 2 325243, 9493503, 8703438, 9662029, 5470645, 1986438, 17888626 ####[facility] [address] [place] [address] Basophils/Leukocytes Auto (Bld) [Pure # fraction] 0.0 E9/L Normal 0.0-0.2 [facility] Comment on above: Order Comment: Order Added by Discern Expert. Performed By: #### 2 218320, 5510222, 7345103, 3980238, 7468830, 0838174, 82510808 ####[address] [place] [address] Eosinophils/100 WBC (Bld) 0.5 % Normal 0.0-8.0 [facility] Comment on above: Order Comment: Order Added by Discern Expert. Performed By: #### 2 828619, 6061188, 8352991, 1700849, 7735156, 4619738, 24550694 ####[address] [address] Eosinophils/Leukocytes Auto (Bld) [Pure # fraction] 0.0 E9/L Normal 0.0-0.5 [facility] Comment on above: Order Comment: Order Added by Discern Expert. Performed By: #### 2 123532, 2625504, 7529813, 9940459, 5175040, 9216921, 14208010 ####[address] [address] Lymphocytes/100 WBC (Bld) 21.3 % Normal 14.0-50.0 [facility] Comment on above: Order Comment: Order Added by Discern Expert. Performed By: #### 2 155857, 6434753, 2248714, 6538882, 8508920, 6278511, 39238400 ####[facility] [address] [place] [address] Lymphocytes/Leukocytes Auto (Bld) [Pure # fraction] 1.1 E9/L Normal 1.0-4.0 [facility] Comment on above: Order Comment: Order Added by Juma Expert. Performed By: #### 2 301812, 9030385, 7080559, 6161264, 3648388, 6871400, 70640803 ####[address] [address] Monocytes/100 WBC (Bld) 6.8 % Normal 4.0-14.0 [facility] Comment on above: Order Comment: Order Added by Discern Expert. Performed By: #### 2 408326, 5478688, 6215542, 8209196, 7926491, 4262335, 58666580 ####[facility] [address] [place] [address] Monocytes/Leukocytes Auto (Bld) [Pure # fraction] 0.4 E9/L Normal 0.2-1.0 [facility] Comment on above: Order Comment: Order Added by Juma Expert. Performed By: #### 2 836591, 5355781, 6026300, 7103493, 7448658, 8260772, 55258795 ####[address] [place] [address] Neutrophils/100 WBC (Bld) 71.1 % Normal 36.0-75.0 [facility] Comment on above: Order Comment: Order Added by Juma Expert. Performed By: #### 2 137266, 6440127, 4067729, 8923741, 5056374, 1216707, 21546436 ####[facility] [address] [place] [address] Neutrophils/Leukocytes Auto (Bld) [Pure # fraction] 3.7 E9/L Normal 2.0-7.5 [facility] Comment on above: Order Comment: Order Added by Juma Expert. Performed By: #### 2 534875, 4881909, 8378102, 2202428, 2186301, 2289576, 09464483 ####[facility] [address] [place] [address] BMPon 02-07-2023 Creatinine [Mass/Vol] 0.6 mg/dL Normal 0.5-1.3 [facility] Comment on above: Performed By: #### 2 839412, 5459967, 2675153, 5888049, 9512320, 9582931, 65388253 ####[facility] [address] [place] [address] Urea nitrogen [Mass/Vol] 9 mg/dL Normal 5-21 [facility] Comment on above: Performed By: #### 2 780858, 9198527, 8517746, 1929441, 3698823, 5809336, 40331047 ####[facility] [address] [place] [address] Urea nitrogen/Creatinine [Mass ratio] 15 No Units Normal 10-20 [facility] Comment on above: Performed By: #### 2 993135, 4972257, 2504053, 3993684, 6847976, 0906454, 40898403 ####[facility] [address] [place] [address] Anion gap [Moles/Vol] 13 mmol/L Normal 6-16 [facility] Comment on above: Performed By: #### 2 499548, 7000448, 6617620, 6219272, 0587877, 6425016, 64068948 ####[facility] [address] [place] [address] Calcium [Mass/Vol] 8.9 mg/dL Normal 8.9-11.1 [facility] Comment on above: Performed By: #### 2 316835, 2822619, 1986849, 5815322, 1442651, 5068322, 18886768 ####[facility] [address] [place] [address] Chloride [Moles/Vol] 108 mmol/L Normal 101-111 [facility] Comment on above: Performed By: #### 2 564260, 1348793, 9865378, 8656475, 3939573, 2053484, 35885104 ####[facility] [address] [place] [address] CO2 [Moles/Vol] 22 mmol/L Normal 21-31 [facility] Comment on above: Performed By: #### 2 161836, 3167609, 0417436, 8903483, 7128652, 0822937, 23031764 ####[facility] [address] [place] [address] Glucose [Mass/Vol] 97 mg/dL Normal 55-199 [facility] Comment on above: Result Comment: If t his glucose result represents a fasting glucose, interpretation should refer to the following reference range: 55-99 mg/dL Performed By: #### 2 706763, 7069745, 3317949, 7183718, 2725893, 7520104, 52191982 ####[facility] [address] [place] [address] Potassium [Moles/Vol] 3.4 mmol/L Low 3.5-5.3 [facility] Comment on above: Performed By: #### 2 316778, 0780678, 2206970, 2675989, 3512563, 3607490, 31348064 ####[facility] [address] [place] [address] Sodium [Moles/Vol] 140 mmol/L Normal 135-145 [facility] Comment on above: Performed By: #### 2 357046, 4586947, 6125965, 5935689, 8825948, 0907325, 69086258 ####[facility] [address] [place] [address] CBC w/ Auto Diffon 3 Erythrocyte distribution width (RBC) [Ratio] 14.4 % High 10.9-14.2 [facility] Comment on above: Performed By: #### 2 305250, 1568959, 8524905, 7963171, 3560433, 3179629, 62750371 ####[facility] [address] [place] [address] Hematocrit (Bld) [Volume fraction] 39.7 % Normal 34.0-46.0 [facility] Comment on above: Performed By: #### 2 281601, 7253839, 5564058, 1057859, 5544854, 8922261, 25965660 ####[facility] [address] [place] [address] Hemoglobin (Bld) [Mass/Vol] 13.1 g/dL Normal 12.0-16.0 [facility] Comment on above: Performed By: #### 2 229173, 7427329, 6516762, 4660701, 7224874, 3906884, 76161713 ####[facility] [address] [place] [address] MCH (RBC) [Entitic mass] 27.0 pg Normal 27.0-34.0 [facility] Comment on above: Performed By: #### 2 902020, 8431658, 0342733, 8535012, 2081452, 0009688, 83201119 ####[facility] [address] [place] [address] MCHC (RBC) [Mass/Vol] 33.1 g/dL Normal 31.4-36.0 [facility] Comment on above: Performed By: #### 2 299378, 5007136, 9856873, 3554863, 8255041, 9860473, 80705490 ####[address] [address] MCV (RBC) [Entitic vol] 81.7 fL Normal 80.0-100.0 F [facility] Comment on above: Performed By: #### 2 362332, 5754572, 7801725, 3322655, 1730092, 9231070, 00325839 ####[address] [place] [address] Platelet mean volume (Bld) [Entitic vol] 8.8 fL Normal 6.4-10.8 [facility] Comment on above: Performed By: #### 2 880967, 7177511, 3498500, 4729912, 5000862, 9271841, 16294148 ####[address] [address] Platelets (Bld) [#/Vol] 194.0 E9/L Normal 150.0-500.0 [facility] Comment on above: Performed By: #### 2 197449, 2969376, 0727946, 2334418, 8238000, 1393327, 54533275 ####[facility] [address] [place] [address] RBC (Bld) [#/Vol] 4.9 E12/L Normal 4.3-5.9 [facility] Comment on above: Performed By: #### 2 350165, 2000462, 4226514, 0739094, 8596958, 5531372, 78772745 ####[facility] [address] [place] [address] WBC corrected for nucl RBC Auto (Bld) [#/Vol] 5.2 E9/L Normal 4.0-11.0 [facility] Comment on above: Performed By: #### 2 660581, 4912407, 2299159, 5488994, 5428916, 3950394, 62463397 ####[facility] [address] [place] [address] Consent for Treatmenton 01-17 Consent for Treatment [id number] .[id number]:127 Normal [facility] Discharge Instructionson Discharge Instructions [id number] [id number]. 00CD:127 Normal [facility] ED Clinical Summaryon 2022 ED Clinical Summary Normal [facility] ED Patient Education Noteon 02-07-2023 ED Patient Education Note Normal [facility] ED Patient Summaryon 023 ED Patient Summary Normal [facility] Hep Func Panelon 02-07-2023 Albumin [Mass/Vol] 4.7 g/dL Normal 3.3-5.0 [facility] Comment on above: Performed By: #### 2 047518, 1873092, 7304941, 0549391, 1855982, 2555306, 39365097 ####[facility] [address] [place] [address] Albumin/Globulin (S) [Mass conc ratio] 1.6 Normal 1.1-2.2 [facility] Comment on above: Performed By: #### 2 471794, 0861886, 8616782, 0653618, 1507255, 9933433, 04354305 ####[facility] [address] [place] [address] ALP [Catalytic activity/Vol] 55 Int._Unit/L Normal 21-98 [facility] Comment on above: Performed By: #### 2 839030, 9346497, 6796220, 4446754, 1190518, 3890874, 41273563 ####[facility] [address] [place] [address] ALT No additional P-5'-P [Catalytic activity/Vol] 14 Int._Unit/L Normal 6-46 [facility] Comment on above: Performed By: #### 2 704906, 8837578, 1601771, 6932790, 0961119, 7391122, 62840411 ####[place] [address] AST [Catalytic activity/Vol] 20 Int._Unit/L Normal 5-43 [facility] Comment on above: Performed By: #### 2 766545, 6385637, 7132112, 0288378, 1071999, 3462451, 43159110 ####[facility] [address] [place] [address] Bilirubin [Mass/Vol] 0.5 mg/dL Normal 0.0-1.1 [facility] Comment on above: Performed By: #### 2 129341, 8051132, 8581840, 7133047, 4794264, 1255687, 93956040 ####[facility] [address] [place] [address] Bilirubin.direct [Mass/Vol] 0.1 mg/dL Normal 0.1-0.4 [facility] Comment on above: Performed By: #### 2 029232, 8144751, 9814481, 6863871, 2983857, 5115970, 28261518 ####[facility] [address] [place] [address] Bilirubin.indirect [Mass or moles/Vol] 0.4 mg/dL Normal 0.1-0.9 [facility] Comment on above: Performed By: #### 2 479597, 9032296, 0698329, 4786456, 5385314, 0896966, 50534113 ####[facility] [address] [place] [address] Globulin (S) [Mass/Vol] 3.0 g/dL Normal 1.4-4.0 [facility] Comment on above: Performed By: #### 2 510076, 1317867, 5633172, 1669537, 6206046, 6710542, 89446064 ####[facility] [address] [place] [address] Protein [Mass/Vol] 7.7 g/dL Normal 6.0-7.8 [facility] Comment on above: Performed By: #### 2 077315, 4637716, 0406171, 8971614, 4311767, 4167379, 95290705 ####[facility] [address] [place] [address] Lactic Acidon 02-07-2023 Lactate [Mass/Vol] 1.0 mmol/L Normal 0.5-2.2 [facility] Comment on above: Performed By: #### 2 132941, 0355007, 3159699, 1266115, 5307463, 5865683, 86815626 ####[facility] [address] [place] [address] Lipase Levelon 02-07-2023 Lipase [Catalytic activity/Vol] 28 U/L Normal 13-58 [facility] Comment on above: Performed By: #### 2 730508, 7380432, 0029527, 8714879, 7914723, 8723941, 73752498 ####[facility] [address] [place] [address] U BetaHcg Qualon 02-07-2023 HCG.beta subunit (U) [Moles/Vol] Negative Normal [facility] Comment on above: Performed By: #### 1 3446203, 93646285 ####[facility] [address] [place] [address] UA With Cult Reflexon 2022 Bilirubin Ql (U) Negative Normal Negative [facility] Comment on above: Performed By: #### 1 5912188, 50619921 ####[facility] [address] [place] [address] Clarity (U) CLOUDY Abnormal Clear [facility] Comment on above: Performed By: #### 1 5308689, 25852793 ####[facility] [address] [place] [address] Color (U) DARK YELLO Abnormal Yellow [facility] Comment on above: Performed By: #### 1 2615478, 16167758 ####[address] [address] Epithelial cells.squamous LM.HPF (Urine sed) [#/Area] 0-2 Normal 0-2 [facility] Comment on above: Performed By: #### 1 5227171, 81350037 ####[facility] [address] [place] [address] Glucose Test strip (U) [Mass/Vol] Negative Normal Negative [facility] Comment on above: Performed By: #### 1 0478889, 51481138 ####[facility] [address] [place] [address] Hemoglobin Ql (U) 3+ Abnormal Negative [facility] Comment on above: Performed By: #### 1 9143023, 86621174 ####[facility] [address] [place] [address] Ketones (U) [Mass/Vol] 1+ Abnormal Negative Fi [facility] Comment on above: Performed By: #### 1 [id number], [id number] ####[facility] [address] [place] [address] Bolton.plasma/Bolton. RBC (Bld) [Mass ratio] >75 Abnormal 0-3 [facility] Comment on above: Performed By: #### 1 [id number], [id number] ####[facility] [address] [place] [address] Mucus Ql (Urine sed) 2+ Normal Fish [facility] Comment on above: Performed By: #### 1 3686637, [id number] ####[facility] [address] [place] [address] Nitrite Ql (U) Negative Normal Negative [facility] Comment on above: Performed By: #### 1 8162723, [id number] ####[facility] [address] [place] [address] pH (U) 7.0 [pH] Invalid Interpretation Code 5.0-9.0 [facility] Comment on above: Performed By: #### 1 9164143, [id number] ####[address] [address] Protein (U) [Mass/Vol] 1+ Abnormal Negative Fi [facility] Comment on above: Performed By: #### 1 1976740, 30886724 ####[address] [address] Specific gravity (U) [Rel density] 1.020 Invalid Interpretation Code 1.005-1.030 [facility] Comment on above: Performed By: #### 1 1734019, [id number] ####[address] [address] Type of Urine collection method Clean Catch Normal [facility] Comment on above: Performed By: #### 1 9559653, 33310926 ####[address] [address] Urobilinogen Qn (U) 1.0 {[place]oklyn'U}/dL Normal 0.0-1.0 [facility] Comment on above: Performed By: #### 1 6486821, 28945321 ####[address] [address] WBC Auto Ql (U) TRACE Abnormal Negative [facility] Comment on above: Performed By: #### 1 4420188, 64027465 ####[facility] [address] [place] [address] WBC LM.HPF (Urine sed) [#/Area] 0-5 Normal 0-5 [facility] Comment on above: Performed By: #### 1 1545443, 70826745 ####[facility] [address] [place] [address] US Gallbladderon 02-07-2023 US Gallbladder Normal [facility] eGFRon 02-07-2023 GFR/1.73 sq M.predicted among non-blacks MDRD (S/P/Bld) [Vol rate/Area] 131 mL/min/1.73 m2 Normal >=59 [facility] Comment on above: Order Comment: Order added by Discern Expert. Result Comment: Olive Knocker brielle kidney disease could be indicated at eGFR's of less than 60 mL/min/1.73m2. Kidney failure is indicated at less than 15 mL/min/1.73m2. Performed By: #### 2 601079, 9595205, 6937115, 3788059, 7055865, 7938641, 30082668 ####[facility] [address] [place] [address] Coding Summary.on 01-13-2023 Coding Summary. Normal [facility] ED Note-Physicianon 01-14-20 ED Note-Physician Normal [facility] Comment on above: Result Comment: Elec tronically Signed By: Sam Aguirre PA-C\.br\Date and Time Signed: 01/12/23 18:25 EDT\.br\Electronically Co-Signed By: Sam Aguirre PA-C\.br\Date and Time Co-Signed: 01/12/23 18:25 EDT\.br\Electronically Co-Signed By: Abdirashid Muñiz MD\.br\Date and Time Co-Signed: 01/13/23 07:59 EDT CHEMISTRYOrdered By: Lab ROP User on 01-12-2023 Glucose [Mass/Vol] 85 mg/dL Normal 55 - 99 mg/dL [facility] POC Subsection Comment on above: Result Comment: Cara crawford RN/ POC Device SN [id number] Invalid Interpretation Code [facility] POC Subsection POC User ID [id number] Invalid Interpretation Code [facility] POC Subsection POC Username HOWARD GARCIA Invalid Interpretation Code [facility] POC Subsection CTA Cheston 01-12-2023 CTA Chest Normal [facility] Capillary Glucose POCon 12-18 Glucose [Mass/Vol] 85 mg/dL Normal 55-99 [facility] Comment on above: Result Comment: Cara crawford RN/ Performed By: #### 2 [id number] ####[facility] [address] [place] [address] Coding Summary.on 01-12-2023 Coding Summary. Normal [facility] Consent for Treatmenton 12-18 Consent for Treatment [id number]#1 .00CD:127 Normal [facility] Discharge Instructionson Discharge Instructions [id number]# 1.00CD:127 Normal [facility] ED Clinical Summaryon 2022 ED Clinical Summary Normal [facility] ED Patient Education Noteon 01-12-2023 ED Patient Education Note Normal [facility] ED Patient Summaryon 023 ED Patient Summary Normal [facility] Auto Diffon 01-11-2023 Basophils/100 WBC (Bld) 0.4 % Normal 0.0-2.0 F [facility] Comment on above: Order Comment: Order Added by Discern Expert. Performed By: #### 2 134436, 44875744, 70408628, 1720453, 6405313, 30887607, 4953693 ####[facility] [address] [place] [address] Basophils/Leukocytes Auto (Bld) [Pure # fraction] 0.0 E9/L Normal 0.0-0.2 [facility] Comment on above: Order Comment: Order Added by Discern Expert. Performed By: #### 2 797634, 60657206, 38450683, 7233685, 5932754, 94261553, 9778550 ####[facility] [address] [place] [address] Eosinophils/100 WBC (Bld) 0.4 % Normal 0.0-8.0 [facility] Comment on above: Order Comment: Order Added by Discern Expert. Performed By: #### 2 900249, 25848500, 25198209, 2136988, 6395224, 40458367, 3603003 ####[address] [place] [address] Eosinophils/Leukocytes Auto (Bld) [Pure # fraction] 0.0 E9/L Normal 0.0-0.5 [facility] Comment on above: Order Comment: Order Added by Discern Expert. Performed By: #### 2 340825, 94807577, 72003009, 1369009, 9932094, 00725478, 8221012 ####[address] [address] Lymphocytes/100 WBC (Bld) 12.4 % Low 14.0-50.0 [facility] Comment on above: Order Comment: Order Added by Discern Expert. Performed By: #### 2 501244, 74789650, 83079815, 8254589, 6659943, 88969098, 2301177 ####[address] [address] Lymphocytes/Leukocytes Auto (Bld) [Pure # fraction] 1.2 E9/L Normal 1.0-4.0 [facility] Comment on above: Order Comment: Order Added by Discern Expert. Performed By: #### 2 899399, 74653130, 69968536, 1788584, 1377421, 62117087, 6209347 ####[address] [place] [address] Monocytes/100 WBC (Bld) 6.1 % Normal 4.0-14.0 [facility] Comment on above: Order Comment: Order Added by Discern Expert. Performed By: #### 2 438786, 46892412, 07699118, 1810648, 5853213, 80310593, 6753454 ####[facility] [address] [place] [address] Monocytes/Leukocytes Auto (Bld) [Pure # fraction] 0.6 E9/L Normal 0.2-1.0 [facility] Comment on above: Order Comment: Order Added by Discern Expert. Performed By: #### 2 418944, 97740874, 95704962, 0046082, 3326641, 83525202, 1490490 ####[facility] [address] [place] [address] Neutrophils/100 WBC (Bld) 80.7 % High 36.0-75.0 [facility] Comment on above: Order Comment: Order Added by Juma Expert. Performed By: #### 2 821597, 76454818, 92928884, 3627102, 3785380, 14297500, 3878684 ####[facility] [address] [place] [address] Neutrophils/Leukocytes Auto (Bld) [Pure # fraction] 8.0 E9/L High 2.0-7.5 [facility] Comment on above: Order Comment: Order Added by Discern Expert. Performed By: #### 2 440236, 76173603, 10878956, 4050063, 8914650, 95966631, 0054343 ####[facility] [address] [place] [address] BMPon 01-11-2023 Creatinine [Mass/Vol] 0.6 mg/dL Normal 0.5-1.3 [facility] Comment on above: Performed By: #### 2 068885, 07578602, 07470066, 6136670, 9123066, 82603404, 8413753 ####[facility] [address] [place] [address] Urea nitrogen [Mass/Vol] 9 mg/dL Normal 5-21 [facility] Comment on above: Performed By: #### 2 985161, 10868866, 62759988, 7863837, 5656030, 70010834, 8570599 ####[facility] [address] [place] [address] Urea nitrogen/Creatinine [Mass ratio] 15 No Units Normal 10-20 [facility] Comment on above: Performed By: #### 2 571953, 91694745, 97851148, 1163960, 2182120, 06875317, 5412582 ####[facility] [address] [place] [address] Anion gap [Moles/Vol] 11 mmol/L Normal 6-16 [facility] Comment on above: Performed By: #### 2 146237, 90587338, 79562997, 5776739, 1982021, 26926098, 8243881 ####[facility] [address] [place] [address] Calcium [Mass/Vol] 8.8 mg/dL Low 8.9-11.1 [facility] Comment on above: Performed By: #### 2 801950, 05430163, 67015502, 3523903, 1097739, 34649073, 0110125 ####[facility] [address] [place] [address] Chloride [Moles/Vol] 107 mmol/L Normal 101-111 [facility] Comment on above: Performed By: #### 2 725686, 68377839, 21827093, 2983995, 9912861, 58828754, 8823665 ####[facility] [address] [place] [address] CO2 [Moles/Vol] 23 mmol/L Normal 21-31 [facility] Comment on above: Performed By: #### 2 656002, 51302797, 22851167, 6247429, 1758104, 79844476, 8928777 ####[facility] [address] [place] [address] Glucose [Mass/Vol] 106 mg/dL Normal 55-199 [facility] Comment on above: Result Comment: If t his glucose result represents a fasting glucose, interpretation should refer to the following reference range: 55-99 mg/dL Performed By: #### 2 503182, 65164313, 44073332, 5969271, 8851295, 27921424, 1524681 ####[facility] [address] [place] [address] Potassium [Moles/Vol] 3.6 mmol/L Normal 3.5-5.3 [facility] Comment on above: Performed By: #### 2 427583, 68318513, 99300189, 6287644, 7166166, 72624931, 7219912 ####[facility] [address] [place] [address] Sodium [Moles/Vol] 137 mmol/L Normal 135-145 [facility] Comment on above: Performed By: #### 2 026278, 97901144, 85324603, 1057245, 2572553, 09684358, 6548927 ####[facility] [address] [place] [address] CBC w/ Auto Diffon 3 Erythrocyte distribution width (RBC) [Ratio] 13.7 % Normal 10.9-14.2 [facility] Comment on above: Performed By: #### 2 519732, 99309911, 97694989, 3998334, 4010240, 73654448, 0956447 ####[facility] [address] [place] [address] Hematocrit (Bld) [Volume fraction] 41.3 % Normal 34.0-46.0 [facility] Comment on above: Performed By: #### 2 056206, 13836493, 34138316, 8880504, 4507424, 58397800, 6106824 ####[facility] [address] [place] [address] Hemoglobin (Bld) [Mass/Vol] 13.4 g/dL Normal 12.0-16.0 [facility] Comment on above: Performed By: #### 2 358731, 39066516, 54255382, 9163973, 8534831, 90595149, 3010504 ####[facility] [address] [place] [address] MCH (RBC) [Entitic mass] 26.9 pg Low 27.0-34.0 [facility] Comment on above: Performed By: #### 2 284425, 05534296, 43650324, 5641530, 3613763, 34721395, 9675729 ####[facility] [address] [place] [address] MCHC (RBC) [Mass/Vol] 32.6 g/dL Normal 31.4-36.0 [facility] Comment on above: Performed By: #### 2 484112, 77342252, 83753227, 5626492, 4631573, 19975393, 2233175 ####[facility] [address] [place] [address] MCV (RBC) [Entitic vol] 82.6 fL Normal 80.0-100.0 F [facility] Comment on above: Performed By: #### 2 321799, 46222621, 22069616, 6468273, 3562674, 44451795, 3903110 ####[facility] [address] [place] [address] Platelet mean volume (Bld) [Entitic vol] 8.2 fL Normal 6.4-10.8 [facility] Comment on above: Performed By: #### 2 411204, 17768188, 48054363, 8557045, 7614049, 10978801, 5238183 ####[facility] [address] [place] [address] Platelets (Bld) [#/Vol] 221.0 E9/L Normal 150.0-500.0 [facility] Comment on above: Performed By: #### 2 607026, 56862295, 24623531, 6289999, 9016858, 83659019, 1718114 ####[facility] [address] [place] [address] RBC (Bld) [#/Vol] 5.0 E12/L Normal 4.3-5.9 [facility] Comment on above: Performed By: #### 2 065640, 90654769, 71924389, 5689727, 6737662, 88794829, 2749568 ####[facility] [address] [place] [address] WBC corrected for nucl RBC Auto (Bld) [#/Vol] 9.9 E9/L Normal 4.0-11.0 [facility] Comment on above: Performed By: #### 2 344647, 53695971, 94724340, 4719310, 1936824, 81566223, 4980441 ####[facility] [address] [place] [address] CHEMISTRYOrdered By: SYSTEM SYSTEM on 01-11-2023 Anion gap [Moles/Vol] 11 mmol/L Normal 6 - 16 mEq/L F [facility] Remisol Calcium [Mass/Vol] 8.8 mg/dL Low 8.9 - 11. 1 mg/dL [facility] Chloride [Moles/Vol] 107 mmol/L Normal 101 - 1 11 mmol/L [facility] CO2 [Moles/Vol] 23 mmol/L Normal 21 - 31 mmol/L [facility] Creatinine [Mass/Vol] 0.6 mg/dL Normal 0.5 - 1.3 mg/dL [facility] Remisol GFR/1.73 sq M.predicted among non-blacks MDRD (S/P/Bld) [Vol rate/Area] 131 mL/min/1.73 m2 Normal >=59mL/min/1 .73 m2 [facility] Chem S Glucose [Mass/Vol] 106 mg/dL Normal 55 - 199 mg/dL [facility] Potassium [Moles/Vol] 3.6 mmol/L Normal 3.5 - 5.3 mmol/L [facility] Sodium [Moles/Vol] 137 mmol/L Normal 135 - 145 mmol/L [facility] Troponin I.cardiac [Mass/Vol] pg/mL Low 10.10 - 27.10 pg/mL [facility] Urea nitrogen [Mass/Vol] 9 mg/dL Normal 5 - 21 mg/dL [facility] Urea nitrogen/Creatinine [Mass ratio] 15 mg/mg Normal 10 - 20 [facility] COAGULATIONOrdered By: Kylie Friedman on 01-11-2023 aPTT Coag (PPP) [Time] 37.6 s High 25.1 - 36.5 second(s) [facility] Auto Coag Fibrin D-dimer FEU (PPP) [Mass/Vol] 418 ng/mL FEU Normal 215 - 500 ng/mL FEU [facility] Auto Coag INR Coag (PPP) [Relative time] 1.2 {INR} Invalid Interpretation Code [facility] Auto Coag PT Coag (PPP) [Time] 13.2 s High 9.4 - 1 2.5 second(s) [facility] Auto Coag Consent for Treatmenton 12-18 Consent for Treatment [id number]#1 .00CD:127 Normal [facility] D-Dimeron 01-11-2023 Fibrin D-dimer FEU (PPP) [Mass/Vol] 418 [id number] Normal 215-500 [facility] Comment on above: Result Comment: This assay is intended for use as an aid in the diagnosis of DVT or PE. These conditions cannot be excluded with certainty solely on the basis of a D-dimer concentration being within the reference rangeThis D-Dimer assay may be used in conjunction with a non-high clinical pretest probability assessment to exclude deep-vein thrombosis(DVT). For exclusion of venous thrombosis or pulmonary embolism the analyte D-Dimer should not be used as an aid in patients with:Therapeutic dose anticoagulant therapy for >24 hoursFibrinolytic therapy within previous 7 daysTrauma or surgery within previous 4 weeksDisseminated malignaciesAortic aneurysmSepsis, severe infections, pneumonia, severe skin infectionsLiver cirrhosisPregnancy Performed By: #### 2 403977, 71275011, 39097440, 5085590, 0787183, 77746747, 0630015 ####[facility] [address] Discharge Instructionson Discharge Instructions [id number]#1 .00CD:127 Normal [facility] ED Clinical Summaryon 2022 ED Clinical Summary Normal [facility] ED Note-Physicianon 01-12-20 ED Note-Physician Normal [facility] Comment on above: Result Comment: Elec tronically Signed By: Malik Enamorado, Omid Ingram\Date and Time Signed: 01/11/23 08:41 EDT ED Patient Education Noteon 01-11-2023 ED Patient Education Note Normal [facility] ED Patient Summaryon 023 ED Patient Summary Normal [facility] HEMATOLOGYOrdered By: SYSTEM SYSTEM on 01-11-2023 Basophils/100 WBC (Bld) 0.4 % Normal 0.0 - 2.0 % [facility] HemeAutoSS Basophils/Leukocytes Auto (Bld) [Pure # fraction] 0.0 E9/L Normal 0.0 - 0.2 E9/L [facility] HemeAutoSS Eosinophils/100 WBC (Bld) 0.4 % Normal 0.0 - 8.0 % [facility] HemeAutoSS Eosinophils/Leukocytes Auto (Bld) [Pure # fraction] 0.0 E9/L Normal 0.0 - 0.5 E9/L [facility] HemeAutoSS Lymphocytes/100 WBC (Bld) 12.4 % Low 14.0 - 50.0 % [facility] HemeAutoSS Lymphocytes/Leukocytes Auto (Bld) [Pure # fraction] 1.2 E9/L Normal 1.0 - 4.0 E9/L [facility] HemeAutoSS Monocytes/100 WBC (Bld) 6.1 % Normal 4.0 - 14.0 % [facility] HemeAutoSS Monocytes/Leukocytes Auto (Bld) [Pure # fraction] 0.6 E9/L Normal 0.2 - 1.0 E9/L [facility] HemeAutoSS Neutrophils/100 WBC (Bld) 80.7 % High 36.0 - 75.0 % [facility] HemeAutoSS Neutrophils/Leukocytes Auto (Bld) [Pure # fraction] 8.0 E9/L High 2.0 - 7.5 E9/L [facility] HemeAutoSS HEMATOLOGYOrdered By: Marielos Riley on 01-11-2023 Erythrocyte distribution width (RBC) [Ratio] 13.7 % Normal 10.9 - 14.2 % [facility] HemeAutoSS Hematocrit (Bld) [Volume fraction] 41.3 % Normal 34.0 - 46.0 % [facility] HemeAutoSS Hemoglobin (Bld) [Mass/Vol] 13.4 g/dL Normal 12.0 - 16.0 gm/dL [facility] HemeAutoSS MCH (RBC) [Entitic mass] 26.9 pg Low 27.0 - 34.0 pg [facility] HemeAutoSS MCHC (RBC) [Mass/Vol] 32.6 g/dL Normal 31.4 - 36.0 gm/dL [facility] HemeAutoSS MCV (RBC) [Entitic vol] 82.6 fL Normal 80.0 - 100.0 fL [facility] HemeAutoSS Platelet mean volume (Bld) [Entitic vol] 8.2 fL Normal 6.4 - 10.8 fL [facility] HemeAutoSS Platelets (Bld) [#/Vol] 221.0 E9/L Normal 150. 0 - 500.0 E9/L [facility] HemeAutoSS RBC (Bld) [#/Vol] 5.0 E12/L Normal 4.3 - 5.9 E12/L [facility] HemeAutoSS WBC corrected for nucl RBC Auto (Bld) [#/Vol] 9.9 E9/L Normal 4.0 - 11.0 E9/L [facility] HemeAutoSS PT & PTTon 01-11-2023 aPTT Coag (PPP) [Time] 37.6 second(s) High 25.1-36.5 [facility] Comment on above: Result Comment: Para meter 15 days - 4 weeks 1 - 5 months 6 - 11 months 1 - 5 years 6 - 10 years 11 - 17 years PTT Mean: 35.4 (27.6-45.6) Mean: 33.5 (24.8-40.7) Mean: 32.4 (25.1-40.7) Mean: 31.6 (24.0-39.2) Mean: 31.6 (26.9-38.7) Mean: 31.0 (24.6-38.4) Pediatric Reference ranges were obtained from a study by [employer] [place] al. prepared from 1437 samples obtained at 7 different centers using the same coagulation reagent and instrumentation as [facility]. Currently there are no coagulation studies available worldwide for children to 14 days, and no normal ranges. Heparin therapeutic range (represented by Anti-Factor Xa activity of 0.2 - 0.4 U/mL) corresponds to PTT of 56.6 - 109.0 sec. Performed By: #### 2 166079, 22650790, 97619608, 9223835, 2664527, 00305289, 5995355 ####[facility] [address] [place] [address] INR Coag (PPP) [Relative time] 1.2 {INR} Invalid Interpretation Code [facility] Comment on above: Result Comment: INR results are specifically intended to assess patients stabilized on long-term Anticoagulation therapy suggested INR?s ?Less Intensive Anticoagulation? 2.0 ? 3.0Conventional Range 3.0 ? 4.5 Performed By: #### 2 662733, 57315204, 24589219, 2531173, 2232930, 98561739, 3617368 ####[facility] [address] [place] [address] PT Coag (PPP) [Time] 13.2 second(s) High 9.4-12.5 [facility] Comment on above: Result Comment: 15 d ays - 4 weeks 1 - 5 months 6 -11 months 1-5 years 6-10 years 11 -17 years Mean: 11.2 (9.5-12.6) Mean: 11.0 (9.7-12.8) Mean: 11.0 (9.8-13.0) Mean: 11.3 (9.9-13.4) Mean: 11.7 (10.0-14.6) Mean: 11.8 (10.0 - 14.1) Pediatric Reference ranges were obtained from a study by Russel Hernandez et al. prepared from 1437 samples obtained at 7 different centers using the same coagulation reagent and instrumentation as [facility]. Currently there are no coagulation studies available worldwide for children to 14 days, and no normal ranges. Performed By: #### 2 643867, 52353964, 49792011, 7447192, 0599444, 87110966, 3945526 ####[facility] [address] [place] [address] Troponin 0 Hr.on 01-11-2023 Troponin I.cardiac [Mass/Vol] ng/mL Low 10.10-27.10 [facility] Comment on above: Result Comment: The 95% CI (Confidence Interval) PPV (Positive Predictive Value) for myocardial infarction in females is 38 pg/mL, in males 51 pg/mL. The results should be used in conjunction with clinical conditions of myocardial infarction.(Access High Sensitivity Troponin I Instructions For Use, Free Flow Power, April 2018) Performed By: #### 2 950635, 32375630, 92916970, 8774659, 2015271, 26392432, 6094420 ####[facility] [address] [place] [address] XR Chest 2 Viewson 3 XR Chest 2 Views Normal [facility] eGFRon 01-11-2023 GFR/1.73 sq M.predicted among non-blacks MDRD (S/P/Bld) [Vol rate/Area] 131 mL/min/1.73 m2 Normal >=59 [facility] Comment on above: Order Comment: Order added by Discern Expert. Result Comment: Olive Knocker brielle kidney disease could be indicated at eGFR's of less than 60 mL/min/1.73m2. Kidney failure is indicated at less than 15 mL/min/1.73m2. Performed By: #### 2 530263, 15486502, 16729031, 6215666, 4107933, 24373486, 2220964 ####[facility] [address] [place] [address] Coding Summary.on 12-16-2022 Coding Summary. Normal [facility] Consent for Treatmenton 11-18 Consent for Treatment [id number] .00CD:127 Normal [facility] Discharge Instructionson Discharge Instructions [id number] .00CD:127 Normal [facility] ED Clinical Summaryon 2022 ED Clinical Summary Normal [facility]ie g[facility] ED Note-Nursingon 12-16-2022 ED Note-Nursing pt given d/c instructions and educated on importance of follow up. pt educated on new medication. pt verbalized understanding of instructions and readiness for d/c. pt walked self ambulatory to waiting room in stable condition Normal [facility] ED Note-Nursing Normal [facility] ED Note-Physicianon 12-17-19 ED Note-Physician Normal [facility] Comment on above: Result Comment: Elec tronically Signed By: Demetrius Parker DO\.br\Date and Time Signed: 12/15/22 23:35 EDT ED Patient Education Noteon 12-16-2022 ED Patient Education Note Normal [facility] ED Patient Summaryon 023 ED Patient Summary Normal [facility] Ambulatory Visit Summaryon 0 12-10-2022 Ambulatory Visit Summary Normal [facility] Family Medicine Office/Clini c Noteon 12-10-2022 Family Medicine Office/Clinic Note Normal [facility] Comment on above: Result Comment: Elec tronically Signed By: Jessica WHITT CNP\.br\Date and Time Signed: 12/10/22 14:00 EDT Patient Educationon 12-11-19 Patient Education [facility] PAP ACOG PANEL 2: 21 to 29on 11-25-2022 . . [facility] Comment on above: Performed By: #### 4 188075 #### [facility] [address] [address] [address] Berna Mcpherson Age Gdln ACOG Testing 21-29 [facility] Comment on above: Performed By: #### 4 649755 #### [facility] [address] [address] [address] Berna Mcpherson DIAGNOSIS: Comment [facility] Comment on above: Result Comment: NEGA TIVE FOR INTRAEPITHELIAL LESION OR MALIGNANCY. Performed By: #### 4 861267 #### [facility] [address] [address] [address] Berna Mcpherson Methodology: Comment [facility] Comment on above: Result Comment: This liquid based ThinPrep(R) pap test was screened with the use of an image guided system. Performed By: #### 4 118873 #### [facility] [address] [place] [address] Dr. Berna Mcpherson Note: Comment Normal [facility] Comment on above: Result Comment: The Pap smear is a screening test designed to aid in the detection of premalignant and malignant conditions of the uterine cervix. It is not a diagnostic procedure and should not be used as the sole means of detecting cervical cancer. Both false-positive and false-negative reports do occur. . Performed By: #### 4 702785 #### [facility] [address] [place] [address] Dr. Berna Mcpherson Performed by: Comment Normal [facility] Comment on above: Result Comment: Amarjit Rojas Post Tronic Machine Operator (ASCP) Performed By: #### 4 952487 #### [facility] Laboratory [address] [place] [address] Dr. Berna Mcpherson Reflex Criteria: Comment Normal [facility] Comment on above: Result Comment: The HPV DNA reflex criteria were not met with this specimen result therefore, no HPV testing was performed. . Performed By: #### 4 [id number] #### [facility] Laboratory [address] [place] [address] Dr. Berna Mcpherson Specimen adequacy: Comment Normal [facility] Comment on above: Result Comment: Sati sfactory for evaluation. Endocervical and/or squamous metaplastic cells (endocervical component) are present. Performed By: #### 4 [id number] #### [facility] Laboratory [address] [place] [address] Dr. Berna Mcpherson Auto Diffon 09-28-2022 Basophils/100 WBC (Bld) 0.5 % Normal 0.0-2.0 [facility] Comment on above: Order Comment: Order Added by Discern Expert. Performed By: #### 2 991580, 6292717, 7607667, 3515696, 8161021, 63694294 ####[facility] [address] [place] [address] Basophils/Leukocytes Auto (Bld) [Pure # fraction] 0.0 E9/L Normal 0.0-0.2 [facility] Comment on above: Order Comment: Order Added by Discern Expert. Performed By: #### 2 012864, 9669776, 5989236, 4607916, 1872016, 07754087 ####[address] [place] [address] Eosinophils/100 WBC (Bld) 0.8 % Normal 0.0-8.0 [facility] Comment on above: Order Comment: Order Added by Discern Expert. Performed By: #### 2 443263, 1387501, 2991763, 2330555, 5848338, 11174195 ####[address] [address] Eosinophils/Leukocytes Auto (Bld) [Pure # fraction] 0.1 E9/L Normal 0.0-0.5 [facility] Comment on above: Order Comment: Order Added by Discern Expert. Performed By: #### 2 611508, 9738685, 5695129, 4061433, 1348141, 38546679 ####[address] [address] Lymphocytes/100 WBC (Bld) 20.5 % Normal 14.0-50.0 [facility] Comment on above: Order Comment: Order Added by Discern Expert. Performed By: #### 2 722760, 9841218, 8741302, 6958670, 4347863, 30917482 ####[address] [place] [address] Lymphocytes/Leukocytes Auto (Bld) [Pure # fraction] 1.6 E9/L Normal 1.0-4.0 [facility] Comment on above: Order Comment: Order Added by Juma Expert. Performed By: #### 2 904551, 5744278, 9021525, 6089133, 5247682, 86408887 ####[address] [place] [address] Monocytes/100 WBC (Bld) 8.3 % Normal 4.0-14.0 [facility] Comment on above: Order Comment: Order Added by Discern Expert. Performed By: #### 2 714277, 4953770, 4898998, 3840730, 3665822, 87815245 ####[facility] [address] [place] [address] Monocytes/Leukocytes Auto (Bld) [Pure # fraction] 0.6 E9/L Normal 0.2-1.0 [facility] Comment on above: Order Comment: Order Added by Discern Expert. Performed By: #### 2 064669, 7103404, 0917737, 0787959, 1408514, 11037745 ####[address] [place] [address] Neutrophils/100 WBC (Bld) 69.9 % Normal 36.0-75.0 [facility] Comment on above: Order Comment: Order Added by Discern Expert. Performed By: #### 2 989587, 2884903, 2437597, 8766949, 5203767, 48260731 ####[facility] [address] [place] [address] Neutrophils/Leukocytes Auto (Bld) [Pure # fraction] 5.4 E9/L Normal 2.0-7.5 [facility] Comment on above: Order Comment: Order Added by Discern Expert. Performed By: #### 2 588333, 0543558, 1934740, 7603165, 5613658, 91686902 ####[facility] [address] [place] [address] BMPon 09-28-2022 Creatinine [Mass/Vol] 0.5 mg/dL Normal 0.5-1.3 [facility] Comment on above: Performed By: #### 2 888026, 4377844, 0087528, 5404377, 8194926, 90959733 ####[facility] [address] [place] [address] Urea nitrogen [Mass/Vol] 6 mg/dL Normal 5-21 [facility] Comment on above: Performed By: #### 2 070597, 4609468, 6538616, 1412386, 2509361, 10649566 ####[facility] [address] [place] [address] Urea nitrogen/Creatinine [Mass ratio] 12 No Units Normal 10-20 [facility] Comment on above: Performed By: #### 2 665770, 5949952, 5671725, 1336655, 7251189, 87741773 ####[facility] [address] [place] [address] Anion gap [Moles/Vol] 11 mmol/L Normal 6-16 [facility] Comment on above: Performed By: #### 2 321055, 5602156, 6817649, 5742661, 2957194, 49502324 ####[facility] [address] [place] [address] Calcium [Mass/Vol] 8.3 mg/dL Low 8.9-11.1 [facility] Comment on above: Performed By: #### 2 091721, 4227462, 0874365, 9474209, 8519258, 23318991 ####[facility] [address] [place] [address] Chloride [Moles/Vol] 108 mmol/L Normal 101-111 [facility] Comment on above: Performed By: #### 2 500388, 2469234, 7105542, 0374906, 5595725, 50716469 ####[facility] [address] [place] [address] CO2 [Moles/Vol] 22 mmol/L Normal 21-31 [facility] Comment on above: Performed By: #### 2 864612, 4630603, 3320559, 1118694, 9156831, 24616587 ####[facility] [address] [place] [address] Glucose [Mass/Vol] 104 mg/dL Normal 55-199 [facility] Comment on above: Result Comment: If t his glucose result represents a fasting glucose, interpretation should refer to the following reference range: 55-99 mg/dL Performed By: #### 2 451360, 1305763, 5232531, 2385605, 2366937, 94859244 ####[facility] [address] [place] [address] Potassium [Moles/Vol] 3.3 mmol/L Low 3.5-5.3 [facility] Comment on above: Performed By: #### 2 012356, 4660945, 7867411, 9180663, 3861195, 88784722 ####[facility] [address] [place] [address] Sodium [Moles/Vol] 138 mmol/L Normal 135-145 [facility] Comment on above: Performed By: #### 2 263937, 5762654, 0894314, 1661971, 2759491, 92719709 ####[facility] [address] [place] [address] CBC w/ Auto Diffon 3 Erythrocyte distribution width (RBC) [Ratio] 13.5 % Normal 10.9-14.2 [facility] Comment on above: Performed By: #### 2 158322, 5648883, 2549448, 9674444, 0486818, 50178263 ####[facility] [address] [place] [address] Hematocrit (Bld) [Volume fraction] 38.6 % Normal 34.0-46.0 [facility] Comment on above: Performed By: #### 2 944436, 4613348, 2663784, 0382030, 7612775, 41525007 ####[facility] [address] [place] [address] Hemoglobin (Bld) [Mass/Vol] 13.1 g/dL Normal 12.0-16.0 [facility] Comment on above: Performed By: #### 2 088195, 6932518, 4167768, 1845689, 8978695, 94178457 ####[facility] [address] [place] [address] MCH (RBC) [Entitic mass] 29.7 pg Normal 27.0-34.0 [facility] Comment on above: Performed By: #### 2 271910, 5170592, 8840337, 5344373, 4976909, 35298860 ####[address] [address] MCHC (RBC) [Mass/Vol] 33.8 g/dL Normal 31.4-36.0 [facility] Comment on above: Performed By: #### 2 748346, 5791995, 4210311, 0179859, 2161695, 13293214 ####[address] [place] [address] MCV (RBC) [Entitic vol] 87.7 fL Normal 80.0-100.0 F [facility] Comment on above: Performed By: #### 2 593876, 7549753, 0264557, 5922584, 8915133, 58655435 ####[address] [address] Platelet mean volume (Bld) [Entitic vol] 8.3 fL Normal 6.4-10.8 [facility] Comment on above: Performed By: #### 2 034833, 0839451, 5863596, 8190378, 9970445, 57075825 ####[address] [address] Platelets (Bld) [#/Vol] 222.0 E9/L Normal 150.0-500.0 [facility] Comment on above: Performed By: #### 2 696949, 0596399, 0772479, 3473189, 2044392, 75493353 ####[address] [address] RBC (Bld) [#/Vol] 4.4 E12/L Normal 4.3-5.9 [facility] Comment on above: Performed By: #### 2 478039, 5672145, 4059624, 3882413, 3499883, 99048580 ####[address] [place] [address] WBC corrected for nucl RBC Auto (Bld) [#/Vol] 7.6 E9/L Normal 4.0-11.0 [facility] Comment on above: Performed By: #### 2 198968, 3546476, 3074587, 7982702, 3153142, 88890066 ####[facility] [address] [place] [address] CT Abdomen/Pelvis w/ Contras ton 09-28-2022 CT Abdomen/Pelvis w/ Contrast Normal [facility] Coding Summary.on 09-28-2022 Coding Summary. Normal [facility] Discharge Instructionson Discharge Instructions [id number]# 1.00CD:127 Normal [facility] ED Clinical Summaryon 2022 ED Clinical Summary Normal [facility] ED Note-Physicianon 09-28-19 23 ED Note-Physician Normal [facility] Comment on above: Result Comment: Elec tronically Signed By: Marshall Cardenas DO.br\Date and Time Signed: 09/27/22 23:44 EST ED Patient Education Noteon 09-28-2022 ED Patient Education Note Normal [facility] ED Patient Summaryon 023 ED Patient Summary Normal [facility] Hep Func Panelon 09-28-2022 Albumin [Mass/Vol] 4.0 g/dL Normal 3.3-5.0 [facility] Comment on above: Performed By: #### 2 656588, 2342585, 6759122, 4173881, 5217273, 92766101 ####[facility] [address] [place] [address] Albumin/Globulin (S) [Mass conc ratio] 1.3 Normal 1.1-2.2 [facility] Comment on above: Performed By: #### 2 834085, 7060976, 3145729, 9758189, 7633360, 21721352 ####[facility] [address] ALP [Catalytic activity/Vol] 71 Int._Unit/L Normal 21-98 [facility] Comment on above: Performed By: #### 2 896229, 3090599, 7980014, 3640707, 3278130, 01235590 ####[facility] [address] ALT No additional P-5'-P [Catalytic activity/Vol] 15 Int._Unit/L Normal 6-46 [facility] Comment on above: Performed By: #### 2 250369, 6666349, 8905535, 8863167, 0183583, 53363015 ####[address] [place] [address] AST [Catalytic activity/Vol] 20 Int._Unit/L Normal 5-43 [facility] Comment on above: Performed By: #### 2 986132, 7641940, 3310265, 4524461, 1957407, 58407629 ####[facility] [address] [place], [place] [address] Bilirubin [Mass/Vol] 0.6 mg/dL Normal 0.0-1.1 [facility] Comment on above: Performed By: #### 2 170218, 1157381, 5048473, 6950647, 0299938, 08695369 ####[address] [place] [address] Bilirubin.direct [Mass/Vol] 0.1 mg/dL Normal 0.1-0.4 [facility] Comment on above: Performed By: #### 2 553629, 3168995, 5319463, 5984478, 0013354, 26916822 ####[facility] [address] [place] [address] Bilirubin.indirect [Mass or moles/Vol] 0.5 mg/dL Normal 0.1-0.9 [facility] Comment on above: Performed By: #### 2 702095, 7579041, 0565075, 4133626, 4181513, 01432981 ####[facility] [address] [place] [address] Globulin (S) [Mass/Vol] 3.1 g/dL Normal 1.4-4.0 F [facility] Comment on above: Performed By: #### 2 623727, 5772283, 3799360, 3049447, 5553892, 93029576 ####[address] [place] [address] Protein [Mass/Vol] 7.1 g/dL Normal 6.0-7.8 [facility] Comment on above: Performed By: #### 2 263051, 3057521, 3960482, 0713753, 0769820, 54645630 ####[address] [address] Lipase Levelon 09-28-2022 Lipase [Catalytic activity/Vol] 27 U/L Normal 13-58 [facility] Comment on above: Performed By: #### 2 377337, 5028047, 9477591, 6515892, 8968996, 93741630 ####[address] [address] RAD - Preliminary Cat Scan R eporton 09-28-2022 RAD - Preliminary Cat Scan Report [id number]# 1.00CD:127 Normal [facility] UA With Cult Reflexon 2022 Bilirubin Ql (U) Negative Normal Negative [facility] Comment on above: Performed By: #### 1 8320479 ####[address] [address] Clarity (U) CLEAR Normal Clear [facility] Comment on above: Performed By: #### 1 4551090 ####[address] [address] Color (U) YELLOW Normal Yellow [facility] Comment on above: Performed By: #### 1 4863211 ####[address] [address] Epithelial cells.squamous LM.HPF (Urine sed) [#/Area] 5-8 Normal 0-2 [facility] Comment on above: Performed By: #### 1 0666650 ####[facility] [address] [place] [address] Glucose Test strip (U) [Mass/Vol] Negative Normal Negative [facility] Comment on above: Performed By: #### 1 7315184 ####[facility] [address] [place] [address] Hemoglobin Ql (U) 1+ Abnormal Negative [facility] Comment on above: Performed By: #### 1 7019249 ####[address] [address] Ketones (U) [Mass/Vol] 1+ Abnormal Negative [facility] Comment on above: Performed By: #### 1 7550460 ####[address] [address] Bolton.plasma/Bolton. RBC (Bld) [Mass ratio] 0-3 Normal 0-3 [facility] Comment on above: Performed By: #### 1 8711507 ####[facility] [address] [place] [address] Mucus Ql (Urine sed) TRACE Normal [facility] Comment on above: Performed By: #### 1 4289031 ####[address] [place] [address] Nitrite Ql (U) Negative Normal Negative [facility] Comment on above: Performed By: #### 1 8147632 ####[facility] [address] [place] [address] pH (U) 6.0 [pH] Invalid Interpretation Code 5.0-9.0 [facility] Comment on above: Performed By: #### 1 4907576 ####[address] [place] [address] Protein (U) [Mass/Vol] Negative Normal Negative [facility] Comment on above: Performed By: #### 1 3759149 ####[facility] [address] [place] [address] Specific gravity (U) [Rel density] 1.025 Invalid Interpretation Code 1.005-1.030 [facility] Comment on above: Performed By: #### 1 2272385 ####[facility] [address] [place] [address] Type of Urine collection method Clean Catch Normal [facility] Comment on above: Performed By: #### 1 8659419 ####[address] [address] Urobilinogen Qn (U) 0.2 {Brooklyn'U}/dL Normal 0.0-1.0 [facility] Comment on above: Performed By: #### 1 0612514 ####[address] [address] WBC Auto Ql (U) Negative Normal Negative [facility] Comment on above: Performed By: #### 1 5049106 ####[address] [address] WBC LM.HPF (Urine sed) [#/Area] 0-5 Normal 0-5 [facility] Comment on above: Performed By: #### 1 2120566 ####[facility] [address] [place] [address] eGFRon 09-28-2022 GFR/1.73 sq M.predicted among blacks MDRD (S/P/Bld) [Vol rate/Area] mL/min/{1.73_m2} Normal >=59 [facility] Comment on above: Order Comment: Order added by Discern Expert. Result Comment: eGFR is race adjusted. AA=. Performed By: #### 2 714655, 7819590, 4840654, 8648924, 9261122, 62996894 ####[facility] [address] [place] [address] GFR/1.73 sq M.predicted among non-blacks MDRD (S/P/Bld) [Vol rate/Area] mL/min/{1.73_m2} Normal >=59 [facility] Comment on above: Order Comment: Order added by Discern Expert. Result Comment: Olive Knocker brielle kidney disease could be indicated at eGFR's of less than 60 mL/min/1.73m2. Kidney failure is indicated at less than 15 mL/min/1.73m2. Performed By: #### 2 096804, 2434338, 6220320, 3334400, 2077227, 58880590 ####[facility] [address] [place] [address] CHEMISTRYOrdered By: SYSTEM SYSTEM on 09-27-2022 Albumin [Mass/Vol] 4.0 g/dL Normal 3.3 - 5.0 gm/dL [facility] Albumin/Globulin [Mass ratio] 1.3 {ratio} Normal 1.1 - 2.2 [facility] ALP [Catalytic activity/Vol] 71 [iU]/d Normal 21 - 98 Int._Unit/L [facility] ALT No additional P-5'-P [Catalytic activity/Vol] 15 [iU]/d Normal 6 - 46 Int._Unit/L [facility] Anion gap [Moles/Vol] 11 mmol/L Normal 6 - 16 mEq/L F [facility] AST [Catalytic activity/Vol] 20 [iU]/d Normal 5 - 43 Int._Unit/L [facility] Bilirubin [Mass/Vol] 0.6 mg/dL Normal 0.0 - 1 .1 mg/dL [facility] Bilirubin.direct [Mass/Vol] 0.1 mg/dL Normal 0.1 - 0.4 mg/dL [facility] Bilirubin.indirect [Mass or moles/Vol] 0.5 mg/dL Normal 0.1 - 0.9 mg/dL [facility] Calcium [Mass/Vol] 8.3 mg/dL Low 8.9 - 11. 1 mg/dL [facility] Chloride [Moles/Vol] 108 mmol/L Normal 101 - 1 11 mmol/L [facility] CO2 [Moles/Vol] 22 mmol/L Normal 21 - 31 mmol/L [facility] Creatinine [Mass/Vol] 0.5 mg/dL Normal 0.5 - 1.3 mg/dL [facility] GFR/1.73 sq M.predicted among blacks MDRD (S/P/Bld) [Vol rate/Area] mL/min/1.73 m2 Normal >=59mL/min/1 .73 m2 [facility] S GFR/1.73 sq M.predicted among non-blacks MDRD (S/P/Bld) [Vol rate/Area] mL/min/1.73 m2 Normal >=59mL/min/1 .73 m2 [facility] Chem S Globulin (S) [Mass/Vol] 3.1 g/dL Normal 1.4 - 4.0 gm/dL [facility] Glucose [Mass/Vol] 104 mg/dL Normal 55 - 199 mg/dL [facility] Lipase [Catalytic activity/Vol] 27 U/L Normal 13 - 58 unit/L [facility] Potassium [Moles/Vol] 3.3 mmol/L Low 3.5 - 5.3 mmol/L [facility] Protein [Mass/Vol] 7.1 g/dL Normal 6.0 - 7.8 gm/dL [facility] Sodium [Moles/Vol] 138 mmol/L Normal 135 - 145 mmol/L [facility] Urea nitrogen [Mass/Vol] 6 mg/dL Normal 5 - 21 mg/dL [facility] Urea nitrogen/Creatinine [Mass ratio] 12 mg/mg Normal 10 - 20 [facility] Consent for Treatmenton 09-18 Consent for Treatment [id number] [facility] [id number]#1 .00CD:127 Normal [facility] HEMATOLOGYOrdered By: SYSTEM SYSTEM on 09-27-2022 Basophils/100 WBC (Bld) 0.5 % Normal 0.0 - 2.0 % [facility] Basophils/Leukocytes Auto (Bld) [Pure # fraction] 0.0 E9/L Normal 0.0 - 0.2 E9/L [facility] Eosinophils/100 WBC (Bld) 0.8 % Normal 0.0 - 8.0 % [facility] Eosinophils/Leukocytes Auto (Bld) [Pure # fraction] 0.1 E9/L Normal 0.0 - 0.5 E9/L [facility] Lymphocytes/100 WBC (Bld) 20.5 % Normal 14.0 - 50.0 % [facility] Lymphocytes/Leukocytes Auto (Bld) [Pure # fraction] 1.6 E9/L Normal 1.0 - 4.0 E9/L [facility]eAuto[facility] Monocytes/100 WBC (Bld) 8.3 % Normal 4.0 - 14.0 % [facility] Monocytes/Leukocytes Auto (Bld) [Pure # fraction] 0.6 E9/L Normal 0.2 - 1.0 E9/L [facility] Neutrophils/100 WBC (Bld) 69.9 % Normal 36.0 - 75.0 % [facility] Neutrophils/Leukocytes Auto (Bld) [Pure # fraction] 5.4 E9/L Normal 2.0 - 7.5 E9/L [facility] HEMATOLOGYOrdered By: Reece Park on 09-27-2022 Erythrocyte distribution width (RBC) [Ratio] 13.5 % Normal 10.9 - 14.2 % [facility] Hematocrit (Bld) [Volume fraction] 38.6 % Normal 34.0 - 46.0 % [facility] Hemoglobin (Bld) [Mass/Vol] 13.1 g/dL Normal 12.0 - 16.0 gm/dL [facility] MCH (RBC) [Entitic mass] 29.7 pg Normal 27.0 - 34.0 pg [facility] MCHC (RBC) [Mass/Vol] 33.8 g/dL Normal 31.4 - 36.0 gm/dL [facility] MCV (RBC) [Entitic vol] 87.7 fL Normal 80.0 - 100.0 fL [facility] Platelet mean volume (Bld) [Entitic vol] 8.3 fL Normal 6.4 - 10.8 fL [facility] Platelets (Bld) [#/Vol] 222.0 E9/L Normal 150. 0 - 500.0 E9/L [facility] RBC (Bld) [#/Vol] 4.4 E12/L Normal 4.3 - 5.9 E12/L [facility] WBC corrected for nucl RBC Auto (Bld) [#/Vol] 7.6 E9/L Normal 4.0 - 11.0 E9/L [facility] URINALYSISOrdered By: Adarsh chang on 09-27-2022 Bilirubin Ql (U) Negative (09/27/22 9:57 PM) Normal Negative [facility] UA Auto SS Clarity (U) Clear (09/27/22 9:57 PM) Normal Clear [facility] UA Auto SS Color (U) Yellow (09/27/22 9:57 PM) Normal Yellow [facility] UA Auto SS Epithelial cells.squamous LM.HPF (Urine sed) [#/Area] 5-8 /HPF Normal 0-2/HPF [facility] UA Aut o SS Glucose Test strip (U) [Mass/Vol] Negative (09/27/22 9:57 PM) Normal Negative [facility] UA Auto SS Hemoglobin Ql (U) 1+ *ABN* (09/27/22 9:57 PM) Invalid Interpretation Code Negative [facility] UA Auto SS Ketones (U) [Mass/Vol] 1+ *ABN* (09/27/22 9:57 PM) Invalid Interpretation Code Negative [facility] UA Auto SS Bolton.plasma/Bolton. RBC (Bld) [Mass ratio] 0-3 /HPF Normal 0-3/HPF [facility] UA A uto SS Mucus Ql (Urine sed) Trace (09/27/22 9:57 PM) Normal [facility] UA Auto SS Nitrite Ql (U) Negative (09/27/22 9:57 PM) Normal Negative [facility] UA Auto SS pH (U) 6.0 *NA* (09/27/22 9:57 PM) Invalid Interpretation Code 5.0 - 9.0 [facility] UA Auto SS Protein (U) [Mass/Vol] Negative (09/27/22 9:57 PM) Normal Negative [facility] UA Auto SS Specific gravity (U) [Rel density] 1.025 *NA* (09/27/22 9:57 PM) Invalid Interpretation Code 1.005 - 1.030 [facility] UA Auto SS UA Spec Desc Clean Catch (09/27/22 9:57 PM) Normal [facility] UA Auto SS Urobilinogen Qn (U) 0.6391368 {[place]'U}/dL Normal 0.0 - 1.0 EU/dL [facility] UA Auto SS WBC Auto Ql (U) Negative (09/27/22 9:57 PM) Normal Negative [facility] UA Auto SS WBC LM.HPF (Urine sed) [#/Area] 0-5 /HPF Normal 0-5/HPF [facility] UA Auto SS Albumin [Mass/volume] in Ser um or PlasmaOrdered By: Ravi Cash on 09-04-2022 Albumin [Mass/Vol] 2.8 g/dL 3.2-5.5 [facility] Automated erythrocytes count in urine sediment (number/area)Ordered By: Ravi Cash on 09-04-2022 RBC Auto (Urine sed) [#/Area] Innumerable [HPF] 0-4 [facility] Automated leukocytes count i n urine sediment (number/area)Ordered By: Ravi Cash on 09-04-2022 WBC Auto (Urine sed) [#/Area] 20-49 [HPF] 0-4 [facility] Basophils Auto (Bld) [#/Vol] Ordered By: Ravi Cash on 09-04-2022 Basophils (Bld) [#/Vol] 0.0 10*3/uL 0.0-0.2 [facility] Basophils/100 WBC Auto (Bld) Ordered By: Ravi Cash on 09-04-2022 Basophils/100 WBC (Bld) 0.3 % . [facility] Bilirubin Test strip Ql (U)O rdered By: Ravi Cash on 09-04-2022 Bilirubin Ql (U) Negative Negative [facility] Color Auto (U)Ordered By: Sheyla Cash on 09-04-2022 Color (U) [place] Yellow [facility] Creatinine and Glomerular fi ltration rate.predicted panel (S/P/Bld)Ordered By: Ravi Cash on 09-04-2022 Creatinine [Mass/Vol] 0.53 mg/dL 0.44-1.03 [facility] Eosinophils Auto (Bld) [#/Vo l]Ordered By: Ravi Cash on 09-04-2022 Eosinophils (Bld) [#/Vol] 0.1 10*3/uL 0.0-0.45 [facility] Eosinophils/100 WBC Auto (Bl d)Ordered By: Ravi Cash on 09-04-2022 Eosinophils/100 WBC (Bld) 1.0 % . [facility] Erythrocyte distribution wid th Auto (RBC) [Ratio]Ordered By: Ravi Cash on 09-04-2022 Erythrocyte distribution width (RBC) [Ratio] 13.6 % 11.9-15.3 [facility] Estimated glomerular filtrat ion rate (GFR) non- AmericanOrdered By: Ravi Cash on 09-04-2022 GFR/1.73 sq M.predicted among non-blacks MDRD (S/P/Bld) [Vol rate/Area] > 60 mL/Min [facility] Globulin Calc (S) [Mass/Vol] Ordered By: Ravi Cash on 09-04-2022 Globulin (S) [Mass/Vol] 2.9 g/dL [facility] Hematocrit Auto (Bld) [Volum e fraction]Ordered By: Ravi Cash on 09-04-2022 Hematocrit (Bld) [Volume fraction] 36.4 % 34.0-46.4 [facility] Hemoglobin [Mass/volume] in BloodOrdered By: Ravi Cash on 09-04-2022 Hemoglobin (Bld) [Mass/Vol] 12.1 g/dL 11.8-15.4 [facility] Ketones Auto test strip (U) [Mass/Vol]Ordered By: Ravi Cash on 09-04-2022 Ketones (U) [Mass/Vol] Negative Negative [facility] - Chemistry and C hemistry - challengeOrdered By: Ravi Cash on 09-04-2022 AST [Catalytic activity/Vol] 24 U/L 10-42 [facility] - UrinalysisOrder ed By: Ravi Cash on 09-04-2022 Hyaline casts LM Ql (Urine sed) 0-8 [LPF] 0-8 [facility] Leukocytes [#/volume] correc libby for nucleated erythrocytes in Blood by Automated counOrdered By: Ravi Cash on 09-04-2022 WBC corrected for nucl RBC Auto (Bld) [#/Vol] 12.2 10*3/uL 3.8-11.6 [facility] Lymphocytes Auto (Bld) [#/Vo l]Ordered By: Ravi Cash on 09-04-2022 Lymphocytes (Bld) [#/Vol] 0.9 10*3/uL 1.00-4.8 [facility] Lymphocytes/100 WBC Auto (Bl d)Ordered By: Ravi Cash on 09-04-2022 Lymphocytes/100 WBC (Bld) 7.6 % . [facility] MCH Auto (RBC) [Entitic mass ]Ordered By: Ravi Cash on 09-04-2022 MCH (RBC) [Entitic mass] 29.6 pg 24.7-34.3 [facility] MCHC Auto (RBC) [Mass/Vol]Or dered By: Ravi Cash on 09-04-2022 MCHC (RBC) [Mass/Vol] 33.2 g/dL 32.0-35.0 [facility] MCV Auto (RBC) [Entitic vol] Ordered By: Ravi Cash on 09-04-2022 MCV (RBC) [Entitic vol] 89.0 fL 80-100 [facility] Monocyte distribution width [Entitic volume] in Blood by AutomatedOrdered By: Ravi Cash on 09-04-2022 Monocyte distribution width Auto (Bld) [Entitic vol] 20.17 % 0.00-20.00 [facility] Comment on above: For adults in ED, MD W > 20.0 may be associated with a higher risk of sepsis during the first 12 hrs of hospital admission Monocytes Auto (Bld) [#/Vol] Ordered By: Ravi Cash on 09-04-2022 Monocytes (Bld) [#/Vol] 0.6 10*3/uL 0.0-0.8 [facility] Monocytes/100 WBC Auto (Bld) Ordered By: Ravi Cash on 09-04-2022 Monocytes/100 WBC (Bld) 4.8 % . [facility] Neutrophils Auto (Bld) [#/Vo l]Ordered By: Ravi Cash on 09-04-2022 Neutrophils (Bld) [#/Vol] 10.6 10*3/uL 1.8-7.7 [facility] Neutrophils/100 WBC Auto (Bl d)Ordered By: Ravi Cash on 09-04-2022 Neutrophils/100 WBC (Bld) 86.3 % . [facility] Nitrite Test strip Ql (U)Ord ered By: Ravi Cash on 09-04-2022 Nitrite Ql (U) Negative Negative [facility] No Panel InformationOrdered By: Ravi Cash on 09-04-2022 Estimated GFR () > 60 mL/Min [facility] Comment on above: GFR estimated refere nce range: According to KDOQI guidelines, <60 ml/min/1.73m2 is sufficient to diagnose a patient with chronic kidney disease. Pharmacy Creatinine Clearance (Chem N/A [facility] Nucleated erythrocytes [Pres ence] in Blood by Automated countOrdered By: Ravi Cash on 09-04-2022 Nucleated RBC Auto Ql (Bld) 0.1 /100{WBC} 0-0.5 [facility] Platelet mean volume Auto (B ld) [Entitic vol]Ordered By: Ravi Cash on 09-04-2022 Platelet mean volume (Bld) [Entitic vol] 8.5 fL 6.3-10.7 [facility] Platelets Auto (Bld) [#/Vol] Ordered By: Ravi Cash on 09-04-2022 Platelets (Bld) [#/Vol] 204 10*3/uL 150-450 [facility] Protein Auto test strip (U) [Mass/Vol]Ordered By: Ravi Cash on 09-04-2022 Protein (U) [Mass/Vol] 30 mg/dL Negative [facility] Protein [Mass/volume] in Ser um or PlasmaOrdered By: Ravi Cash on 09-04-2022 Protein [Mass/Vol] 5.7 g/dL 6.1-7.9 [facility] RBC Auto (Bld) [#/Vol]Ordere d By: Ravi Cash on 09-04-2022 RBC (Bld) [#/Vol] 4.09 10*6/uL 3.60-5.00 [facility] Serum or plasma alanine cole otransferase measurement without P-5'-P (enzymatic activiOrdered By: Ravi Cash on 09-04-2022 ALT No additional P-5'-P [Catalytic activity/Vol] 24 U/L 10-60 [facility] Serum or plasma albumin/glob ulin mass ratioOrdered By: Ravi Cash on 09-04-2022 Albumin/Globulin [Mass ratio] 1.0 {ratio} [facility] Serum or plasma alkaline dmitri sphatase measurement (enzymatic activity/volume)Ordered By: Ravi Cash on 09-04-2022 ALP [Catalytic activity/Vol] 84 U/L 32-92 [facility] Serum or plasma anion gap de terminationOrdered By: Ravi Cash on 09-04-2022 Anion gap [Moles/Vol] TNP [facility] Comment on above: Test not performed Serum or plasma calcium odette urement (mass/volume)Ordered By: Ravi Cash on 09-04-2022 Calcium [Mass/Vol] 8.3 mg/dL 8.2-10.2 [facility] Serum or plasma chloride tita surement (moles/volume)Ordered By: Ravi Cash on 09-04-2022 Chloride [Moles/Vol] 107 mmol/L 95-114 [facility] Serum or plasma glucose odette urement (mass/volume)Ordered By: Ravi Cash on 09-04-2022 Glucose [Mass/Vol] 88 mg/dL 70-100 [facility] Comment on above: ADA recommended refe rence rangeRandom Glucose Reference Range is dependent on time and content of last meal. Glucose of more than 200 mg/dL in a nonstressed, ambulatory subject supports the diagnosis of Diabetes Mellitus. Serum or plasma potassium me asurement (moles/volume)Ordered By: Ravi Cash on 09-04-2022 Potassium [Moles/Vol] 3.4 mmol/L 3.5-5.1 [facility] Serum or plasma sodium measu rement (moles/volume)Ordered By: Ravi Cash on 09-04-2022 Sodium [Moles/Vol] 135 mmol/L 136-146 [facility] Serum or plasma total biliru bin measurement (mass/volume)Ordered By: Ravi Cash on 09-04-2022 Bilirubin [Mass/Vol] 0.6 mg/dL 0.3-1.2 [facility] Serum or plasma total carbon dioxide measurement (moles/volume)Ordered By: Ravi Cash on 09-04-2022 CO2 [Moles/Vol] 21.1 mmol/L 22.0-30.0 [facility] Serum or plasma urea nitroge n measurement (mass/volume)Ordered By: Ravi Cash on 09-04-2022 Urea nitrogen [Mass/Vol] 3 mg/dL 9-23 [facility] Specific gravity Auto test s trip (U) [Rel density]Ordered By: Ravi Cash on 09-04-2022 Specific gravity (U) [Rel density] 1.011 1.001-1.030 [facility] Squamous epithelial cells de tection in urine sediment by light microscopyOrdered By: Ravi Cash on 09-04-2022 Epithelial cells.squamous LM Ql (Urine sed) 3-4 [HPF] 0-2 [facility] Urine bacteria detection by automated methodOrdered By: Ravi Cash on 09-04-2022 Bacteria Auto Ql (U) None seen None Seen [facility] Urine clarity by refractomet ry automatedOrdered By: Ravi Cash on 09-04-2022 Clarity Refractometry automated (U) Clear Clear [facility] Urine glucose measurement by automated test strip (mass/volume)Ordered By: Ravi Cash on 09-04-2022 Glucose Auto test strip (U) [Mass/Vol] Normal mg/dL Normal [facility] Urine hemoglobin detection b y automated test stripOrdered By: Ravi Cash on 09-04-2022 Hemoglobin Auto test strip Ql (U) 3+ Negative [facility] Urine leukocyte esterase det ection by automated test stripOrdered By: Ravi Cash on 09-04-2022 Leukocyte esterase Auto test strip Ql (U) 3+ Negative [facility] Urobilinogen Auto test strip (U) [Mass/Vol]Ordered By: Ravi Cash on 09-04-2022 Urobilinogen (U) [Mass/Vol] Normal mg/dL Normal [facility] WBC Auto (Bld) [#/Vol]Ordere d By: Ravi Cash on 09-04-2022 WBC (Bld) [#/Vol] 12.2 10*3/uL 3.8-11.6 [facility] pH Auto test strip (U)Ordere d By: Ravi Cash on 09-04-2022 pH (U) 7.5 [pH] 5.0-9.0 [facility] Albumin [Mass/volume] in Ser um or PlasmaOrdered By: Jonatan Linares on 09-03-2022 Albumin [Mass/Vol] 2.8 g/dL 3.2-5.5 [facility] Automated erythrocytes count in urine sediment (number/area)Ordered By: Jonatan Linares on 09-03-2022 RBC Auto (Urine sed) [#/Area] 20-49 [HPF] 0-4 [facility] Automated leukocytes count i n urine sediment (number/area)Ordered By: Jonatan Linares on 09-03-2022 WBC Auto (Urine sed) [#/Area] 50-100 [HPF] 0-4 [facility] Basophils Auto (Bld) [#/Vol] Ordered By: Jonatan Linares on 09-03-2022 Basophils (Bld) [#/Vol] 0.0 10*3/uL 0.0-0.2 [facility] Basophils/100 WBC Auto (Bld) Ordered By: Jonatan Linares on 09-03-2022 Basophils/100 WBC (Bld) 0.4 % . [facility] Bilirubin Test strip Ql (U)O rdered By: Jonatan Linares on 09-03-2022 Bilirubin Ql (U) Negative Negative [facility] C reactive protein [Mass/vol ume] in Serum or PlasmaOrdered By: Jonatan Linares on 09-03-2022 CRP [Mass/Vol] 1.4 mg/dL 0.0-1.0 [facility] COVID CepheidOrdered By: Teo Linares on 09-03-2022 SARS-CoV-2 (COVID-19) Ab IA Ql Negative Negative [facility] Comment on above: This is a duplicate [facility] Xpress CoV-2/Flu/RSV Plus RNA by RT-PCR result to be used for statistical tracking purpose only. SARS-CoV-2 (COVID-19) RNA OLY+probe Ql (Unsp spec) [facility] Color Auto (U)Ordered By: Tadeo Linares on 09-03-2022 Color (U) Yellow Yellow [facility] Creatinine and Glomerular fi ltration rate.predicted panel (S/P/Bld)Ordered By: Jonatan Linares on 09-03-2022 Creatinine [Mass/Vol] 0.54 mg/dL 0.44-1.03 [facility] Eosinophils Auto (Bld) [#/Vo l]Ordered By: Jonatan Linares on 09-03-2022 Eosinophils (Bld) [#/Vol] 0.2 10*3/uL 0.0-0.45 [facility] Eosinophils/100 WBC Auto (Bl d)Ordered By: Jonatan Linares on 09-03-2022 Eosinophils/100 WBC (Bld) 1.3 % . [facility] Erythrocyte distribution wid th Auto (RBC) [Ratio]Ordered By: Jonatan Linares on 09-03-2022 Erythrocyte distribution width (RBC) [Ratio] 14.1 % 11.9-15.3 [facility] Erythrocyte sedimentation ra te by Photometric methodOrdered By: Jonatan Linares on 09-03-2022 ESR Photometric method (Bld) [Velocity] 30 mm/hr 0-19 [facility] Estimated glomerular filtrat ion rate (GFR) non- AmericanOrdered By: Jonatan Linares on 09-03-2022 GFR/1.73 sq M.predicted among non-blacks MDRD (S/P/Bld) [Vol rate/Area] > 60 mL/Min [facility] Globulin Calc (S) [Mass/Vol] Ordered By: Jonatan Linares on 09-03-2022 Globulin (S) [Mass/Vol] 3.2 g/dL [facility] Hematocrit Auto (Bld) [Volum e fraction]Ordered By: Jonatan Linares on 09-03-2022 Hematocrit (Bld) [Volume fraction] 36.8 % 34.0-46.4 [facility] Hemoglobin [Mass/volume] in BloodOrdered By: Jonatan Linares on 09-03-2022 Hemoglobin (Bld) [Mass/Vol] 12.3 g/dL 11.8-15.4 [facility] Ketones Auto test strip (U) [Mass/Vol]Ordered By: Jonatan Linares on 09-03-2022 Ketones (U) [Mass/Vol] Trace Negative [facility] - UrinalysisOrder ed By: Jonatan Linares on 09-03-2022 Hyaline casts LM Ql (Urine sed) 0-8 [LPF] 0-8 [facility] Leukocytes [#/volume] correc libby for nucleated erythrocytes in Blood by Automated counOrdered By: Jonatan Linares on 09-03-2022 WBC corrected for nucl RBC Auto (Bld) [#/Vol] 12.0 10*3/uL 3.8-11.6 [facility] Lymphocytes Auto (Bld) [#/Vo l]Ordered By: Jonatan Linares on 09-03-2022 Lymphocytes (Bld) [#/Vol] 1.7 10*3/uL 1.00-4.8 [facility] Lymphocytes/100 WBC Auto (Bl d)Ordered By: Jonatan Linares on 09-03-2022 Lymphocytes/100 WBC (Bld) 13.9 % . [facility] MCH Auto (RBC) [Entitic mass ]Ordered By: Jonatan Linares on 09-03-2022 MCH (RBC) [Entitic mass] 29.7 pg 24.7-34.3 [facility] MCHC Auto (RBC) [Mass/Vol]Or dered By: Jonatan Linares on 09-03-2022 MCHC (RBC) [Mass/Vol] 33.4 g/dL 32.0-35.0 [facility] MCV Auto (RBC) [Entitic vol] Ordered By: Jonatan Linares on 09-03-2022 MCV (RBC) [Entitic vol] 88.7 fL 80-100 [facility] Monocyte distribution width [Entitic volume] in Blood by AutomatedOrdered By: Jonatan Linares on 09-03-2022 Monocyte distribution width Auto (Bld) [Entitic vol] 20.63 % 0.00-20.00 [facility] Comment on above: For adults in ED, MD W > 20.0 may be associated with a higher risk of sepsis during the first 12 hrs of hospital admission Monocytes Auto (Bld) [#/Vol] Ordered By: Jonatan Linares on 09-03-2022 Monocytes (Bld) [#/Vol] 0.7 10*3/uL 0.0-0.8 [facility] Monocytes/100 WBC Auto (Bld) Ordered By: Jonatan Linares on 09-03-2022 Monocytes/100 WBC (Bld) 5.7 % . [facility] Neutrophils Auto (Bld) [#/Vo l]Ordered By: Jonatan Linares on 09-03-2022 Neutrophils (Bld) [#/Vol] 9.4 10*3/uL 1.8-7.7 [facility] Neutrophils/100 WBC Auto (Bl d)Ordered By: Jonatan Linares on 09-03-2022 Neutrophils/100 WBC (Bld) 78.7 % . [facility] Nitrite Test strip Ql (U)Ord ered By: Jonatan Linares on 09-03-2022 Nitrite Ql (U) Positive Negative [facility] No Panel InformationOrdered By: Jonatan Linares on 09-03-2022 Estimated GFR () > 60 mL/Min [facility] Comment on above: GFR estimated refere nce range: According to KDOQI guidelines, <60 ml/min/1.73m2 is sufficient to diagnose a patient with chronic kidney disease. Pharmacy Creatinine Clearance (Chem 163.76 [facility] Nucleated erythrocytes [Pres ence] in Blood by Automated countOrdered By: Jonatan Linares on 09-03-2022 Nucleated RBC Auto Ql (Bld) 0.1 /100{WBC} 0-0.5 [facility] Platelet mean volume Auto (B ld) [Entitic vol]Ordered By: Jonatan Linares on 09-03-2022 Platelet mean volume (Bld) [Entitic vol] 8.6 fL 6.3-10.7 [facility] Platelets Auto (Bld) [#/Vol] Ordered By: Jonatan Linares on 09-03-2022 Platelets (Bld) [#/Vol] 201 10*3/uL 150-450 [facility] Protein Auto test strip (U) [Mass/Vol]Ordered By: Jonatan Linares on 09-03-2022 Protein (U) [Mass/Vol] 30 mg/dL Negative [facility] Protein [Mass/volume] in Ser um or PlasmaOrdered By: Jonatan Linares on 09-03-2022 Protein [Mass/Vol] 6.0 g/dL 6.1-7.9 [facility] RBC Auto (Bld) [#/Vol]Ordere d By: Jonatan Linares on 09-03-2022 RBC (Bld) [#/Vol] 4.15 10*6/uL 3.60-5.00 [facility] Serum or plasma alanine cole otransferase measurement without P-5'-P (enzymatic activiOrdered By: Jonatan Linares on 09-03-2022 ALT No additional P-5'-P [Catalytic activity/Vol] 19 U/L 10-60 [facility] Serum or plasma albumin/glob ulin mass ratioOrdered By: Jonatan Linares on 09-03-2022 Albumin/Globulin [Mass ratio] 0.9 {ratio} [facility] Serum or plasma alkaline dmitri sphatase measurement (enzymatic activity/volume)Ordered By: Jonatan Linares on 09-03-2022 ALP [Catalytic activity/Vol] 84 U/L 32-92 [facility] Serum or plasma anion gap de terminationOrdered By: Jonatan Linares on 09-03-2022 Anion gap [Moles/Vol] 12.6 mmol/L 6.0-15.0 [facility] Serum or plasma aspartate am inotransferase measurement (enzymatic activity/volume)Ordered By: Jonatan Linares on 09-03-2022 AST [Catalytic activity/Vol] 32 U/L 10-42 [facility] Serum or plasma calcium odette urement (mass/volume)Ordered By: Jonatan Linares on 09-03-2022 Calcium [Mass/Vol] 8.1 mg/dL 8.2-10.2 [facility] Serum or plasma chloride tita surement (moles/volume)Ordered By: Jonatan Linares on 09-03-2022 Chloride [Moles/Vol] 107 mmol/L 95-114 [facility] Serum or plasma glucose odette urement (mass/volume)Ordered By: Jonatan Linares on 09-03-2022 Glucose [Mass/Vol] 77 mg/dL 70-100 [facility] Comment on above: ADA recommended refe rence rangeRandom Glucose Reference Range is dependent on time and content of last meal. Glucose of more than 200 mg/dL in a nonstressed, ambulatory subject supports the diagnosis of Diabetes Mellitus. Serum or plasma potassium me asurement (moles/volume)Ordered By: Jonatan Linares on 09-03-2022 Potassium [Moles/Vol] 3.8 mmol/L 3.5-5.1 [facility] Serum or plasma sodium measu rement (moles/volume)Ordered By: Jonatan Linares on 09-03-2022 Sodium [Moles/Vol] 137 mmol/L 136-146 [facility] Serum or plasma total biliru bin measurement (mass/volume)Ordered By: Jonatan Linares 09-03-2022 Bilirubin [Mass/Vol] 0.7 mg/dL 0.3-1.2 [facility] Serum or plasma total carbon dioxide measurement (moles/volume)Ordered By: Jonatan Linares on 09-03-2022 CO2 [Moles/Vol] 21.2 mmol/L 22.0-30.0 [facility] Serum or plasma urea nitroge n measurement (mass/volume)Ordered By: Jonatan Linares on 09-03-2022 Urea nitrogen [Mass/Vol] 4 mg/dL 9- [facility] Specific gravity Auto test s trip (U) [Rel density]Ordered By: Jonatan Linares on 09-03-2022 Specific gravity (U) [Rel density] 1.016 1.001-1.030 [facility] Squamous epithelial cells de tection in urine sediment by light microscopyOrdered By: Jonatan Linares on 09-03-2022 Epithelial cells.squamous LM Ql (Urine sed) 1-2 [HPF] 0-2 [facility] Urine bacteria detection by automated methodOrdered By: Jonatan Linares on 09-03-2022 Bacteria Auto Ql (U) 4+ None Seen [facility] Urine clarity by refractomet ry automatedOrdered By: Jonatan Linares on 09-03-2022 Clarity Refractometry automated (U) Cloudy Clear [facility] Urine glucose measurement by automated test strip (mass/volume)Ordered By: Jonatan Linares on 09-03-2022 Glucose Auto test strip (U) [Mass/Vol] Normal mg/dL Normal [facility] Urine hemoglobin detection b y automated test stripOrdered By: Jonatan Linares on 09-03-2022 Hemoglobin Auto test strip Ql (U) 3+ Negative [facility] Urine lactic acid measuremen tOrdered By: Jonatan Linares on 09-03-2022 Lactate (U) [Moles/Vol] 0.7 mmol/L 0.5-2.2 [facility] Urine leukocyte esterase det ection by automated test stripOrdered By: Jonatan Linares on 09-03-2022 Leukocyte esterase Auto test strip Ql (U) 3+ Negative [facility] Urobilinogen Auto test strip (U) [Mass/Vol]Ordered By: Jonatan Linares on 09-03-2022 Urobilinogen (U) [Mass/Vol] Normal mg/dL Normal [facility] WBC Auto (Bld) [#/Vol]Ordere d By: Jonatan Linares on 09-03-2022 WBC (Bld) [#/Vol] 12.0 10*3/uL 3.8-11.6 [facility] pH Auto test strip (U)Ordere d By: Jonatan Linares on 09-03-2022 pH (U) 7.0 [pH] 5.0-9.0 [facility] CBC AUTO DIFFon 09-01-2022 BASO # 0.0 103/ul Normal 0.0-0.1 [facility] Comment on above: Performed By: #### C BC #### [facility] [address] [place] [address] Dr. Berna Mcpherson Basophils/100 WBC (Bld) 0.1 % Critically low 0.2-2.0 [facility] Comment on above: Performed By: #### C BC #### [facility] [address] [place] [address] Dr. Berna Mcpherson EO # 0.0 103/ul Normal 0.0-0.7 [facility] Comment on above: Performed By: #### C BC #### [facility] [address] [place] [address] Dr. Berna Mcpherson Eosinophils/100 WBC (Bld) 0.3 % Critically low 0.9-7.0 [facility] Comment on above: Performed By: #### C BC #### [facility] [address] [place] [address] Dr. Berna Mcpherson Erythrocyte distribution width (RBC) [Ratio] 13.0 % Normal 11.0-15.0 [facility] Comment on above: Performed By: #### C BC #### [facility] [address] [place] [address] Dr. Berna Mcpherson Hematocrit (Bld) [Volume fraction] 32.5 % Critically low 36.0-48.0 [facility] Comment on above: Performed By: #### C BC #### [facility] [address] [place] [address] Dr. Berna Mcpherson Hemoglobin (Bld) [Mass/Vol] 11.2 g/dL Critically low 12.0-16.0 [facility] Comment on above: Performed By: #### C BC #### [facility] [address] [place] [address] Dr. Berna Mcpherson IG # 0.11 10e3/ul Critically high 0.00-0.03 [facility] Comment on above: Performed By: #### C BC #### [facility] [address] [place] [address] Dr. Berna Mcpherson IG % 0.8 % Critically high 0.0-0.5 [facility] Comment on above: Performed By: #### C BC #### [facility] [address] [place] [address] Dr. Berna Mcpherson LYMPH # 2.0 103/ul Normal 1.2-3.8 [facility] Comment on above: Performed By: #### C BC #### [facility] [address] [place] [address] Dr. Berna Mcpherson Lymphocytes/100 WBC (Bld) 14.2 % Critically low 20.5-60.0 [facility] Comment on above: Performed By: #### C BC #### [facility] [address] [place] [address] Dr. Berna Mcpherson MANUAL DIFF REQ NO Normal [facility] Comment on above: Performed By: #### C BC #### [facility] [address] [place] [address] Dr. Berna Mcpherson MCH (RBC) [Entitic mass] 30.2 pg Normal 26.7-34.0 [facility] Comment on above: Performed By: #### C BC #### [facility] [address] [place] [address] Dr. Berna Mcpherson MCHC (RBC) [Mass/Vol] 34.5 g/dL Normal 29.9-35.2 [facility] Comment on above: Performed By: #### C BC #### [facility] [address] [place] [address] Dr. Berna Mcpherson MCV (RBC) [Entitic vol] 87.6 fL Normal 81.0-99.0 [facility] Comment on above: Performed By: #### C BC #### [facility] [address] [address] [address] Berna Mcpherson MONO # 1.0 103/ul Critically high 0.3-0.8 [facility] Comment on above: Performed By: #### C BC #### [facility] [address] [address] [address] Berna Mcpherson Monocytes/100 WBC (Bld) 7.0 % Normal 1.7-12.0 [facility] Comment on above: Performed By: #### C BC #### [facility] [address] [place] [address] Dr. Berna Mcpherson NEUT # 10.6 103/ul Critically high 1.4-6.5 [facility] Comment on above: Performed By: #### C BC #### [facility] [address] [place] [address] Dr. Berna Mcpherson Neutrophils/100 WBC (Bld) 77.6 % Critically high 43.0-75.0 [facility] Comment on above: Performed By: #### C BC #### [facility] [address] [place] [address] Dr. Berna Mcpherson Platelet mean volume (Bld) [Entitic vol] 10.8 fL Normal 9.5-13.5 [facility] Comment on above: Performed By: #### C BC #### [facility] [address] [place] [address] Dr. Berna Mcpherson PLT 168 103/ul Normal 150-450 [facility] Comment on above: Performed By: #### C BC #### [facility] [address] [place] [address] Dr. Berna Mcpherson RBC 3.71 106/ul Critically low 4.20-5.40 [facility] Comment on above: Performed By: #### C BC #### [facility] [address] [place] [address] Dr. Berna Mcpherson WBC 13.7 103/ul Critically high 4.0-11.0 [facility] Comment on above: Performed By: #### C BC #### [facility] [address] [place] [address] Dr. Berna Mcpherson CBC AUTO DIFFon 08-31-2022 BASO # 0.0 103/ul Normal 0.0-0.1 [facility] Comment on above: Performed By: #### C VDTBH #### [facility] [address] [place] [address] Dr. Berna Mcpherson Basophils/100 WBC (Bld) 0.2 % Normal 0.2-2.0 [facility] Comment on above: Performed By: #### C VDTBH #### [facility] [address] [place] [address] Dr. Berna Mcpherson EO # 0.0 103/ul Normal 0.0-0.7 [facility] Comment on above: Performed By: #### C VDTBH #### [facility] [address] [place] [address] Dr. Berna Mcpherson Eosinophils/100 WBC (Bld) 0.4 % Critically low 0.9-7.0 [facility] Comment on above: Performed By: #### C VDTBH #### [facility] [address] [place] [address] Dr. Berna Mcpherson Erythrocyte distribution width (RBC) [Ratio] 13.0 % Normal 11.0-15.0 [facility] Comment on above: Performed By: #### C VDTBH #### [facility] [address] [place] [address] Dr. Berna Mcpherson Hematocrit (Bld) [Volume fraction] 35.3 % Critically low 36.0-48.0 [facility] Comment on above: Performed By: #### C VDTBH #### [facility] [address] [place] [address] Dr. Berna Mcpherson Hemoglobin (Bld) [Mass/Vol] 12.5 g/dL Normal 12.0-16.0 [facility] Comment on above: Performed By: #### C VDTBH #### [facility] [address] [place] [address] Dr. Berna Mcpherson IG # 0.06 10e3/ul Critically high 0.00-0.03 [facility] Comment on above: Performed By: #### C VDTBH #### [facility] [address] [place] [address] Dr. Berna Mcpherson IG % 0.6 % Critically high 0.0-0.5 [facility] Comment on above: Performed By: #### C VDTBH #### [facility] [address] [place] [address] Dr. Berna Mcpherson LYMPH # 1.6 103/ul Normal 1.2-3.8 [facility] Comment on above: Performed By: #### C VDTBH #### [facility] [address] [place] [address] Dr. Berna Mcpherson Lymphocytes/100 WBC (Bld) 16.1 % Critically low 20.5-60.0 [facility] Comment on above: Performed By: #### C VDTBH #### [facility] [address] [place] [address] Dr. Berna Mcpherson MANUAL DIFF REQ NO Normal [facility] Comment on above: Performed By: #### C VDTBH #### [facility] [address] [place] [address] Dr. Berna Mcpherson MCH (RBC) [Entitic mass] 30.3 pg Normal 26.7-34.0 [facility] Comment on above: Performed By: #### C VDTBH #### [facility] [address] [place] [address] Dr. Berna Mcpherson MCHC (RBC) [Mass/Vol] 35.4 g/dL Critically high 29.9-35.2 [facility] Comment on above: Performed By: #### C VDTBH #### [facility] [address] [place] [address] Dr. Berna Mcpherson MCV (RBC) [Entitic vol] 85.7 fL Normal 81.0-99.0 [facility] Comment on above: Performed By: #### C VDTBH #### [facility] [address] [place] [address] Dr. Berna Mcpherson MONO # 0.8 103/ul Normal 0.3-0.8 [facility] Comment on above: Performed By: #### C VDTBH #### [facility] [address] [place] [address] Dr. Berna Mcpherson Monocytes/100 WBC (Bld) 7.8 % Normal 1.7-12.0 [facility] Comment on above: Performed By: #### C VDTBH #### [facility] [address] [place] [address] Dr. Berna Mcpherson NEUT # 7.3 103/ul Critically high 1.4-6.5 [facility] Comment on above: Performed By: #### C VDTBH #### [facility] [address] [place] [address] Dr. Berna Mcpherson Neutrophils/100 WBC (Bld) 74.9 % Normal 43.0-75.0 [facility] Comment on above: Performed By: #### C VDTBH #### [facility] [address] [place] [address] Dr. Berna Mcpherson Platelet mean volume (Bld) [Entitic vol] 11.0 fL Normal 9.5-13.5 [facility] Comment on above: Performed By: #### C VDTBH #### [facility] [address] [place] [address] Dr. Berna Mcpherson PLT 188 103/ul Normal 150-450 [facility] Comment on above: Performed By: #### C VDTBH #### [facility] [address] [place] [address] Dr. Berna Mcpherson RBC 4.12 106/ul Critically low 4.20-5.40 [facility] Comment on above: Performed By: #### C VDTBH #### [facility] [address] [place] [address] Dr. Berna Mcpherson WBC 9.8 103/ul Normal 4.0-11.0 [facility] Comment on above: Performed By: #### C VDTBH #### [facility] [address] [place] [address] Dr. Berna Mcpherson [facility]on 08-18 SARS-CoV-2 (COVID-19) RNA OLY+probe Ql (Unsp spec) Not detected Normal NOT DETECTED [facility] Comment on above: Result Comment: When diagnostic testing is negative, the possibility of a false negative should be considered in the context of a patient's recent exposures and the presence of clinical signs and symptoms consistent with SARS-CoV-2. This test is not yet approved or cleared by the [place] FDA. When there are no FDA-approved or cleared tests available, and other criteria are met, FDA can make tests available under an emergency access mechanism called an Emergency Use Authorization (EUA). The EUA for this test is supported by the [place] [employer] of Health and Human Service's declaration that circumstances exist to justify the emergency use of in vitro diagnostics for the detection and/or diagnosis of the virus that causes COVID-19. This EUA will remain in effect for the duration of the COVID-19 declaration justifying emergency of IVDs, unless it is terminated or revoked by the FDA (after which the test may no longer be used). Performed By: #### C VDTBH #### [facility] [address] [place] [address] Dr. Berna Mcpherson DRUG SCREEN RAPID (URINE)on 08-31-2022 AMP Negative Normal NEGATIVE [facility] Comment on above: Performed By: #### D RUGRPD #### [facility] [address] [place] [address] Dr. Berna Mcpherson BAR Negative Normal NEGATIVE [facility] Comment on above: Performed By: #### D RUGRPD #### [facility] [address] [place] [address] Dr. Berna Mcpherson BUP Negative Normal NEGATIVE [facility] Comment on above: Performed By: #### D RUGRPD #### [facility] [address] [place] [address] Dr. Berna Mcpherson BZO Negative Normal NEGATIVE [facility] Comment on above: Performed By: #### D RUGRPD #### [facility] [address] [place] [address] Dr. Berna Mcpherson PENNY Negative Normal NEGATIVE [facility] Comment on above: Performed By: #### D RUGRPD #### [facility] [address] [place] [address] Dr. Berna Mcpherson CUT-OFFS SEE BELOW Normal [facility] Comment on above: Result Comment: AMP (Amphetamine): 500ng/mL, BAR (Barbituates): 200 ng/mL, BZO (Benzodiazepines): 150 ng/mL, BUP (Buprenorphine): 10 ng/mL, PENNY (Cocaine): 150 ng/mL, mAMP (Methamphetamine): 500 ng/mL, MTD (Methadone): 200 ng/mL, OPI (Opiates): 100 ng/mL, OXY (Oxycodone): 100 ng/mL, PCP (Phencyclidine): 25 ng/mL, PPX (Propoxyphene): 300 ng/mL, THC (Cannabinoids): 50 ng/mL, TCA (Trycyclic Antidepressants): 300 ng/mL Performed By: #### D RUGRPD #### [facility] [address] [place] [address] Dr. Berna Mcpherson DRUG CUT HEADER DRUG CLASS TEST SYSTEM CUT-OFF CONCENTRATIONS ARE FOLLOWS: Normal [facility] Comment on above: Performed By: #### D RUGRPD #### [facility] [address] [place] [address] Dr. Berna Mcpherson mAMP Negative Normal NEGATIVE [facility] Comment on above: Performed By: #### D RUGRPD #### [facility] [address] [place] [address] Dr. Berna Mcpherson MTD Negative Normal NEGATIVE [facility] Comment on above: Performed By: #### D RUGRPD #### [facility] [address] [place] [address] Dr. Berna Mcpherson OPI Negative Normal NEGATIVE [facility] Comment on above: Performed By: #### D RUGRPD #### [facility] [address] [place] [address] Dr. Berna Mcpherson OXY Negative Normal NEGATIVE [facility] Comment on above: Performed By: #### D RUGRPD #### [facility] [address] [place] [address] Dr. Berna Mcpherson PCP Negative Normal NEGATIVE [facility] Comment on above: Performed By: #### D RUGRPD #### [facility] [address] [place] [address] Dr. Berna Mcpherson PPX Negative Normal NEGATIVE [facility] Comment on above: Performed By: #### D RUGRPD #### [facility] [address] [address] [address] Berna Mcpherson TCA Negative Normal NEGATIVE [facility] Comment on above: Performed By: #### D RUGRPD #### [facility] [address] [place] [address] Dr. Berna Mcpherson THC Negative Normal NEGATIVE [facility] Comment on above: Performed By: #### D RUGRPD #### [facility] [address] [place] [address] Dr. Berna Mcpherson TYPE AND SCREENon 08-31-2022 TYPE AND SCREEN Negative Normal [facility] Comment on above: Performed By: #### C VDTBH #### [facility] [address] [place] [address] Dr. Berna Mcpherson Covid-19 PCR (CVD[facility])on 08-18 SARS-CoV-2 (COVID-19) RNA OLY+probe Ql (Unsp spec) Not detected Normal NOT DETECTED [facility] Comment on above: Result Comment: When diagnostic testing is negative, the possibility of a false negative should be considered in the context of a patient's recent exposures and the presence of clinical signs and symptoms consistent with SARS-CoV-2. This test is not yet approved or cleared by the [place] FDA. When there are no FDA-approved or cleared tests available, and other criteria are met, FDA can make tests available under an emergency access mechanism called an Emergency Use Authorization (EUA). The EUA for this test is supported by the [place] of Health and Human Service's declaration that circumstances exist to justify the emergency use of in vitro diagnostics for the detection and/or diagnosis of the virus that causes COVID-19. This EUA will remain in effect for the duration of the COVID-19 declaration justifying emergency of IVDs, unless it is terminated or revoked by the FDA (after which the test may no longer be used). Performed By: #### C VDTBH #### [facility] [address] [place], [place] [address] Dr. Berna Mcpherson GROUP B STREP CULTUREon 07-21 S. agalactiae Ag Ql (Unsp spec) Culture Observations: NEGATIVE FOR GROUP B STREPTOCOCCUS. Normal [facility] Comment on above: Performed By: #### C VDTBH #### [facility] [address] [place], [place] [address] Dr. Berna Mcpherson US PREG GROWTHon 08-17-2022 US PREG GROWTH EXAMINATION: US PREG GROWTH HISTORY: Excessive growth affecting management of mother COMPARISON: Ultrasound growth 07/06/2022 FINDINGS: Heart Rate: 166.7 bpm Number: 1.0 Position: CEPHALIC Amniotic Fluid Volume: 15.0 cm Maximum Vertical Pocket: 5.7 cm BIOMETRY: BPD: 9.5 cm cm; 38 weeks 6 days; 95% HC: 34.3 cmcm; 39 weeks 4 days; 81% AC: 30.5 cm cm; 34 weeks 3 days; 5% FL: 6.5 cm cm; 33 weeks 3 days; < 3% EFW: 2591.1 grams; 12% FL/AC: 21.2 FL/BPD: 67.9 HC/AC: 1.1 GESTATIONAL AGE: Age by EDC: 37 weeks 1 days YLOANDA by EDC: 09/06/2022 Age by US: 36 weeks 4 days YOLANDA by US: 09/10/2022 IMPRESSION: 1. Single live intrauterine with growth detailed above. 2. Femur length is less than 3rd percentile and estimated weight is 12 percentile. Electronically authenticated by: HERRERA HUERTA Date: 2022-08-17 16:19 Normal The [facility] UA (CLEAN/CATCH) TOLL BRIDGE ATTENDANT/MICRO I F IND.on 08-09-2022 Bilirubin Ql (U) Negative Normal NEGATIVE [facility] Comment on above: Performed By: #### U ACSIND #### [facility] [address] [place], [place] [address] Dr. Berna Mcpherson Clarity (U) CLEAR Normal CLEAR [facility] Comment on above: Performed By: #### U ACSIND #### [facility] [address] [address] [address] Berna Mcpherson Color (U) LT. YELLOW Normal YELLOW [facility] Comment on above: Performed By: #### U ACSIND #### [facility] [address] [address] [address] Berna Mcpherson Glucose Ql (U) Negative Normal NEGATIVE [facility] Comment on above: Performed By: #### U ACSIND #### [facility] [address] [address] [address] Berna Mcpherson Hemoglobin Ql (U) Negative Normal NEGATIVE [facility] Comment on above: Performed By: #### U ACSIND #### [facility] [address] [place] [address] Dr. Berna Mcpherson Ketones Ql (U) Negative Normal NEGATIVE [facility] Comment on above: Performed By: #### U ACSIND #### [facility] [address] [place] [address] Dr. Berna Mcpherson LEUKOCYTES Negative Normal NEGATIVE [facility] Comment on above: Performed By: #### U ACSIND #### [facility] [address] [address] [address] Berna Mcpherson Nitrite Ql (U) Negative Normal NEGATIVE [facility] Comment on above: Performed By: #### U ACSIND #### [facility] [address] [place] [address] Dr. Berna Mcpherson pH (U) 6.0 [pH] Normal 5-9 [facility] Comment on above: Performed By: #### U ACSIND #### [facility] [address] [place] [address] Dr. Berna Mcpherson SPEC GRAVITY 1.025 Normal 1.005-<=1.02 5 [facility] Comment on above: Performed By: #### U ACSIND #### [facility] [address] [place] [address] Dr. Berna Mcpherson UA PROTEIN Negative Normal NEGATIVE/ TRACE [facility] Comment on above: Performed By: #### U ACSIND #### [facility] [address] [place] [address] Dr. Berna Mcpherson UR MICRO IND NOT INDICATED Normal [facility] Comment on above: Performed By: #### U ACSIND #### [facility] [address] [place] [address] Dr. Berna Mcpherson Urobilinogen Qn (U) 0.2 {[place]'U}/dL Normal 0.2 - 1. 0 [facility] Comment on above: Performed By: #### U ACSIND #### [facility] [address] [place] [address] Dr. Berna Mcpherson UA (CLEAN/CATCH) TOLL BRIDGE ATTENDANT/MICRO I F IND.on 08-08-2022 Bilirubin Ql (U) Negative Normal NEGATIVE [facility] Comment on above: Performed By: #### U ACSIND, UMICRO #### [facility] [address] [place] [address] Dr. Berna Mcpherson Clarity (U) CLEAR Normal CLEAR [facility] Comment on above: Performed By: #### U ACSIND, UMICRO #### [facility] [address] [place] [address] Dr. Berna Mcpherson Color (U) LT. YELLOW Normal YELLOW [facility] Comment on above: Performed By: #### U ACSIND, ICRO #### [facility] [address] [place] [address] Dr. Berna Mcpherson Glucose Ql (U) Negative Normal NEGATIVE [facility] Comment on above: Performed By: #### U ACSIND, UMICRO #### [facility] [address] [place] [address] Dr. Berna Mcpherson Hemoglobin Ql (U) Negative Normal NEGATIVE [facility] Comment on above: Performed By: #### U ACSIND, UMICRO #### [facility] [address] [place] [address] Dr. Berna Mcpherson Ketones Ql (U) Negative Normal NEGATIVE [facility] Comment on above: Performed By: #### U ACSIND, UMICRO #### [facility] [address] [place] [address] Dr. eBrna Mcpherson LEUKOCYTES TRACE Abnormal NEGATIVE [facility] Comment on above: Performed By: #### U ACSIND, UMICRO #### [facility] [address] [place] [address] Dr. Berna Mcpherson Nitrite Ql (U) Negative Normal NEGATIVE [facility] Comment on above: Performed By: #### U ACSNICKI, UMICRO #### [facility] [address] [place] [address] Dr. Berna Mcpherson pH (U) 6.0 [pH] Normal 5-9 [facility] Comment on above: Performed By: #### U ACSNICKI, UMICRO #### [facility] [address] [place] [address] Dr. Berna Mcpherson SPEC GRAVITY 1.010 Normal 1.005-<=1.02 5 [facility] Comment on above: Performed By: #### U ACSNICKI, UMICRO #### [facility] [address] [place] [address] Dr. Berna Mcpherson UA PROTEIN Negative Normal NEGATIVE/ TRACE [facility] Comment on above: Performed By: #### U ACSNICKI, UMICRO #### [facility] [address] [place] [address] Dr. Berna Mcpherson UR MICRO IND INDICATED Normal [facility] Comment on above: Performed By: #### U ACSNICKI, UMICRO #### [facility] [address] [place] [address] Dr. Berna Mcpherson Urobilinogen Qn (U) 0.2 {[place]'U}/dL Normal 0.2 - 1. 0 [facility] Comment on above: Performed By: #### U ACSNICKI, UMICRO #### [facility] [address] [place] [address] Dr. Berna Mcpherson URINE MICROSCOPIC ONLYon BACTERIA TRACE Abnormal NONE SEEN [facility] Comment on above: Performed By: #### U ACSNICKI, UMICRO #### [facility] [address] [place] [address] Dr. Berna Mcpherson Bacteria identified Cx Nom (U) NOT INDICATED Normal [facility] Comment on above: Performed By: #### U ACSNICKI, UMICRO #### [facility] [address] [place] [address] Dr. Berna Mcpherson CAST NONE SEEN Normal NONE SEEN [facility] Comment on above: Performed By: #### U ACSIND, UMICRO #### [facility] [address] [place] [address] Dr. Berna Mcpherson Crystals LM Nom (Urine sed) NONE SEEN Normal NONE SEEN [facility] Comment on above: Performed By: #### U ACSIND, UMICRO #### [facility] [address] [place] [address] Dr. Berna Mcpherson Epithelial cells LM Ql (Urine sed) MODERATE Abnormal NONE SEEN /RARE [facility] Comment on above: Performed By: #### U ACSIND, UMICRO #### [facility] [address] [place] [address] Dr. Berna Mcpherson MUCOUS NONE SEEN Normal NONE SEEN [facility] Comment on above: Performed By: #### U ACSIND, UMICRO #### [facility] [address] [place] [address] Dr. Berna Mcpherson RBC NONE SEEN Abnormal 0-2 [facility] Comment on above: Performed By: #### U ACSIND, UMICRO #### [facility] [address] [place] [address] Dr. Berna Mcpherson WBC 0-2 Abnormal NONE SEEN [facility] Comment on above: Performed By: #### U ACSIND, UMICRO #### [facility] [address] [place] [address] Dr. Berna Mcpherson CULTURE URINEon 08-02-2022 CULTURE URINE Culture Observations : NO GROWTH. Normal [facility] Comment on above: Performed By: #### C VDTBH #### [facility] [address] [place] [address] Dr. Berna Mcpherson UA (CLEAN/CATCH) TOLL BRIDGE ATTENDANT/MICRO I F IND.on 08-02-2022 Bilirubin Ql (U) Negative Normal NEGATIVE [facility] Comment on above: Performed By: #### U MICRO, UACSIND #### [facility] [address] [place] [address] Dr. Berna Mcpherson Clarity (U) CLEAR Normal CLEAR [facility] Comment on above: Performed By: #### U MICRO, UACSIND #### [facility] [address] [address] [address] Berna Mcpherson Color (U) LT. YELLOW Normal YELLOW [facility] Comment on above: Performed By: #### U MICRO, UACSIND #### [facility] [address] [address] [address] Berna Mcpherson Glucose Ql (U) Negative Normal NEGATIVE [facility] Comment on above: Performed By: #### U MICRO, UACSIND #### [facility] [address] [address] [address] Berna Mcpherson Hemoglobin Ql (U) Negative Normal NEGATIVE [facility] Comment on above: Performed By: #### U MICRO, UACSIND #### [facility] [address] [place] [address] Dr. Berna Mcpherson Ketones Ql (U) Negative Normal NEGATIVE [facility] Comment on above: Performed By: #### U MICRO, UACSIND #### [facility] [address] [place] [address] Dr. Berna Mcpherson LEUKOCYTES SMALL Abnormal NEGATIVE [facility] Comment on above: Performed By: #### U MICRO, UACSIND #### [facility] [address] [place] [address] Dr. Berna Mcpherson Nitrite Ql (U) Negative Normal NEGATIVE [facility] Comment on above: Performed By: #### U MICRO, UACSIND #### [facility] [address] [place] [address] Dr. Berna Mcpherson pH (U) 7.5 [pH] Normal 5-9 [facility] Comment on above: Performed By: #### U MICRO, UACSIND #### [facility] [address] [place] [address] Dr. Berna Mcpherson SPEC GRAVITY 1.015 Normal 1.005-<=1.02 5 [facility] Comment on above: Performed By: #### U MICRO, UACSIND #### [facility] [address] [place], [place] [id number] Dr. Berna Mcpherson UA PROTEIN Negative Normal NEGATIVE/ TRACE [facility] Comment on above: Performed By: #### U MICRO, UACSIND #### [facility] [address] [place] [address] Dr. Berna Mcpherson UR MICRO IND INDICATED Normal [facility] Comment on above: Performed By: #### U MICRO, UACSIND #### [facility] [address] [place] [address] Dr. Berna Mcpherson Urobilinogen Qn (U) 0.2 {[place]'U}/dL Normal 0.2 - 1. 0 [facility] Comment on above: Performed By: #### U MICRO, UACSIND #### [facility] [address] [place] [address] Dr. Berna Mcpherson URINE MICROSCOPIC ONLYon BACTERIA NONE SEEN Normal NONE SEEN [facility] Comment on above: Performed By: #### U MICRO, UACSIND #### [facility] [address] [place] [address] Dr. Berna Mcpherson Bacteria identified Cx Nom (U) INDICATED Normal [facility] Comment on above: Performed By: #### U MICRO, UACSIND #### [facility] [address] [place] [address] Dr. Berna Mcpherson CAST NONE SEEN Normal NONE SEEN [facility] Comment on above: Performed By: #### U MICRO, UACSIND #### [facility] [address] [place] [address] Dr. Berna Mcpherson Crystals LM Nom (Urine sed) NONE SEEN Normal NONE SEEN [facility] Comment on above: Performed By: #### U MICRO, UACSIND #### [facility] [address] [place] [address] Dr. Berna Mcpherson Epithelial cells LM Ql (Urine sed) NONE SEEN Normal NONE SEEN /RARE [facility] Comment on above: Performed By: #### U MICRO, UACSIND #### [facility] [address] [place] [address] Dr. Berna Mcpherson MUCOUS NONE SEEN Normal NONE SEEN [facility] Comment on above: Performed By: #### U MICRO, UACSIND #### [facility] [address], [place] [address] Dr. Berna Mcpherson RBC 0-2 Normal 0-2 [facility] Comment on above: Performed By: #### U MICRO, UACSIND #### [facility] [address], [place] [address] Dr. Berna Mcpherson WBC 0-2 Abnormal NONE SEEN [facility] Comment on above: Performed By: #### U MICRO, UACSIND #### [facility] [address] [address] [address] Berna Mcpherson CHEMISTRYOrdered By: Lab ROP User on 07-15-2022 Glucose [Mass/Vol] 93 mg/dL Normal 55 - 99 mg/dL [facility] POC Subsection Comment on above: Result Comment: Cara crawford RN/ POC Device SN [id number] Invalid Interpretation Code [facility] POC Subsection POC User ID [id number] Invalid Interpretation Code [facility] POC Subsection POC Username SANTOSH FARAH Invalid Interpretation Code [facility] P[facility] Subsection URINALYSISOrdered By: Sharon Salazar on 07-15-2022 Bilirubin Ql (U) Negative (07/15/22 9:00 AM) Normal Negative [facility] UA Auto SS Clarity (U) Clear (07/15/22 9:00 AM) Normal Clear [facility] UA Auto SS Color (U) Yellow (07/15/22 9:00 AM) Normal Yellow [facility] UA Auto SS Epithelial cells.squamous LM.HPF (Urine sed) [#/Area] 3-4 /HPF Normal 0-2/HPF [facility] UA Aut o SS Glucose Test strip (U) [Mass/Vol] Negative (07/15/22 9:00 AM) Normal Negative [facility] UA Auto SS Hemoglobin Ql (U) Negative (07/15/22 9:00 AM) Normal Negative [facility] UA Auto SS Ketones (U) [Mass/Vol] Negative (07/15/22 9:00 AM) Normal Negative [facility] UA Auto SS [place].plasma/[place]. RBC (Bld) [Mass ratio] 0-3 /HPF Normal 0-3/HPF [facility] A uto SS Nitrite Ql (U) Negative (07/15/22 9:00 AM) Normal Negative [facility] UA Auto SS pH (U) 7.5 *NA* (07/15/22 9:00 AM) Invalid Interpretation Code 5.0 - 9.0 [facility] UA Auto SS Protein (U) [Mass/Vol] Negative (07/15/22 9:00 AM) Normal Negative [facility] UA Auto SS Specific gravity (U) [Rel density] 1.020 *NA* (07/15/22 9:00 AM) Invalid Interpretation Code 1.005 - 1.030 [facility] UA Auto SS UA Spec Desc Random Urine (07/15/22 9:00 AM) Normal [facility]A Auto SS Urobilinogen Qn (U) [id number] {[place]'U}/dL Normal 0.0 - 1.0 EU/dL [facility] UA Auto SS WBC Auto Ql (U) Negative (07/15/22 9:00 AM) Normal Negative [facility] UA Auto SS WBC LM.HPF (Urine sed) [#/Area] 0-5 /HPF Normal 0-5/HPF [facility] UA Auto SS US PREG GROWTHon 07-06-2022 US PREG GROWTH EXAMINATION: US PREG GROWTH HISTORY: Uterine size for dates discrepancy COMPARISON: No relevant comparison available. FINDINGS: Heart Rate: 141.4 bpm Number: 1.0 Position: CEPHALIC Amniotic Fluid Volume: 16.6 cm Maximum Vertical Pocket: 7.5 cm BIOMETRY: BPD: 8.2 cm cm; 33 weeks 0 days; 89% HC: 30.1 cmcm; 33 weeks 2 days; 75% AC: 26.3 cm cm; 30 weeks 3 days; 27% FL: 5.6 cm cm; 29 weeks 4 days; 6% EFW: 1608.3 grams; 22% FL/AC: 21.3 FL/BPD: 68.3 HC/AC: 1.1 GESTATIONAL AGE: Age by EDC: 31 weeks 1 days YOLANDA by EDC: 09/06/2022 Age by US: 31 weeks 4 days YOLANDA by US: 09/03/2022 IMPRESSION: 1. Single live intrauterine with growth detailed above. 2. Femur length is at 6th percentile. Estimated weight is 22nd percentile. Electronically authenticated by: HERRERA HUERTA Date: 2022-07-06 20:11 Normal [facility] Hematocrit Auto (Bld) [Volum e fraction]Ordered By: TRU BRAMBILA on 06-17-2022 Hematocrit (Bld) [Volume fraction] 36.7 % 34.0-46.4 [facility] Hemoglobin [Mass/volume] in BloodOrdered By: TRU BRAMBILA on 06-17-2022 Hemoglobin (Bld) [Mass/Vol] 12.6 g/dL 11.8-15.4 [facility] No Panel InformationOrdered By: TRU BRAMBILA on 06-17-2022 Glucose 1 Hour Postprandial (Timed) 114 mg/dL 60-140 [facility] Urine culture routineOrdered By: Victor Manuel Spear on 05-05-2022 Bacteria identified Cx Nom (U) No Growth 2 Days [facility] Amphetamine Screen Ql (U)Ord ered By: Victor Manuel Spear on 05-03-2022 Amphetamines Ql (U) Negative Negative [facility] Automated erythrocytes count in urine sediment (number/area)Ordered By: Victor Manuel Spear on 05-03-2022 RBC Auto (Urine sed) [#/Area] 0-1 [HPF] 0-4 [facility] Automated leukocytes count i n urine sediment (number/area)Ordered By: Victor Manuel Spear on 05-03-2022 WBC Auto (Urine sed) [#/Area] 5-9 [HPF] 0-4 [facility] Barbiturates [Presence] in U rineOrdered By: Victor Manuel Spear on 05-03-2022 Barbiturates Ql (U) Negative Negative [facility] Benzodiazepines [Presence] i n UrineOrdered By: Victor Manuel Spear on 05-03-2022 Benzodiazepines Ql (U) Negative Negative [facility] Bilirubin Test strip Ql (U)O rdered By: Victor Manuel Spear on 05-03-2022 Bilirubin Ql (U) Negative Negative [facility] Color Auto (U)Ordered By: Janeth Spear on 05-03-2022 Color (U) Dark yellow Yellow [facility] Ketones Auto test strip (U) [Mass/Vol]Ordered By: Victor Manuel Spear on 05-03-2022 Ketones (U) [Mass/Vol] 1+ Negative [facility] - Drug toxicology Ordered By: Victor Manuel Spear on 08-16-2022 Opiates Ql (U) Negative Negative [facility] - UrinalysisOrder ed By: Victor Manuel Spear on 05-03-2022 Hyaline casts LM Ql (Urine sed) 0-8 [LPF] 0-8 [facility] Nitrite Test strip Ql (U)Ord ered By: Victor Manuel Spear on 05-03-2022 Nitrite Ql (U) Negative Negative [facility] No Panel InformationOrdered By: Victor Manuel Spear on 05-03-2022 Membranes Rupture (PAMG-1) Negative Negative [facility] Phencyclidine Screen Ql (U)O rdered By: Victor Manuel Spear on 05-03-2022 Phencyclidine Ql (U) Negative Negative [facility] Comment on above: These are unconfirme d results and should not be used for legal purposes. Drug Cut-Off Concentration: AMPH 1000 ng/mL GOLDIE 200 ng/mL ANA LUISA 200 ng/mL COCM 300 ng/mL OP 300 ng/mL PCP 25 ng/mL Protein Auto test strip (U) [Mass/Vol]Ordered By: Victor Manuel Spear on 05-03-2022 Protein (U) [Mass/Vol] Negative Negative [facility] Specific gravity Auto test s trip (U) [Rel density]Ordered By: Victor Manuel Spear on 05-03-2022 Specific gravity (U) [Rel density] 1.014 1.001-1.030 [facility] Squamous epithelial cells de tection in urine sediment by light microscopyOrdered By: Victor Manuel Spear on 05-03-2022 Epithelial cells.squamous LM Ql (Urine sed) 5-9 [HPF] 0-2 [facility] Urine bacteria detection by automated methodOrdered By: Victor Manuel Spear on 05-03-2022 Bacteria Auto Ql (U) None seen None Seen [facility] Urine clarity by refractomet ry automatedOrdered By: Victor Manuel Spear on 05-03-2022 Clarity Refractometry automated (U) Cloudy Clear [facility] Urine cocaine detectionOrder ed By: Victor Manuel Spear on 05-03-2022 Cocaine Ql (U) Negative Negative [facility] Urine glucose measurement by automated test strip (mass/volume)Ordered By: Victor Manuel Spear on 05-03-2022 Glucose Auto test strip (U) [Mass/Vol] Normal mg/dL Normal [facility] Urine hemoglobin detection b y automated test stripOrdered By: Victor Manuel Spear on 05-03-2022 Hemoglobin Auto test strip Ql (U) Negative Negative [facility] Urine leukocyte esterase det ection by automated test stripOrdered By: Victor Manuel Spear on 05-03-2022 Leukocyte esterase Auto test strip Ql (U) 1+ Negative [facility] Urobilinogen Auto test strip (U) [Mass/Vol]Ordered By: Victor Manuel Spear on 05-03-2022 Urobilinogen (U) [Mass/Vol] mg/dL Normal [facility] pH Auto test strip (U)Ordere d By: Victor Manuel Spear on 05-03-2022 pH (U) 8.0 [pH] 5.0-9.0 [facility] Amphetamine Screen Ql (U)Ord ered By: BILLIE MONTANA on 04-30-2022 Amphetamines Ql (U) Negative Negative [facility] Automated erythrocytes count in urine sediment (number/area)Ordered By: BILLIE MONTANA on 04-30-2022 RBC Auto (Urine sed) [#/Area] 0-1 [HPF] 0-4 [facility] Automated leukocytes count i n urine sediment (number/area)Ordered By: BILLIE MONTANA on 04-30-2022 WBC Auto (Urine sed) [#/Area] 3-4 [HPF] 0-4 [facility] Barbiturates [Presence] in U rineOrdered By: BILLIE MONTANA on 04-30-2022 Barbiturates Ql (U) Negative Negative [facility] Benzodiazepines [Presence] i n UrineOrdered By: BILLIE MONTANA on 04-30-2022 Benzodiazepines Ql (U) Negative Negative [facility] Bilirubin Test strip Ql (U)O rdered By: BILLIE MONTANA on 04-30-2022 Bilirubin Ql (U) Negative Negative [facility] Color Auto (U)Ordered By: VICTOR M MONTANA on 04-30-2022 Color (U) Yellow Yellow [facility] Ketones Auto test strip (U) [Mass/Vol]Ordered By: BILLIE MONTANA on 04-30-2022 Ketones (U) [Mass/Vol] Negative Negative [facility] - Drug toxicology Ordered By: BILLIE MONTANA on 04-30-2022 Opiates Ql (U) Negative Negative [facility] - UrinalysisOrder ed By: BILLIE MONTANA on 04-30-2022 Hyaline casts LM Ql (Urine sed) 0-8 [LPF] 0-8 [facility] Nitrite Test strip Ql (U)Ord ered By: BILLIE MONTANA on 04-30-2022 Nitrite Ql (U) Negative Negative [facility] Phencyclidine Screen Ql (U)O rdered By: BILLIE MONTANA on 04-30-2022 Phencyclidine Ql (U) Negative Negative [facility] Comment on above: These are unconfirme d results and should not be used for legal purposes. Drug Cut-Off Concentration: AMPH 1000 ng/mL GOLDIE 200 ng/mL ANA LUISA 200 ng/mL COCM 300 ng/mL OP 300 ng/mL PCP 25 ng/mL Protein Auto test strip (U) [Mass/Vol]Ordered By: BILLIE MONTANA on 04-30-2022 Protein (U) [Mass/Vol] Negative Negative [facility] Specific gravity Auto test s trip (U) [Rel density]Ordered By: IBLLIE MONTANA on 04-30-2022 Specific gravity (U) [Rel density] 1.007 1.001-1.030 [facility] Squamous epithelial cells de tection in urine sediment by light microscopyOrdered By: BILLIE MONTANA on 04-30-2022 Epithelial cells.squamous LM Ql (Urine sed) 5-9 [HPF] 0-2 [facility] Urine bacteria detection by automated methodOrdered By: BILLIE MONTANA on 04-30-2022 Bacteria Auto Ql (U) None seen None Seen [facility] Urine clarity by refractomet ry automatedOrdered By: BILLIE MONTANA on 04-30-2022 Clarity Refractometry automated (U) Clear Clear [facility] Urine cocaine detectionOrder ed By: BILLIE MONTANA on 04-30-2022 Cocaine Ql (U) Negative Negative [facility] Urine glucose measurement by automated test strip (mass/volume)Ordered By: BILLIE MONTANA on 04-30-2022 Glucose Auto test strip (U) [Mass/Vol] Normal mg/dL Normal [facility] Urine hemoglobin detection b y automated test stripOrdered By: BILLIE MONTANA on 04-30-2022 Hemoglobin Auto test strip Ql (U) Negative Negative [facility] Urine leukocyte esterase det ection by automated test stripOrdered By: BILLIE MONTANA on 04-30-2022 Leukocyte esterase Auto test strip Ql (U) 1+ Negative [facility] Urobilinogen Auto test strip (U) [Mass/Vol]Ordered By: BILLIE MONTANA on 04-30-2022 Urobilinogen (U) [Mass/Vol] Normal mg/dL Normal [facility] pH Auto test strip (U)Ordere d By: BILLIE MONTANA on 04-30-2022 pH (U) 7.5 [pH] 5.0-9.0 [facility] Amphetamine Screen Ql (U)Ord ered By: DALI Matos on 04-29-2022 Amphetamines Ql (U) Negative Negative [facility] Automated erythrocytes count in urine sediment (number/area)Ordered By: DALI Matos on 04-29-2022 RBC Auto (Urine sed) [#/Area] 0-1 [HPF] 0-4 [facility] Automated leukocytes count i n urine sediment (number/area)Ordered By: DALI Matos on 04-29-2022 WBC Auto (Urine sed) [#/Area] 3-4 [HPF] 0-4 [facility] Barbiturates [Presence] in U rineOrdered By: DALI Matos on 04-29-2022 Barbiturates Ql (U) Negative Negative [facility] Benzodiazepines [Presence] i n UrineOrdered By: DALI Matos on 04-29-2022 Benzodiazepines Ql (U) Negative Negative [facility] Bilirubin Test strip Ql (U)O rdered By: DALI Matos on 04-29-2022 Bilirubin Ql (U) Negative Negative [facility] Color Auto (U)Ordered By: MD DENNIS Matos on 04-29-2022 Color (U) Yellow Yellow [facility] Ketones Auto test strip (U) [Mass/Vol]Ordered By: DALI Matos on 04-29-2022 Ketones (U) [Mass/Vol] Negative Negative [facility] - Drug toxicology Ordered By: DALI Matos on 04-29-2022 Opiates Ql (U) Negative Negative [facility] - UrinalysisOrder ed By: DALI Matos on 04-29-2022 Hyaline casts LM Ql (Urine sed) 0-8 [LPF] 0-8 [facility] Nitrite Test strip Ql (U)Ord ered By: DALI Matos on 04-29-2022 Nitrite Ql (U) Negative Negative [facility] Phencyclidine Screen Ql (U)O rdered By: DALI Matos on 04-29-2022 Phencyclidine Ql (U) Negative Negative [facility] Comment on above: These are unconfirme d results and should not be used for legal purposes. Drug Cut-Off Concentration: AMPH 1000 ng/mL GOLDIE 200 ng/mL ANA LUISA 200 ng/mL COCM 300 ng/mL OP 300 ng/mL PCP 25 ng/mL Protein Auto test strip (U) [Mass/Vol]Ordered By: DALI Matos on 04-29-2022 Protein (U) [Mass/Vol] Negative Negative [facility] Specific gravity Auto test s trip (U) [Rel density]Ordered By: DALI Matos on 04-29-2022 Specific gravity (U) [Rel density] 1.008 1.001-1.030 [facility] Squamous epithelial cells de tection in urine sediment by light microscopyOrdered By: DALI Matos on 04-29-2022 Epithelial cells.squamous LM Ql (Urine sed) 3-4 [HPF] 0-2 [facility] Urine bacteria detection by automated methodOrdered By: DALI Matos on 04-29-2022 Bacteria Auto Ql (U) None seen None Seen [facility] Urine clarity by refractomet ry automatedOrdered By: DALI Matos on 04-29-2022 Clarity Refractometry automated (U) Clear Clear [facility] Urine cocaine detectionOrder ed By: DALI Matos on 04-29-2022 Cocaine Ql (U) Negative Negative [facility] Urine glucose measurement by automated test strip (mass/volume)Ordered By: JINNY Matos on 04-29-2022 Glucose Auto test strip (U) [Mass/Vol] Normal mg/dL Normal [facility] Urine hemoglobin detection b y automated test stripOrdered By: DALI Matos on 04-29-2022 Hemoglobin Auto test strip Ql (U) Negative Negative [facility] Urine leukocyte esterase det ection by automated test stripOrdered By: DALI Matos on 04-29-2022 Leukocyte esterase Auto test strip Ql (U) 1+ Negative [facility] Urobilinogen Auto test strip (U) [Mass/Vol]Ordered By: DALI Matos on 04-29-2022 Urobilinogen (U) [Mass/Vol] Normal mg/dL Normal [facility] pH Auto test strip (U)Ordere d By: DALI Matos on 04-29-2022 pH (U) 8.0 [pH] 5.0-9.0 [facility] Vital Signs Date Time Vital Sign Value Performing Clinician Facility 09-20-2023 15:00-0500 Diastolic blood pressure 64 mm[Hg] Lucho Cannon [facility] 09-20-2023 15:00-0500 Heart rate 89 /min [facility]uch[facility] 09-20-2023 15:00-0500 Mean blood pressure 78 mm[Hg] Lucho Cannon [facility] 09-20-2023 15:00-0500 Respiratory rate 16 /min [facility]uch[facility] 09-20-2023 15:00-0500 Systolic blood pressure 106 mm[Hg] Lucho Cannon [facility] 09-20-2023 14:00-0500 Hourly Rounding Lucho Cannon [facility] 09-20-2023 14:00-0500 Promise to Return Lucho Davis [facility] 09-20-2023 13:00-0500 Hourly Rounding Lucho Davis [facility] 09-20-2023 13:00-0500 Promise to Return Lucho Davis [facility] 09-20-2023 12:00-0500 Hourly Rounding Lucho Davis [facility] 09-20-2023 12:00-0500 Promise to Return Lucho Davis [facility] 09-20-2023 11:03-0500 Body temperature 97.34 [degF] Lucho Davis [facility] 09-20-2023 11:03-0500 Diastolic blood pressure 60 mm[Hg] Lucho Davis [facility] 09-20-2023 11:03-0500 Heart rate 123 /min Lucho Davis [facility] 09-20-2023 11:03-0500 Respiratory rate 18 /min Lucho Davis [facility] 09-20-2023 11:03-0500 SaO2% (BldA) [Mass fraction] 100 % Lucho Davis [facility] 09-20-2023 11:03-0500 Systolic blood pressure 94 mm[Hg] Lucho Davis [facility] 09-20-2023 09:22-0500 Body height 162.56 cm Services [facility] Work Phone: [facility] 09-20-2023 09:22-0500 Body temperature 97.5 [degF] Services [employer] Work Phone: [facility] 09-20-2023 09:22-0500 Body weight 52.61 kg Services [employer] Work Phone: [facility] 09-20-2023 09:22-0500 Diastolic blood pressure 60 mm[Hg] Services [employer] Work Phone: [facility] 09-20-2023 09:22-0500 Heart rate 123 /min Services [employer] Work Phone: [facility] 09-20-2023 09:22-0500 Respiratory rate 18 /min Services [facility] Work Phone: [facility] 09-20-2023 09:22-0500 SaO2% (BldA) [Mass fraction] 98 % Services [facility] Work Phone: [facility] 09-20-2023 09:22-0500 Systolic blood pressure 112 mm[Hg] Services [facility] [employer] Work Phone: [facility] 09-17-2023 14:57-0500 SaO2% (BldA) [Mass fraction] 97 % Lucho Davis [facility] 09-17-2023 14:30-0500 Diastolic blood pressure 67 mm[Hg] Lucho Cannon [facility] 09-17-2023 14:30-0500 Heart rate 73 /min Lucho Davis [facility] 09-17-2023 14:30-0500 Mean blood pressure 80 mm[Hg] Lucho Cannon [facility] 09-17-2023 14:30-0500 Respiratory rate 16 /min Lucho Cannon [facility] 09-17-2023 14:30-0500 SaO2% (BldA) [Mass fraction] 98 % [facility]ucho [facility] 09-17-2023 14:30-0500 Systolic blood pressure 106 mm[Hg] Lucho Davis [facility] 09-17-2023 14:00-0500 Diastolic blood pressure 64 mm[Hg] Lucho Davis [facility] 09-17-2023 14:00-0500 Heart rate 82 /min Lucho Davis [facility] 09-17-2023 14:00-0500 Mean blood pressure 77 mm[Hg] Lucho Davis [facility] 09-17-2023 14:00-0500 Respiratory rate 15 /min Lucho Davis [facility] 09-17-2023 14:00-0500 SaO2% (BldA) [Mass fraction] 99 % Lucho Davis [facility] 09-17-2023 14:00-0500 Systolic blood pressure 104 mm[Hg] Lucho Davis [facility] 09-17-2023 13:30-0500 Diastolic blood pressure 66 mm[Hg] Lucoh Davis [facility] 09-17-2023 13:30-0500 Heart rate 65 /min Lucho Davis [facility] 09-17-2023 13:30-0500 Mean blood pressure 79 mm[Hg] Lucho Davis [facility] 09-17-2023 13:30-0500 Respiratory rate 18 /min Lucho Davis [facility] 09-17-2023 13:30-0500 Systolic blood pressure 105 mm[Hg] Lucho Davis [facility] 09-17-2023 13:00-0500 gluc 86 mg/dL Lucho Davis [facility] 09-17-2023 13:00-0500 gluc Lucho Davis [facility] 09-17-2023 13:00-0500 Heart rate 71 /min Lucho Davis [facility] 09-17-2023 12:43-0500 Body temperature 98.78 [degF] Lucho Davis [facility] 09-17-2023 12:43-0500 Heart rate 73 /min Lucho Davis [facility] 09-15-2023 16:48-0500 Diastolic blood pressure 61 mm[Hg] Lucho Davis [facility] 09-15-2023 16:48-0500 Heart rate 96 /min Lucho Davis [facility] 09-15-2023 16:48-0500 Mean blood pressure 76 mm[Hg] Lucho Davis [facility] 09-15-2023 16:48-0500 Respiratory rate 16 /min Lucho Davis [facility] 09-15-2023 16:48-0500 SaO2% (BldA) [Mass fraction] 98 % Lucho Davis [facility] 09-15-2023 16:48-0500 Systolic blood pressure 107 mm[Hg] Lucho Davis [facility] 09-15-2023 15:48-0500 Diastolic blood pressure 65 mm[Hg] Lucho Davis [facility] 09-15-2023 15:48-0500 Heart rate 84 /min Lucho Davis [facility] 09-15-2023 15:48-0500 Mean blood pressure 76 mm[Hg] Lucho Davis [facility] 09-15-2023 15:48-0500 Respiratory rate 18 /min Lucho Cannon [facility] 09-15-2023 15:48-0500 SaO2% (BldA) [Mass fraction] 99 % Lucho Cannon [facility] 09-15-2023 15:48-0500 Systolic blood pressure 98 mm[Hg] Luchoeve Cannon [facility] 09-15-2023 14:25-0500 Body temperature 98.06 [degF] Lucho Cannon [facility] 09-15-2023 14:25-0500 Diastolic blood pressure 73 mm[Hg] Lucho Cannon [facility] 09-15-2023 14:25-0500 Heart rate 120 /min Luchoeve Cannon [facility] 09-15-2023 14:25-0500 Respiratory rate 18 /min Lucho Cannon [facility] 09-15-2023 14:25-0500 SaO2% (BldA) [Mass fraction] 98 % Lucho Cannon [facility] 09-15-2023 14:25-0500 Systolic blood pressure 100 mm[Hg] Lucho Cannon [facility] 09-14-2023 19:48-0500 Heart rate 74 /min Services [facility] [employer] Work Phone: [facility] 09-14-2023 19:21-0500 Body height 162.56 cm Services [employer] Work Phone: [facility] 09-14-2023 19:21-0500 Body temperature 99.4 [degF] Services [facility] [employer] Work Phone: [facility] 09-14-2023 19:21-0500 Body weight 53.4 kg [facility] Work Phone: [facility] 09-14-2023 19:21-0500 Diastolic blood pressure 68 mm[Hg] Services [facility] Work Phone: [facility] 09-14-2023 19:21-0500 Respiratory rate 18 /min Services [facility] [employer] Work Phone: [facility] 09-14-2023 19:21-0500 SaO2% (BldA) [Mass fraction] 97 % Services [facility] [employer] Work Phone: [facility] 09-14-2023 19:21-0500 Systolic blood pressure 110 mm[Hg] Services [facility] [employer] Work Phone: [facility] 09-13-2023 12:15-0500 Body temperature 98.78 [degF] Kaylinn Dokken [facility] 09-13-2023 12:15-0500 Diastolic blood pressure 75 mm[Hg] Kaylinn Dokken [facility] 09-13-2023 12:15-0500 Heart rate 117 /min Kaylinn Dokken [facility] 09-13-2023 12:15-0500 Respiratory rate 20 /min Kaylinn Dokken [facility] 09-13-2023 12:15-0500 SaO2% (BldA) [Mass fraction] 100 % Kaylinn Dokken [facility] 09-13-2023 12:15-0500 Systolic blood pressure 106 mm[Hg] Kaylinn Dokken [facility] 08-07-2023 17:41-0500 Diastolic blood pressure 61 mm[Hg] Services [facility] [employer] Work Phone: [facility] 08-07-2023 17:41-0500 Heart rate 63 /min [facility] Work Phone: [facility] 08-07-2023 17:41-0500 Respiratory rate 20 /min [facility] Work Phone: [facility] 08-07-2023 17:41-0500 SaO2% (BldA) [Mass fraction] 100 % Services [facility] [employer] Work Phone: [facility] 08-07-2023 17:41-0500 Systolic blood pressure 107 mm[Hg] [facility] Work Phone: [facility] 08-07-2023 14:51-0500 Body height 162.56 cm Services [employer] Work Phone: [facility] 08-07-2023 14:51-0500 Body temperature 98.8 [degF] Services [employer] Work Phone: [facility] 08-07-2023 14:51-0500 Body weight 54.8 kg Services [employer] Work Phone: [facility] 08-07-2023 07:10-0500 Body temperature 98.24 [degF] Ravi Morgane [facility] 08-07-2023 07:10-0500 Diastolic blood pressure 68 mm[Hg] Ravi Morgane [facility] 08-07-2023 07:10-0500 Heart rate 106 /min Ravi Morgane [facility] 08-07-2023 07:10-0500 Respiratory rate 16 /min Ravi Morgane [facility] 08-07-2023 07:10-0500 SaO2% (BldA) [Mass fraction] 98 % Ravi Morgane [facility] 08-07-2023 07:10-0500 Systolic blood pressure 112 mm[Hg] Ravi Morgane [facility] 08-05-2023 10:00-0500 Diastolic blood pressure 67 mm[Hg] Ravi Andrae [facility] 08-05-2023 10:00-0500 Heart rate 89 /min Ravi Andrae [facility] 08-05-2023 10:00-0500 Mean blood pressure 80 mm[Hg] Ravi Andrae [facility] 08-05-2023 10:00-0500 Respiratory rate 18 /min Ravi Andrae [facility] 08-05-2023 10:00-0500 SaO2% (BldA) [Mass fraction] 100 % Ravi Andrae [facility] 08-05-2023 10:00-0500 Systolic blood pressure 107 mm[Hg] Ravi Andrae [facility] 08-05-2023 09:00-0500 Diastolic blood pressure 59 mm[Hg] Ravi Andrae [facility] 08-05-2023 09:00-0500 Heart rate 81 /min Ravi Andrae [facility] 08-05-2023 09:00-0500 Mean blood pressure 74 mm[Hg] Ravi Andrae [facility] 08-05-2023 09:00-0500 Systolic blood pressure 105 mm[Hg] Ravi Andrae [facility] 08-05-2023 07:57-0500 Body temperature 97.7 [degF] Ravi Andrae [facility] 08-05-2023 07:57-0500 Diastolic blood pressure 93 mm[Hg] Ravi Andrae [facility] 08-05-2023 07:57-0500 Heart rate 87 /min Ravi Andrae [facility] 08-05-2023 07:57-0500 Respiratory rate 19 /min Ravi Abebe [facility] 08-05-2023 07:57-0500 SaO2% (BldA) [Mass fraction] 99 % Ravi Abebe [facility] 08-05-2023 07:57-0500 Systolic blood pressure 120 mm[Hg] Ravi Abebe [facility] 07-28-2023 11:17-0500 Body temperature 98.06 [degF] [facility] 07-28-2023 11:17-0500 Diastolic blood pressure 64 mm[Hg] [facility] 07-28-2023 11:17-0500 Heart rate 110 /min [facility] 07-28-2023 11:17-0500 Respiratory rate 18 /min [facility] 07-28-2023 11:17-0500 SaO2% (BldA) [Mass fraction] 100 % [facility] 07-28-2023 11:17-0500 Systolic blood pressure 102 mm[Hg] [facility] 07-11-2023 13:54-0400 Diastolic blood pressure 68 mm[Hg] Alexsander LESTER [facility] 07-11-2023 13:54-0400 Heart rate 125 /min Alexsander LESTER [facility] 07-11-2023 13:54-0400 SaO2% (BldA) [Mass fraction] 98 % Alexsander LESTER [facility] 07-11-2023 13:54-0400 Systolic blood pressure 120 mm[Hg] Alexsander LESTER [facility] 06-08-2023 09:17-0400 Body temperature 98.06 [degF] Lucho Cannon [facility] 06-08-2023 09:17-0400 Diastolic blood pressure 70 mm[Hg] Lucho Davis [facility] 06-08-2023 09:17-0400 Heart rate 84 /min Lucho Davis [facility] 06-08-2023 09:17-0400 Respiratory rate 20 /min Lucho Davis [facility] 06-08-2023 09:17-0400 SaO2% (BldA) [Mass fraction] 96 % Lucho Davis [facility] 06-08-2023 09:17-0400 Systolic blood pressure 106 mm[Hg] Lucho Davis [facility] 04-09-2023 19:04-0400 Diastolic blood pressure 54 mm[Hg] Lucho Davis [facility] 04-09-2023 19:04-0400 Heart rate 73 /min Lucho Davis [facility] 04-09-2023 19:04-0400 Mean blood pressure 70 mm[Hg] Lucho Davis [facility] 04-09-2023 19:04-0400 Respiratory rate 16 /min Lucho Davis [facility] 04-09-2023 19:04-0400 SaO2% (BldA) [Mass fraction] 98 % Lucho Davis [facility] 04-09-2023 19:04-0400 Systolic blood pressure 102 mm[Hg] Lucho Davis [facility] 04-09-2023 18:30-0400 Diastolic blood pressure 64 mm[Hg] Lucho Davis [facility] 04-09-2023 18:30-0400 Heart rate 76 /min Lucho Cannon [facility] 04-09-2023 18:30-0400 Mean blood pressure 77 mm[Hg] Lucho Davis [facility] 04-09-2023 18:30-0400 Respiratory rate 18 /min Lucho Davis [facility] 04-09-2023 18:30-0400 SaO2% (BldA) [Mass fraction] 98 % Lucho Cannon [facility] 04-09-2023 18:30-0400 Systolic blood pressure 104 mm[Hg] Lucho Davis [facility] 04-09-2023 17:23-0400 Body temperature 98.24 [degF] Lucho Cannon [facility] 04-09-2023 17:23-0400 Diastolic blood pressure 66 mm[Hg] Lucho Cannon [facility] 04-09-2023 17:23-0400 Heart rate 108 /min Lucho Davis [facility] 04-09-2023 17:23-0400 Respiratory rate 16 /min Lucho Cannon [facility] 04-09-2023 17:23-0400 SaO2% (BldA) [Mass fraction] 99 % Lucho Cannon [facility] 04-09-2023 17:23-0400 Systolic blood pressure 101 mm[Hg] Lucho Davis [facility] 03-27-2023 22:45-0400 Diastolic blood pressure 66 mm[Hg] Demetrius Keith [facility] 03-27-2023 22:45-0400 Heart rate 78 /min Demetrius Keith [facility] 03-27-2023 22:45-0400 Mean blood pressure 79 mm[Hg] Demetrius Keith [facility] 03-27-2023 22:45-0400 Respiratory rate 17 /min Demetrius Keith [facility] 03-27-2023 22:45-0400 SaO2% (BldA) [Mass fraction] 98 % Demetrius Keith [facility] 03-27-2023 22:45-0400 Systolic blood pressure 106 mm[Hg] Demetrius Keith [facility] 03-27-2023 22:00-0400 Diastolic blood pressure 70 mm[Hg] Demetrius Keith [facility] 03-27-2023 22:00-0400 Heart rate 80 /min Demetrius Keith [facility] 03-27-2023 22:00-0400 Mean blood pressure 83 mm[Hg] Demetrius Keith [facility] 03-27-2023 22:00-0400 SaO2% (BldA) [Mass fraction] 99 % Demetrius Keith [facility] 03-27-2023 22:00-0400 Systolic blood pressure 110 mm[Hg] Demetrius Keith [facility] 03-27-2023 20:02-0400 Body temperature 98.24 [degF] Demetrius Keith [facility] 03-27-2023 20:02-0400 Diastolic blood pressure 69 mm[Hg] Demetrius Keith [facility] 03-27-2023 20:02-0400 Heart rate 113 /min Demetrius Keith [facility] 03-27-2023 20:02-0400 Respiratory rate 18 /min Demetrius Keith [facility] 03-27-2023 20:02-0400 SaO2% (BldA) [Mass fraction] 98 % Demetrius Keith [facility] 03-27-2023 20:02-0400 Systolic blood pressure 101 mm[Hg] Demetrius Keith [facility] 03-27-2023 15:54-0400 Body temperature 98.24 [degF] XXXX NONE [facility] 03-27-2023 15:54-0400 Diastolic blood pressure 68 mm[Hg] XXXX NONE [facility] 03-27-2023 15:54-0400 Heart rate 120 /min XXXX NONE [facility] 03-27-2023 15:54-0400 Respiratory rate 18 /min XXXX NONE [facility] 03-27-2023 15:54-0400 SaO2% (BldA) [Mass fraction] 97 % XXXX NONE [facility] 03-27-2023 15:54-0400 Systolic blood pressure 111 mm[Hg] XXXX NONE [facility] 03-15-2023 22:29-0400 Body temperature 98.24 [degF] Demetrius Keith [facility] 03-15-2023 22:29-0400 Diastolic blood pressure 76 mm[Hg] Demetrius Keith [facility] 03-15-2023 22:29-0400 Heart rate 98 /min Demetrius Keith [facility] 03-15-2023 22:29-0400 Respiratory rate 16 /min Demetrius Keith [facility] 03-15-2023 22:29-0400 SaO2% (BldA) [Mass fraction] 99 % Demetrius Keith [facility] 03-15-2023 22:29-0400 Systolic blood pressure 116 mm[Hg] Demetrius Parker [facility] 01-12-2023 17:32-0400 Diastolic blood pressure 73 mm[Hg] Abdirashid Muñiz [facility] 01-12-2023 17:32-0400 Heart rate 99 /min Abdirashid Antonino [facility] 01-12-2023 17:32-0400 Mean blood pressure 91 mm[Hg] Abdirashid Antonino [facility] 01-12-2023 17:32-0400 Respiratory rate 18 /min Abdirashid Antonino [facility] 01-12-2023 17:32-0400 SaO2% (BldA) [Mass fraction] 99 % Abdirashid Antonino [facility] 01-12-2023 17:32-0400 Systolic blood pressure 128 mm[Hg] Abdirashid Antonino [facility] 01-12-2023 15:09-0400 Body temperature 96.9 [degF] Abdirashid Antonino [facility] 01-12-2023 15:09-0400 Diastolic blood pressure 81 mm[Hg] Abdirashid Antonino [facility] 01-12-2023 15:09-0400 Heart rate 117 /min Abdirashid Antonino [facility] 01-12-2023 15:09-0400 Respiratory rate 20 /min Abdirashid Antonino [facility] 01-12-2023 15:09-0400 SaO2% (BldA) [Mass fraction] 98 % Abdirashid Antonino [facility] 01-12-2023 15:09-0400 Systolic blood pressure 132 mm[Hg] Abdirashid Muñiz [facility] 01-11-2023 07:00-0400 Body temperature 98.06 [degF] Lucho Cannon [facility] 01-11-2023 07:00-0400 Diastolic blood pressure 73 mm[Hg] Lucho Cannon [facility] 01-11-2023 07:00-0400 Heart rate 114 /min Lucho Cannon [facility] 01-11-2023 07:00-0400 Respiratory rate 20 /min Lucho Cannon [facility] 01-11-2023 07:00-0400 SaO2% (BldA) [Mass fraction] 98 % Lucho Cannon [facility] 01-11-2023 07:00-0400 Systolic blood pressure 103 mm[Hg] Lucho Cannon [facility] 12-15-2022 23:42-0400 Body temperature 98.42 [degF] Demetrius Keith [facility] 12-15-2022 23:42-0400 Diastolic blood pressure 82 mm[Hg] Demetrius Keith [facility] 12-15-2022 23:42-0400 Heart rate 88 /min Demetrius Keith [facility] 12-15-2022 23:42-0400 Mean blood pressure 95 mm[Hg] Demetrius Keith [facility] 12-15-2022 23:42-0400 Respiratory rate 17 /min Demetrius Keith [facility] 12-15-2022 23:42-0400 SaO2% (BldA) [Mass fraction] 100 % Demetrius Keith [facility] 12-15-2022 23:42-0400 Systolic blood pressure 120 mm[Hg] Demetrius Keith [facility] 12-15-2022 23:24-0400 Body temperature 98.42 [degF] Demetrius Keith [facility] 12-15-2022 23:24-0400 Diastolic blood pressure 86 mm[Hg] Demetrius Keith [facility] 12-15-2022 23:24-0400 Heart rate 91 /min Demetrius Keith [facility] 12-15-2022 23:24-0400 Respiratory rate 18 /min Demetrius Keith [facility] 12-15-2022 23:24-0400 SaO2% (BldA) [Mass fraction] 100 % Demetrius Keith [facility] 12-15-2022 23:24-0400 Systolic blood pressure 123 mm[Hg] Demetrius Keith [facility] 12-10-2022 13:38-0400 Blood Pressure Location Jessica WHITT [facility] 12-10-2022 13:38-0400 Body temperature 98.6 [degF] Jessica WHITT [facility] 12-10-2022 13:38-0400 Diastolic blood pressure 76 mm[Hg] Jessica WHITT [facility] 12-10-2022 13:38-0400 Heart rate 90 /min Jessica WHITT [facility] 12-10-2022 13:38-0400 SaO2% (BldA) [Mass fraction] 99 % Jessica WHITT [facility] 12-10-2022 13:38-0400 Systolic blood pressure 118 mm[Hg] Jessica WHITT [facility] 09-27-2022 22:25-0500 Hourly Rounding Kaylinn Dokken [facility] 09-27-2022 22:25-0500 Promise to Return Kaylinn Dokken [facility] 09-27-2022 22:24-0500 Diastolic blood pressure 84 mm[Hg] Kaylinn Dokken [facility] 09-27-2022 22:24-0500 Heart rate 90 /min Kaylinn Dokken [facility] 09-27-2022 22:24-0500 Mean blood pressure 97 mm[Hg] Kaylinn Dokken [facility] 09-27-2022 22:24-0500 Respiratory rate 16 /min Kaylinn Dokken [facility] 09-27-2022 22:24-0500 SaO2% (BldA) [Mass fraction] 100 % Kaylinn Dokken [facility] 09-27-2022 22:24-0500 Systolic blood pressure 123 mm[Hg] Kaylinn Dokken [facility] 09-27-2022 21:24-0500 Body temperature 98.06 [degF] Kaylinn Dokken [facility] 09-27-2022 21:24-0500 Diastolic blood pressure 87 mm[Hg] Kaylinn Dokken [facility] 09-27-2022 21:24-0500 Heart rate 99 /min Kaylinn Dokken [facility] 09-27-2022 21:24-0500 Respiratory rate 16 /min Marshall Cardenas [facility] 09-27-2022 21:24-0500 SaO2% (BldA) [Mass fraction] 99 % Marshall Cardenas [facility] 09-27-2022 21:24-0500 Systolic blood pressure 126 mm[Hg] Marshall Cardenas [facility] 09-04-2022 13:42-0500 Diastolic blood pressure 70 mm[Hg] [facility] [employer] Work Phone: [facility] 09-04-2022 13:42-0500 Heart rate 63 /min [facility] Work Phone: [facility] 09-04-2022 13:42-0500 Respiratory rate 24 /min [facility] Work Phone: [facility] 09-04-2022 13:42-0500 SaO2% (BldA) [Mass fraction] 99 % [facility] Work Phone: [facility] 09-04-2022 13:42-0500 Systolic blood pressure 117 mm[Hg] [facility] Work Phone: [facility] 09-04-2022 10:30-0500 Body temperature 98.6 [degF] [facility] Work Phone: [facility] 09-03-2022 17:15-0500 Diastolic blood pressure 64 mm[Hg] [facility] Work Phone: [facility] 09-03-2022 17:15-0500 Heart rate 58 /min [facility] Work Phone: [facility] 09-03-2022 17:15-0500 Respiratory rate 14 /min [facility] Work Phone: [facility] 09-03-2022 17:15-0500 SaO2% (BldA) [Mass fraction] 98 % Services [employer] Work Phone: [facility] 09-03-2022 17:15-0500 Systolic blood pressure 105 mm[Hg] Services [employer] Work Phone: [facility] 09-03-2022 14:28-0500 Body height 162.56 cm Services [facility] [employer] Work Phone: [facility] 09-03-2022 14:28-0500 Body temperature 99.2 [degF] Services [facility] Work Phone: [facility] 09-03-2022 14:28-0500 Body weight 74 kg Services [facility] [employer] Work Phone: [facility] 07-15-2022 10:00-0400 Diastolic blood pressure 60 mm[Hg] Gianfranco Osman [facility] 07-15-2022 10:00-0400 Heart rate 83 /min Gianfranco Brewer [facility] 07-15-2022 10:00-0400 Mean blood pressure 76 mm[Hg] Gianfranco Osman [facility] 07-15-2022 10:00-0400 Systolic blood pressure 107 mm[Hg] Gianfranco Osman [facility] 07-15-2022 09:45-0400 Blood Pressure Location Gianfranco Brewer [facility] 07-15-2022 09:45-0400 Diastolic blood pressure 58 mm[Hg] Gianfranco Osman [facility] 07-15-2022 09:45-0400 Heart rate 82 /min Gianfranco Osman [facility] 07-15-2022 09:45-0400 Mean blood pressure 73 mm[Hg] Gianfranco Osman [facility] 07-15-2022 09:45-0400 Respiratory rate 18 /min Gianfranco Brewer [facility] 07-15-2022 09:45-0400 Systolic blood pressure 103 mm[Hg] Gianfranco Brewer [facility] 07-15-2022 09:35-0400 Body temperature 98.78 [degF] Gianfranco Brewer [facility] 07-15-2022 09:35-0400 Diastolic blood pressure 72 mm[Hg] Gianfranco Brewer [facility] 07-15-2022 09:35-0400 Heart rate 97 /min Gianfranco Brewer [facility] 07-15-2022 09:35-0400 Mean blood pressure 85 mm[Hg] Gianfranco Brewer [facility] 07-15-2022 09:35-0400 Respiratory rate 20 /min Gianfranco Brewer [facility] 07-15-2022 09:35-0400 Systolic blood pressure 111 mm[Hg] Gianfranco Brewer [facility] 05-03-2022 09:48-0400 Heart rate 69 /min [facility] Work Phone: [facility] 05-03-2022 09:48-0400 Respiratory rate 16 /min [facility] Work Phone: [facility] 05-03-2022 09:47-0400 Diastolic blood pressure 64 mm[Hg] [facility] Work Phone: [facility] 05-03-2022 09:47-0400 Systolic blood pressure 111 mm[Hg] [facility] Work Phone: [facility] 05-03-2022 08:17-0400 Body height 162.56 cm [facility] Work Phone: [facility] 05-03-2022 08:17-0400 Body weight 66.67 kg [facility] Work Phone: [facility] 05-03-2022 07:53-0400 Body temperature 97.5 [degF] [facility] Work Phone: [facility] 05-03-2022 07:53-0400 SaO2% (BldA) [Mass fraction] 100 % [facility] Work Phone: [facility] 04-30-2022 20:26-0400 Respiratory rate 18 /min [facility] Work Phone: [facility] 04-30-2022 20:24-0400 Body temperature 97.5 [degF] [facility] Work Phone: [facility] 04-30-2022 20:24-0400 Diastolic blood pressure 65 mm[Hg] [facility] Work Phone: [facility] 04-30-2022 20:24-0400 Heart rate 97 /min [facility] Work Phone: [facility] 04-30-2022 20:24-0400 Systolic blood pressure 118 mm[Hg] [facility] Work Phone: [facility] 04-30-2022 20:21-0400 SaO2% (BldA) [Mass fraction] 98 % [facility] Work Phone: [facility] 04-29-2022 10:19-0400 Respiratory rate 16 /min [facility] Work Phone: [facility] 04-29-2022 09:12-0400 Diastolic blood pressure 62 mm[Hg] [facility] Work Phone: [facility] 04-29-2022 09:12-0400 Heart rate 74 /min [facility] Work Phone: [facility] 04-29-2022 09:12-0400 Systolic blood pressure 105 mm[Hg] [facility] Work Phone: [facility] 04-29-2022 08:58-0400 Body height 162.56 cm Services [facility] Work Phone: [facility] 04-29-2022 08:58-0400 Body weight 66.67 kg Services [facility] Work Phone: [facility] Encounters Encounter Date Encounter Type Care Provider Facility Start: 09-20-2023 End: 09-20-2023 Emergency department patient visit Lucho Cannon Facility[facility] Start: 09-20-2023 End: 09-20-2023 Emergency department patient visit Lucho Cannon [facility] Start: 09-20-2023 End: 09-20-2023 Emergency department patient visit Services [facility] Work Phone: [facility] Work Phone: Start: 09-17-2023 End: 09-17-2023 Emergency department patient visit Lucho Cannon Facility:[facility] Start: 09-17-2023 End: 09-17-2023 Emergency department patient visit Lucho Cannon [facility] Start: 09-15-2023 End: 09-15-2023 Emergency department patient visit Lucho Cannon Facility:[facility] Start: 09-15-2023 End: 09-15-2023 Emergency department patient visit Lucho Cannon [facility] Start: 09-14-2023 End: 09-14-2023 Emergency department patient visit Services [facility] Facility:[facility] Start: 09-14-2023 End: 09-14-2023 Emergency department patient visit Services [facility] Work Phone: [facility] Work Phone: Start: 09-13-2023 End: 09-13-2023 Emergency department patient visit Marshall Cardenas Facility:[facility] Start: 09-13-2023 End: 09-13-2023 Emergency department patient visit Marshall Cardenas [facility] Start: 08-07-2023 End: 08-07-2023 Emergency department patient visit Services [facility] Facility:[facility] Start: 08-07-2023 End: 08-08-2023 ambulatory Alexsander LESTER Facility:[facility] Start: 08-07-2023 End: 08-07-2023 Emergency department patient visit Services [facility] Work Phone: [facility] Work Phone: Start: 08-07-2023 End: 08-07-2023 Patient encounter procedure Alexsander LESTER [facility] Start: 08-07-2023 End: 08-07-2023 Emergency department patient visit Ravi Abebe Facility:[facility] Start: 08-07-2023 End: 08-07-2023 Emergency department patient visit Ravi Abebe [facility] Start: 08-05-2023 End: 08-05-2023 Emergency department patient visit Ravi Abebe Facility:[facility] Start: 08-05-2023 End: 08-05-2023 Emergency department patient visit Ravi Abebe [facility] Start: 07-28-2023 End: 07-28-2023 Emergency department patient visit Omid Gan Facility:[facility] Start: 07-28-2023 End: 07-28-2023 Emergency department patient visit Omid Gan [facility] Start: 07-11-2023 End: 07-12-2023 ambulatory XXXX NONE Facility:[facility] Start: 07-11-2023 End: 07-11-2023 Patient encounter procedure Alexsander LESTER [facility] Start: 06-29-2023 End: 06-29-2023 ambulatory Services [facility] Facility:[facility] Start: 06-29-2023 End: 06-29-2023 ambulatory Services [facility] Work Phone: [facility] Work Phone: Start: 06-29-2023 End: 06-29-2023 Patient encounter procedure Services [facility] Work Phone: [facility]Electro[facility] Work Phone: Start: 06-27-2023 End: 06-27-2023 ambulatory Services [facility] Facility:[facility] Start: 06-27-2023 End: 06-27-2023 Patient encounter procedure Services [facility] Work Phone: [facility] [place] Work Phone: Start: 06-15-2023 End: 06-15-2023 Emergency department patient visit Joséebony Baird Malik Facility:[facility] Start: 06-14-2023 End: 06-15-2023 Emergency department patient visit Omid Oli Malik Facility:[facility] Start: 06-08-2023 End: 06-08-2023 Emergency department patient visit Lucho Cannon Facility:[facility] Start: 06-08-2023 End: 06-08-2023 Emergency department patient visit Lucho Cannon [facility] Start: 04-09-2023 End: 04-09-2023 Emergency department patient visit Lucho Cannon Facility:[facility] Start: 04-09-2023 End: 04-09-2023 Emergency department patient visit Lucho Cannon [facility] Start: 03-27-2023 End: 03-28-2023 Emergency department patient visit Demetrius Parker Facility:[facility] Start: 03-27-2023 End: 03-27-2023 Emergency department patient visit Demetrius Beck Keith [facility] Start: 03-27-2023 End: 03-27-2023 Emergency department patient visit Omid Gan Facility:[facility] Start: 03-27-2023 End: 03-27-2023 Emergency department patient visit XXXX NONE [facility] Start: 03-18-2023 End: 03-18-2023 Emergency department patient visit Abdirashid Muñiz Facility:[facility] Start: 03-16-2023 End: 03-16-2023 Emergency department patient visit Demetrius Beck Keith Facility:[facility] Start: 03-15-2023 End: 03-15-2023 Emergency department patient visit Demetrius Beck Keith [facility] Start: 02-07-2023 End: 02-07-2023 Emergency department patient visit Ravi Abebe Facility:[facility] Start: 01-12-2023 End: 01-12-2023 Emergency department patient visit Abdirashid Muñiz Facility:[facility] Start: 01-12-2023 End: 01-12-2023 Emergency department patient visit Abdirashid Muñiz [facility] Start: 01-11-2023 End: 01-11-2023 Emergency department patient visit Lucho Cnanon Facility:[facility] Start: 01-11-2023 End: 01-11-2023 Emergency department patient visit Lucho Cannon [facility] Start: 12-16-2022 End: 12-16-2022 Emergency department patient visit Demetrius Kiran Keith Facility:[facility] Start: 12-15-2022 End: 12-15-2022 Emergency department patient visit Demetriuscatherine Beck Keith [facility] Start: 12-10-2022 End: 12-11-2022 ambulatory Jessica WHITT Facility: [place] Start: 12-10-2022 End: 12-10-2022 Patient encounter procedure Jessica WHITT [facility] Start: 11-18-[address] NONE LISTED REQUEST Facility: Start: 11-17-2022 End: 11-17-[address] KAPIL SORIA . Facility: Start: 09-27-2022 End: 09-28-2022 Emergency department patient visit Marshall Cardenas Facility:[facility] Start: 09-27-2022 End: 09-27-2022 Emergency department patient visit Marshall Cardenas [facility] Start: 09-05-[address] NONE LISTED REQUEST Facility: Start: 09-04-2022 End: 09-04-2022 Emergency department patient visit Services [facility] Work Phone: [facility] Start: 09-03-2022 End: 09-03-2022 Emergency department patient visit Services [facility] [employer] Phone: [facility] Start: 09-01-2022 Encounter for preprocedural laboratory examination DR KAPIL SORIA . [facility] Start: 08-31-2022 End: 09-02-2022 Evaluation and management of inpatient DR KAPIL SORIA . Facility: Start: 08-27-2022 End: 08-28-[address] KAPIL SORIA . Facility:[facility] Start: 08-27-2022 End: 08-28-2022 Encounter for preprocedural laboratory examination DR KAPIL SORIA . Facility:[facility] Start: 08-17-2022 End: 08-17-[address] KAPIL SORIA . Facility: Start: 08-17-2022 End: 08-18-[address] KAPIL SORIA . Facility:[facility] Start: 08-10-2022 End: 08-10-[address] KAPIL SORIA . Facility:[facility] Start: 08-09-2022 End: 08-09-[address] FELICIA BERMUDEZ . Facility:[facility] Start: 08-08-2022 End: 08-08-2022 ambulatory NONE LISTED REQUEST Facility:[facility] Start: 08-03-2022 End: 08-03-2022 ambulatory NONE LISTED REQUEST Facility:[facility] Start: 08-02-2022 End: 08-03-[address] FELICIA BERMUDEZ . Facility:[facility] Start: 07-16-2022 End: 08-18-2022 Pre-admission assessment Gianfranco Brewer [facility] Start: 07-15-2022 End: 07-15-2022 OB Triage Gianfranco Brewer [facility] Start: 07-06-2022 End: 07-07-[address] KAPIL SORIA . Facility: Start: 06-17-2022 End: 06-17-2022 Patient encounter procedure Services [facility] Work Phone: [facility] [place] Start: 05-25-2022 End: 05-25-2022 Patient encounter procedure Sharita Mckeon [facility] Start: 05-04-2022 End: 06-18-2022 Pre-admission assessment Tru Brambila [facility] Start: 05-03-2022 End: 05-03-2022 Patient encounter procedure Services [facility] Work Phone: [facility] Labor - O/P Start: 04-30-2022 End: 04-30-2022 Patient encounter procedure Services [facility] Work Phone: [facility] Labor - O/P Start: 04-29-2022 End: 04-29-2022 Patient encounter procedure Services [facility] Work Phone: [facility] Labor - O/P Start: 11-12-2020 End: 11-12-2020 ambulatory UNKNOWN PROVIDER Facility:[facility] Procedures Date Procedure Procedure Detail Performing Clinician Start: 08-07-2023 Pelvic echography Servi arash Gamar [facility] Work Phone: Start: 08-07-2023 Diagnostic radiograp hy of abdomen Services [facility] Work Phone: Start: 08-07-2023 Transvaginal echography Services [facility] Work Phone: Start: 06-27-2023 US scan of gallbladder Services [facility] Work Phone: Start: 08-31-2022 Delivery of Products of Conception, External Approach DR KAPIL SORIA . Start: 08-31-2022 Drainage of Amniotic Fluid, Therapeutic from Products of Conception, Via Natural or Artificial Opening DR KAPIL SORIA . Start: 08-31-2022 Introduction of Othe r Hormone into Peripheral Vein, Percutaneous Approach DR KAPIL SORIA . None (qualifier value) Sharita Mckeon SARS-CoV-2, Influenz a & RSV (PCR) Services [facility] Work Phone: Urine culture Services [facility] Work Phone: Plan of Treatment Date Care Activity Detail Author Start: 09-20-2023 Plain chest X-ray XR chest 2V* [facility] Start: 05-03-2022 [facility] Work Phone: Start: 05-03-2022 End: 05-03-2022 Hospital admission [facility] Work Phone: Start: 05-03-2022 End: 05-03-2022 Patient encounter procedure Departed Clinical [facility] - O/P Start: 04-30-2022 [facility] Work Phone: Start: 04-30-2022 Hospital admission [facility] Work Phone: Start: 04-29-2022 [facility] Work Phone: Start: 04-29-2022 Hospital admission [facility] Work Phone: Bacteria identified in Urine by Culture Urine Culture [facility] Patient Education [facility] Work Phone: Patient referral [facility] Work Phone: Urine culture Urine Culture [facility] Immunizations Immunization Date Immunization Notes Care Provider Fa cility 05-22-2018 meningococcal ACWY vaccine, unspecified formulation Jessica WHITT [facility] 05-22-2018 meningococcal B vaccine, fully recombinant Jessica WHITT [facility] 07-10-2017 influenza virus vaccine, unspecified formulation Jessica WHITT [facility] 07-26-2016 hepatitis A vaccine, unspecified formulation Jessica WHITT [facility] 07-26-2016 HPV, unspecified formulation Jessica PERI [facility] 07-26-2016 influenza virus vaccine, unspecified formulation Jessica WHITT [facility] 03-15-2016 HPV, unspecified formulation Jessica WHITT [facility] 12-23-2015 HPV, unspecified formulation Jessica PERI [facility] 09-25-2014 influenza virus vaccine, unspecified formulation Jessica WHITT [facility] 12-24-2013 hepatitis A vaccine, unspecified formulation Jessica WHITT [facility] 12-24-2013 meningococcal ACWY vaccine, unspecified formulation Jessica WHITT [facility] 12-24-2013 tetanus toxoid, reduced diphtheria toxoid, and acellular pertussis vaccine, adsorbed Jessica PERI [facility] 07-09-2013 influenza virus vaccine, unspecified formulation Jessica PERI [facility] 07-18-2006 DTaP, unspecified formulation Jessica PERI [facility] 07-18-2006 influenza virus vaccine, unspecified formulation Jessica PERI [facility] 07-18-2006 measles, mumps, rubella, and varicella virus vaccine Jessica PERI [facility] 07-18-2006 poliovirus vaccine, unspecified formulation Jessica PERI [facility] 06-04-2003 DTaP, unspecified formulation Jessica PERI [facility] 06-04-2003 measles, mumps and rubella virus vaccine Jessica PERI [facility] 2002 DTaP, unspecified formulation Jessica PERI [facility] 2002 measles, mumps and rubella virus vaccine Jessica PERI [facility] 2002 poliovirus vaccine, unspecified formulation Jessica PERI [facility] 2002 varicella virus vaccine Jessica PERI [facility] 04-22-2002 DTaP, unspecified formulation Jessica WIHTT [facility] 04-22-2002 poliovirus vaccine, unspecified formulation Jessica WHITT [facility] 01-15-2002 DTaP, unspecified formulation Jessica WHITT [facility] 01-15-2002 hepatitis B vaccine, pediatric or pediatric/adolescent dosage Jessica WHITT [facility] 01-15-2002 poliovirus vaccine, unspecified formulation Jessica WHITT [facility] 2001 hepatitis B vaccine, pediatric or pediatric/adolescent dosage Jessica WHITT [facility] NEGATED: Highlighted row has not occurred!12-10-2022 influenza virus vaccine, unspecified formulation Jessica WHITT [facility] NEGATED: Highlighted row has not occurred!12-10-2022 SARS-CoV-2 mRNA (tozinameran 5y-11y) vaccine Jessica WHITT [facility] Payers Date Payer Category Payer Self-pay [id number] 2001 Unknown [id number] . [id number] 2001 Unknown [id number] 2.16.84 0.1.244414.3.579.2.593 2001 Unknown [id number] 2.16.84 0.1.316014.3.579.2.593 2001 Unknown [id number] 2.16.84 0.1.959842.3.579.2.593 2001 Unknown [id number] 2.16.84 0.1.846964.3.579.2.593 2001 Unknown [id number] 2.16.84 0.1.247514.3.579.2.593 2001 Unknown [id number] 2.16.84 0.1.507328.3.579.2.593 2001 Unknown [id number] 2.16.84 0.1.714994.3.579.2.593 2001 Unknown [id number] 2.16.84 0.1.660343.3.579.2.593 2001 Unknown [id number] 2.16.84 0.1.891302.3.579.2.593 2001 Unknown [id number] 2.16.84 0.1.142723.3.579.2.593 2001 Unknown [id number] 2.16.84 0.1.841372.3.579.2.593 2001 Unknown [id number] 2.16.84 0.1.436178.3.579.2.593 2001 Unknown [id number] 2.16.84 0.1.966890.3.579.2.593 2001 Unknown [id number] 2.16.8 40.1.107702.3.579.2.727 2001 Unknown [id number] 2.16.8 40.1.937806.3.579.2.727 2001 Unknown [id number] 2.16.8 40.1.597637.3.579.2.727 2001 Unknown [id number] 2.16.8 40.1.731246.3.579.2.727 2001 Unknown [id number] 2.16.8 40.1.836706.3.579.2.727 2001 Unknown [id number] 2.16.8 40.1.135663.3.579.2.727 2001 Unknown [id number] 2.16.8 40.1.155839.3.579.2.727 2001 Unknown [id number] 2.16.8 40.1.514438.3.579.2.727 2001 Unknown [id number] 2.16.8 40.1.842132.3.579.2.727 2001 Unknown [id number] 2.16.8 40.1.737877.3.579.2.727 2001 Unknown [id number] 2.16.8 40.1.869382.3.579.2.727 2001 Unknown [id number] 2.16.8 40.1.756473.3.579.2.727 2001 Unknown [id number] 2.16.8 40.1.412022.3.579.2.727 2001 Unknown [id number] 2.16.8 40.1.402636.3.579.2.7 2001 Unknown [id number] 2.16.8 40.1.051799.3.579.2.7 2001 Unknown [id number] 2.16.8 40.1.433346.3.579.2.727 2001 Unknown [id number] 2.16.8 40.1.388472.3.579.2.727 2001 Unknown [id number] 2.16.8 40.1.568691.3.579.2.727 2001 Unknown [id number] 2.16.8 40.1.406801.3.579.2.727 2001 Unknown [id number] 2.16.8 40.1.017660.3.579.2.727 2001 Unknown [id number] 2.16.8 40.1.492718.3.579.2.727 2001 Unknown [id number] 2.16.8 40.1.772108.3.579.2.7 2001 Unknown [id number] 2.16.8 40.1.645915.3.579.2.727 1958 Medicaid [id number] 1958 Medicaid [id number] 1959 Unknown [id number] Medicaid [place] Advantage [id number] Unknown [id number] 2.16.8 40.1.876678.3.579.2.531 Unknown [id number] 2.16.8 40.1.447874.3.579.2.531 Unknown [id number] 2.16.8 40.1.828203.3.579.2.531 Unknown [id number] 2.16.8 40.1.326698.3.579.2.531 Unknown [id number] 2.16.8 40.1.880668.3.579.2.531 Social History Date Type Detail Facility Start: 11-24-2021 End: 08-07-2023 Tobacco smoking status NHIS Never smoked tobacco (finding) [facility] Start: 2000 Sex Assigned At Female [facility] Tobacco smoking status Never [facility] Sex Assigned At Female [facility] Functional Status Date Assessment Result Facility 09-20-2023 Functional Status N/A [facility] 09-17-2023 Functional Status N/A [facility] 09-15-2023 Functional Status N/A [facility] 09-13-2023 Functional Status N/A [facility] 08-07-2023 Functional Status N/A [facility] 08-05-2023 Functional Status N/A [facility] 07-28-2023 Functional Status N/A [facility] 07-11-2023 Functional Status No [facility] 06-08-2023 Functional Status N/A [facility] 04-09-2023 Functional Status N/A [facility] 03-27-2023 Functional Status N/A [facility] 03-27-2023 Functional Status N/A [facility] 03-15-2023 Functional Status N/A [facility] 01-12-2023 Functional Status N/A [facility] 01-11-2023 Functional Status N/A [facility] 12-15-2022 Functional Status N/A [facility] 12-10-2022 Functional Status N/A [facility] 09-27-2022 Functional Status N/A [facility] 07-15-2022 Functional Status N/A [facility] Clinical Notes 04-26-2022 to 09-20-2023 Note Date & Type Note Facility 09-20-2023 Hospital Discharg e instructions Patient Education 09/20/2023 14:58:39 Sinus Infection, Adult Sinus Infection, Adult A sinus infection, also called sinusitis, is inflammation of your sinuses. Sinuses are hollow spaces in the bones around your face. Your sinuses are located: Around your eyes. In the middle of your forehead. Behind your nose. In your cheekbones. Mucus normally drains out of your sinuses. When your nasal tissues become inflamed or swollen, mucus can become trapped or blocked. This allows bacteria, viruses, and fungi to grow, which leads to infection. Most infections of the sinuses are caused by a virus. A sinus infection can develop quickly. It can last for up to 4 weeks (acute) or for more than 12 weeks (chronic). A sinus infection often develops after a cold. What are the causes? This condition is caused by anything that creates swelling in the sinuses or stops mucus from draining. This includes: Allergies. Asthma. Infection from bacteria or viruses. Deformities or blockages in your nose or sinuses. Abnormal growths in the nose (nasal polyps). Pollutants, such as chemicals or irritants in the air. Infection from fungi. This is rare. What increases the risk? You are more likely to develop this condition if you: Have a weak body defense system (immune system). Do a lot of swimming or diving. Overuse nasal sprays. Smoke. What are the signs or symptoms? The main symptoms of this condition are pain and a feeling of pressure around the affected sinuses. Other symptoms include: Stuffy nose or congestion that makes it difficult to breathe through your nose. Thick yellow or greenish drainage from your nose. Tenderness, swelling, and warmth over the affected sinuses. A cough that may get worse at night. Decreased sense of smell and taste. Extra mucus that collects in the throat or the back of the nose (postnasal drip) causing a sore throat or bad breath. Tiredness (fatigue). Fever. How is this diagnosed? This condition is diagnosed based on: Your symptoms. Your medical history. A physical exam. Tests to find out if your condition is acute or chronic. This may include: ?Checking your nose for nasal polyps. ?Viewing your sinuses using a device that has a light (endoscope). ?Testing for allergies or bacteria. ?Imaging tests, such as an MRI or CT scan. In rare cases, a bone biopsy may be done to rule out more serious types of fungal sinus disease. How is this treated? Treatment for a sinus infection depends on the cause and whether your condition is chronic or acute. If caused by a virus, your symptoms should go away on their own within 10 days. You may be given medicines to relieve symptoms. They include: ?Medicines that shrink swollen nasal passages (decongestants). ?A spray that eases inflammation of the nostrils (topical intranasal corticosteroids). ?Rinses that help get rid of thick mucus in your nose (nasal saline washes). ?Medicines that treat allergies (antihistamines). ?Zwes-ocb-cyibgxm pain relievers. If caused by bacteria, your health care provider may recommend waiting to see if your symptoms improve. Most bacterial infections will get better without antibiotic medicine. You may be given antibiotics if you have: ?A severe infection. ?A weak immune system. If caused by narrow nasal passages or nasal polyps, surgery may be needed. Follow these instructions at home: Medicines Take, use, or apply ipsb-eqx-lircmrm and prescription medicines only as told by your health care provider. These may include nasal sprays. If you were prescribed an antibiotic medicine, take it as told by your health care provider. Do not stop taking the antibiotic even if you start to feel better. Hydrate and humidify Drink enough fluid to keep your urine pale yellow. Staying hydrated will help to thin your mucus. Use a cool mist humidifier to keep the humidity level in your home above 50%. Inhale steam for 10 15 minutes, 3 4 times a day, or as told by your health care provider. You can do this in the bathroom while a hot shower is running. Limit your exposure to cool or dry air. Rest Rest as much as possible. Sleep with your head raised (elevated). Make sure you get enough sleep each night. General instructions Apply a warm, moist washcloth to your face 3 4 times a day or as told by your health care provider. This will help with discomfort. Use nasal saline washes as often as told by your health care provider. Wash your hands often with soap and water to reduce your exposure to germs. If soap and water are not available, use hand asset liability analyst. Do not smoke. Avoid being around people who are smoking (secondhand smoke). Keep all follow-up visits. This is important. Contact a health care provider if: You have a fever. Your symptoms get worse. Your symptoms do not improve within 10 days. Get help right away if: You have a severe headache. You have persistent vomiting. You have severe pain or swelling around your face or eyes. You have vision problems. You develop confusion. Your neck is stiff. You have trouble breathing. These symptoms may be an emergency. Get help right away. Call 911. Do not wait to see if the symptoms will go away. Do not drive yourself to the hospital. Summary A sinus infection is soreness and inflammation of your sinuses. Sinuses are hollow spaces in the bones around your face. This condition is caused by nasal tissues that become inflamed or swollen. The swelling traps or blocks the flow of mucus. This allows bacteria, viruses, and fungi to grow, which leads to infection. If you were prescribed an antibiotic medicine, take it as told by your health care provider. Do not stop taking the antibiotic even if you start to feel better. Keep all follow-up visits. This is important. This information is not intended to replace advice given to you by your health care provider. Make sure you discuss any questions you have with your health care provider. Document Revised: 08/09/2022 Document Reviewed: 08/09/2022 [employer] Patient Education 2022 [employer] Follow Up Care 09/20/2023 10:57:36 With:FARHAN GOLDSMITH Address: [place] [address] [place] [address], [address] FAX [phone] [place] [address]8 Business (1) When:09/23/2023 14:58:26 Comments:Call the office of your primary care doctor to arrange for follow-up within the above-stated timeframe. Follow-up with your primary care doctor about this ED visit. You should review your labs, imaging, and diagnoses from this ED visit with your primary care physician. If you were prescribed medications you should discuss possible side-effects and drug interactions with your pharmacist. Call 911 or go to the nearest Emergency Department if you develop any new or worsening symptoms. [facility] 09-20-2023 Evaluation + Plan note Extrac libby from: Title:ED Note Author:Cedric Munguia PA-C e:09/20/23 Palpitations (R00.2: Palpita tions) Sinusitis (J32.9: Chronic sinusitis, unspecified) Orders: doxycycline, 100 mg = 1 cap(s), Oral, BID, # 20 cap(s), Refills(s) 0, Pharmacy: [id number], 163, cm, 09/20/23 11:07:00 EST, Height/Length Dosing, 54, kg, 09/20/23 11:07:00 EST, Weight Dosing Automated Diff Basic Metabolic Panel CBC w/ Auto Diff eGFR Extra SST Tube PT & PTT Troponin 0 Hr. XR Chest Single View [facility]12-31-2023 Hospital Discharge instructions Patient Education 09/17/2023 14:59:17 Viral Illness, Adult Viral Illness, Adult Viruses are tiny germs that can get into a person's body and cause illness. There are many different types of viruses, and they cause many types of illness. Viral illnesses can range from mild to severe. They can affect various parts of the body. Short-term conditions that are caused by a virus include colds and the flu (influenza). Long-term conditions that are caused by a virus include herpes, shingles, and HIV (human immunodeficiency virus) infection. A few viruses have been linked to certain cancers. What are the causes? Many types of viruses can cause illness. Viruses invade cells in your body, multiply, and cause theinfected cells to work abnormally or . When these cells , they release more of the virus. When this happens, you develop symptoms of the illness, and the virus continues to spread to other cells. If the virus takes over the function of the cell, it can cause the cell to divide and grow out ofcontrol. This happens when a virus causes cancer. Different viruses get into the body in different ways. You can get a virus by: Swallowing food or water that has come in contact with the virus (is contaminated). Breathing in droplets that have been coughed or sneezed into the air by an infected person. Touching a surface that has been contaminated with the virus and then touching your eyes, nose, or mouth. Being bitten by an insect or animal that carries the virus. Having sexual contact with a person who is infected with the virus. Being exposed to blood or fluids that contain the virus, either through an open cut or during a transfusion. If a virus enters your body, your body's defense system (immune system) will try to fight the virus. You may be at higher risk for a viral illness if your immune system is weak. What are the signs or symptoms? You may have these symptoms, depending on the type of virus and the location of the cells that it invades: Cold and flu viruses: ?Fever. ?Headache. ?Sore throat. ?Muscle aches. ?Stuffy nose (nasal congestion). ?Cough. Digestive system (gastrointestinal) viruses: ?Fever. ?Pain in the abdomen. ?Nausea. ?Diarrhea. Liver viruses (hepatitis): ?Loss of appetite. ?Tiredness. ?Skin or the white parts of your eyes turning yellow (jaundice). Brain and spinal cord viruses: ?Fever. ?Headache. ?Stiff neck. ?Nausea and vomiting. ?Confusion or sleepiness. Skin viruses: ?Warts. ?Itching. ?Rash. Sexually transmitted viruses: ?Discharge. ?Swelling. ?Redness. ?Rash. How is this diagnosed? This condition may be diagnosed based on one or more of the following: Symptoms. Medical history. Physical exam. Blood test, sample of mucus from your lungs (sputum sample), stool sample, or a swab of body fluidsor a skin sore (lesion). How is this treated? Viruses can be hard to treat because they live within cells. Antibiotic medicines do not treat viruses because these medicines do not get inside cells. Treatment for a viral illness may include: Resting and drinking plenty of fluids. Medicines to relieve symptoms. These can include gjxz-fqy-ujhitqe medicine for pain and fever, medicines for cough or congestion, and medicines to relieve diarrhea. Antiviral medicines. These medicines are available only for certain types of viruses. Some viral illnesses can be prevented with vaccinations. A common example is the flu shot. Follow these instructions at home: Medicines Take aqev-egv-aotwzfc and prescription medicines only as told by your health care provider. If you were prescribed an antiviral medicine, take it as told by your health care provider. Do not stop taking the antiviral even if you start to feel better. Be aware of when antibiotics are needed and when they are not needed. Antibiotics do not treat viruses. You may get an antibiotic if your health care provider thinks that you may have, or are at riskfor, a bacterial infection and you have a viral infection. ?Do not ask for an antibiotic prescription if you have been diagnosed with a viral illness. Antibiotics will not make your illness go away faster. ?Frequently taking antibiotics when they are not needed can lead to antibiotic resistance. When this develops, the medicine no longer works against the bacteria that it normally fights. General instructions Drink enough fluids to keep your urine pale yellow. Rest as much as possible. Return to your normal activities as told by your health care provider. Ask your health care provider what activities are safe for you. Keep all follow-up visits as told by your health care provider. This is important. How is this prevented? To reduce your risk of viral illness: Wash your hands often with soap and water for at least 20 seconds. If soap and water are not available, use hand asset liability analyst. Avoid touching your nose, eyes, and mouth, especially if you have not washed your hands recently. If anyone in your household has a viral infection, clean all household surfaces that may have been in contact with the virus. Use soap and hot water. You may also use bleach that you have added waterto (diluted). Stay away from people who are sick with symptoms of a viral infection. Do not share items such as toothbrushes and water bottles with other people. Keep your vaccinations up to date. This includes getting a yearly flu shot. Eat a healthy diet and get plenty of rest. Contact a health care provider if: You have symptoms of a viral illness that do not go away. Your symptoms come back after going away. Your symptoms get worse. Get help right away if you have: Trouble breathing. A severe headache or a stiff neck. Severe vomiting or pain in your abdomen. These symptoms may represent a serious problem that is an emergency. Do not wait to see if the symptoms will go away. Get medical help right away. Call your local emergency services (911 in the [place] Do not drive yourself to the hospital. Summary Viruses are types of germs that can get into a person's body and cause illness. Viral illnesses canrange from mild to severe. They can affect various parts of the body. Viruses can be hard to treat. There are medicines to relieve symptoms, and there are some antiviralmedicines. If you were prescribed an antiviral medicine, take it as told by your health care provider. Do not stop taking the antiviral even if you start to feel better. Contact a health care provider if you have symptoms of a viral illness that do not go away. This information is not intended to replace advice given to you by your health care provider. Make sure you discuss any questions you have with your health care provider. Document Revised: 01/18/2021 Document Reviewed: 07/14/2020 [employer] Patient Education 2022 [employer]. Follow Up Care 09/17/2023 12:39:22 With:FARHAN GOLDSMITH Address: [place] DE[address]ES[address], [address] FAX [phone] [place] [address] Business (1) When:09/20/2023 14:49:46 [facility]12-31-2023 Evaluation + Plan noteExtracted from: Title:ED Note Author:Sam Aguirre PA-C te:09/17/23 Anxiety (F41.9: Anxiety diso rder, unspecified) Lightheaded (R42: Dizziness and giddiness) Orders: Sodium Chloride 0.9% intravenous solution, 1,000 mL, Soln-IV, IV, Once, Stop date 09/17/23 12:51:00 EST, STAT, Start date 09/17/23 12:51:00 EST, Infuse over 61, minute(s) Automated Diff Basic Metabolic Panel CBC w/ Auto Diff eGFR Hepatic Function Panel Lipase Level UA With Cult Reflex [facility]12-29-2023 Hospital Discharge instructions Patient Education 09/15/2023 16:50:26 Dehydration, Adult Dehydration, Adult Dehydration is a condition in which there is not enough water or other fluids in the body. This happens when a person loses more fluids than he or she takes in. Important organs, such as the kidneys,brain, and heart, cannot function without a proper amount of fluids. Any loss of fluids from the body can lead to dehydration. Dehydration can be mild, moderate, or severe. It should be treated right away to prevent it from becoming severe. What are the causes? Dehydration may be caused by: Conditions that cause loss of water or other fluids, such as diarrhea, vomiting, or sweating or urinating a lot. Not drinking enough fluids, especially when you are ill or doing activities that require a lot of energy. Other illnesses and conditions, such as fever or infection. Certain medicines, such as medicines that remove excess fluid from the body (diuretics). Lack of safe drinking water. Not being able to get enough water and food. What increases the risk? The following factors may make you more likely to develop this condition: Having a long-term (chronic) illness that has not been treated properly, such as diabetes, heart disease, or kidney disease. Being 65 years of age or older. Having a disability. Living in a place that is high in altitude, where thinner, skein yarn drier air causes more fluid loss. Doing exercises that put stress on your body for a long time (endurance sports). What are the signs or symptoms? Symptoms of dehydration depend on how severe it is. Mild or moderate dehydration Thirst. Dry lips or dry mouth. Dizziness or light-headedness, especially when standing up from a seated position. Muscle cramps. Dark urine. Urine may be the color of tea. Less urine or tears produced than usual. Headache. Severe dehydration Changes in skin. Your skin may be cold and clammy, blotchy, or pale. Your skin also may not return to normal after being lightly pinched and released. Little or no tears, urine, or sweat. Changes in vital signs, such as rapid breathing and low blood pressure. Your pulse may be weak or may be faster than 100 beats a minute when you are sitting still. Other changes, such as: ?Feeling very thirsty. ?Sunken eyes. ?Cold hands and feet. ?Confusion. ?Being very tired (lethargic) or having trouble waking from sleep. ?Short-term weight loss. ?Loss of consciousness. How is this diagnosed? This condition is diagnosed based on your symptoms and a physical exam. You may have blood and urine tests to help confirm the diagnosis. How is this treated? Treatment for this condition depends on how severe it is. Treatment should be started right away. Do not wait until dehydration becomes severe. Severe dehydration is an emergency and needs to be treated in a hospital. Mild or moderate dehydration can be treated at home. You may be asked to: ?Drink more fluids. ?Drink an oral rehydration solution (ORS). This drink helps restore proper amounts of fluids and salts and minerals in the blood (electrolytes). Severe dehydration can be treated: ?With IV fluids. ?By correcting abnormal levels of electrolytes. This is often done by giving electrolytes through atube that is passed through your nose and into your stomach (nasogastric tube, or NG tube). ?By treating the underlying cause of dehydration. Follow these instructions at home: Oral rehydration solution If told by your health care provider, drink an ORS: Make an ORS by following instructions on the package. Start by drinking small amounts, about cup (120 mL) every 5 10 minutes. Slowly increase how much you drink until you have taken the amount recommended by your health care provider. Eating and drinking Drink enough clear fluid to keep your urine pale yellow. If you were told to drink an ORS, finish the ORS first and then start slowly drinking other clear fluids. Drink fluids such as: ?Water. Do not drink only water. Doing that can lead to hyponatremia, which is having too little salt (sodium) in the body. ?Water from ice chips you suck on. ?Fruit juice that you have added water to (diluted fruit juice). ?Low-calorie sports drinks. Eat foods that contain a healthy balance of electrolytes, such as bananas, oranges, potatoes, tomatoes, and spinach. Do not drink alcohol. Avoid the following: ?Drinks that contain a lot of sugar. These include high-calorie sports drinks, fruit juice that is not diluted, and soda. ?Caffeine. ?Foods that are greasy or contain a lot of fat or sugar. General instructions Take juxb-bbh-nprmbxy and prescription medicines only as told by your health care provider. Do not take sodium tablets. Doing that can lead to having too much sodium in the body (hypernatremia). Return to your normal activities as told by your health care provider. Ask your health care provider what activities are safe for you. Keep all follow-up visits as told by your health care provider. This is important. Contact a health care provider if: You have muscle cramps, pain, or discomfort, such as: ?Pain in your abdomen and the pain gets worse or stays in one area (localizes). ?Stiff neck. You have a rash. You are more irritable than usual. You are sleepier or have a harder time waking than usual. You feel weak or dizzy. You feel very thirsty. Get help right away if you have: Any symptoms of severe dehydration. Symptoms of vomiting, such as: ?You cannot eat or drink without vomiting. ?Vomiting gets worse or does not go away. ?Vomit includes blood or green matter (bile). Symptoms that get worse with treatment. A fever. A severe headache. Problems with urination or bowel movements, such as: ?Diarrhea that gets worse or does not go away. ?Blood in your stool (feces). This may cause stool to look black and tarry. ?Not urinating, or urinating only a small amount of very dark urine, within 6 8 hours. Trouble breathing. These symptoms may represent a serious problem that is an emergency. Do not wait to see if the symptoms will go away. Get medical help right away. Call your local emergency services (911 in the [place] Do not drive yourself to the hospital. Summary Dehydration is a condition in which there is not enough water or other fluids in the body. This happens when a person loses more fluids than he or she takes in. Treatment for this condition depends on how severe it is. Treatment should be started right away. Do not wait until dehydration becomes severe. Drink enough clear fluid to keep your urine pale yellow. If you were told to drink an oral rehydration solution (ORS), finish the ORS first and then start slowly drinking other clear fluids. Take bfps-fuz-wzyleqy and prescription medicines only as told by your health care provider. Get help right away if you have any symptoms of severe dehydration. This information is not intended to replace advice given to you by your health care provider. Make sure you discuss any questions you have with your health care provider. Document Revised: 01/11/2023 Document Reviewed: 04/16/2020 [employer] Patient Education 2022 [employer]. Follow Up Care 09/15/2023 14:22:48 With:FARHAN AGUS Address: [place] ANJELICA CHRIS [address] [place] [address], [address] FAX [phone] [place] [address] Business (1) When:09/18/2023 16:40:55 [facility]12-29-2023 Evaluation + Plan noteExtracted from: Title:ED Note Author:Sam Aguirre PA-C te:09/15/23 Dehydration (E86.0: Dehydrat ion) Orders: Sodium Chloride 0.9% intravenous solution 1,000 mL, 1,000 mL, IV, Bolus, STAT, Start date 09/15/23 14:44:00 EST, Total volume (mL): 1,000, 53 kg, 1.55, m2 [facility]12-27-2023 Hospital Discharge instructions Patient Education 09/13/2023 14:38:45 Acute Bronchitis, Adult Acute Bronchitis, Adult Acute bronchitis is sudden inflammation of the main airways (bronchi) that come off the windpipe (trachea) in the lungs. The swelling causes the airways to get smaller and make more mucus than normal. This can make it hard to breathe and can cause coughing or noisy breathing (wheezing). Acute bronchitis may last several weeks. The cough may last longer. Allergies, asthma, and exposureto smoke may make the condition worse. What are the causes? This condition can be caused by germs and by substances that irritate the lungs, including: Cold and flu viruses. The most common cause of this condition is the virus that causes the common cold. Bacteria. This is less common. Breathing in substances that irritate the lungs, including: ?Smoke from cigarettes and other forms of tobacco. ?Dust and pollen. ?Fumes from household cleaning products, gases, or burned fuel. ?Indoor or outdoor air pollution. What increases the risk? The following factors may make you more likely to develop this condition: A weak body's defense system, also called the immune system. A condition that affects your lungs and breathing, such as asthma. What are the signs or symptoms? Common symptoms of this condition include: Coughing. This may bring up clear, yellow, or green mucus from your lungs (sputum). Wheezing. Runny or stuffy nose. Having too much mucus in your lungs (chest congestion). Shortness of breath. Aches and pains, including sore throat or chest. How is this diagnosed? This condition is usually diagnosed based on: Your symptoms and medical history. A physical exam. You may also have other tests, including tests to rule out other conditions, such as pneumonia. These tests include: A test of lung function. Test of a mucus sample to look for the presence of bacteria. Tests to check the oxygen level in your blood. Blood tests. Chest X-ray. How is this treated? Most cases of acute bronchitis clear up over time without treatment. Your health care provider may recommend: Drinking more fluids to help thin your mucus so it is easier to cough up. Taking inhaled medicine (inhaler) to improve air flow in and out of your lungs. Using a vaporizer or a humidifier. These are machines that add water to the air to help you breathebetter. Taking a medicine that thins mucus and clears congestion (expectorant). Taking a medicine that prevents or stops coughing (cough suppressant). It is not common to take an antibiotic medicine for this condition. Follow these instructions at home: Take ozje-mgf-cqpyjxw and prescription medicines only as told by your health care provider. Use an inhaler, vaporizer, or humidifier as told by your health care provider. Take two teaspoons (10 mL) of honey at bedtime to lessen coughing at night. Drink enough fluid to keep your urine pale yellow. Do not use any products that contain nicotine or tobacco. These products include cigarettes, chewing tobacco, and vaping devices, such as e-cigarettes. If you need help quitting, ask your health careprovider. Get plenty of rest. Return to your normal activities as told by your health care provider. Ask your health care provider what activities are safe for you. Keep all follow-up visits. This is important. How is this prevented? To lower your risk of getting this condition again: Wash your hands often with soap and water for at least 20 seconds. If soap and water are not available, use hand asset liability analyst. Avoid contact with people who have cold symptoms. Try not to touch your mouth, nose, or eyes with your hands. Avoid breathing in smoke or chemical fumes. Breathing smoke or chemical fumes will make your condition worse. Get the flu shot every year. Contact a health care provider if: Your symptoms do not improve after 2 weeks. You have trouble coughing up the mucus. Your cough keeps you awake at night. You have a fever. Get help right away if you: Cough up blood. Feel pain in your chest. Have severe shortness of breath. Faint or keep feeling like you are going to faint. Have a severe headache. Have a fever or chills that get worse. These symptoms may represent a serious problem that is an emergency. Do not wait to see if the symptoms will go away. Get medical help right away. Call your local emergency services (911 in the [place] Do not drive yourself to the hospital. Summary Acute bronchitis is inflammation of the main airways (bronchi) that come off the windpipe (trachea)in the lungs. The swelling causes the airways to get smaller and make more mucus than normal. Drinking more fluids can help thin your mucus so it is easier to cough up. Take hyez-sbj-krxrgba and prescription medicines only as told by your health care provider. Do not use any products that contain nicotine or tobacco. These products include cigarettes, chewing tobacco, and vaping devices, such as e-cigarettes. If you need help quitting, ask your health careprovider. Contact a health care provider if your symptoms do not improve after 2 weeks. This information is not intended to replace advice given to you by your health care provider. Make sure you discuss any questions you have with your health care provider. Document Revised: 12/15/2022 Document Reviewed: 01/05/2022 [employer] Patient Education 2022 [employer]. Follow Up Care 09/13/2023 12:07:19 With:FARHAN GOLDSMITH Address: [place] PEREZ [address] [place] [address], [address] FAX [phone] [place] [address] Business (1) When:09/16/2023 14:18:51 [facility]12-27-2023 Evaluation + Plan noteExtracted from: Title:ED Note Author:Carla THOMPSON, Sam Thompson te:09/13/23 Bronchitis (J40: Bronchitis, not specified as acute or chronic) Orders: azithromycin, = 1 packet(s), Oral, As Directed, as directed on package labeling, X 5 day(s), # 6 tab(s), Refills(s) 0, Pharmacy: [facility], 163, cm, 09/13/23 12:20:00 EST, Height/Length Dosing, 52.6, kg, 09/13/23 12:20:00 EST, Weight Dosing brompheniramine/dextromethorphan/PSE, 10 mL, Oral, QID for cough and congestion for 7 day(s), 280 mL, Refill(s) 0, [facility], 163, cm, 09/13/23 12:20:00 EST, Height/Length Dosing, 52.6, kg, 09/13/23 12:20:00 EST, Weight Dosing Beta hCG Qual Extra Green Li Tube Extra Lav Tube XR Chest 2 Views [facility]11-20-2023 Evaluation + Plan noteExtracted from: Title:ED Note Author:Sam Aguirre PA-C te:08/07/23 Abdominal pain (R10.9: Unspe cified abdominal pain) Future Appointments Appointment Date:08/28/2023 11:45:00 AM Scheduled Provider:Alexsander LESTER MD Location:[facility].Cardiology Clinic Appointment Type:Cardiology Follow Up (FT) [facility]11-20-2023 Hospital Discharge instructions Patient Education 08/07/2023 08:54:44 Abdominal Pain, Adult Abdominal Pain, Adult Pain in the abdomen (abdominal pain) can be caused by many things. Often, abdominal pain is not serious and it gets better with no treatment or by being treated at home. However, sometimes abdominal pain is serious. Your health care provider will ask questions about your medical history and do a physical exam to try to determine the cause of your abdominal pain. Follow these instructions at home: Medicines Take ctht-lwz-ffsnhkh and prescription medicines only as told by your health care provider. Do not take a laxative unless told by your health care provider. General instructions Watch your condition for any changes. Drink enough fluid to keep your urine pale yellow. Keep all follow-up visits as told by your health care provider. This is important. Contact a health care provider if: Your abdominal pain changes or gets worse. You are not hungry or you lose weight without trying. You are constipated or have diarrhea for more than 2 3 days. You have pain when you urinate or have a bowel movement. Your abdominal pain wakes you up at night. Your pain gets worse with meals, after eating, or with certain foods. You are vomiting and cannot keep anything down. You have a fever. You have blood in your urine. Get help right away if: Your pain does not go away as soon as your health care provider told you to expect. You cannot stop vomiting. Your pain is only in areas of the abdomen, such as the right side or the left lower portion of the abdomen. Pain on the right side could be caused by appendicitis. You have bloody or black stools, or stools that look like tar. You have severe pain, cramping, or bloating in your abdomen. You have signs of dehydration, such as: ?Dark urine, very little urine, or no urine. ?Cracked lips. ?Dry mouth. ?Sunken eyes. ?Sleepiness. ?Weakness. You have trouble breathing or chest pain. Summary Often, abdominal pain is not serious and it gets better with no treatment or by being treated at home. However, sometimes abdominal pain is serious. Watch your condition for any changes. Take lebe-xdx-ndtfqss and prescription medicines only as told by your health care provider. Contact a health care provider if your abdominal pain changes or gets worse. Get help right away if you have severe pain, cramping, or bloating in your abdomen. This information is not intended to replace advice given to you by your health care provider. Make sure you discuss any questions you have with your health care provider. Document Revised: 10/23/2020 Document Reviewed: 01/13/2020 [employer] Patient Education 2022 [employer]. Follow Up Care 08/07/2023 07:06:55 With:Justin Hill Address: [place]io [address], [address] [phone] Business (1) When:08/10/2023 08:33:36 With:FARHAN GOLDSMITH Address: [place] [address] [facility], [address] FAX [phone] [place] [address] Business (1) When:Within 3 Day(s) [facility]11-18-2023 Hospital Discharge instructions Patient Education 08/05/2023 10:20:17 Potassium Content of Foods Potassium Content of Foods Potassium is a mineral found in many foods and drinks. It can affect how the heart works, affect blood pressure, and keep fluids and electrolytes balanced in the body. It is important not to have toomuch potassium (hyperkalemia) or too little potassium (hypokalemia) in the body, especially in the blood. Potassium is naturally found in many different types of whole foods, such as fruits, vegetables, meat, and dairy products. Processed foods tend to be lower in potassium. The amount of potassium you need each day depends on your age and any medical conditions you may have. General recommendations are: Females aged 19 and older: 2,600 mg per day. Males aged 19 and older: 3,400 mg per day. Talk with your health care provider or dietitian about how much potassium you need. What foods are high in potassium? Below are examples of foods that have greater than 200 mg of potassium per serving. Fruits Bath 1 medium (130 g) has 230 mg of potassium. Banana 1 medium (120 g) has 420 mg of potassium. Cantaloupe, chunks 1 cup (160 g) has 430 mg of potassium. Vegetables Potato, baked, without skin 1 medium (170 g) has 600 mg of potassium. Broccoli, chopped, cooked cup (77.5 g) has 230 mg of potassium. Tomato, chopped or sliced 1 cup (152 g) has 400 mg of potassium. Grains Cereal, bran with raisins 1 cup (59 g) has 360 mg of potassium. Granola with almonds cup (82 g) has 220 mg of potassium. Meats and other proteins Ground beef laci 4 ounces (113 g) has 240 mg of potassium. Kidney beans, boiled cup (130 g) has 350 mg of potassium. Almonds 1 ounce (approximately 22 nuts or 28 g) has 200 mg of potassium. Dairy Cow's milk, 1% 1 cup (237 mL) has 360 mg of potassium. Plain vanilla low-fat yogurt cup (184 g) has 220 mg of potassium. The items listed above may not be a complete list of foods high in potassium. Actual amounts of potassium may be different depending on ripeness, shelf life, and food preparation. Contact a dietitianfor more information. What foods are low in potassium? Below are examples of foods that have less than 200 mg of potassium per serving. Fruits Blueberries 1 cup (145 g) has 110 mg of potassium. Apple 1 medium (140 g) has 145 mg of potassium. Grapes 1 cup (160 g) has 175 mg of potassium. Vegetables Cabbage, raw 1 cup (70 g) has 120 mg of potassium. Cauliflower, chopped, cooked 1 cup (180 g) has 90 mg of potassium. Neymar lettuce, chopped 1 cup (56 g) has 120 mg of potassium. Grains Bagel, plain one 4-inch (10 cm) has 100 mg of potassium. Whole wheat bread 1 slice (26 g) has 70 mg of potassium. White rice, cooked 1 cup (163 g) has 50 mg of potassium. Meats and other proteins Tuna, light, canned in water 3 ounces (85 g) has 150 mg of potassium. Egg, fried 1 large (50 g) has 60 mg of potassium. Peanuts 1 ounce (35 nuts or 28 g) has 180 mg of potassium. Tofu cup (252 g) has 150 mg of potassium. Dairy Cheese (cheddar, franck, mozzarella, or provolone) 1 ounce (28 g) has 30 to 40 mg of potassium. The items listed above may not be a complete list of foods that are low in potassium. Actual amounts of potassium may be different depending on ripeness, shelf life, and food preparation. Contact a dietitian for more information. Summary Potassium is a mineral found in many foods and drinks. It affects how the heart works, affects blood pressure, and keeps fluids and electrolytes balanced in the body. The amount of potassium you need each day depends on your age and any existing medical conditions you may have. Your health care provider or dietitian may recommend an amount of potassium that you should have each day. This information is not intended to replace advice given to you by your health care provider. Make sure you discuss any questions you have with your health care provider. Document Revised: 06/07/2022 Document Reviewed: 05/19/2022 [employer] Patient Education 2022 [employer]. 08/05/2023 10:20:17 Musculoskeletal Pain Musculoskeletal Pain Musculoskeletal pain refers to aches and pains in your bones, joints, muscles, and the tissues thatsurround them. This pain can occur in any part of the body. It can last for a short time (acute) ora long time (chronic). A physical exam, lab tests, and imaging studies may be done to find the cause of your musculoskeletal pain. Follow these instructions at home: Lifestyle Try to control or lower your stress levels. Stress increases muscle tension and can worsen musculoskeletal pain. It is important to recognize when you are anxious or stressed and learn ways to manageit. This may include: ?Meditation or yoga. ?Cognitive or behavioral therapy. ?Acupuncture or massage therapy. You may continue all activities unless the activities cause more pain. When the pain gets better, slowly resume your normal activities. Gradually increase the intensity and duration of your activities or exercise. Managing pain, stiffness, and swelling Treatment may include medicines for pain and inflammation that are taken by mouth or applied to theskin. Take yxsp-sta-vzuaaot and prescription medicines only as told by your health care provider. When your pain is severe, bed rest may be helpful. Lie or sit in any position that is comfortable, but get out of bed and walk around at least every couple of hours. If directed, apply heat to the affected area as often as told by your health care provider. Use theheat source that your health care provider recommends, such as a moist heat pack or a heating pad. ?Place a towel between your skin and the heat source. ?Leave the heat on for 20 30 minutes. ?Remove the heat if your skin turns bright red. This is especially important if you are unable to feel pain, heat, or cold. You may have a greater risk of getting burned. If directed, put ice on the painful area. To do this: ?Put ice in a plastic bag. ?Place a towel between your skin and the bag. ?Leave the ice on for 20 minutes, 2 3 times a day. ?Remove the ice if your skin turns bright red. This is very important. If you cannot feel pain, heat, or cold, you have a greater risk of damage to the area. General instructions Your health care provider may recommend that you see a physical therapist. This person can help youcome up with a safe exercise program. If told by your health care provider, do physical therapy exercises to improve movement and strength in the affected area. Keep all follow-up visits. This is important. This includes any physical therapy visits. Contact a health care provider if: Your pain gets worse. Medicines do not help ease your pain. You cannot use the part of your body that hurts, such as your arm, leg, or neck. You have trouble sleeping. You have trouble doing your normal activities. Get help right away if: You have a new injury and your pain is worse or different. You feel numb or you have tingling in the painful area. Summary Musculoskeletal pain refers to aches and pains in your bones, joints, muscles, and the tissues thatsurround them. This pain can occur in any part of the body. Your health care provider may recommend that you see a physical therapist. This person can help youcome up with a safe exercise program. Do any exercises as told by your physical therapist. Lower your stress level. Stress can worsen musculoskeletal pain. Ways to lower stress may include meditation, yoga, cognitive or behavioral therapy, acupuncture, and massage therapy. This information is not intended to replace advice given to you by your health care provider. Make sure you discuss any questions you have with your health care provider. Document Revised: 01/07/2021 Document Reviewed: 12/16/2020 [employer] Patient Education 2022 [employer]. 08/05/2023 10:20:17 Hypokalemia Hypokalemia Hypokalemia means that the amount of potassium in the blood is lower than normal. Potassium is a mineral (electrolyte) that helps regulate the amount of fluid in the body. It also stimulates muscle tightening (contraction) and helps nerves work properly. Normally, most of the body's potassium is inside cells, and only a very small amount is in the blood. Because the amount in the blood is so small, minor changes to potassium levels in the blood can be life-threatening. What are the causes? This condition may be caused by: Antibiotic medicine. Diarrhea or vomiting. Taking too much of a medicine that helps you have a bowel movement (laxative)can cause diarrhea and lead to hypokalemia. Chronic kidney disease (CKD). Medicines that help the body get rid of excess fluid (diuretics). Eating disorders, such as anorexia or bulimia. Low magnesium levels in the body. Sweating a lot. What are the signs or symptoms? Symptoms of this condition include: Weakness. Constipation. Fatigue. Muscle cramps. Mental confusion. Skipped heartbeats or irregular heartbeat (palpitations). Tingling or numbness. How is this diagnosed? This condition is diagnosed with a blood test. How is this treated? This condition may be treated by: Taking potassium supplements. Adjusting the medicines that you take. Eating more foods that contain a lot of potassium. If your potassium level is very low, you may need to get potassium through an IV and be monitored in the hospital. Follow these instructions at home: Eating and drinking Eat a healthy diet. A healthy diet includes fresh fruits and vegetables, whole grains, healthy fats, and lean proteins. If told, eat more foods that contain a lot of potassium. These include: ?Nuts, such as peanuts and pistachios. ?Seeds, such as sunflower seeds and pumpkin seeds. ?Peas, lentils, and saldana beans. ?Whole grain and bran cereals and breads. ?Fresh fruits and vegetables, such as apricots, avocado, bananas, cantaloupe, kiwi, oranges, tomatoes, asparagus, and potatoes. ?Juices, such as orange, tomato, and prune. ?Lean meats, including fish. ?Milk and milk products, such as yogurt. General instructions Take uuze-qzq-zlcmwgl and prescription medicines only as told by your health care provider. This includes vitamins, natural food products, and supplements. Keep all follow-up visits. This is important. Contact a health care provider if: You have weakness that gets worse. You feel your heart pounding or racing. You vomit. You have diarrhea. You have diabetes and you have trouble keeping your blood sugar in your target range. Get help right away if: You have chest pain. You have shortness of breath. You have vomiting or diarrhea that lasts for more than 2 days. You faint. These symptoms may be an emergency. Get help right away. Call 911. Do not wait to see if the symptoms will go away. Do not drive yourself to the hospital. Summary Hypokalemia means that the amount of potassium in the blood is lower than normal. This condition is diagnosed with a blood test. Hypokalemia may be treated by taking potassium supplements, adjusting the medicines that you take, or eating more foods that are high in potassium. If your potassium level is very low, you may need to get potassium through an IV and be monitored in the hospital. This information is not intended to replace advice given to you by your health care provider. Make sure you discuss any questions you have with your health care provider. Document Revised: 05/19/2022 Document Reviewed: 05/19/2022 [employer] Patient Education 2022 [employer]. Follow Up Care 08/05/2023 07:55:58 With:Lola Cortez Address: [address] [place] [address]- [place] (1) When:08/08/2023 09:57:41 [facility]11-10-2023 Hospital Discharge instructions Patient Education 07/28/2023 13:46:38 Abdominal Pain, Adult Abdominal Pain, Adult Pain in the abdomen (abdominal pain) can be caused by many things. Often, abdominal pain is not serious and it gets better with no treatment or by being treated at home. However, sometimes abdominal pain is serious. Your health care provider will ask questions about your medical history and do a physical exam to try to determine the cause of your abdominal pain. Follow these instructions at home: Medicines Take gdre-ffy-vkcbkhu and prescription medicines only as told by your health care provider. Do not take a laxative unless told by your health care provider. General instructions Watch your condition for any changes. Drink enough fluid to keep your urine pale yellow. Keep all follow-up visits as told by your health care provider. This is important. Contact a health care provider if: Your abdominal pain changes or gets worse. You are not hungry or you lose weight without trying. You are constipated or have diarrhea for more than 2 3 days. You have pain when you urinate or have a bowel movement. Your abdominal pain wakes you up at night. Your pain gets worse with meals, after eating, or with certain foods. You are vomiting and cannot keep anything down. You have a fever. You have blood in your urine. Get help right away if: Your pain does not go away as soon as your health care provider told you to expect. You cannot stop vomiting. Your pain is only in areas of the abdomen, such as the right side or the left lower portion of the abdomen. Pain on the right side could be caused by appendicitis. You have bloody or black stools, or stools that look like tar. You have severe pain, cramping, or bloating in your abdomen. You have signs of dehydration, such as: ?Dark urine, very little urine, or no urine. ?Cracked lips. ?Dry mouth. ?Sunken eyes. ?Sleepiness. ?Weakness. You have trouble breathing or chest pain. Summary Often, abdominal pain is not serious and it gets better with no treatment or by being treated at home. However, sometimes abdominal pain is serious. Watch your condition for any changes. Take suwz-wkm-ixoekhd and prescription medicines only as told by your health care provider. Contact a health care provider if your abdominal pain changes or gets worse. Get help right away if you have severe pain, cramping, or bloating in your abdomen. This information is not intended to replace advice given to you by your health care provider. Make sure you discuss any questions you have with your health care provider. Document Revised: 10/23/2020 Document Reviewed: 01/13/2020 [employer] Patient Education 2022 [employer]. Follow Up Care 07/28/2023 11:13:02 With:FARHAN GOLDSMITH Address: [address], [address] FAX [phone] [place] [address] Business (1) When:07/31/2023 13:35:18 [facility]11-10-2023 Evaluation + Plan noteExtracted from: Title:ED Note Author:Sam Aguirre PA-C te:07/28/23 Abdominal pain (R10.9: Unspe cified abdominal pain) Nausea (R11.0: Nausea) Orders: Al hydroxide/Mg hydroxide/simethicone, 30 mL, Susp-Oral, Oral, Once, Stop date 07/28/23 12:24:00 EST, STAT, Start date 07/28/23 12:24:00 EST atropine/hyoscyamine/PB/scopolamine, 10 mL, Elixir, Oral, Once, Stop date 07/28/23 12:24:00 EST, STAT, Start date 07/28/23 12:24:00 EST dicyclomine, 20 mg = 1 tab(s), Oral, TID, X 7 day(s), # 21 tab(s), Refills(s) 0, Pharmacy: [id number], 163, cm, 07/28/23 11:19:00 EST, Height/Length Dosing, 54.5, kg, 07/28/23 11:19:00 EST, Weight Dosing famotidine, 40 mg = 1 tab(s), Oral, Once a day (at bedtime), X 5 day(s), # 5 tab(s), Refills(s) 0, Pharmacy: [facility], 163, cm, 07/28/23 11:19:00 EST, Height/Length Dosing, 54.5, kg, 07/28/23 11:19:00 EST, Weight Dosing promethazine, 25 mg = 1 tab(s), Oral, TID, # 15 tab(s), Refills(s) 0, Pharmacy: [facility], 163, cm, 07/28/23 11:19:00 EST, Height/Length Dosing, 54.5, kg, 07/28/23 11:19:00 EST, Weight Dosing Automated Diff Basic Metabolic Panel Beta hCG Qual CBC w/ Auto Diff eGFR Hepatic Function Panel Lipase Level UA With Cult Reflex Future Appointments Appointment Date:08/07/2023 01:00:00 PM Scheduled Provider: Location[facility] Appointment Type:CV Stress (FT) Appointment Date:08/07/2023 02:00:00 PM Scheduled Provider: Location[facility] Appointment Type:CV Holter/Event (FT) Appointment Date:08/28/2023 11:45:00 AM Scheduled Provider:Alexsander LESTER MD Location:[facility] Appointment Type:Cardiology Follow Up (FT) Future Scheduled Tests Radiology* ECG Stress Exercise 08/07/23 [facility]09-21-2023 Evaluation + Plan noteExtracted from: Title:ED Note Author:Carla THOMPSON, Sam Thompson te:06/08/23 Calf pain (M79.669: Pain in unspecified lower leg) Orders: US LE Venous Duplex Right [facility]09-21-2023 Hospital Discharge instructions Patient Education 06/08/2023 10:33:42 Musculoskeletal Pain Musculoskeletal Pain Musculoskeletal pain refers to aches and pains in your bones, joints, muscles, and the tissues thatsurround them. This pain can occur in any part of the body. It can last for a short time (acute) ora long time (chronic). A physical exam, lab tests, and imaging studies may be done to find the cause of your musculoskeletal pain. Follow these instructions at home: Lifestyle Try to control or lower your stress levels. Stress increases muscle tension and can worsen musculoskeletal pain. It is important to recognize when you are anxious or stressed and learn ways to manageit. This may include: ?Meditation or yoga. ?Cognitive or behavioral therapy. ?Acupuncture or massage therapy. You may continue all activities unless the activities cause more pain. When the pain gets better, slowly resume your normal activities. Gradually increase the intensity and duration of your activities or exercise. Managing pain, stiffness, and swelling Treatment may include medicines for pain and inflammation that are taken by mouth or applied to theskin. Take rxyk-vxk-hxqlybm and prescription medicines only as told by your health care provider. When your pain is severe, bed rest may be helpful. Lie or sit in any position that is comfortable, but get out of bed and walk around at least every couple of hours. If directed, apply heat to the affected area as often as told by your health care provider. Use theheat source that your health care provider recommends, such as a moist heat pack or a heating pad. ?Place a towel between your skin and the heat source. ?Leave the heat on for 20 30 minutes. ?Remove the heat if your skin turns bright red. This is especially important if you are unable to feel pain, heat, or cold. You may have a greater risk of getting burned. If directed, put ice on the painful area. To do this: ?Put ice in a plastic bag. ?Place a towel between your skin and the bag. ?Leave the ice on for 20 minutes, 2 3 times a day. ?Remove the ice if your skin turns bright red. This is very important. If you cannot feel pain, heat, or cold, you have a greater risk of damage to the area. General instructions Your health care provider may recommend that you see a physical therapist. This person can help youcome up with a safe exercise program. If told by your health care provider, do physical therapy exercises to improve movement and strength in the affected area. Keep all follow-up visits. This is important. This includes any physical therapy visits. Contact a health care provider if: Your pain gets worse. Medicines do not help ease your pain. You cannot use the part of your body that hurts, such as your arm, leg, or neck. You have trouble sleeping. You have trouble doing your normal activities. Get help right away if: You have a new injury and your pain is worse or different. You feel numb or you have tingling in the painful area. Summary Musculoskeletal pain refers to aches and pains in your bones, joints, muscles, and the tissues thatsurround them. This pain can occur in any part of the body. Your health care provider may recommend that you see a physical therapist. This person can help youcome up with a safe exercise program. Do any exercises as told by your physical therapist. Lower your stress level. Stress can worsen musculoskeletal pain. Ways to lower stress may include meditation, yoga, cognitive or behavioral therapy, acupuncture, and massage therapy. This information is not intended to replace advice given to you by your health care provider. Make sure you discuss any questions you have with your health care provider. Document Revised: 01/07/2021 Document Reviewed: 12/16/2020 [employer] Patient Education 2022 [employer]. Follow Up Care 06/08/2023 09:08:40 With:XXXX NONE Address: [place] When:06/11/2023 10:25:26 [facility]07-23-2023 Hospital Discharge instructions Patient Education 04/09/2023 19:03:07 Medication , Care After Medication , Care After The following information offers guidance on how to care for yourself after your procedure. Your health care provider may also give you more specific instructions. If you have problems or questions, contact your health care provider. What can I expect after the procedure? After the procedure, it is common to have: Bleeding that lasts for a few hours or a few days. It may feel like you are having a heavy menstrual period. Cramps that are similar to menstrual cramps. A headache. Diarrhea. Nausea and vomiting. Fever, chills, or hot flushes. Dizziness. Your next menstrual period will most likely start 4 6 weeks after the procedure, unless you start taking control pills. Follow these instructions at home: Medicines Take jjde-xhn-gyeohbh and prescription medicines only as told by your health care provider. Only take the medicines your health care provider recommends. Do not take aspirin. It can cause bleeding. Activity Do not have sex for 2 3 weeks or until your health care provider approves. Rest and avoid activity that requires a lot of effort for 2 3 weeks. General instructions Do not douche or use tampons until your health care provider approves. Ask your health care provider when you can start using hormonal control. Keep all follow-up visits. This is important. Contact a health care provider if: You have a fever of 100.4 F (38 C) or higher. You have pain that is not relieved by hkqj-kfe-dgkxpno pain medicine. You have a bad-smelling vaginal discharge. You have pain or bleeding that gets worse. You have any of the following symptoms for more than 24 hours: ?Nausea. ?Vomiting. ?Diarrhea. You need to change your pad more than once in an hour. You do not have any bleeding after 3 days. This is a sign that the medicine may not be working. Get help right away if: You have severe cramps in your stomach, back, or abdomen. You become light-headed, weak, or faint. Summary After the procedure, it is common to have bleeding, headache, diarrhea, nausea and vomiting, chills, and dizziness. Take itct-dgy-wjiuerl and prescription medicines only as told by your health care provider. Do not have sex until your health care provider approves. Keep all follow-up visits. This is important. This information is not intended to replace advice given to you by your health care provider. Make sure you discuss any questions you have with your health care provider. Document Revised: 06/24/2021 Document Reviewed: 06/24/2021 [employer] Patient Education 2022 [employer]. 04/09/2023 19:03:07 Medication Medication Medication is a procedure that uses medicines to end a . Hormone-like medicines are used to start labor by making the uterus tighten (contract). Medication abortions are noninvasiveand can be done during the first trimester of . Tell your health care provider about: Any allergies you have. All medicines you are taking, including vitamins, herbs, eye drops, creams, and ttsr-hdq-kkdfvyu medicines. Any blood disorders you have. If you have an intrauterine device (IUD) for control. Any medical conditions you have. What are the risks? Generally, this is a safe procedure. However, problems may occur, including: Parts of the placenta and other afterbirth may remain in your uterus. If this happens, you may needto have a procedure where the inside of your uterus is scraped to remove it. Heavy bleeding. Infection. Failure to end the . If this happens, your health provider will discuss possible risks andother ways of treatment. Temporary side effects from the medicine. These may include: ?Headache. ?Nausea and vomiting. ?Diarrhea. ?Feeling dizzy. ?Fever. ?Chills. What happens before the procedure? You may have a pelvic exam. This is an exam of your outer and inner genitals and reproductive organs. You may have a blood test to confirm that you are . You may have an ultrasound of your uterus. After discussing the procedure with your health care provider, you will be asked to sign a consent form. Ask your health care provider about changing or stopping your regular medicines. This is especiallyimportant if you are taking diabetes medicines or blood thinners. What happens during the procedure? You will take medicines in tablet form by mouth. After you take the medicines, you will be able to go home. The medicine will induce bleeding that may last for a few hours or up to a few days, similar to a heavy menstrual period. Within 1 3 days of taking this medicine, you will be instructed to take more medicine by mouth or by putting it directly into your vagina (suppository). Follow your health care provider's instructions carefully. If you are Rh negative, you will be given Rh immunoglobulin to prevent Rh sensitization. The procedure may vary among health care providers and hospitals. What happens after the procedure? You may have cramps for a few days. They may feel like menstrual cramps. You will continue to have bleeding that may last up to a few days. The bleeding is similar to a heavy menstrual period. Your health care provider will make a plan with you for follow-up. In person follow-up may not be necessary if you do not have any problems from the procedure. Summary Medication is a procedure that uses medicines to end a . This is a safe procedure. However, there are potential risks, including parts of the placenta and other afterbirth remaining in your uterus, and failure to end the . You will be given medicine in tablet form to take by mouth. After you take the medicine, you will be able to go home. Bleeding will begin that may last for a few hours or up to a few days. Your health care provider will make a plan with you for follow-up. This information is not intended to replace advice given to you by your health care provider. Make sure you discuss any questions you have with your health care provider. Document Revised: 06/24/2021 Document Reviewed: 06/24/2021 [employer] Patient Education 2022 [employer]. Follow Up Care 04/09/2023 17:18:16 With:Kapil SORIA Address: [address] , [place] [address]- Business (1) When:04/12/2023 19:03:00 With:XXXX NONE Address: [place] When:Within 3 Day(s) [facility]07-23-2023 Evaluation + Plan noteExtracted from: Title:ED Note Author:Cedric Munguia PA-C e:04/09/23 Anxiety (F41.9: Anxiety diso rder, unspecified) Vaginal bleeding (N93.9: Abnormal uterine and vaginal bleeding, unspecified) [facility]07-11-2023 Hospital Discharge instructions Patient Education 03/27/2023 22:29:51 Abdominal Pain During Abdominal Pain During Abdominal pain is common during and has many possible causes. Some causes are more serious than others, and sometimes the cause is not known. Abdominal pain can be a sign that labor is starting. It can also be caused by normal growth of yourbaby causing stretching of muscles and ligaments during . Always tell your health care provider if you have any abdominal pain. Follow these instructions at home: Do not have sex or put anything in your vagina until your pain goes away completely. Get plenty of rest until your pain improves. Drink enough fluid to keep your urine pale yellow. Take rckh-hde-axadiih and prescription medicines only as told by your health care provider. Keep all follow-up visits. This is important. Contact a health care provider if: Your pain continues or gets worse after resting. You have lower abdominal pain that: ?Comes and goes at regular intervals. ?Spreads to your back. ?Is similar to menstrual cramps. You have pain or burning when you urinate. Get help right away if: You have a fever, chills, or shortness of breath. You have vaginal bleeding. You are leaking fluid or passing tissue from your vagina. You have vomiting or diarrhea that lasts for more than 24 hours. Your baby is moving less than usual. You feel very weak or faint. You develop severe pain in your upper abdomen. Summary Abdominal pain is common during and has many possible causes. If you experience abdominal pain during , tell your health care provider right away. Follow your health care provider's home care instructions and keep all follow-up visits as told. This information is not intended to replace advice given to you by your health care provider. Make sure you discuss any questions you have with your health care provider. Document Revised: 05/18/2021 Document Reviewed: 05/18/2021 [employer] Patient Education 2022 [employer]. 03/27/2023 22:29:51 Wrist Sprain, Adult Wrist Sprain, Adult A wrist sprain is a stretch or tear in the strong tissues that connect the wrist bones to each other. These strong tissues are called ligaments. There are three types of wrist sprains: Grade 1. The ligament is stretched more than normal. There may be a minor amount of wrist pain. Grade 2. The ligament is partially torn. You may be able to move your wrist, but not very much. There may be a moderate amount of wrist pain. Grade 3. The ligament or ligaments are completely torn. You may find it difficult to move your wrist even a little. There may be a significant amount of wrist pain. What are the causes? This condition may be caused by using the wrist too much during sports, exercise, or work. It can also happen due to a fall or during an accident. What increases the risk? You are more likely to develop this condition if: You had a previous wrist or arm injury. You have poor wrist strength and flexibility. You play contact sports, such as football or soccer. You participate in sports that may result in a fall, such as skateboarding, biking, skiing, or snowboarding. You do not exercise regularly. You use exercise equipment that does not fit well. What are the signs or symptoms? Symptoms of this condition include: Pain in the wrist, arm, or hand. Swelling or bruised skin near the wrist, hand, or arm. The skin may look yellow or blue. Stiffness or trouble moving the hand. Hearing a noise, like a pop or a snap, at the time of injury, or feeling a tear at the time of the injury. A warm feeling in the skin around the wrist. How is this diagnosed? This condition is diagnosed with a physical exam. Sometimes an X-ray is taken to make sure a bone did not break. You may also have an MRI of your wrist to check for torn ligaments. How is this treated? This condition is treated by resting and applying ice to your wrist. Additional treatment may include: Taking medicine for pain and inflammation. Wearing a splint, brace, or cast for a short period of time to keep your wrist from moving (immobilized). Doing exercises to strengthen and stretch your wrist. Having surgery. This may be done if the ligament is completely torn. Follow these instructions at home: If you have a splint or brace: Wear the splint or brace as told by your health care provider. Remove it only as told by your health care provider. Loosen it if your fingers tingle, become numb, or turn cold and blue. Keep it clean. If the splint or brace is not waterproof: ?Do not let it get wet. ?Cover it with a watertight covering when you take a bath or a shower. If you have a cast: Do not put pressure on any part of the cast until it is fully hardened. This may take several hours. Do not stick anything inside the cast to scratch your skin. Doing that increases your risk of infection. Check the skin around the cast every day. Tell your health care provider about any concerns. You may put lotion on dry skin around the edges of the cast. Do not put lotion on the skin underneath the cast. Keep it clean. If the cast is not waterproof: ?Do not let it get wet. ?Cover it with a watertight covering when you take a bath or shower. Managing pain, stiffness, and swelling If directed, put ice on the injured area. To do this: ?If you have a removable splint or brace, remove it as told by your health care provider. ?Put ice in a plastic bag. ?Place a towel between your skin and the bag or between the splint or cast and the bag. ?Leave the ice on for 20 minutes, 2 3 times a day. ?Remove the ice if your skin turns bright red. This is very important. If you cannot feel pain, heat, or cold, you have a greater risk of damage to the area. Move your fingers often to reduce stiffness and swelling. Raise (elevate) the injured area above the level of your heart while you are sitting or lying down. Activity Rest your wrist as told by your health care provider. Do not do things that cause pain. Ask your health care provider when it is safe to drive if you have a splint, brace, or cast on yourwrist. Do exercises as told by your health care provider. Return to your normal activities as told by your health care provider. Ask your health care provider what activities are safe for you. General instructions Take puue-rdk-mhznjhn and prescription medicines only as told by your health care provider. Do not use any products that contain nicotine or tobacco, such as cigarettes, e- cigarettes, and chewing tobacco. These can delay healing. If you need help quitting, ask your health care provider. Keep all follow-up visits. This is important. Contact a health care provider if: Your pain, bruising, or swelling gets worse. Your skin becomes red, gets a rash, or has open sores. Your pain does not get better or it gets worse. Get help right away if: You have a new or sudden sharp pain in the hand, arm, or wrist. You have tingling or numbness in your hand. Your fingers turn white, very red, or cold and blue. You cannot move your fingers. Summary A wrist sprain is damage to ligaments in your wrist. Wrist sprains can range from mild to severe. Return to your normal activities as told by your health care provider. Ask your health care provider what activities are safe for you. You may need to wear a splint, brace, or cast for a short period of time. This information is not intended to replace advice given to you by your health care provider. Make sure you discuss any questions you have with your health care provider. Document Revised: 01/11/2021 Document Reviewed: 01/11/2021 [employer] Patient Education 2022 [employer] Follow Up Care 03/27/2023 19:53:16 With:Kapil SORIA Address: [address] , [place] [address]- [facility] (1) When:03/30/2023 Comments:Call the office of your primary care doctor to arrange for follow-up within the above-stated timeframe. Follow-up with your primary care doctor about this ED visit. You should review your labs, imaging, and diagnoses from this ED visit with your primary care physician. If you were prescribed medications you should discuss possible side-effects and drug interactions with your pharmacist. Call 911 or go to the nearest Emergency Department if you develop any new or worsening symptoms. With:XXXX NONE Address: [place] When:Within 3 Day(s) [facility]07-10-2023 Evaluation + Plan note Diagnostic Tests Pending * UA With Cult Reflex 03/27/23 * U Beta Hcg Qual 03/27/23 [facility]06-29-2023 Hospital Discharge instructions Patient Education 03/15/2023 23:48:42 Urinary Tract Infection, Adult Urinary Tract Infection, Adult A urinary tract infection (UTI) is an infection of any part of the urinary tract. The urinary tractincludes the kidneys, ureters, bladder, and urethra. These organs make, store, and get rid of urinein the body. An upper UTI affects the ureters and kidneys. A lower UTI affects the bladder and urethra. What are the causes? Most urinary tract infections are caused by bacteria in your genital area around your urethra, where urine leaves your body. These bacteria grow and cause inflammation of your urinary tract. What increases the risk? You are more likely to develop this condition if: You have a urinary catheter that stays in place. You are not able to control when you urinate or have a bowel movement (incontinence). You are female and you: ?Use a spermicide or diaphragm for control. ?Have low estrogen levels. ?Are . You have certain genes that increase your risk. You are sexually active. You take antibiotic medicines. You have a condition that causes your flow of urine to slow down, such as: ?An enlarged prostate, if you are male. ?Blockage in your urethra. ?A kidney stone. ?A nerve condition that affects your bladder control (neurogenic bladder). ?Not getting enough to drink, or not urinating often. You have certain medical conditions, such as: ?Diabetes. ?A weak disease-fighting system (immunesystem). ?Sickle cell disease. ?Gout. ?Spinal cord injury. What are the signs or symptoms? Symptoms of this condition include: Needing to urinate right away (urgency). Frequent urination. This may include small amounts of urine each time you urinate. Pain or burning with urination. Blood in the urine. Urine that smells bad or unusual. Trouble urinating. Cloudy urine. Vaginal discharge, if you are female. Pain in the abdomen or the lower back. You may also have: Vomiting or a decreased appetite. Confusion. Irritability or tiredness. A fever or chills. Diarrhea. The first symptom in older adults may be confusion. In some cases, they may not have any symptoms until the infection has worsened. How is this diagnosed? This condition is diagnosed based on your medical history and a physical exam. You may also have other tests, including: Urine tests. Blood tests. Tests for STIs (sexually transmitted infections). If you have had more than one UTI, a cystoscopy or imaging studies may be done to determine the cause of the infections. How is this treated? Treatment for this condition includes: Antibiotic medicine. Wjan-qhy-rkymfqb medicines to treat discomfort. Drinking enough water to stay hydrated. If you have frequent infections or have other conditions such as a kidney stone, you may need to see a health care provider who specializes in the urinary tract (urologist). In rare cases, urinary tract infections can cause sepsis. Sepsis is a life- threatening condition that occurs when the body responds to an infection. Sepsis is treated in the hospital with IV antibiotics, fluids, and other medicines. Follow these instructions at home: Medicines Take owqh-fgi-whzzcsh and prescription medicines only as told by your health care provider. If you were prescribed an antibiotic medicine, take it as told by your health care provider. Do notstop using the antibiotic even if you start to feel better. General instructions Make sure you: ?Empty your bladder often and completely. Do not hold urine for long periods of time. ?Empty your bladder after sex. ?Wipe from front to back after urinating or having a bowel movement if you are female. Use each tissue only one time when you wipe. Drink enough fluid to keep your urine pale yellow. Keep all follow-up visits. This is important. Contact a health care provider if: Your symptoms do not get better after 1 2 days. Your symptoms go away and then return. Get help right away if: You have severe pain in your back or your lower abdomen. You have a fever or chills. You have nausea or vomiting. Summary A urinary tract infection (UTI) is an infection of any part of the urinary tract, which includes the kidneys, ureters, bladder, and urethra. Most urinary tract infections are caused by bacteria in your genital area. Treatment for this condition often includes antibiotic medicines. If you were prescribed an antibiotic medicine, take it as told by your health care provider. Do notstop using the antibiotic even if you start to feel better. Keep all follow-up visits. This is important. This information is not intended to replace advice given to you by your health care provider. Make sure you discuss any questions you have with your health care provider. Document Revised: 04/16/2021 Document Reviewed: 04/16/2021 [employer] Patient Education 2022 [employer] Follow Up Care 03/15/2023 22:27:47 With:Gayatri Aguirre Address: [address] [place] [address], [place] [phone] Business (1) When:03/18/2023 [facility]06-28-2023 Evaluation + Plan noteExtracted from: Title:ED Note Author:Demetrius Parker DO Date :03/15/23 Acute UTI (N39.0: Urinary tr act infection, site not specified) Orders: nitrofurantoin, 100 mg = 1 cap(s), Oral, BID, X 5 day(s), # 10 cap(s), Refills(s) 0, Pharmacy: [id number], 164, cm, 03/15/23 22:33:00 EDT, Height/Length Dosing, 60.1, kg, 03/15/23 22:33:00 EDT, Weight Dosing nitrofurantoin, 100 mg = 1 cap(s), Cap, Oral, Once, Stop date 03/15/23 23:39:00 EDT, STAT, Start date 03/15/23 23:39:00 EDT, 03/15/23 23:39:00 EDT U Beta Hcg Qual UA With Cult Reflex [facility]04-27-2023 Hospital Discharge instructions Patient Education 01/12/2023 17:51:16 Managing Anxiety, Adult Managing Anxiety, Adult After being diagnosed with anxiety, you may be relieved to know why you have felt or behaved a certain way. You may also feel overwhelmed about the treatment ahead and what it will mean for your life. With care and support, you can manage this condition. How to manage lifestyle changes Managing stress and anxiety Stress is your body's reaction to life changes and events, both good and bad. Most stress will lastjust a few hours, but stress can be ongoing and can lead to more than just stress. Although stress can play a major role in anxiety, it is not the same as anxiety. Stress is usually caused by something external, such as a deadline, test, or competition. Stress normally passes after the triggering event has ended. Anxiety is caused by something internal, such as imagining a terrible outcome or worrying that something will go wrong that will devastate you. Anxiety often does not go away even after the triggering event is over, and it can become long-term (chronic) worry. It is important to understand the differences between stress and anxiety and to manage your stress effectively so that it does not lead shai anxious response. Talk with your health care provider or a counselor to learn more about reducing anxiety and stress.He or she may suggest tension reduction techniques, such as: Music therapy. Spend time creating or listening to music that you enjoy and that inspires you. Mindfulness-based meditation. Practice being aware of your normal breaths while not trying to control your breathing. It can be done while sitting or walking. Centering prayer. This involves focusing on a word, phrase, or sacred image that means something toyou and brings you peace. Deep breathing. To do this, expand your stomach and inhale slowly through your nose. Hold your breath for 3 5 seconds. Then exhale slowly, letting your stomach muscles relax. Self-talk. Learn to notice and identify thought patterns that lead to anxiety reactions and change those patterns to thoughts that feel peaceful. Muscle relaxation. Taking time to tense muscles and then relax them. Choose a tension reduction technique that fits your lifestyle and personality. These techniques take time and practice. Set aside 5 15 minutes a day to do them. Therapists can offer counseling and training in these techniques. The training to help with anxiety may be covered by some insurance plans. Other things you can do to manage stress and anxiety include: Keeping a stress diary. This can help you learn what triggers your reaction and then learn ways to manage your response. Thinking about how you react to certain situations. You may not be able to control everything, but you can control your response. Making time for activities that help you relax and not feeling guilty about spending your time in this way. Doing visual imagery. This involves imagining or creating mental pictures to help you relax. Practicing yoga. Through yoga poses, you can lower tension and promote relaxation. Medicines Medicines can help ease symptoms. Medicines for anxiety include: Antidepressant medicines. These are usually prescribed for long-term daily control. Anti-anxiety medicines. These may be added in severe cases, especially when panic attacks occur. Medicines will be prescribed by a health care provider. When used together, medicines, psychotherapy, and tension reduction techniques may be the most effective treatment. Relationships Relationships can play a big part in helping you recover. Try to spend more time connecting with trusted friends and family members. Consider going to couples counseling if you have a partner, taking family education classes, or going to family therapy. Therapy can help you and others better understand your condition. How to recognize changes in your anxiety Everyone responds differently to treatment for anxiety. Recovery from anxiety happens when symptomsdecrease and stop interfering with your daily activities at home or work. This may mean that you will start to: Have better concentration and focus. Worry will interfere less in your daily thinking. Sleep better. Be less irritable. Have more energy. Have improved memory. It is also important to recognize when your condition is getting worse. Contact your health care provider if your symptoms interfere with home or work and you feel like your condition is not improving. Follow these instructions at home: Activity Exercise. Adults should do the following: ?Exercise for at least 150 minutes each week. The exercise should increase your heart rate and makeyou sweat (moderate-intensity exercise). ?Strengthening exercises at least twice a week. Get the right amount and quality of sleep. Most adults need 7 9 hours of sleep each night. Lifestyle Eat a healthy diet that includes plenty of vegetables, fruits, whole grains, low-fat dairy products, and lean protein. ?Do not eat a lot of foods that are high in fats, added sugars, or salt (sodium). Make choices that simplify your life. Do not use any products that contain nicotine or tobacco. These products include cigarettes, chewing tobacco, and vaping devices, such as e-cigarettes. If you need help quitting, ask your health careprovider. Avoid caffeine, alcohol, and certain ywis-daq-hmseplj cold medicines. These may make you feel worse. Ask your pharmacist which medicines to avoid. General instructions Take sytn-xvg-mrgmgki and prescription medicines only as told by your health care provider. Keep all follow-up visits. This is important. Where to find support You can get help and support from these sources: Self-help groups. Online and community organizations. A trusted spiritual leader. Couples counseling. Family education classes. Family therapy. Where to find more information You may find that joining a support group helps you deal with your anxiety. The following sources can help you locate counselors or support groups near you: Mental Health [place]: www.mentalhealth[place].net Anxiety and Depression Association of [place] (ADAA): www.adaa.org National [place] [employer] Mental Illness (DANIEL): www.daniel.org Contact a health care provider if: You have a hard time staying focused or finishing daily tasks. You spend many hours a day feeling worried about everyday life. You become exhausted by worry. You start to have headaches or frequently feel tense. You develop chronic nausea or diarrhea. Get help right away if: You have a racing heart and shortness of breath. You have thoughts of hurting yourself or others. If you ever feel like you may hurt yourself or others, or have thoughts about taking your own life,get help right away. Go to your nearest emergency department or: Call your local emergency services (347 in the [place] Call a suicide crisis helpline, such as the National Suicide Prevention Lifeline at or 255 in the [place] This is open 24 hours a day in the [place] Text the Crisis Text Line at 403738 (in the [place] Summary Taking steps to learn and use tension reduction techniques can help calm you and help prevent triggering an anxiety reaction. When used together, medicines, psychotherapy, and tension reduction techniques may be the most effective treatment. Family, friends, and partners can play a big part in supporting you. This information is not intended to replace advice given to you by your health care provider. Make sure you discuss any questions you have with your health care provider. Document Revised: 03/30/2022 Document Reviewed: 12/26/2021 [employer] Patient Education 2022 [employer]. 01/12/2023 17:51:16 Nonspecific Chest Pain, Adult Nonspecific Chest Pain, Adult Chest pain is an uncomfortable, tight, or painful feeling in the chest. The pain can feel like a crushing, aching, or squeezing pressure. A person can feel a burning or tingling sensation. Chest paincan also be felt in your back, neck, jaw, shoulder, or arm. This pain can be worse when you move, sneeze, or take a deep breath. Chest pain can be caused by a condition that is life-threatening. This must be treated right away. It can also be caused by something that is not life- threatening. If you have chest pain, it can be hard to know the difference, so it is important to get help right away to make sure that you do not have a serious condition. Some life-threatening causes of chest pain include: Heart attack. A tear in the body's main blood vessel (aortic dissection). Inflammation around your heart (pericarditis). A problem in the lungs, such as a blood clot (pulmonary embolism) or a collapsed lung (pneumothorax). Some non life-threatening causes of chest pain include: Heartburn. Anxiety or stress. Damage to the bones, muscles, and cartilage that make up your chest wall. Pneumonia or bronchitis. Shingles infection (varicella-zoster virus). Your chest pain may come and go. It may also be constant. Your health care provider will do tests and other studies to find the cause of your pain. Treatment will depend on the cause of your chest pain. Follow these instructions at home: Medicines Take jdsx-gwg-rvhwlge and prescription medicines only as told by your health care provider. If you were prescribed an antibiotic medicine, take it as told by your health care provider. Do notstop taking the antibiotic even if you start to feel better. Activity Avoid any activities that cause chest pain. Do not lift anything that is heavier than 10 lb (4.5 kg), or the limit that you are told, until your health care provider says that it is safe. Rest as directed by your health care provider. Return to your normal activities only as told by your health care provider. Ask your health care provider what activities are safe for you. Lifestyle Do not use any products that contain nicotine or tobacco, such as cigarettes, e- cigarettes, and chewing tobacco. If you need help quitting, ask your health care provider. Do not drink alcohol. Make healthy lifestyle changes as recommended. These may include: ?Getting regular exercise. Ask your health care provider to suggest some exercises that are safe for you. ?Eating a heart-healthy diet. This includes plenty of fresh fruits and vegetables, whole grains, low-fat (lean) protein, and low-fat dairy products. A dietitian can help you find healthy eating options. ?Maintaining a healthy weight. ?Managing any other health conditions you may have, such as high blood pressure (hypertension) or diabetes. ?Reducing stress, such as with yoga or relaxation techniques. General instructions Pay attention to any changes in your symptoms. It is up to you to get the results of any tests that were done. Ask your health care provider, or the department that is doing the tests, when your results will be ready. Keep all follow-up visits as told by your health care provider. This is important. You may be asked to go for further testing if your chest pain does not go away. Contact a health care provider if: Your chest pain does not go away. You feel depressed. You have a fever. You notice changes in your symptoms or develop new symptoms. Get help right away if: Your chest pain gets worse. You have a cough that gets worse, or you cough up blood. You have severe pain in your abdomen. You faint. You have sudden, unexplained chest discomfort. You have sudden, unexplained discomfort in your arms, back, neck, or jaw. You have shortness of breath at any time. You suddenly start to sweat, or your skin gets clammy. You feel nausea or you vomit. You suddenly feel lightheaded or dizzy. You have severe weakness, or unexplained weakness or fatigue. Your heart begins to beat quickly, or it feels like it is skipping beats. These symptoms may represent a serious problem that is an emergency. Do not wait to see if the symptoms will go away. Get medical help right away. Call your local emergency services (911 in the [place] Do not drive yourself to the hospital. Summary Chest pain can be caused by a condition that is serious and requires urgent treatment. It may also be caused by something that is not life-threatening. Your health care provider may do lab tests and other studies to find the cause of your pain. Follow your health care provider's instructions on taking medicines, making lifestyle changes, and getting emergency treatment if symptoms become worse. Keep all follow-up visits as told by your health care provider. This includes visits for any further testing if your chest pain does not go away. This information is not intended to replace advice given to you by your health care provider. Make sure you discuss any questions you have with your health care provider. Document Revised: 11/18/2021 Document Reviewed: 11/18/2021 [employer] Patient Education 2022 [employer]. Follow Up Care 01/12/2023 15:07:23 With:Kaiden CLEVELAND Address: [facility] [address], [facility] [address] [place] [id number] [facility] (1) When:01/15/2023 17:46:05 [facility]04-26-2023 Evaluation + Plan noteExtracted from: Title:ED Note Author:Malik Enamorado, Omid Thompson te:01/11/23 1. Chest pain (R07.9: Chest pain, unspecified) Orders: ketorolac, 60 mg = 2 mL, Injection, IntraMuscular, Once, Stop date 01/11/23 8:15:00 EDT, STAT, Start date 01/11/23 8:15:00 EDT, 01/11/23 8:15:00 EDT Automated Diff Basic Metabolic Panel CBC w/ Auto Diff D-Dimer ED Cardiac Monitoring eGFR Extra SST Tube Oxygen Saturation PT & PTT Saline Lock Insert Troponin 0 Hr. Troponin 3 Hr. Troponin 6 Hr. Troponin 9 Hr. XR Chest 2 Views [facility]04-26-2023 Hospital Discharge instructions Patient Education 01/11/2023 08:47:01 Nonspecific Chest Pain, Adult Nonspecific Chest Pain, Adult Chest pain is an uncomfortable, tight, or painful feeling in the chest. The pain can feel like a crushing, aching, or squeezing pressure. A person can feel a burning or tingling sensation. Chest paincan also be felt in your back, neck, jaw, shoulder, or arm. This pain can be worse when you move, sneeze, or take a deep breath. Chest pain can be caused by a condition that is life-threatening. This must be treated right away. It can also be caused by something that is not life- threatening. If you have chest pain, it can be hard to know the difference, so it is important to get help right away to make sure that you do not have a serious condition. Some life-threatening causes of chest pain include: Heart attack. A tear in the body's main blood vessel (aortic dissection). Inflammation around your heart (pericarditis). A problem in the lungs, such as a blood clot (pulmonary embolism) or a collapsed lung (pneumothorax). Some non life-threatening causes of chest pain include: Heartburn. Anxiety or stress. Damage to the bones, muscles, and cartilage that make up your chest wall. Pneumonia or bronchitis. Shingles infection (varicella-zoster virus). Your chest pain may come and go. It may also be constant. Your health care provider will do tests and other studies to find the cause of your pain. Treatment will depend on the cause of your chest pain. Follow these instructions at home: Medicines Take okwo-bna-ersmler and prescription medicines only as told by your health care provider. If you were prescribed an antibiotic medicine, take it as told by your health care provider. Do notstop taking the antibiotic even if you start to feel better. Activity Avoid any activities that cause chest pain. Do not lift anything that is heavier than 10 lb (4.5 kg), or the limit that you are told, until your health care provider says that it is safe. Rest as directed by your health care provider. Return to your normal activities only as told by your health care provider. Ask your health care provider what activities are safe for you. Lifestyle Do not use any products that contain nicotine or tobacco, such as cigarettes, e- cigarettes, and chewing tobacco. If you need help quitting, ask your health care provider. Do not drink alcohol. Make healthy lifestyle changes as recommended. These may include: ?Getting regular exercise. Ask your health care provider to suggest some exercises that are safe for you. ?Eating a heart-healthy diet. This includes plenty of fresh fruits and vegetables, whole grains, low-fat (lean) protein, and low-fat dairy products. A dietitian can help you find healthy eating options. ?Maintaining a healthy weight. ?Managing any other health conditions you may have, such as high blood pressure (hypertension) or diabetes. ?Reducing stress, such as with yoga or relaxation techniques. General instructions Pay attention to any changes in your symptoms. It is up to you to get the results of any tests that were done. Ask your health care provider, or the department that is doing the tests, when your results will be ready. Keep all follow-up visits as told by your health care provider. This is important. You may be asked to go for further testing if your chest pain does not go away. Contact a health care provider if: Your chest pain does not go away. You feel depressed. You have a fever. You notice changes in your symptoms or develop new symptoms. Get help right away if: Your chest pain gets worse. You have a cough that gets worse, or you cough up blood. You have severe pain in your abdomen. You faint. You have sudden, unexplained chest discomfort. You have sudden, unexplained discomfort in your arms, back, neck, or jaw. You have shortness of breath at any time. You suddenly start to sweat, or your skin gets clammy. You feel nausea or you vomit. You suddenly feel lightheaded or dizzy. You have severe weakness, or unexplained weakness or fatigue. Your heart begins to beat quickly, or it feels like it is skipping beats. These symptoms may represent a serious problem that is an emergency. Do not wait to see if the symptoms will go away. Get medical help right away. Call your local emergency services (911 in the [place] Do not drive yourself to the hospital. Summary Chest pain can be caused by a condition that is serious and requires urgent treatment. It may also be caused by something that is not life-threatening. Your health care provider may do lab tests and other studies to find the cause of your pain. Follow your health care provider's instructions on taking medicines, making lifestyle changes, and getting emergency treatment if symptoms become worse. Keep all follow-up visits as told by your health care provider. This includes visits for any further testing if your chest pain does not go away. This information is not intended to replace advice given to you by your health care provider. Make sure you discuss any questions you have with your health care provider. Document Revised: 11/18/2021 Document Reviewed: 11/18/2021 [employer] Patient Education 2022 [employer]. Follow Up Care 01/11/2023 06:51:09 With:Kaiden CLEVELAND Address: [address], [address] [place] [id number]- [facility] (1) When:01/14/2023 08:38:43 Comments:Return to the emergency room if your pain gets worse or any new symptoms. [facility]03-31-2023 Hospital Discharge instructions Patient Education 12/15/2022 23:45:01 Otitis Media, Adult Otitis Media, Adult Otitis media occurs when there is inflammation and fluid in the middle ear. Your middle ear is a part of the ear that contains bones for hearing as well as air that helps send sounds to your brain. What are the causes? This condition is caused by a blockage in the eustachian tube. This tube drains fluid from the ear to the back of the nose (nasopharynx). A blockage in this tube can be caused by an object or by swelling (edema) in the tube. Problems that can cause a blockage include: A cold or other upper respiratory infection. Allergies. An irritant, such as tobacco smoke. Enlarged adenoids. The adenoids are areas of soft tissue located high in the back of the throat, behind the nose and the roof of the mouth. A mass in the nasopharynx. Damage to the ear caused by pressure changes (barotrauma). What are the signs or symptoms? Symptoms of this condition include: Ear pain. A fever. Decreased hearing. A headache. Tiredness (lethargy). Fluid leaking from the ear. Ringing in the ear. How is this diagnosed? This condition is diagnosed with a physical exam. During the exam your health care provider will use an instrument called an otoscope to look into your ear and check for redness, swelling, and fluid.He or she will also ask about your symptoms. Your health care provider may also order tests, such as: A test to check the movement of the eardrum (pneumatic otoscopy). This test is done by squeezing a small amount of air into the ear. A test that changes air pressure in the middle ear to check how well the eardrum moves and whether the eustachian tube is working (tympanogram). How is this treated? This condition usually goes away on its own within 3 5 days. But if the condition is caused by a bacteria infection and does not go away own its own, or keeps coming back, your health care provider may: Prescribe antibiotic medicines to treat the infection. Prescribe or recommend medicines to control pain. Follow these instructions at home: Take feuk-fka-dxabfeo and prescription medicines only as told by your health care provider. If you were prescribed an antibiotic medicine, take it as told by your health care provider. Do notstop taking the antibiotic even if you start to feel better. Keep all follow-up visits as told by your health care provider. This is important. Contact a health care provider if: You have bleeding from your nose. There is a lump on your neck. You are not getting better in 5 days. You feel worse instead of better. Get help right away if: You have severe pain that is not controlled with medicine. You have swelling, redness, or pain around your ear. You have stiffness in your neck. A part of your face is paralyzed. The bone behind your ear (mastoid) is tender when you touch it. You develop a severe headache. Summary Otitis media is redness, soreness, and swelling of the middle ear. This condition usually goes away on its own within 3 5 days. If the problem does not go away in 3 5 days, your health care provider may prescribe or recommend medicines to treat your symptoms. If you were prescribed an antibiotic medicine, take it as told by your health care provider. This information is not intended to replace advice given to you by your health care provider. Make sure you discuss any questions you have with your health care provider. Document Released: 06/09/2005 Document Revised: 08/17/2018 Document Reviewed: 08/25/2017 [employer] Patient Education 2020 [employer]. Follow Up Care 12/15/2022 23:23:38 With:Kaiden CLEVELAND Address: [address], [facility] [place] [address]- Business (1) When:12/20/2022 [facility]03-30-2023 Evaluation + Plan noteExtracted from: Title:ED Note Author:Demetrius Parker DO Date :12/15/22 AOM (acute otitis media) (H6 6.90: Otitis media, unspecified, unspecified ear) Orders: acetaminophen, 650 mg = 2 tab(s), Tab, Oral, Once, Stop date 12/15/22 23:31:00 EDT, STAT, Start date 12/15/22 23:: EDT, 12/15/22: EDT clindamycin, 450 mg = 3 cap(s), Cap, Oral, Once, Stop date 12/15/22 23::00 EDT, STAT, Start date 12/15/22 23:: EDT, 12/15/22:: EDT clindamycin, 450 mg = 3 cap(s), Oral, q8hr, X 7 day(s), # 63 cap(s), Refills(s) 0, Pharmacy: [id number], 165.1, cm, 12/15/22:: EDT, Height/Length Dosing, 64.8, kg, 12/15/22: EDT, Weight Dosing [facility]03-25-2023 Hospital Discharge instructions Patient Education 12/10/2022 14:00:06 Viral Respiratory Infection, Hsjq-Jn-Jgjy Viral Respiratory Infection A viral respiratory infection is an illness that affects parts of the body that are used for breathing. These include the lungs, nose, and throat. It is caused by a germ called a virus. Some examples of this kind of infection are: A cold. The flu (influenza). A respiratory syncytial virus (RSV) infection. A person who gets this illness may have the following symptoms: A stuffy or runny nose. Yellow or green fluid in the nose. A cough. Sneezing. Tiredness (fatigue). Achy muscles. A sore throat. Sweating or chills. A fever. A headache. Follow these instructions at home: Managing pain and congestion Take ldmb-lzq-qrvxzvr and prescription medicines only as told by your doctor. If you have a sore throat, gargle with salt water. Do this 3 4 times per day or as needed. To make a salt-water mixture, dissolve 1 tsp of salt in 1 cup of warm water. Make sure that all the salt dissolves. Use nose drops made from salt water. This helps with stuffiness (congestion). It also helps soften the skin around your nose. Drink enough fluid to keep your pee (urine) pale yellow. General instructions Rest as much as possible. Do not drink alcohol. Do not use any products that have nicotine or tobacco, such as cigarettes and e- cigarettes. If you need help quitting, ask your doctor. Keep all follow-up visits as told by your doctor. This is important. How is this prevented? Get a flu shot every year. Ask your doctor when you should get your flu shot. Do not let other people get your germs. If you are sick: ?Stay home from work or school. ?Wash your hands with soap and water often. Wash your hands after you cough or sneeze. If soap and water are not available, use hand asset liability analyst. Avoid contact with people who are sick during cold and flu season. This is in fall and winter. Get help if: Your symptoms last for 10 days or longer. Your symptoms get worse over time. You have a fever. You have very bad pain in your face or forehead. Parts of your jaw or neck become very swollen. Get help right away if: You feel pain or pressure in your chest. You have shortness of breath. You faint or feel like you will faint. You keep throwing up (vomiting). You feel confused. Summary A viral respiratory infection is an illness that affects parts of the body that are used for breathing. Examples of this illness include a cold, the flu, and respiratory syncytial virus (RSV) infection. The infection can cause a runny nose, cough, sneezing, sore throat, and fever. Follow what your doctor tells you about taking medicines, drinking lots of fluid, washing your hands, resting at home, and avoiding people who are sick. This information is not intended to replace advice given to you by your health care provider. Make sure you discuss any questions you have with your health care provider. Document Released: 08/17/2009 Document Revised: 09/12/2019 Document Reviewed: 10/15/2018 [employer] Patient Education 2019 [employer]. [facility] 01-11-2023 Hospital Discharge instructions Patient Education 09/27/2022 23:10:00 Ovarian Cyst, Ugxq-nt-Imzk Ovarian Cyst An ovarian cyst is a fluid-filled sac on an ovary. The ovaries are organs that make eggs in women. Most ovarian cysts go away on their own and are not cancerous (are benign). Some cysts need treatment. Follow these instructions at home: Take xddi-udr-jbokxwq and prescription medicines only as told by your doctor. Do not drive or use heavy machinery while taking prescription pain medicine. Get pelvic exams and Pap tests as often as told by your doctor. Return to your normal activities as told by your doctor. Ask your doctor what activities are safe for you. Do not use any products that contain nicotine or tobacco, such as cigarettes and e-cigarettes. If you need help quitting, ask your doctor. Keep all follow-up visits as told by your doctor. This is important. Contact a doctor if: Your periods are: ?Late. ?Irregular. ?Painful. Your periods stop. You have pelvic pain that does not go away. You have pressure on your bladder. You have trouble making your bladder empty when you pee (urinate). You have pain during sex. You have any of the following in your belly (abdomen): ?A feeling of fullness. ?Pressure. ?Discomfort. ?Pain that does not go away. ?Swelling. You feel sick most of the time. You have trouble pooping (have constipation). You are not as hungry as usual (you lose your appetite). You get very bad acne. You start to have more hair on your body and face. You are gaining weight or losing weight without changing your exercise and eating habits. You think you may be . Get help right away if: You have belly pain that is very bad or gets worse. You cannot eat or drink without throwing up (vomiting). You suddenly get a fever. Your period is a lot heavier than usual. This information is not intended to replace advice given to you by your health care provider. Make sure you discuss any questions you have with your health care provider. Document Released: 02/20/2009 Document Revised: 08/17/2018 Document Reviewed: 02/05/2017 [employer] Patient Education 2020 [employer]. Follow Up Care 09/27/2022 21:15:44 With:Kapil SORIA Address: [address] [place] [address]- Business (1) When:09/30/2022 Comments:You can use ibuprofen 800 mg every 8 hours as needed for pain. Please follow-up with Dr. Soria for further evaluation management. Please return to the ED for any new or worsening symptoms. With:Kaiden CLEVELAND Address: [address], [place] [address]- Business (1) When:Within 3 Day(s) [facility]01-10-2023 Evaluation + Plan noteExtracted from: Title:ED Note Author:Marshall Cardenas DO Date :09/27/22 Ruptured ovarian cyst (N83.2 09: Unspecified ovarian cyst, unspecified side) Orders: ketorolac, 30 mg = 1 mL, Injection, IV Push, Once, Stop date 09/27/22 21:43:00 EST, STAT, Start date 09/27/22 21:43:00 EST, 09/27/22 21:43:00 EST Sodium Chloride 0.9% intravenous solution, Soln-IV, Misc, Once, Stop date 09/27/22 21:44:58 EST, Physician Stop, 09/27/22 21:44:58 EST Sodium Chloride 0.9% intravenous solution, 1,000 mL, Soln-IV, IV, Once, Stop date 09/27/22 21:43:00 EST, STAT, Start date 09/27/22 21:43:00 EST, mL/hr, Infuse over 61, minute(s) Automated Diff Basic Metabolic Panel CBC w/ Auto Diff CT Abdomen/Pelvis w/ Contrast eGFR Extra SST Tube Hepatic Function Panel Lipase Level UA With Cult Reflex [facility]10-28-2022 Hospital Discharge instructions Follow Up Care 07/15/2022 08:55:05 With:Kapil SORIA Address: [address] , [place] [address]- Business (1) When:07/21/2022 Comments:Call for any problems.Call for fever > 100.5 FCall for severe abdominal painCall physician if symptoms worsenReturn for decreased movementKeep scheduled appt with Dr. Soria [facility]08-11-2022 Hospital Discharge instructions Follow Up Care 04/28/2022 10:18:48 With:Mike MERRILL, Sharita Keane, URAbhijit, URO Address: When: Unknown [facility] 08-09-2022 NoteHISTORY: Right flank pain. Microhematuria. TECHNIQUE: Ultrasound evaluation was performed of the kidneys and bladder. COMPARISON: None available FINDINGS: Right kidney measures 11.1 x 6 x 4.1 cm. Corticomedullary differentiation is maintained. No contour deforming masses or shadowing stones. Mild right-sided hydronephrosis. Left kidney measures 10.8 x 4.8 x 5.1 cm. Corticomedullary differentiation is maintained. No contour deforming masses, shadowing stones, or hydronephrosis. The urinary bladder appears within normal limits. Bilateral ureteral jets are visualized. Bladder prevoid volume calculated at approximately 254 mL. The patient voided completely. IMPRESSION: Mild right-sided hydronephrosis concerning for right-sided urinary calculus that is not visualized on this examination. Report reported and signed by PORTER HERNANDEZ on 04/26/2022 [id number] note No data available for this section [facility] evaluation + Plan note Future Appointments Appointment Date:07/25/2023 11:45:00 AM Scheduled Provider:Echo OLIVIER CNP Location:[facility] Appointment Type:Cardiology Follow Up ([facility]) Appointment Date:08/07/2023 01:00:00 PM Scheduled Provider: [facility] Appointment Type:CV Stress ([facility]) Appointment Date:08/07/2023 02:00:00 PM Scheduled Provider: [facility] Appointment Type:CV Holter/Event ([facility]) Appointment Date:08/28/2023 11:45:00 AM Scheduled Provider:Alexsander LESTER MD [facility] Type:Cardiology Follow Up ([facility]) Future Scheduled Tests Radiology* Echo Transthoracic Complete 07/11/23 * Echo Transthoracic Complete 07/11/23 * ECG Stress [facility] App[facility]ments Appointment Date:08/07/2023 01:00:00 PM Scheduled Provider: [facility] Appointment Type:CV Stress (FT) Appointment Date:08/07/2023 02:00:00 PM Scheduled Provider: [facility] Appointment Type:CV Holter/Event (FT) Appointment Date:08/28/2023 11:45:00 AM Scheduled Provider:Alexsander LESTER MD Location:[facility] Appointment Type:Cardiology Follow Up (FT) Future Scheduled Tests Radiology* ECG Stress Exercise 08/07/23 [facility] + Plan note Future Appointments Appointment Date:08/28/2023 11:45:00 AM Scheduled Provider:Alexsander LESTER MD Location:[facility] Appointment Type:Cardiology Follow Up (FT) [facility] noteNo assessment information available [facility] Work Phone: [facility]: [facility] Work Phone: [facility] Work Phone: Hospital Discharge instructions No data available for this section [facility] Additional Instructions Lots of fluids Continue current meds Return if symptoms are worseL[facility] Work Phone: Hospital Discharge instructions Additional Instructions Push fluids Rest Zofran if needed for nausea vomiting Flonase ofxm-fkf-ybbchgh may be beneficial Use humidifier Zyrtec or Claritin daily Return here if any problems persist or worsen Tessalon Perles to suppress her coughL[facility]an Hospital [facility]tr Work Phone: Progress note No data available for this section [facility] Summary Purpose Family History No Family History Records FoundNo Family History Records FoundNo Family History Records Found No data available for this section No data available for this section No data available for this section No data available for this section No data available for this section No data available for this section No data available for this section No data available for this section No data available for this section No Family History Records FoundNo Family History Records Found Advance Directives No Advanced Directives Records Found Advance Directive Response Recorded Date/ Time Advance Directives No October 09, 2017 2:29am Advance Directive Response Recorded Date/ Time Advance Directives No October 09, 2017 1:29am Chief Complaint and Reason for Visit Chief Complaint iup 21 weeks rt side pain 31 WK IUP Kidney pain/ no movement 22weeks iup, rt side pain, abd pain, fluid leaking Chief Complaint z3a.25 z36.89 feeling off Chief Complaint z3a.25 z36.89 feeling off lightheaded, 2 wks pp Chief Complaint r10.13 r94.31 Chief Complaint r10.13 r94.31 right side abd pain Chief Complaint r10.13 r94.31 right side abd pain n/v/d Chief Complaint r10.13 r94.31 right side abd pain n/v/d abnormal labs Additional Source Comments INFORMATION SOURCE (unrecogn ized section and content) DATE CREATED AUTHOR 10/23/2021 [facility] DATE CREATED AUTHOR AUTHOR'S ORGANIZ ATION 04/27/2022 [facility] Specialist DATE CREATED AUTHOR AUTHOR'S ORGANIZ ATION 11/26/2022 [facility] DATE CREATED AUTHOR AUTHOR'S ORGANIZ ATION 09/22/2023 [facility] DATE CREATED AUTHOR AUTHOR'S ORGANIZ ATION 10/02/2023 [facility] Care Teams (unrecognized sec tion and content) Team Status: Inactive Member Role Status [employer] [facility] Primary Care Provider Active Victor Manuel Spear DO Attending Provider Active Team Status: Inactive Member Role Status [facility] Primary Care Provider Active Billie Montana DO Attending Provider Active Team Status: Inactive Member Role Status [facility] Primary Care Provider Active Lowell Matos MD Attending Provider Active Team Status: Active Member Role Status [facility] Family [facility] Primary Care Provider Active Team Status: Inactive Member Role Status [facility] Primary Care Provider Active Tru Brambila MD Attending Provider Active Team Status: Inactive Member Role Status Dates Jonatan Linares PA-C Emergency Provider Active Services [facility] Primary Care Provider Active Team Status: Inactive Member Role Status [employer] [facility] Primary Care Provider Active Ravi Cash MD Emergency Provider Active Team Status: Inactive Member Role Status [facility] Primary Care Provider Active Vibha Ruiz MD Attending Provider Active Deb Goldsmith DO RES Other Provider Active Team Status: Inactive Member Role Status [facility] Primary Care Provider Active Vibha Ruiz MD Attending Provider Active Deb Agus , DO RES Referring Provider Active Team Status: Inactive Member Role Status [facility] Primary Care Provider Active Jennyfer Savage Malinda , Emergency Provider Active Team Status: Inactive Member Role Status Dates [facility] Primary Care Provider Active Gabi Stanley APRN Emergency Provider Active Goals (unrecognized section and content) Goals may be documented in a n alternate sectionGoals may be documented in an alternate sectionGoals may be documented in an alternate section No data available for this section No data available for this section No data available for this section No data available for this sectionGoals may be documented in an alternate sectionGoals may be documented in an alternate section No data available for this section No data available for this section No data available for this section No data available for this section No data available for this section No data available for this section No data available for this section No data available for this section No data available for this section No data available for this sectionGoals may be documented in an alternate section No data available for this section No data available for this section No data available for this section No data available for this section No data available for this sectionGoals may be documented in an alternate section No data available for this sectionGoals may be documented in an alternate section No data available for this section No data available for this sectionGoals may be documented in an alternate section No data available for this section FOR RECORDS PERTAINING TO PATIENTS WHO ARE OR HAVE BEEN ENROLLED IN A CHEMICAL DEPENDENCY/SUBSTANCEABUSE PROGRAM, SOME INFORMATION MAY BE OMITTED. This clinical summary was aggregated from multiple sources. Caution should be exercised in using it in the provision of clinical care. This summary normalizes information from multiple sources, and as a consequence, information in this document may materially change the coding, format and clinical context of patient data. In addition, data may be omitted in some cases. CLINICAL DECISIONS SHOULD BE BASED ON THE PRIMARY CLINICAL RECORDS. The city of [place] [employer] [facility]. provides no warranty or guarantee of the accuracy or completeness of information in this document.
[2023-12-11 12:09] LABS: Age Gdln ACOG Testing Note (.); IGP, rfx Aptima HPV ASCU Note (.)
== END 2023-12-06 21:21 | disposition home or self-care (01) ==
LOC: LAB 21:20
PROVIDERS: Visit Provider Obstetrics & Gynecology
DX: Z01.419 Encounter for gynecological examination (general) (routine) without abnormal findings (principal)
CPT/HCPCS: G0145